=== PATIENT | female | born 1970 | race Caucasian/White ===

== ENCOUNTER 2022-06-05 04:55 | Emergency (ER) | payer BC, SELFPAY ==
--- NOTE | ~2022-06-05 | CT_ITS ---
EXAMINATION: CT lumbar spine wo con DATE: 06/05/2022 05:57 INDICATION: Severe right-sided low back pain radiating inferiorly. TECHNIQUE: Computed tomography (CT) of the lumbar spine was performed without intravenous contrast. A utomated exposure control and iterative reconstruction technique were employed. The dose-length produ ct was 1406.50 mGy-cm. COMPARISON: None FINDINGS: A degree lumbar dextrocurvature. Sagittal alignment is normal. Combined instrumented L4-S1 anterior s yuki fusion with interbody bone graft cages at both levels and bilateral vertical rods and pedicle s crews. There is a spinal stimulator overlying the right posterior iliac crest with a pair of leads ex tending from caudal to cranial within the sacral central canal with one lead tip terminating at the l evel of S2 and the second lead tip terminating in the right L5-S1 neural foramen. There is a second p air of spinal stimulator leads extending into the central canal via interspinous process approach at T12-L1 and extending cephalad within the central canal with lead tips at the level of T7-T8 on the sc out topogram. Vertebral body heights are normal. No fracture. Mild disc height loss at T10-T11 throug h L1-L2 as well as at L3-L4. Likely dropped cholecystectomy clip positioned between the liver and upp er pole of the right kidney. Paravertebral soft tissues are unremarkable. The following disc levels a re specifically discussed: T11-T12 through L2-L3: There is mild bilateral facet joint osteoarthritis. There is no neural foramin al stenosis. There is no central canal stenosis. L3-L4: Disc is bulging, eccentric to the left. There is right and moderate to severe left facet joint osteoarthritis. There is mild left neural foraminal stenosis. There is mild central canal stenosis. L4-L5: Anterior fusion with bone graft cage. Bilateral instrumented posterior spinal fusion with bila teral laminotomies. There is mild left neural foraminal stenosis. There is likely mild central canal stenosis however assessment is somewhat limited by metallic streak artifact. L5-S1: Anterior fusion with bone graft cage. Bilateral instrumented posterior spinal fusion with bila teral laminotomies. There is moderate left and mild to moderate right neural foraminal stenosis. Ther e is no central canal stenosis. IMPRESSION: 1. L4-S1 combined instrumented anterior and posterior spinal fusion. 2. Mild lumbar dextrocurvature with mild spondylosis. No acute osseous abnormality. 3. Spinal stimulator with leads extending into the sacrum and lower thoracic spine as detailed above. Reviewed, dictated and finalized at location A. IMPRESSION: 1. L4-S1 combined instrumented anterior and posterior spinal fusion. 2. Mild lumbar dextrocurvature with mild spondylosis. No acute osseous abnormal ity. 3. Spinal stimulator with leads extending into the sacrum and lower thoracic sp ine as detailed above.
[2022-06-05 05:03] VITALS: BP 121/71; PULSE 76; RESP 18; TEMP 36.5; O2SAT 100
--- NOTE | 2022-06-05 05:31 | PC.NURSE ---
C/o pain a 10 out of 10 while watching videos on phone and legs crossed on stretcher.
--- NOTE | 2022-06-05 05:51 | ED.BACK ---
HPI - Back Pain/Injury General Chief Complaint: Back Pain/Injury Stated Complaint: back pain Time Seen by Provider: 06/05/22 05:21 History of Present Illness HPI Narrative: Patient with history of chronic back pain, sciatica, with nerve stimulator presents with 2 days of severe sharp, burning right lower back pain which radiates down her leg, she states it feels different from her sciatica, and that it is more constant and causing pain with walking. Took norco at home with minimal improvement. Out of her Lyrica past week. Related Data Allergies Allergy/AdvReac Type Severity Reaction Status Date / Time acetaminophen [From Percocet] Allergy Anaphylaxis Verified 06/05/22 05:02 ketorolac [From Toradol] Allergy Anaphylaxis Verified 06/05/22 05:02 oxycodone [From Percocet] Allergy Anaphylaxis Verified 06/05/22 05:02 tramadol Allergy Anaphylaxis Verified 06/05/22 05:02 Review of Systems Review of Systems: CONST: No fever. HEENT: No sore throat C/V: No chest pain RESP: No cough GI: No abdominal pain : No dysuria. M/S: Back pain SKIN: No rash. NEURO: [No focal numbness or weakness] PSYCH: [No depression] [facility] Past Medical History Medical History (Updated 06/05/22 @ 05:57 by Trish Albert MD) Chronic lower back pain S/P placement of nerve stimulator Surgical History Surgical History (Updated 06/05/22 @ 05:55 by Trish Albert MD) H/O lumbosacral spine surgery Exam Narrative: EXAMINATION OF ORGAN SYSTEMS/BODY AREAS: Constitutional: Vital signs per nursing GENERAL: Resting comfortably but when moving around, appears to be uncomfortable HEAD: Normal with no signs of head trauma. EYES: EOMI, conjunctiva normal ENT: Hearing grossly intact LUNGS: Nonlabored breathing. 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 No gross focal sensory or strength deficits.] PSYCH: Normal affect Course Vital Signs Vital signs: Vital Signs Temperature 97.7 F 06/05/22 05:03 Pulse Rate 76 06/05/22 05:03 Respiratory Rate 18 06/05/22 05:03 Blood Pressure 121/71 06/05/22 05:03 Pulse Oximetry 100 06/05/22 05:03 Oxygen Delivery Room Air 06/05/22 05:03 Temperature 97.7 F 06/05/22 05:03 Pulse Rate 76 06/05/22 05:03 Respiratory Rate 18 06/05/22 05:03 Blood Pressure 121/71 06/05/22 05:03 Pulse Oximetry 100 06/05/22 05:03 Oxygen Delivery Room Air 06/05/22 05:03 MDM - Back Pain/Injury MDM Narrative Medical decision making narrative: ED COURSE AND MEDICAL DECISION MAKING: ? 52 year old female with history of acute on chronic back pain. Normal motor and sensory exam. Patient able to ambulate. No evidence of acute cord compression, osteomyelitis/discitis or cauda equina without saddle anesthesia, urinary retention/incontinence, numbness/tingling in lower extremities, fever, history of IV drug use, cancer or immunosuppression. Doubt AAA or aortic dissection without severe pain/discomfort or any neurovascular deficits. However as she states symptoms worse than her usual back pain I will obtain imaging. Steroids started. CT of the lumbar spine does not show any acute abnormality. I do feel she is stable for discharge at this time. Patient is given return precautions and instructed to come back at any point in time for worsening pain, fevers, weakness, difficulty walking, urinary or fecal incontinence. Patient expressed understanding of instructions. Discharge Plan Discharge Clinical Impression: Lumbar radiculopathy Patient Disposition: Home, Self-Care Condition: Stable Instructions: Antibiotic Form, Sciatica (ED), Back Pain (ED) Additional Instructions: Please take the steroid course as prescribed; continue taking your current pain medication regimen and foll
[2022-06-05] MEDS: predniSONE 20 MG TABLET 40 MG PO (06:06)
[2022-06-05 07:16] VITALS: BP 107/79; PULSE 82; O2SAT 100
[2022-06-05 07:45] VITALS: BP 106/77; PULSE 80; RESP 16; O2SAT 96
== END 2022-06-05 07:45 | disposition home or self-care (01) ==
PROVIDERS: Emergency Provider Emergency Medicine
DX: M47.26 Other spondylosis with radiculopathy, lumbar region (principal); Z96.82 Presence of neurostimulator; Z98.1 Arthrodesis status
CPT/HCPCS: 72131; 99284; J7512

== ENCOUNTER 2022-07-19 20:59 | Emergency (ER) | payer SELFPAY ==
[2022-07-19 21:03] VITALS: BP 150/87; PULSE 95; RESP 16; TEMP 36.3; O2SAT 96
--- NOTE | 2022-07-19 21:18 | ED.URI ---
HPI - URI/Sore Throat General Chief Complaint: Upper Respiratory Infection Stated Complaint: cold symptoms Time Seen by Provider: 07/19/22 21:00 History of Present Illness HPI Narrative: 52-year-old female presents to the emergency room for evaluation of cough, sinus congestion, postnasal drip, rhinorrhea, sneezing for 2 weeks. Patient states that her PCP in [place] told her to come straight to the emergency room for evaluation as this could be something serious. Patient states I just have a cold . Patient denies fever, shortness of breath, difficulty breathing. States has been taking NyQuil, DayQuil and Delsym for her symptoms. Related Data Allergies Allergy/AdvReac Type Severity Reaction Status Date / Time acetaminophen [From Percocet] Allergy Anaphylaxis Verified 06/05/22 05:02 ketorolac [From Toradol] Allergy Anaphylaxis Verified 06/05/22 05:02 oxycodone [From Percocet] Allergy Anaphylaxis Verified 06/05/22 05:02 tramadol Allergy Anaphylaxis Verified 06/05/22 05:02 Review of Systems Review of Systems: CONSTITUTIONAL: Denies fever, chills, or sweats. EYES: Denies visual changes, redness, or discharge. ENT: Reports rhinorrhea, congestion CARDIOVASCULAR: Denies chest pain, palpitations, or edema. RESPIRATORY: Reports cough GASTROINTESTINAL: Denies abdominal pain, nausea, vomiting, or diarrhea. GENITOURINARY: Denies dysuria or hematuria. SKIN: Denies rash or itching. MUSCULOSKELETAL: Denies back pain, joint pain, or myalgia. NEUROLOGIC: Denies headache, numbness, dizziness, or weakness. PSYCHIATRIC: Denies anxiety or depression. PMFSH Past Medical History Medical History Chronic lower back pain S/P placement of nerve stimulator Surgical History Surgical History H/O lumbosacral spine surgery Exam Narrative: GENERAL: Well-appearing, well-nourished, no physical limitations, and in no acute distress. HEAD: Normocephalic, atraumatic. EYES: Conjunctivae normal, PERRLA and EOMI. ENT: External nose normal, Nares clear, no rhinorrhea or epistaxis. Mucous membranes moist. Oropharynx without tonsillar hypertrophy exudate or other lesions. External ears normal, bilateral TMs normal bilaterally NECK: Supple. No adenopathy or masses. CHEST: Clear to auscultation. No respiratory distress. No wheezes rales or rhonchi. HEART: Regular rate and rhythm. No murmur heard. Normal peripheral pulses. EXTREMITIES: Normal range of motion. No edema. No clubbing or cyanosis SKIN: Warm, dry, no rash. No noted wounds NEURO: No focal deficits. Alert and oriented x3. MAEW. CN's II-XI intact bilaterally, normal gait PSYCH: Cooperative. Normal mood and affect. Course Vital Signs Vital signs: Vital Signs Temperature 36.3 C L 07/19/22 21:03 Pulse Rate 95 07/19/22 21:03 Respiratory Rate 16 07/19/22 21:03 Blood Pressure 150/87 H 07/19/22 21:03 Pulse Oximetry 96 07/19/22 21:03 Temperature 36.3 C L 07/19/22 21:03 Pulse Rate 93 07/19/22 22:01 Respiratory Rate 18 07/19/22 22:01 Blood Pressure 118/75 07/19/22 22:01 Pulse Oximetry 96 07/19/22 22:01 MDM - URI/Sore Throat Lab Data Labs: Lab Results 07/19/22 Range/Units 21:26 Influenza A (RT-PCR) Negative (Negative) Influenza B (RT-PCR) Negative (Negative) RSV (RT-PCR) Positive A (Negative) SARS-CoV-2 RNA (RT-PCR) Negative Discharge Plan Discharge Clinical Impression: Upper respiratory infection, Viral infection, RSV infection Patient Disposition: Home, Self-Care Condition: Stable Instructions: Antibiotic Form, Upper Respiratory Infection (ED) Prescriptions: New prednisone 20 mg tablet 60 mg PO DAILY 5 Days Qty: 15 0RF pseudoephedrine HCl 60 mg tablet 60 mg PO Q4-6H PRN (Reason: nasal congestion) Qty: 30 0RF Rx Instructions: DNExceed 4 doses/24h No Action prednisone 50 mg
[2022-07-19 22:01] VITALS: BP 118/75; PULSE 93; RESP 18; O2SAT 96
--- NOTE | 2022-07-19 22:04 | PC.NURSE ---
Patient states she thinks she has a cold . Patient on cell phone and in no distress during triage.
[2022-07-19 22:10] LABS: Influenza A QL RT-PCR Negative (Negative); Influenza B QL RT-PCR Negative (Negative); RSV RNA, RT-PCR Positive (Negative); SARS-CoV-2 RNA PCR Negative
== END 2022-07-19 22:26 | disposition home or self-care (01) ==
PROVIDERS: Emergency Provider Nurse Practitioner Family
DX: J06.9 Acute upper respiratory infection, unspecified (principal); B97.4 Respiratory syncytial virus as the cause of diseases classified elsewhere; Z20.822 Contact with and (suspected) exposure to COVID-19; Z96.82 Presence of neurostimulator; G89.29 Other chronic pain
CPT/HCPCS: 87637; 99283

== ENCOUNTER 2022-07-22 19:11 | Emergency (ER) | payer BC, SELFPAY ==
[2022-07-22 19:25] VITALS: BP 141/90; PULSE 80; RESP 16; TEMP 36.4; O2SAT 96
[2022-07-22 19:43] LABS: Glucose Point of Care 356 mg/dl (65-105)
[2022-07-22 19:47] LABS: Basophils Percent Auto 0.2 % (0.2-1.2); Hematocrit 38.3 % (37.0-47.0); Hemoglobin 12.2 g/dL (12.0-15.0); Immature Granulocyte Absolute 0.09 K/mm3 (0.00-0.031); Immature Granulocyte Percent A 0.8 % (0-0.5); Lymphocytes Absolute Auto 3.25 K/mm3 (0.9-3.2); Lymphocytes Percent Auto 27.1 % (18.3-44.2); Mean Corpuscular HGB Conc 31.9 g/dl (32-36); Mean Corpuscular Hemoglobin 29.7 pg (26-34); Mean Corpuscular Volume 93.2 fl (80-100); Mean Platelet Volume 9.5 fl (7.4-10.4); Monocytes Absolute Auto 0.4 K/mm3 (0.1-0.6); Monocytes Percent Auto 3.7 % (2.6-8.5); Neutrophils Absolute Auto 8.2 K/mm3 (1.3-6.7); Neutrophils Percent Auto 68.2 % (45.5-73.1); Platelet Count Result 303 k/mm3 (150-375); Red Blood Count 4.11 M/mm3 (4.2-5.4); Red Cell Distribution Width 14.6 % (11.5-14.5)
[2022-07-22 19:57] LABS: Alanine Aminotransferase 30 U/L (6-35); Albumin Level 4.1 g/dL (3.5-5.1); Alkaline Phosphatase 81 U/L (38-126); Anion Gap 10 mmol/L (8-16); Aspartate Amino Transferase 24 U/L (14-36); Bilirubin,Total 0.3 mg/dL (0.2-1.3); Blood Urea Nitrogen 11 mg/dL (7-17); Calcium 8.5 mg/dL (8.4-10.2); Carbon Dioxide 28 mmol/L (22-30); Chloride 99 mmol/L (98-107); Estimated CRCL calculation 98 ml/min; Estimated Glomerular Filt Rate > 60; Glucose 352 mg/dL (65-110); Potassium 3.9 mmol/L (3.4-5.0); Sodium 137 mmol/L (137-145)
[2022-07-22 20:01] LABS: Beta-Hydroxybutyrate/Acetoacetate 0.07 mmol/L (0.02-0.27)
[2022-07-22 20:24] LABS: Appearance Urine Cloudy (Clear); Bilirubin Urine Negative (Negative); Blood Urine 1+ (Negative); Color Urine Yellow (Yellow); Glucose Urine UA 3+ mg/dL (Negative); Ketones Urine Negative (Negative); Leukocyte Esterase Ur Negative LEU/UL (Negative); Nitrate Urine Negative (Negative); Protein Urine Negative (Negative); Specific Grav Ur 1.015 (1.001-1.035); Urobilinogen Urine 0.2 mg/dL (<2.0)
[2022-07-22 20:29] LABS: Bacteria Urine Trace /hpf; Mucus Urine Rare /lpf; Squamous Epithelial Cell Urine Many /hpf (Few)
[2022-07-22 20:30] LABS: Add Urine Microscopic? YES
[2022-07-22 23:57] LABS: Glucose Point of Care 160 mg/dl (65-105)
[2022-07-23 02:12] VITALS: O2SAT 98
[2022-07-23 02:15] VITALS: BP 138/86; PULSE 67; RESP 18; O2SAT 97
--- NOTE | 2022-07-23 02:46 | ED.GENADULT ---
HPI - General Adult General Chief complaint: Recheck/Abnormal Lab/Rx Stated complaint: hyperglycemia Time Seen by Provider: 07/23/22 01:35 History of Present Illness HPI narrative: This is a 52-year-old female presenting to ED with elevated blood sugars. She was seen here Thursday for URI symptoms. She is given a course of steroids. Since then her blood sugars increased around the 300s. She has also had some very nonspecific findings such as mental fogginess. Her URI symptoms have improved although she still has a slight cough. Patient denies fever, chills, chest pain, difficulty breathing, abdominal pain, nausea/vomiting/diarrhea. Related Data Home Medications Medication Instructions Recorded Confirmed hydrocodone 10 mg-acetaminophen tablet 07/22/22 07/22/22 325 mg tablet Allergies Allergy/AdvReac Type Severity Reaction Status Date / Time acetaminophen [From Percocet] Allergy Anaphylaxis Verified 07/22/22 23:58 ketorolac [From Toradol] Allergy Anaphylaxis Verified 07/22/22 23:58 oxycodone [From Percocet] Allergy Anaphylaxis Verified 07/22/22 23:58 tramadol Allergy Anaphylaxis Verified 07/22/22 23:58 Review of Systems Review of Systems: CONSTITUTIONAL: Denies night sweats. EYES: No eye pain ENT: Denies rhinorrhea CARDIOVASCULAR: Denies palpitations RESPIRATORY: Denies hemoptysis GASTROINTESTINAL: Denies hematemesis GENITOURINARY: Denies hematuria. SKIN: Denies rash MUSCULOSKELETAL: Denies myalgia. NEUROLOGIC: Denies weakness. PSYCHIATRIC: Denies delusions PMFSH Past Medical History Medical History Chronic lower back pain S/P placement of nerve stimulator Surgical History Surgical History H/O lumbosacral spine surgery Social History Social History Social History: Denies alcohol tobacco or drug use Exam Narrative: APPEARANCE: No apparent distress. patient is pleasant polite to the Head: atraumatic. EYES: EOMI, NOSE: Atraumatic NECK: Trachea midline RESPIRATORY: No increased rate of breathing, clear to auscultation bilaterally CARDIOVASCULAR: RRR, ABDOMINAL: Non-distended MUSCULOSKELETAl: No obvious deformities NEURO: Alert. Moving 4/4 extremities SKIN:: Warm, dry. Normal color PSYCHIATRIC: Normal affect Course Vital Signs Vital signs: Vital Signs Temperature 97.5 F L 07/22/22 19:25 Pulse Rate 80 07/22/22 19:25 Respiratory Rate 16 07/22/22 19:25 Blood Pressure 141/90 H 07/22/22 19:25 Pulse Oximetry 96 07/22/22 19:25 Temperature 97.5 F L 07/22/22 19:25 Pulse Rate 67 07/23/22 02:15 Respiratory Rate 18 07/23/22 02:15 Blood Pressure 138/86 07/23/22 02:15 Pulse Oximetry 97 07/23/22 02:15 Medical Decision Making MDM Narrative Medical decision making narrative: this is a 52-year-old female presenting ED for elevated blood sugar. Patient was given a course of steroids which will increase her blood sugars as a diabetic. She also had some other complaints such as mental fogginess but those seem to have improved while she was in emergency department. Lab work showed a elevated white blood cell count likely from the steroid use. Her BNP was in normal limits and she has no evidence of DKA/ HHS. Urine had some white blood cells but many squamous cells and is likely a dirty catch. She does not have any urinary symptoms this time. Patient is comfortable going home. She will be discharged. She can return emergency department for condition has worsened. She has been instructed to stop taking his steroids. Vital Signs Vital Signs: Vital Signs Temperature 97.5 F L 07/22/22 19:25 Pulse Rate 80 07/22/22 19:25 Respiratory Rate 16 07/22/22 19:25 Blood Pressure 141/90 H 07/22/22 19:25 Pulse Oximetry 96 07/22/22 19:25 Temperature 97.5 F L 07/22/22 19:25 Pul
== END 2022-07-23 02:58 | disposition home or self-care (01) ==
PROVIDERS: Emergency Medicine; Emergency Provider Emergency Medicine
DX: J06.9 Acute upper respiratory infection, unspecified (principal); E11.9 Type 2 diabetes mellitus without complications; T50.905A Adverse effect of unspecified drugs, medicaments and biological substances, initial encounter; M54.50 Low back pain, unspecified; G89.29 Other chronic pain
CPT/HCPCS: 36415; 80053; 81001; 82010; 82948; 85025; 99283

== ENCOUNTER 2022-11-01 20:30 | Emergency (ER) | payer OTHER, SELFPAY ==
[2022-11-01 20:50] VITALS: BP 149/87; PULSE 105; RESP 18; TEMP 36.5; O2SAT 100
--- NOTE | 2022-11-02 01:33 | ED.GENADULT ---
HPI - General Adult General Chief complaint: Upper Respiratory Infection Stated complaint: cough, sore throat, Time Seen by Provider: 11/02/22 01:23 History of Present Illness HPI narrative: Patient 52-year-old female who presents the emergency department with chief complaint of cough. Patient reports that she has had a cough since July after she had COVID patient reports this has been continually ongoing and has not stopped at any point. The patient reports she is recently moved to the area from [place] and reports that she currently does not have a primary care doctor in the area the patient also reports that she has had nasal congestion and has had fullness in her sinuses Related Data Home Medications Medication Instructions Recorded Confirmed hydrocodone 10 mg-acetaminophen tablet 07/22/22 07/22/22 325 mg tablet Allergies Allergy/AdvReac Type Severity Reaction Status Date / Time ketorolac [From Toradol] Allergy Anaphylaxis Verified 11/01/22 20:31 oxycodone [From Percocet] Allergy Anaphylaxis Verified 11/01/22 20:31 tramadol Allergy Anaphylaxis Verified 11/01/22 20:31 Review of Systems Review of Systems: A 10 system review of systems was completed on the patient and is negative except for what is stated in the HPI. Nursing and ancillary documentation was reviewed. [facility] Past Medical History Medical History Chronic lower back pain Surgical History Surgical History H/O lumbosacral spine surgery S/P placement of nerve stimulator Social History Social History Social History: Denies alcohol tobacco or drug use Exam Narrative: GENERAL: Well-appearing, well-nourished, and in no acute distress. HEAD: Normocephalic, atraumatic. EYES: PERRLA and EOMI. ENT: Nares clear, no rhinorrhea or epistaxis. Mucous membranes moist. NECK: Supple. CHEST: Scattered wheezes to auscultation. No respiratory distress. HEART: Regular rate and rhythm. No murmur heard. Normal peripheral pulses. ABDOMEN: Soft, nontender, nondistended, normal active bowel sounds. EXTREMITIES: Normal range of motion. No edema. SKIN: Warm, dry, no rash. NEURO: No focal deficits. Alert and oriented x3. PSYCH: Normal mood and affect. Course Vital Signs Vital signs: Vital Signs Temperature 36.5 C 11/01/22 20:50 Pulse Rate 105 H 11/01/22 20:50 Respiratory Rate 18 11/01/22 20:50 Blood Pressure 149/87 H 11/01/22 20:50 Pulse Oximetry 100 11/01/22 20:50 Oxygen Delivery Room Air 11/01/22 20:50 Temperature 36.5 C 11/01/22 20:50 Pulse Rate 105 H 11/01/22 20:50 Respiratory Rate 18 11/01/22 20:50 Blood Pressure 149/87 H 11/01/22 20:50 Pulse Oximetry 100 11/01/22 20:50 Oxygen Delivery Room Air 11/01/22 20:50 Medical Decision Making MDM Narrative Medical decision making narrative: Differential diagnosis includes bacterial bronchitis, pneumonia, upper respiratory infection, allergies. Given the patient's symptoms have been ongoing continuously since July the patient is more than 2 weeks post onset of symptoms and the concern for bacterial bronchitis is entertained. Patient be started on doxycycline given a prescription for Tessalon Perles and a prescription for an inhaler. Vital Signs Vital Signs: Vital Signs Temperature 36.5 C 11/01/22 20:50 Pulse Rate 105 H 11/01/22 20:50 Respiratory Rate 18 11/01/22 20:50 Blood Pressure 149/87 H 11/01/22 20:50 Pulse Oximetry 100 11/01/22 20:50 Oxygen Delivery Room Air 11/01/22 20:50 Temperature 36.5 C 11/01/22 20:50 Pulse Rate 105 H 11/01/22 20:50 Respiratory Rate 18 11/01/22 20:50 Blood Pressure 149/87 H 11/01/22 20:50 Pulse Oximetry 100 11/01/22 20:50 Oxygen Delivery Room Air 11/01/22 20:50 Discharge Plan Discharge Clin
[2022-11-02 01:45] VITALS: BP 133/79; PULSE 110; RESP 20; O2SAT 100
== END 2022-11-02 01:51 | disposition home or self-care (01) ==
PROVIDERS: Emergency Provider Emergency Medicine
DX: J20.9 Acute bronchitis, unspecified (principal)
CPT/HCPCS: 99283

== ENCOUNTER 2022-12-03 08:19 | Outpatient (CLI) | payer OTHER, SELFPAY ==
--- NOTE | ~2022-12-03 | XR_ITS ---
EXAMINATION: XR chest 2V DATE: 12/03/2022 08:38 INDICATION: Cough TECHNIQUE: PA and lateral views of the chest are obtained. COMPARISON: None available FINDINGS: The lungs are free of acute opacities. No pleural effusion or pneumothorax. The cardiomedia stinal silhouette is normal. There is mild thoracic spondylosis. There are stimulator leads project o romario the T7-8 disc space. Changes of anterior fusion procedure are noted in the lower cervical spine. There is mild thoracic spondylosis. Surgical clips in the right upper quadrant are likely from prior cholecystectomy. IMPRESSION: 1. No acute cardiopulmonary abnormality. Reviewed, dictated and finalized at location B.
--- NOTE | ~2022-12-03 | XR_ITS ---
MODIFIED ESOPHAGRAM HISTORY: Cough TECHNIQUE: Modified barium esophagram was performed on 12/03/2022. I administered fluoroscopy and perfo rmed the exam with speech pathologist. Patient was seated for lateral fluoroscopic imaging for inges tion of thin liquids, pudding, solids and quantified amounts, followed by thin liquids in uncontrolle d amounts. This was recorded on tape. A single fluoroscopic spot image was also recorded. The DAP for this procedure was 0.35 Gycm2. The amount of fluoroscopy time used during this procedure was 0.4 min utes. FINDINGS: C4-C6 anterior spinal fusion with interbody bone graft cages and anterior plate and screw fixation. Oral stage: Adequate function. Pharyngeal stage: Adequate function. Cervical/esophageal stage: Adequate function. IMPRESSION: Patient tolerated regular consistency oral feedings in the upright position. Please stephanie elate with speech pathologist findings and specific feeding recommendations. Reviewed, dictated and finalized at location A. IMPRESSION: Patient tolerated regular consistency oral feedings in the upright position. Please correlate with speech pathologist findings and specific feedi ng recommendations.
--- NOTE | 2022-12-03 16:32 | REHSTMBS ---
Assessment and note entered by Christy Hanley, MANUFACTURING LEADER Modified Barium Swallow Evaluation Feeding Type Recommended Oral Food Consistency Regular, Level 7 Liquid Consistency Thin (0) ST Clinical Summary MODIFIED BARIUM SWALLOW The patient was seen for a Modified Barium Swallow at the request of her physician. Patient denied any difficulty swallowing but stated that she has throat ulcers and that they create pain in the throat. She stated as a result, she has noted coughing since July 2022. She reports spinal surgery in 2012 but denied difficulty swallowing after that surgery. Patient was presented with graduated amounts of thin liquid contrast medium, then large amount of pudding/semi-solid, fruit pieces and cracker coated with semi-solid mixture. She exhibited quick swallows with no evidence or risk of penetration/aspiration. No diet modifications or further Speech Therapy is indicated. Thank you for this referral.
--- NOTE | 2022-12-03 16:34 | REHSTMBS ---
Assessment and note entered by Christy Hanley, CUSTOMER SUCCESS REPRESENTATIVE Modified Barium Swallow Evaluation Feeding Type Recommended Oral Food Consistency Regular, Level 7 Liquid Consistency Thin (0) ST Clinical Summary MODIFIED BARIUM SWALLOW The patient was seen for a Modified Barium Swallow at the request of her physician. Patient denied any difficulty swallowing but stated that she has throat ulcers and that they create pain in the throat. She stated as a result, she has noted coughing since July 2022. She reports spinal surgery in 2012 but denied difficulty swallowing after that surgery. Patient was presented with graduated amounts of thin liquid contrast medium, then large amount of pudding, fruit pieces and cracker coated with the semi-solid mixture. She exhibited quick swallows with no evidence or risk of penetration/aspiration. No diet modifications or further Speech Therapy is indicated. Thank you for this referral.
== END 2022-12-03 08:20 | disposition home or self-care (01) ==
PROVIDERS: PCP Internal Medicine; Visit Provider Internal Medicine
DX: R05.9 Cough, unspecified (principal)
CPT/HCPCS: 71046; 92611

== ENCOUNTER → 2022-12-04 11:37 | Outpatient (CLI) | payer OTHER, SELFPAY ==
--- NOTE | ~2022-12-04 | XR_ITS ---
EXAMINATION:XR_CERV2-3V_CR DATE: 12/04/2022 12:42 INDICATION: Cervical radiculopathy TECHNIQUE: AP, lateral, lateral swimmers and odontoid views of the cervical spine are provided. COMPARISON: None FINDINGS: There are 2 mm of anterolisthesis of C3 on C4. The odontoid process is intact. No fracture is identified. There are changes of anterior fusion procedure from C4 through C6. There is moderate l oss of intervertebral disc space height at C6-7. The vertebral body heights are maintained. There is multilevel mild facet and uncovertebral joint osteoarthritis. Prevertebral soft tissues are normal. IMPRESSION: 1. Changes of anterior fusion procedure and mild cervical spondylosis without acute findings or signi ficant interval change. Reviewed, dictated and finalized at location L. IMPRESSION: 1. Changes of anterior fusion procedure and mild cervical spondylosis without a cute findings or significant interval change.
--- NOTE | ~2022-12-04 | XR_ITS ---
XR thoracic spine 3V DATE: 12/04/2022 12:42 INDICATION: Postlaminectomy syndrome. Back pain. TECHNIQUE: Standing AP, lateral and swimmer views COMPARISON: None FINDINGS: Status post anterior and interbody surgical fusion at C4-C6. Thoracic spinal electrodes are noted. Normal alignment of the thoracic spine. No fracture or dislocation or bone destruction. There is mini mal thoracic spine spurring. No paraspinal soft tissue thickening. IMPRESSION: Status post anterior and interbody spinal fusion at C4-C6 Minimal degenerative spurring of the thoracic spine Thoracic spinal canal neurotransmitter leads Reviewed, dictated and finalized at location A.
--- NOTE | ~2022-12-04 | XR_ITS ---
XR lumbar spine 2-3V DATE: 12/04/2022 12:42 INDICATION: Postlaminectomy syndrome. Back pain. TECHNIQUE: Standing AP, lateral and lumbosacral views COMPARISON: 06/05/2022 CT lumbar spine FINDINGS: Pedicle screws and rods and interbody spinal fusion are noted at L4-S1. Grade 1 anterolisthesis and mild loss of interspace height at L3-4. No fracture or bone destruction or spondylolisthesis is noted otherwise. The lumbar and included lowe r thoracic pedicles appear intact. Mild degenerative spurring at the sacroiliac joints. There is a battery pack overlying the right gluteal area with neurotransmitter leads extending over t he lumbar and thoracic spine and the sacral spinal canal. Surgical clips overlie the right upper quadrant, likely due to cholecystectomy IMPRESSION: Status post posterior and interbody spinal fusion at L4 S1 Minimal grade 1 anterolisthesis and mild loss of interspace height at L3-4 Reviewed, dictated and finalized at location A.
== END ==
PROVIDERS: PCP Internal Medicine
DX: M96.1 Postlaminectomy syndrome, not elsewhere classified (principal); M47.22 Other spondylosis with radiculopathy, cervical region
CPT/HCPCS: 72040; 72072; 72100

== ENCOUNTER 2023-04-08 18:06 | Emergency (ER) | payer OTHER, SELFPAY ==
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
[2023-04-08 18:06] VITALS: BP 106/54; PULSE 84; RESP 16; TEMP 36.9; O2SAT 97
--- NOTE | 2023-04-08 19:05 | PC.NURSE ---
Patient report given to LATRICIA Blandon. All questions answered and care of patient transferred.
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
[2023-04-08] MEDS: diazePAM (*CRX) 5 MG TABLET PO (19:53)
== END 2023-04-08 20:24 | disposition home or self-care (01) ==
PROVIDERS: Emergency Provider Emergency Medicine; PCP Internal Medicine
DX: S79.912A Unspecified injury of left hip, initial encounter (principal); S19.9XXA Unspecified injury of neck, initial encounter; Z96.82 Presence of neurostimulator; V49.50XA Passenger injured in collision with unspecified motor vehicles in traffic accident, initial encounter
CPT/HCPCS: 73502; 99283; A9270

== ENCOUNTER 2023-11-09 05:01 | Emergency (ER) | payer OTHER, SELFPAY ==
[2023-11-09] VITALS (23 sets, daily range): BP systolic 105–134; BP diastolic 55–99; PULSE 63–108; RESP 12–31; TEMP 35.9–36.6; O2SAT 94–99
--- NOTE | ~2023-11-09 | CT_ITS ---
Clinical Indication: Dyspnea CT Scan of the Chest with Contrast: Technique: Contiguous sections were acquired throughout the chest after intravenous administration of 100 cc of Omnipaque 350. Dose reduction technique was used on this scan by utilizing automated expos ure control and iterative reconstruction technique. The dose-length product (DLP) was 763.98 mGy-cm. Findings: There is no evidence of any significant mediastinal, hilar or axillary lymphadenopathy. There is no f illing defect in the pulmonary arterial tree to suggest pulmonary embolus. There is no evidence of ao rtic dissection or aneurysm. There is no evidence of pleural or pericardial effusion. There is patchy groundglass airspace disease in the left lower lobe, consistent with pneumonia. Minim al background mosaic attenuation pattern of the lungs noted. Images through the upper abdomen reveal no abnormalities. Impression: Left lower lobe pneumonia. Minimal background mosaic attenuation pattern of the lungs. Correlate for asthma, bronchiolitis, hype rsensitivity pneumonitis, or chronic interstitial disease. No evidence for pulmonary embolus. Reviewed, dictated and finalized at [facility]. Impression: Left lower lobe pneumonia. Minimal background mosaic attenuation pattern of the lungs. Correlate for asthm a, bronchiolitis, hypersensitivity pneumonitis, or chronic interstitial disease . No evidence for pulmonary embolus.
--- NOTE | ~2023-11-09 | XR_ITS ---
Clinical Indication: Shortness of breath PA and lateral views of the chest: Comparison: 12/03/2022 Findings: The lungs are clear, without evidence of focal consolidation or pleural effusion. Cardiome diastinal silhouette is within normal limits. Bones and soft tissues are unremarkable. Stable intrath ecal leads. Impression: Clear lungs. Reviewed, dictated and finalized at location . Impression: Clear lungs.
--- NOTE | 2023-11-09 05:04 | ECG_ITS ---
Measurements Intervals [place] Rate: 98 P: 65 [place]: 165 QRS: -10 QRSD: 68 T: 40 QT: 334 QTc: 428 Interpretive Statements SINUS RHYTHM CONSIDER ANTERIOR INFARCT, AGE INDETERMINATE CONSIDER INFERIOR INFARCT, AGE INDETERMINATE ABNORMAL ECG NO PREVIOUS ECG AVAILABLE FOR COMPARISON Electronically Signed On 11-09-2023 17:07:21 CDT by Bro Lam D.O.
[2023-11-09 05:28] LABS: Basophils Percent Auto 0.4 % (0.2-1.2); Eosinophils Absolute Auto 0.2 K/mm3 (0-0.3); Eosinophils Percent Auto 3.2 % (0-4.4); Hematocrit 42.6 % (37.0-47.0); Hemoglobin 13.4 g/dL (12.0-15.0); Immature Granulocyte Absolute 0.02 K/mm3 (0.00-0.031); Immature Granulocyte Percent A 0.3 % (0-0.5); Immature Platelet Fraction Pct 4.3 % (0.9-11.2); Lymphocytes Absolute Auto 3.67 K/mm3 (0.9-3.2); Lymphocytes Percent Auto 51.3 % (18.3-44.2); Mean Corpuscular HGB Conc 31.5 g/dl (32-36); Mean Corpuscular Hemoglobin 29.8 pg (26-34); Mean Corpuscular Volume 94.7 fl (80-100); Mean Platelet Volume 11.2 fl (7.4-10.4); Monocytes Absolute Auto 0.5 K/mm3 (0.1-0.6); Monocytes Percent Auto 7.6 % (2.6-8.5); Neutrophils Absolute Auto 2.7 K/mm3 (1.3-6.7); Neutrophils Percent Auto 37.2 % (45.5-73.1); Platelet Count Result 214 k/mm3 (150-375); Red Cell Distribution Width 14.7 % (11.5-14.5); White Blood Count 7.2 K/mm3 (4.5-10.0)
[2023-11-09] MEDS: IPRATROPIUM 0.5 MG/ALBUTEROL SULFATE 2.5 MG AMPUL.NEB 3 ML INHALATION (05:29)
--- NOTE | 2023-11-09 05:34 | ED.GENADULT ---
HPI - General Adult General Chief complaint: Shortness of Breath/Dyspnea <Milind Estrada MD - Last Filed: 11/09/23 07:11> Stated complaint: sob, cp <Milind Estrada MD - Last Filed: 11/09/23 07:11> Time Seen by Provider: 11/09/23 05:34 <Milind Estrada MD - Last Filed: 11/09/23 07:11> History of Present Illness HPI narrative: Patient 53-year-old female who presents emergency department with chief complaint of shortness of breath chest tightness. The patient reports that since August she has had the flu and then she has been coughing having some tightness in her chest. Patient states he has also been wheezing <Milind Estrada MD - Last Filed: 11/09/23 07:11> Related Data Home medications: Home Medications Medication Instructions Recorded Confirmed hydrocodone 10 mg-acetaminophen tablet 07/22/22 07/22/22 325 mg tablet <Milind Estrada MD - Last Filed: 11/09/23 07:11> Allergies/adverse reactions: Allergies Allergy/AdvReac Type Severity Reaction Status Date / Time ketorolac [From Toradol] Allergy Anaphylaxis Verified 11/01/22 20:31 oxycodone [From Percocet] Allergy Anaphylaxis Verified 11/01/22 20:31 tramadol Allergy Anaphylaxis Verified 11/01/22 20:31 <Milind Estrada MD - Last Filed: 11/09/23 07:11> Review of Systems Review of Systems: A 10 system review of systems was completed on the patient and is negative except for what is stated in the HPI. Nursing and ancillary documentation was reviewed. <Milind Estrada MD - Last Filed: 11/09/23 07:11> PMFSH Past Medical History Medical History: Medical History Chronic lower back pain <Milind Estrada MD - Last Filed: 11/09/23 07:11> Surgical History Surgical History: Surgical History H/O lumbosacral spine surgery S/P placement of nerve stimulator <Milind Estrada MD - Last Filed: 11/09/23 07:11> Social History Social History: Social History Social History: Denies alcohol tobacco or drug use <Milind Estrada MD - Last Filed: 11/09/23 07:11> Exam Narrative: GENERAL: Well-appearing, well-nourished, and in no acute distress. HEAD: Normocephalic, atraumatic. EYES: PERRLA and EOMI. ENT: Nares clear, no rhinorrhea or epistaxis. Mucous membranes moist. NECK: Supple. CHEST: Scattered wheeze to auscultation. No respiratory distress. HEART: Regular rate and rhythm. No murmur heard. Normal peripheral pulses. ABDOMEN: Soft, nontender, nondistended, normal active bowel sounds. EXTREMITIES: Normal range of motion. No edema. SKIN: Warm, dry, no rash. NEURO: No focal deficits. Alert and oriented x3. PSYCH: Normal mood and affect. <Milind Estrada MD - Last Filed: 11/09/23 07:11> Course Vital Signs Vital signs: Vital Signs Temperature 96.7 F L 11/09/23 05:04 Pulse Rate 81 11/09/23 05:04 Respiratory Rate 15 11/09/23 05:04 Blood Pressure 123/76 11/09/23 05:04 Pulse Oximetry 98 11/09/23 05:04 Oxygen Delivery Room Air 11/09/23 05:04 Temperature 97.9 F 11/09/23 05:05 Pulse Rate 67 11/09/23 07:56 Respiratory Rate 12 11/09/23 07:56 Blood Pressure 129/82 11/09/23 07:56 Pulse Oximetry 97 11/09/23 07:56 Oxygen Delivery Room Air 11/09/23 06:06 <Milind Estrada MD - Last Filed: 11/09/23 07:11> Vital Signs Temperature 96.7 F L 11/09/23 05:04 Pulse Rate 81 11/09/23 05:04 Respiratory Rate 15 11/09/23 05:04 Blood Pressure 123/76 11/09/23 05:04 Pulse Oximetry 98 11/09/23 05:04 Oxygen Delivery Room Air 11/09/23 05:04 Temperature 97.9 F 11/09/23 05:05 Pulse Rate 67 11/09/23 07:56 Respiratory Rate 12 11/09/23 07:56 Bloo
[2023-11-09 05:55] LABS: Influenza A QL RT-PCR Negative (Negative); Influenza B QL RT-PCR Negative (Negative); RSV RNA, RT-PCR Negative (Negative); SARS-CoV-2 RNA PCR Negative (Negative)
[2023-11-09 06:02] LABS: Lipase 162 U/L (23-300)
[2023-11-09 06:05] LABS: Alanine Aminotransferase 34 U/L (6-35); Albumin Level 3.9 g/dL (3.5-5.1); Alkaline Phosphatase 76 U/L (38-126); Anion Gap 6 mmol/L (8-16); Aspartate Amino Transferase 33 U/L (14-36); Bilirubin,Total 0.4 mg/dL (0.2-1.3); Blood Urea Nitrogen 13 mg/dL (7-17); Calcium 8.7 mg/dL (8.4-10.2); Carbon Dioxide 22 mmol/L (22-30); Chloride 108 mmol/L (98-107); Estimated CRCL calculation 97 ml/min; Estimated Glomerular Filt Rate > 60; Glucose 152 mg/dL (65-110); Potassium 3.6 mmol/L (3.4-5.0); Sodium 136 mmol/L (137-145)
[2023-11-09 06:11] LABS: INR 0.9
[2023-11-09 06:12] LABS: Partial Thromboplastin Time 28.6 SECONDS (22.3-36.8)
[2023-11-09 06:15] LABS: NT Pro B Type Natriuretic Pept 81 pg/mL (19.9-100); Troponin I < 0.012 ng/mL (0.000-0.034)
== END 2023-11-09 09:01 | disposition home or self-care (01) ==
PROVIDERS: Emergency Provider Emergency Medicine; PCP Internal Medicine
DX: J18.9 Pneumonia, unspecified organism (principal); Z20.822 Contact with and (suspected) exposure to COVID-19; Z96.82 Presence of neurostimulator; R94.31 Abnormal electrocardiogram [ECG] [EKG]
CPT/HCPCS: 36415; 71046; 71275; 80053; 83690; 83880; 84484; 85025; 85055; 85610; 85730; 87637; 93005; 94640; 99284; Q9967

== ENCOUNTER 2024-04-29 12:40 | Outpatient (CLI) | payer OTHER, SELFPAY ==
--- NOTE | 2024-04-29 | ECHO_ITS ---
Patient Info Name: Shobha Murray Age: 54 years : 1970 Gender: Female Ht: 66 in Wt: 246 lbs BSA: 2.33 m2 HR: 73 bpm BP: 110 / 75 mmHg Technical Quality: Good Exam Date: 04/29/2024 1:00 PM Exam Location: Echo Lab Patient Status: Outpatient Admit Date: 04/29/2024 Staff Ordering Physician: GideonRhys MD Machine Assembler: Elizabeth Dykes RDCS Attending Provider: ChapoRhys MD Exam Type: CA echo doppler color flow Study Info Indications R42 - Dizziness and giddiness Complete two-dimensional, color flow and Doppler transthoracic echocardiogram is performed. Strain analysis performed. Summary 1. Complete two-dimensional, color flow and Doppler transthoracic echocardiogram is performed. 2. Left ventricular chamber dimension is normal. 3. Left ventricular systolic function is normal, estimated at 60-65%. 4. The left ventricular diastolic function is normal. 5. E/e' 7 is not elevated. 6. Global longitudinal strain is normal at -18.2%. 7. There is trace mitral valve regurgitation. 8. There is trace tricuspid valve regurgitation. 9. No pulmonary hypertension, estimated pulmonary arterial systolic pressure is 27 mmHg. Left Ventricle E/e' 7 is not elevated. Global longitudinal strain is normal at -18.2%. Left ventricular chamber dimension is normal. Left ventricular systolic function is normal, estimated at 60-65%. The left ventricular diastolic function is normal. Right Ventricle Right ventricular systolic function is normal and with normal TAPSE 2.1 cm. Right ventricular chamber dimension is normal. Left Atria Left atrial chamber dimension is normal. Right Atria Right atrial chamber dimension is normal. Aortic Valve The aortic valve is trileaflet. There is no aortic valve stenosis. There is no aortic valve regurgitation. Pulmonic Valve There is no pulmonic regurgitation. Mitral Valve There is no mitral valve stenosis. There is trace mitral valve regurgitation. Tricuspid Valve There is trace tricuspid valve regurgitation. No pulmonary hypertension, estimated pulmonary arterial systolic pressure is 27 mmHg. Pericardium/Pleural There is no pericardial effusion. Inferior Vena Cava Normal inferior vena cava with >50% collapse upon inspiration consistent with normal right atrial pressure, 5 mmHg. Aorta The aortic root size at the sinus of Valsalva is normal. Left Ventricular Outflow Tract Name Value Normal LVOT 2D LVOT Diameter 1.9 cm LVOT Doppler LVOT Peak Gradient 5 mmHg LVOT Mean Gradient 3 mmHg LVOT VTI 23 cm LVOT VTI/AV VTI Ratio 0.9 LVOT Stroke Volume 68 ml LVOT CO 5.0 l/min LVOT CI 2.2 l/min/m2 Pulmonic Valve Name Value Normal RVOT Doppler RVOT Peak Gradient 2 mmHg
== END 2024-04-29 12:41 | disposition home or self-care (01) ==
LOC: ANHCARD 12:42
PROVIDERS: PCP Internal Medicine; Visit Provider Internal Medicine
DX: R42 Dizziness and giddiness (principal)
CPT/HCPCS: 93306

== ENCOUNTER 2024-09-20 16:08 | Outpatient (CLI) | payer OTHER, SELFPAY ==
--- NOTE | ~2024-09-20 | MM_ITS ---
EXAMINATION: MM screening [facility] w [place] HISTORY: Screening TECHNIQUE: Craniocaudal and mediolateral oblique 3-D tomosynthesis images were obtained and synthetic 2-D images were generated. CAD analysis was submitted and interpreted. COMPARISON: No prior mammogram is available for comparison at this institution. BREAST PARENCHYMAL COMPOSITION: Not dense: There are scattered areas of fibroglandular density. FINDINGS: There is focal asymmetry in the upper inner quadrant of the left breast, middle third. No m ammographic evidence for malignancy in the right breast. IMPRESSION: 1. Focal left breast asymmetry. 2. Additional mammographic views and possible breast ultrasound are recommended. BI-RADS Category 0: Incomplete: Needs additional imaging evaluation. Reviewed, dictated and finalized at location A. LRY STORE MANAGER IMPRESSION: 1. Focal left breast asymmetry. 2. Additional mammographic views and possible breast ultrasound are recommended . BI-RADS Category 0: Incomplete: Needs additional imaging evaluation.
--- OUTSIDE RECORDS SUMMARY | 2024-09-22 19:59 | XMS_ITS | Encounter Summary ---
Author Organization [facility] Address [address] [place] [address]. [place] [address] Care Team Providers Care Drug Safety Coordinator Name Role Phone Unavailable Primary Care Provider Unavailabl e Encounter Details Date Type Department Care Team (Late st Contact Info) Description 04/13/2008 Abstract [facility] Conversion Md, Generic Conversion, Social History Tobacco Use Types Packs/Day Years Used Date Smoking Tobacco: Never Assessed Comments Unknown Sex and Gender Information Value Date Recorded Sex Assigned at Not on file Legal Sex Female 8:13 PM CDT Gender Identity Not on file Sexual Orientation Not on file documented as of this encounter Plan of Treatment Not on file documented as of this encounter Visit Diagnoses Not on filedocumented in this encounter
--- OUTSIDE RECORDS SUMMARY | 2024-09-22 19:59 | XMS_ITS | Encounter Summary ---
Author Organization [facility] Address [address] [place] [address]. [place] [address] Care Team Providers Care Cable Cutter And Swager Name Role Phone Unavailable Primary Care Provider Unavailabl e Encounter Details Date Type Department Care Team (Late st Contact Info) Description 06/01/2003 Abstract [facility] Conversion Md, Generic Conversion, Social History Tobacco [...]
--- OUTSIDE RECORDS SUMMARY | 2024-09-22 19:59 | XMS_ITS | CONTINUITY OF CARE DOCUMENT ---
Author Name dominga orr Address Unknown Organization [facility] Office Address [address] [place] [address] Phone [phone] Care Team Providers Care Retail Store Manager Name Role Phone Asif PLUNKETT, Jhon Unavailable Rhys Meneses DO Unavailable [phone] RHYS MENESES MD Unavailable [phone] INSURANCE PROVIDERS Payer name Policy type / Coverage type Sheyla red democrat ID [id number] insurance [employer] [id number]
--- OUTSIDE RECORDS SUMMARY | 2024-09-22 19:59 | XMS_ITS | Referral Summary ---
Author Organization [facility] Address [address] [place] [address] Care Team Providers Care Sales Operations Manager Name Role Phone Karen Rahman PA-C Primary Care Provider [phone] Source Comments [facility],non-owned Affiliates and Associated Physician Practices is amultiple site organization consisting of ambulatory clinics and hospital sitesin [place], [place], [place] and [place]. This disclosure is being madepursuant to the Care Everywhere program and may not contain all information available regarding this patient. Last updated 18.[facility] Encounters Date Type Department Care Team Description 08/01/2024 Travel 08/01/2024 2:35 PM SPOON MAKER - 08/01/2024 11:59 PM SPOON MAKER Hospital Encounter [facility] [address] [place] [address] [phone] Discharge Disposition: Home or Self Care from Last 3 Months Allergies Active Allergy Reactions Criticality Noted Date Comments Oxycodone-Acetaminophen Itching 03/07/2013 Oxycodone-Acetaminophen Rash Low 12/31/2013 And hives Ketorolac Itching Low 03/07/2013 Ketorolac Rash Low 12/31/2013 And hives Tramadol Itching 06/22/2014 Medications * Be aware that medications may not be up to date on this document. Alwaysverify current medications with the patient. Medication Sig Dispensed Refills Start Date End Date Status Naproxen Sodium (ALEVE) 220 MG CAPS Take by mouth. A ctive tiZANidine (ZANAFLEX) 2 MG tablet Take 2 mg by mouth every 8 hours as needed for Muscle Spasms Active amoxicillin-clavulan ate (AUGMENTIN) 500-125 MG tabletIndications:Ac gabi maxillary sinusitis, recurrence not specified Take 1 Tab by mouth 2 times daily with morning and evening meal 20 Tab 0 07/19/2015 Active lidocaine (Lidoderm) 5 % patch Apply 1 (one) patch to skin once daily Apply patch to most painful area and remove after 12 hours. May reapply a new patch 12 hours later. 3 patch 02/08/2023 Active cyclobenzaprine (Flexeril) 5 MG tablet Take 1 (one) tablet by mouth 3 times daily as needed (Muscle spasms) 10 tablet 02/08/2023 Active HYDROcodone-acetamin ophen ([place]) 10-325 MG tabletIndications:Ot her low back pain TAKE ONE TABLET BY MOUTH 3 TIMES A DAY NEEDED FOR 15 DAYS 45 tablet 03/15/2024 Active HYDROcodone-acetamin ophen ([place]) 10-325 MG tabletIndications:Ot her low back pain TAKE ONE TABLET BY MOUTH 3 TIMES A DAY NEEDED FOR 15 DAYS 45 tablet 03/29/2024 09/25/2024 Active HYDROcodone-acetamin ophen ([place]) 10-325 MG tabletIndications:Ot her low back pain TAKE ONE TABLET BY MOUTH 3 TIMES A DAY NEEDED FOR 15 DAYS 45 tablet 04/12/2024 10/09/2024 Active HYDROcodone-acetamin ophen ([place]) 10-325 MG tabletIndications:Ot her low back pain TAKE ONE TABLET BY MOUTH 3 TIMES A DAY NEEDED FOR 15 DAYS 45 tablet 04/30/2024 10/27/2024 Active Active Problems Problem Noted Date Diagnosed Date Other postprocedural status(V45.89) 11/23/2013 Shoulder pain 03/07/2013 Immunizations Name Administration Dates Next Due PNEUMOCOCCAL PPSV23 06/14/2014 TDAP (7yrs+) 08/31/2006 Social History Tobacco Use Types Packs/Day Years Used Date Smoking Tobacco: Never Smokeless Tobacco: Never Alcohol Use Standard Drinks/Week Comments No 0 (1 standard drink = 0.6 oz pur e alcohol) Sex and Gender Information Value Date Recorded Sex Assigned at Not on file Gender Identity Not on file Sexual Orientation Not on file Last Filed Vital Signs Vital Sign Reading Time Taken Comments Blood Pressure 101/82 02/08/2023 2:29 PM CDT Pulse 75 02/08/2023 2:29 PM CDT Temperature 36.6 ??C (97.9 ??F) 02/08/2023 2:29 PM CD T Respiratory Rate 16 02/08/2023 2:29 PM CDT Oxygen Saturation 100% 02/08/2023 2:29 PM CDT Inhaled Oxygen Concentration - - Weight 108.9 kg (240 lb) 02/08/2023 8:10 AM CDT Height 167.6 cm (5' 6 ) 02/08/2023 8:10 AM CDT Body Mass Index 38.74 02/08/2023 8:10 AM CDT Plan of Treatment Not on file Procedures Procedure Name Priority Date/Time Associated Diagnosis Comments CBC W/O DIFFERENTIAL Routine 08/01/2024 2:54 PM SPOON MAKER Diabetes mellitus without complication (HCC) COMPREHENSIVE METABOLIC PANEL Routine 08/01/2024 2:54 PM SPOON MAKER Diabetes mellitus without complication (HCC) LIPID PROFILE Routine 08/01/2024 2:54 PM SPOON MAKER Diabetes mellitus without complication (HCC) HEMOGLOBIN A1C Routine 08/01/2024 2:54 PM SPOON MAKER Diabetes mellitus without complication (HCC) HIV-1 HIV-2 ANTIBODY W/ REFLX CONFIRM Routine 07/19/2015 3:52 PM SPOON MAKER Possible exposure to STD from Last 3 Months or Most Recently Relevant to Health Maintenance Results * (ABNORMAL) HEMOGLOBIN A1C [IN-HOUSE TEST] (08/01/2024 2:54 PM SPOON MAKER) Hemoglobin A1c 7.7(H) <=5.6 % 08/02/2024 8:53 AM [facility] Estimated Average Glucose 174 mg/dL 08/02/2024 8:53 AM [facility] Comment: HbA1c Interpretation: Normal : < 5.7% Pre-diabetes: 5.7-6.4% Diabetes: Equal to or greater than 6.5% Test results diagnostic of diabetes should be repeated for confirmation. Treatment target values recommended by ADA and other clinical organizations should be used to evaluate metabolic control in patients. Reference: [place] Diabetes Association, Standards of Care in Diabetes -2020 In patients 70 years and older consider HbA1c target range of 7.0-7.5% (Reference: Stephen Prabhakar et al. TWILADA. 2012) The Sebia assay for the measurement of HbA1c is a National Glycohemoglobin Standardization Program (NGSP) certified method. Blood BLOOD SPECIMEN WITH EDTA / Unknown Lab Venipuncture / Unknown 08/01/2024 2:54 PM SPOON MAKER 08/01/2024 3:22 PM SPOON MAKER Provider Unknown LAB - CHEMISTRY BENNETT CHAHAL [facility] [address] [place] [phone], [facility] [phone] * CBC W/O DIFFERENTIAL (08/01/2024 2:54 PM SPOON MAKER) WBC 7.5 4.0 - 10.7 x10E9/L 08/01/2024 3:32 PM [facility] RBC Count 4.26 3.90 - 5.20 x10E12/L 08/01/2024 3:32 PM [facility] Hemoglobin 12.8 11.9 - 15.8 g/dL 08/01/2024 3:32 PM [facility] Hematocrit 38.7 34.8 - 46.1 % 08/01/2024 3:32 PM [facility] MCV 90.8 80.0 - 98.0 fL 08/01/2024 3:32 PM [facility] MCH 30.0 26.7 - 33.6 pg 08/01/2024 3:32 PM [facility] MCHC 33.1 31.7 - 36.3 g/dL 08/01/2024 3:32 PM [facility] RDW-CV 14.8 11.3 - 14.8 % 08/01/2024 3:32 PM [facility] Platelet Count 285 150 - 420 x10E9/L 08/01/2024 3:32 PM [facility] MPV 9.7 7.8 - 11.4 fL 08/01/2024 3:32 PM [facility] Blood BLOOD SPECIMEN / Unknown Lab Venipuncture / Unknown 08/01/2024 2:54 PM SPOON MAKER 08/01/2024 3:23 PM SPOON MAKER Provider Unknown LAB - HEMATOLOGY ORD ERABLES [facility] [address] [place] [address], [facility] [phone] * (ABNORMAL) COMPREHENSIVE METABOLIC PANEL (08/01/2024 2:54 PM SPOON MAKER) BUN 22 7 - 26 mg/dL 08/01/2024 3:53 PM [facility] Creatinine 1.06(H) 0.56 - 0.96 mg/dL 08/01/2024 3:53 PM [facility] Sodium 142 136 - 145 mmol/L 08/01/2024 3:53 PM [facility] Potassium 4.4 3.5 - 4.5 mmol/L 08/01/2024 3:53 PM [facility] Chloride 109(H) 98 - 107 mmol/L 08/01/2024 3:53 PM [facility] CO2 25 22 - 29 mmol/L 08/01/2024 3:53 PM [facility] Glucose 153(H) 70 - 99 mg/dL 08/01/2024 3:53 PM [facility] Calcium 9.4 8.4 - 10.2 mg/dL 08/01/2024 3:53 PM [facility] Protein Total 7.7 6.0 - 8.3 g/dL 08/01/2024 3:53 PM [facility] Albumin 3.7 3.4 - 5.0 g/dL 08/01/2024 3:53 PM [facility] Bilirubin Total 0.2 0.2 - 1.2 mg/dL 08/01/2024 3:53 PM [facility] Alkaline Phosphatase 70 40 - 150 U/L 08/01/2024 3:53 PM [facility] ALT 24 5 - 55 U/L 08/01/2024 3:53 PM [facility] AST 18 5 - 34 U/L 08/01/2024 3:53 PM [facility] Anion Gap 8 6 - 16 08/01/2024 3:53 PM [facility] BUN/Creatinine Ratio 21 7 - 23 08/01/2024 3:53 PM [facility] Osmolality Calculated 300(H) 275 - 295 mOsm/kg 08/01/2024 3:53 PM [facility] Albumin/Globulin Ratio 0.9(L) 1.1 - 2.3 08/01/2024 3:53 PM [facility] eGFR by CKD-EPI 63(L) >=90 mL/min/1.7 3 m2 08/01/2024 3:53 PM [facility] Blood BLOOD SPECIMEN / Unknown Lab Venipuncture / Unknown 08/01/2024 2:54 PM SPOON MAKER 08/01/2024 3:23 PM [facility] Provider Unknown LAB - CHEMISTRY BENNETT CHAHAL Performing Organization Address [facility]State/[facility] Co de Phone Number [facility] [address] [place] [address], [facility] [phone] * (ABNORMAL) LIPID PROFILE (08/01/2024 2:54 PM SPOON MAKER) Cholesterol Total 196 <200 mg/dL 08/01/2024 3:53 PM [facility] HDL 55 >40 mg/dL 08/01/2024 3:53 PM [facility] Comment: ATP III Classification of HDL Cholesterol: ? <40 mg/dL: ??Considered a major risk factor. ? >60 mg/dL: ??Considered a negative risk factor. ? LDL Calculated 90 <100 mg/dL 08/01/2024 3:53 PM [facility] Comment: ATP III Classification of LDL Cholesterol: ?<100 mg/dL: ??Optimal ? 100 - 129 mg/dL: ??Near Optimal/Above Optimal ? 130 - 159 mg/dL: ??Borderline High ? 160 - 189 mg/dL: ??High ?>190 mg/dL: ??Very High ? Triglycerides 255(H) <150 mg/dL 08/01/2024 3:53 PM SPOON MAKER [facility] Comment: ATP III Classification of Triglycerides: ?<150 mg/dL: ??Normal ? 150 - 199 mg/dL: ??Borderline High ? 200 - 400 mg/dL: ??High ?>500 mg/dL: ??Very High Blood BLOOD SPECIMEN / Unknown Lab Venipuncture / Unknown 08/01/2024 2:54 PM SPOON MAKER 08/01/2024 3:23 PM SPOON MAKER Provider Unknown LAB - CHEMISTRY ORDE FELA Performing Organization Address City/[facility]/ZIP Co de Phone Number [facility] [address] [place] [address], [facility] [phone] * HIV-1 HIV-2 ANTIBODY W/ REFLX CONFIRM (07/19/2015 3:52 PM SPOON MAKER) [facility] HIV-1/HIV-2 Negative Negative 07/22/2015 12:40 AM SPOON MAKER [employer] ([facility]) Comment: Based on the non-reactive anti-HIV (ARSENIO) screen, the HIV Western blot is not indicated and therefore not performed. INTERPRETIVE INFORMATION: HIV-1,-2 w/Reflex to HIV-1 Western Blot This assay should not be used for blood donor screening, associated re-entry protocols, or for screening Human Cells, Tissues and Cellular and Tissue-Based Products (HCT/P). Blood specimen (specimen) BLOOD SPECIMEN / Unknown Venipuncture / Unknown 07/19/2015 3:52 PM SPOON MAKER 07/19/2015 3:54 PM SPOON MAKER Karen Rahman PA-C LAB - SEROLOGY ORDER [facility] [employer]) [address] from Last 3 Months or Most Recently Relevant to Health Maintenance Administered Medications Care Teams Sales Operations Manager Relationship Specialty Start Date End Date Karen Rahman, PAIrmaC [address] [place] [address] PCP - General Physician Children'[employer] Entertainer 01/30/15
--- OUTSIDE RECORDS SUMMARY | 2024-09-22 19:59 | XMS_ITS | Clinical Summary ---
Author Organization [facility] Address [facility]. [place], [place] [id number] [place] [id number] Care Team Providers Care Digester Operator Helper Name Role Phone Unavailable Primary Care Provider Unavailabl e Social History Tobacco Use Types Packs/Day Years Used Date Smoking Tobacco: Never Assessed Comments Unknown Sex and Gender Information Value Date Recorded Sex Assigned at Not on file Legal Sex Female 8:13 PM CDT Gender Identity Not on file Sexual Orientation Not on file Plan of Treatment Health Maintenance Due Date Last Done Comments Cervical Cancer Screening Pa p Smear (Age 30 to 64) Every 3 Years 1971 Colorectal Cancer Screening Colonoscopy (10 Years) 1971 Annual Physical 1974 Hepatitis C 1989 DTaP, Tdap and Td Vaccines ( 1 - Tdap) 1990 Hepatitis B Vaccines (1 of 3 - 19+ 3-dose series) 1990 Cervical Cancer Screening Pa p with HPV Testing (Age 30 to 64) Every 5 Years 2001 Cervical Cancer Screening with HPV 2001 Mammogram Screening 2011 Zoster Vaccines (1 of 2) 2021 COVID-19 Vaccine (2023-2 5 season) 2024 Influenza Adult (#1) 2024 Meningococcal Vaccine Aged Out No lilo shamar eligible based on patient's age to complete this topic Pneumococcal Vaccine: Pediat rics (0 to 5 Years) and At-Risk Patients (6 to 64 Years) Aged Out No longer eligible b ased on patient's age to complete this topic RSV Immunizations Under 20 Months Aged Out No longer eligible based on patient's age to complete this topic
--- OUTSIDE RECORDS SUMMARY | 2024-09-22 19:59 | XMS_ITS | Patient Health Summary ---
Author Organization [facility] Address [address] [place] [address] Care Team Providers Care Oyster Grower Name Role Phone Karen Rahman PA-C Primary Care Provider Note from [facility],non-owned Affiliates and Associated Physician Practices is amultiple site organization consisting of ambulatory clinics and hospital sitesin [place], [place], [place] and [place]. This disclosure is being madepursuant to the Care Everywhere program and may not contain all information available regarding this patient. Last updated 18.[facility] Allergies * Oxycodone-Acetaminophen(Itching) * Oxycodone-Acetaminophen(Rash) -Low Criticality * Ketorolac(Itching) -Low Criticality * Ketorolac(Rash) -Low Criticality * Tramadol(Itching) Medications * Be aware that medications may not be up to date on this document. Alwaysverify current medications with the patient. * Naproxen Sodium (ALEVE) 220 MG CAPS Take by mouth. * tiZANidine (ZANAFLEX) 2 MG tablet Take 2 mg by mouth every 8 hours as needed for Muscle Spasms * amoxicillin-clavulanate (AUGMENTIN) 500-125 MG tablet(Started 07/19/2015) Take 1 Tab by mouth 2 times daily with morning and evening meal * lidocaine (Lidoderm) 5 % patch(Started 02/08/2023) Apply 1 (one) patch to skin once daily Apply patch to most painful area and remove after 12 hours. May reapply a new patch 12 hours later. * cyclobenzaprine (Flexeril) 5 MG tablet(Started 02/08/2023) Take 1 (one) tablet by mouth 3 times daily as needed (Muscle spasms) * HYDROcodone-acetaminophen ([place]) 10-325 MG tablet(Started 03/15/2024) TAKE ONE TABLET BY MOUTH 3 TIMES A DAY NEEDED FOR 15 DAYS * HYDROcodone-acetaminophen ([place]) 10-325 MG tablet(Started 03/29/2024) TAKE ONE TABLET BY MOUTH 3 TIMES A DAY NEEDED FOR 15 DAYS * HYDROcodone-acetaminophen ([place]) 10-325 MG tablet(Started 04/12/2024) TAKE ONE TABLET BY MOUTH 3 TIMES A DAY NEEDED FOR 15 DAYS * HYDROcodone-acetaminophen ([place]) 10-325 MG tablet(Started 04/30/2024) TAKE ONE TABLET BY MOUTH 3 TIMES A DAY NEEDED FOR 15 DAYS Active Problems Problem Noted Date Diagnosed Date Other postprocedural status(V45.89) 11/23/2013 Shoulder pain 03/07/2013 Immunizations * PNEUMOCOCCAL PPSV23(Given 06/14/2014) * TDAP (7yrs+)(Given 08/31/2006) Social History Tobacco Use Types Packs/Day Years [...] Mass Index 38.74 02/08/2023 8:10 AM CDT Procedures * CBC W/O DIFFERENTIAL(Performed 08/01/2024) Performed for Diabetes mellitus without complication (HCC) * COMPREHENSIVE METABOLIC PANEL(Performed 08/01/2024) Performed for Diabetes mellitus without complication (HCC) * LIPID PROFILE(Performed 08/01/2024) Performed for Diabetes mellitus without complication (HCC) * HEMOGLOBIN A1C(Performed 08/01/2024) Performed for Diabetes mellitus without complication (HCC) * HEMOGLOBIN A1C(Performed 02/15/2024) Performed for Diabetes mellitus without complication (HCC) * LIPID PROFILE(Performed 02/15/2024) Performed for Diabetes mellitus without complication (HCC) * COMPREHENSIVE METABOLIC PANEL(Performed 02/15/2024) Performed for Diabetes mellitus without complication (HCC) * QUANTIFERON-TB GOLD PLUS 4-TUBE(Performed 02/15/2024) Performed for Encounter for screening for respiratory tuberculosis * CBC W/O DIFFERENTIAL(Performed 02/15/2024) Performed for Diabetes mellitus without complication (HCC) * LDL CHOLESTEROL DIRECT(Performed 09/15/2023) Performed for Diabetes mellitus without complication (HCC), Essential hypertension, malignant * HEMOGLOBIN A1C(Performed 09/15/2023) Performed for Diabetes mellitus without complication (HCC), Essential hypertension, malignant * COMPREHENSIVE METABOLIC PANEL(Performed 09/15/2023) Performed for Diabetes mellitus without complication (HCC), Essential hypertension, malignant * LIPID PROFILE(Performed 09/15/2023) Performed for Diabetes mellitus without complication (HCC), Essential hypertension, malignant * CBC W AUTO DIFFERENTIAL(Performed 09/15/2023) Performed for Diabetes mellitus without complication (HCC), Essential hypertension, malignant * VITAMIN B12(Performed 09/15/2023) Performed for Diabetes mellitus without complication (HCC), Essential hypertension, malignant * CT SHOULDER LEFT W CONTRAST(Performed 08/19/2023) Performed for Left shoulder pain, unspecified chronicity * FL SHOULDER LEFT ARTHROGRAM(Performed 08/19/2023) Performed for Left shoulder pain, unspecified chronicity * CT CERVICAL SPINE WO CONTRAST(Performed 02/08/2023) Performed for Left shoulder pain, unspecified chronicity * XR SHOULDER LEFT 2VW OR MORE(Performed 02/08/2023) Performed for Left shoulder pain, unspecified chronicity * CT KNEE LEFT W CONTRAST(Performed 01/13/2023) Performed for Left knee pain, unspecified chronicity * FL KNEE LEFT ARTHROGRAM(Performed 01/13/2023) Performed for Left knee pain, unspecified chronicity * HIV-1 HIV-2 ANTIBODY W/ REFLX CONFIRM(Performed 07/19/2015) Performed for Possible exposure to STD * HERPES SIMPLEX 1+2 ANTIBODY IGG/IGM PANEL(Performed 07/19/2015) Performed for Possible exposure to STD * RPR(Performed 07/19/2015) Performed for Possible exposure to STD * CHLAMYDIA + GC AMPLIFIED PROBE(Performed 07/19/2015) Performed for Possible exposure to STD * SKIN TEST PPD - POINT OF CARE(Performed 12/11/2014) Performed for Visit for TB skin test * VAGINITIS PLUS (BV CA CT NG TRICH)(Performed 10/19/2014) Performed for Vaginal discharge * URINALYSIS AUTO - POINT OF CARE (AMB) SMGS(Performed 10/11/2014) Performed for Dysuria * XR LUMBAR SPINE 4VW OR MORE(Performed 11/02/2013) Performed for Lower back pain * XR SHOULDER MIN 3 VIEWS RIGHT(Performed 03/07/2013) Performed for Shoulder pain * GROSS + MICRO EXAM(Performed 11/24/2010) Results * (ABNORMAL) HEMOGLOBIN A1C [IN-HOUSE TEST] (08/01/2024 2:54 PM CVT TECH) Only the most recent of3 resultswithin the time period is included. Hemoglobin A1c 7.7(H) <=5.6 % 08/02/2024 8:53 AM [facility] Estimated Average Glucose 174 mg/dL 08/02/2024 8:53 AM [facility] Comment: HbA1c Interpretation: Normal : < 5.7% Pre-diabetes: 5.7-6.4% Diabetes: Equal to or greater than 6.5% Test results diagnostic of diabetes should be repeated for confirmation. Treatment target values recommended by ADA and other clinical organizations should be used to evaluate metabolic control in patients. Reference: [place] [employer], Standards of Care in Diabetes -2020 In patients 70 years and older consider HbA1c target range of 7.0-7.5% (Reference: Stephen Prabhakar et al. JAMDA. 2012) The Sebia assay for the measurement of HbA1c is a National Glycohemoglobin Standardization Program (NGSP) certified method. Blood BLOOD SPECIMEN WITH EDTA / Unknown Lab Venipuncture / Unknown 08/01/2024 2:54 PM CVT TECH 08/01/2024 3:22 PM CVT TECH Provider Unknown LAB - CHEMISTRY ORDE RABLES [facility] [address] [place] [address], [facility] [place] [phone] * CBC W/O DIFFERENTIAL (08/01/2024 2:54 PM CVT TECH) Only the most recent of2 resultswithin the time period is included. WBC 7.5 4.0 - 10.7 x10E9/L 08/01/2024 3:32 PM [facility] RBC Count 4.26 3.90 - 5.20 x10E12/L 08/01/2024 3:32 PM [facility] Hemoglobin 12.8 11.9 - 15.8 g/dL 08/01/2024 3:32 PM [facility] Hematocrit 38.7 34.8 - 46.1 % 08/01/2024 3:32 PM [facility] MCV 90.8 80.0 - 98.0 fL 08/01/2024 3:32 PM [facility] MCH 30.0 26.7 - 33.6 pg 08/01/2024 3:32 PM [facility] MCHC 33.1 31.7 - 36.3 g/dL 08/01/2024 3:32 PM [facility] RDW-CV 14.8 11.3 - 14.8 % 08/01/2024 3:32 PM [facility] Platelet Count 285 150 - 420 x10E9/L 08/01/2024 3:32 PM [facility] MPV 9.7 7.8 - 11.4 fL 08/01/2024 3:32 PM [facility] Blood BLOOD SPECIMEN / Unknown Lab Venipuncture / Unknown 08/01/2024 2:54 PM CVT TECH 08/01/2024 3:23 PM CVT TECH Provider Unknown LAB - HEMATOLOGY ORD ERABLES [facility] [address] [place] [address], [facility] [place] [phone] * (ABNORMAL) COMPREHENSIVE METABOLIC PANEL (08/01/2024 2:54 PM [facility]) Only the most recent of3 resultswithin the time period is included. BUN 22 7 - 26 mg/dL 08/01/2024 3:53 PM [facility] Creatinine 1.06(H) 0.56 - 0.96 mg/dL 08/01/2024 3:53 PM [facility] Sodium 142 136 - 145 mmol/L 08/01/2024 3:53 PM [facility] Potassium 4.4 3.5 - 4.5 mmol/L 08/01/2024 3:53 PM [facility] Chloride 109(H) 98 - 107 mmol/L 08/01/2024 3:53 PM [facility] CO2 25 22 - 29 mmol/L 08/01/2024 3:53 PM [facility] Glucose 153(H) 70 - 99 mg/dL 08/01/2024 3:53 PM [facility] Calcium 9.4 8.4 - 10.2 mg/dL 08/01/2024 3:53 PM [facility] Protein Total 7.7 6.0 - 8.3 g/dL 08/01/2024 3:53 PM [facility] Albumin 3.7 3.4 - 5.0 g/dL 08/01/2024 3:53 PM [facility] Bilirubin Total 0.2 0.2 - 1.2 mg/dL 08/01/2024 3:53 PM [facility] Alkaline Phosphatase 70 40 - 150 U/L 08/01/2024 3:53 PM [facility] ALT 24 5 - 55 U/L 08/01/2024 3:53 PM [facility] AST 18 5 - 34 U/L 08/01/2024 3:53 PM [facility] Anion Gap 8 6 - 16 08/01/2024 3:53 PM [facility] BUN/Creatinine Ratio 21 7 - 23 08/01/2024 3:53 PM [facility] Osmolality Calculated 300(H) 275 - 295 mOsm/kg 08/01/2024 3:53 PM [facility] Albumin/Globulin Ratio 0.9(L) 1.1 - 2.3 08/01/2024 3:53 PM [facility] eGFR by CKD-EPI 63(L) >=90 mL/min/1.7 3 m2 08/01/2024 3:53 PM [facility] Blood BLOOD SPECIMEN / Unknown Lab Venipuncture / Unknown 08/01/2024 2:54 PM CVT TECH 08/01/2024 3:23 PM CVT TECH Provider Unknown LAB - CHEMISTRY [facility] CH[facility]AL [facility] [address] [place] [address], [facility] [place] [phone] * (ABNORMAL) LIPID PROFILE (08/01/2024 2:54 PM [facility]) Only the most recent of3 resultswithin the time period is included. Cholesterol Total 196 <200 mg/dL 08/01/2024 3:53 PM [facility] HDL 55 >40 mg/dL 08/01/2024 3:53 PM [facility] Comment: ATP III Classification of HDL Cholesterol: ? <40 mg/dL: ??Considered a major risk factor. ? >60 mg/dL: ??Considered a negative risk factor. ? LDL Calculated 90 <100 mg/dL 08/01/2024 3:53 PM [facility] Comment: ATP III Classification of LDL Cholesterol: ?<100 mg/dL: ??Optimal ? 100 - 129 mg/dL: ??Near Optimal/Above Optimal ? 130 - 159 mg/dL: ??Borderline High ? 160 - 189 mg/dL: ??High ?>190 mg/dL: ??Very High ? Triglycerides 255(H) <150 mg/dL 08/01/2024 3:53 PM [facility] Comment: ATP III Classification of Triglycerides: ?<150 mg/dL: ??Normal ? 150 - 199 mg/dL: ??Borderline High ? 200 - 400 mg/dL: ??High ?>500 mg/dL: ??Very High Blood BLOOD SPECIMEN / Unknown Lab Venipuncture / Unknown 08/01/2024 2:54 PM CVT TECH 08/01/2024 3:23 PM CVT TECH Provider Unknown LAB - CHEMISTRY [facility]ENNETT CHAHAL [facility] [address] [place] [address], [facility] [place] [phone] * QUANTIFERON-TB GOLD PLUS 4-TUBE (02/15/2024 2:39 PM CDT) [facility] QuantiFERON Mitogen Minus NIL 9.98 IU/mL 02/18/2024 2:00 AM CDT [facility] QuantiFERON Nil Value 0.02 IU/mL 02/18/2024 2:00 AM CDT [facility] QuantiFERON Plus TB1 Minus NIL 0.01 <=0.34 IU/mL 02/18/2024 2:00 AM CDT [facility] QuantiFERON Plus TB2 Minus NIL -0.01 <=0.34 IU/mL 02/18/2024 2:00 AM CDT [facility] QuantiFERON-TB Gold Plus Negative Negative 02/18/2024 2:00 AM CDT [facility] Comment: INTERPRETIVE INFORMATION:Quantiferon TB Gold Plus Interferon gamma release is measured for specimens from each of the four collection tubes. A qualitative result (Negative, Positive, or Indeterminate) is based on interpretation of the four values: NIL, MITOGEN minus NIL (MITOGEN-NIL), TB1 minus NIL (TB1-NIL), and TB2 minus NIL (TB2-NIL). The NIL value represents nonspecific reactivity produced by the patient specimen. The MITOGEN-NIL value serves as the positive control for the patient specimen, demonstrating successful lymphocyte activity. The TB1-NIL tube specifically detects CD4+ lymphocyte reactivity, specifically stimulated by the TB1 antigens. The TB2-NIL tube detects both CD4+ and CD8+ lymphocyte reactivity, stimulated by TB2 antigens. An overall Negative result does not completely rule out TB infection. A false-positive result in the absence of other clinical evidence of TB infection is not uncommon. Refer to: Updated Guidelines for Using Interferon Gamma Release Assays to Detect Mycobacterium tuberculosis Infection -- [place], 2010 (http://www.cdc.gov/mmwr/preview/mmwrhtml/qi0220s3.htm), for more information concerning test performance in low-prevalence populations and use in occupational screening. Performed By: [facility] [address] [place] [address] Service Aide: Jones Bullard MD, PhD CLIA Number: [id number] Blood BLOOD SPECIMEN / Unknown Lab Venipuncture / Unknown 02/15/2024 2:39 PM CDT 02/15/2024 3:04 PM CDT Ordering Provider Unlisted LAB - CHEM ISTRY ORDERABLES [facility] [address] [place], [place] [id number], [facility] [place] * CBC WITH DIFFERENTIAL (09/15/2023 2:45 PM CVT TECH) WBC 7.6 4.0 - 10.7 x10E9/L 09/15/2023 3:38 PM [facility] RBC Count 4.07 3.90 - 5.20 x10E12/L 09/15/2023 3:38 PM [facility] Hemoglobin 12.2 11.9 - 15.8 g/dL 09/15/2023 3:38 PM [facility] Hematocrit 36.7 34.8 - 46.1 % 09/15/2023 3:38 PM [facility] MCV 90.2 80.0 - 98.0 fL 09/15/2023 3:38 PM [facility] MCH 30.0 26.7 - 33.6 pg 09/15/2023 3:38 PM [facility] MCHC 33.2 31.7 - 36.3 g/dL 09/15/2023 3:38 PM [facility] RDW-CV 14.1 11.3 - 14.8 % 09/15/2023 3:38 PM [facility] Platelet Count 319 150 - 420 x10E9/L 09/15/2023 3:38 PM [facility] MPV 9.5 7.8 - 11.4 fL 09/15/2023 3:38 PM [facility] Neutrophil % 46.9 41.0 - 74.0 % 09/15/2023 3:38 PM [facility] Lymphocyte % 44.6 17.0 - 47.0 % 09/15/2023 3:38 PM [facility] Monocyte % 6.5 3.0 - 11.0 % 09/15/2023 3:38 PM [facility] Eosinophil % 1.6 0.0 - 7.0 % 09/15/2023 3:38 PM [facility] Basophil % 0.3 0.0 - 1.6 % 09/15/2023 3:38 PM [facility] Immature Granulocytes % 0.1 0.0 - 1.0 % 09/15/2023 3:38 PM [facility] Neutrophil Absolute 3.58 1.60 - 7.50 x10E9/L 09/15/2023 3:38 PM [facility] Lymphocyte Absolute 3.41 1.00 - 4.40 x10E9/L 09/15/2023 3:38 PM [facility] Monocyte Absolute 0.50 0.15 - 1.00 x10E9/L 09/15/2023 3:38 PM [facility] Eosinophil Absolute 0.12 0.00 - 0.60 x10E9/L 09/15/2023 3:38 PM [facility] Basophil Absolute 0.02 0.00 - 0.13 x10E9/L 09/15/2023 3:38 PM [facility] Blood BLOOD SPECIMEN / Unknown Lab Venipuncture / Unknown 09/15/2023 2:45 PM CVT TECH 09/15/2023 3:30 PM CVT TECH Rhys Meneses MD LAB - HEMATOLOGY ORD ERABLES [facility] [address] [place] [address], [facility] [place] [phone] * (ABNORMAL) LDL CHOLESTEROL DIRECT (09/15/2023 2:45 PM CVT TECH) LDL Direct 124(H) <100 mg/dL 09/15/2023 4:25 PM CVT TECH [facility] Comment: ATP III Classification of LDL Cholesterol: ?<100 mg/dL: ??Optimal ? 100 - 129 mg/dL: ??Near Optimal/Above Optimal ? 130 - 159 mg/dL: ??Borderline High ? 160 - 189 mg/dL: ??High ?>190 mg/dL: ??Very High Blood BLOOD SPECIMEN / Unknown Lab Venipuncture / Unknown 09/15/2023 2:45 PM CVT TECH 09/15/2023 3:30 PM CVT TECH Rhys Meneses MD LAB - CHEMISTRY BENNETT CHAHAL Performing Organization Address [facility]/ZIP Co de Phone Number [address] [address], [facility] [place] [phone] * VITAMIN B12 (09/15/2023 2:45 PM CVT TECH) Vitamin B12 497 213 - 816 pg/mL 09/15/2023 4:28 PM CVT TECH [facility] Blood BLOOD SPECIMEN / Unknown Lab Venipuncture / Unknown 09/15/2023 2:45 PM CVT TECH 09/15/2023 3:30 PM CVT TECH Rhys Meneses MD LAB - CHEMISTRY BENNETT CHAHAL Performing Organization Address [facility]/ZIP Co de Phone Number [address] [address], [place] [phone] * CT SHOULDER LEFT W CONTRAST (08/19/2023 11:24 AM CVT TECH) Anatomical Region Laterality Modality Upper Extremity Computed Tomogra phy 08/19/2023 11:4 0 AM CVT TECH Impressions 08/19/2023 11:57 AM CVT TECH IMPRESSION: Mild acromioclavicular osteoarthritis. Otherwise normal. The report was drafted by Jamia Baldwin MD (Retail Greeting Card Merchandiser).. I, Kj Carrillo MD have personally reviewed and interpreted this examination/study. > Interpreting Provider: Kj Carrillo MD on 08/19/2023 11:57 AM Narrative 08/19/2023 11:57 AM CVT TECH PROCEDURE: ??CT SHOULDER LEFT W CONTRAST DATE/TIME OF EXAM: ??08/19/2023 11:25 AM CLINICAL INFORMATION: None relevant/not provided if blank. Indication: M25.512: Left shoulder pain, unspecified chronicity Additional History: COMPARISON: Left shoulder x-ray on 02/08/2023. TECHNIQUE: CT of the left shoulder was performed after administration of intra-articular Isovue contrast (reported separately). CT dose reduction technique was used, including Automated Exposure Control. IV CONTRAST: IOPAMIDOL 61 % IV SOLN:4 mL FINDINGS: There is no acute fracture or dislocation. There is mild acromioclavicular osteoarthritis. The glenohumeral articular cartilage is normal. The glenoid labrum is normal. The rotator cuff is intact. The long head of the biceps tendon is normal. The rotator cuff muscles are normal in bulk. Procedure Note Kj Carrillo MD - 08/19/2023 PROCEDURE: CT SHOULDER LEFT W CONTRAST DATE/TIME OF EXAM: 08/19/2023 11:25 AM CLINICAL INFORMATION: None relevant/not provided if blank. Indication: M25.512: Left shoulder pain, unspecified chronicity Additional History: COMPARISON: Left shoulder x-ray on 02/08/2023. TECHNIQUE: CT of the left shoulder was performed after administration of intra-articular Isovue contrast (reported separately). CT dose reduction technique was used, including Automated ExposureControl. IV CONTRAST: IOPAMIDOL 61 % IV SOLN:4 mL FINDINGS: There is no acute fracture or dislocation. There is mild acromioclavicular osteoarthritis. The glenohumeral articular cartilage is normal. The glenoid labrum is normal. The rotator cuff is intact. The long head of the biceps tendon isnormal. The rotator cuff muscles are normal in bulk. IMPRESSION: Mild acromioclavicular osteoarthritis. Otherwise normal. The report was drafted by Jamia Baldwin MD (RadiologyResident).. Kj Guerrero MD have personally reviewed and interpreted this examination/study. > Interpreting Provider: Kj Carrillo MD on 08/19/2023 11:57 AM Inderjit Shah MD CT ORDERABLES * FL SHOULDER LEFT ARTHROGRAM (08/19/2023 11:16 AM CVT TECH) Anatomical Region Laterality Modality Upper Extremity Radiographic Leslie ging 08/19/2023 11:2 2 AM CVT TECH Impressions 08/19/2023 11:28 AM CVT TECH Impression: Left shoulder arthrogram was performed with contrast injection in preparation for CT arthrography. Kj Guerrero MD have personally reviewed and interpreted this examination/study. > Interpreting Provider: Kj Carrillo MD on 08/19/2023 11:28 AM Narrative 08/19/2023 11:28 AM CVT TECH PROCEDURE: ??FL SHOULDER LEFT ARTHROGRAM, DATE/TIME OF EXAM: ??08/19/2023 11:20 AM, LOCATION ??[facility] INDICATION: M25.512: Left shoulder pain, unspecified chronicity ADDITIONAL CLINICAL INFORMATION: Ordering Provider Reason For Exam: ??left shoulder pain COMPARISON: Shoulder x-ray on 02/08/2023. History: M25.512: Left shoulder pain, unspecified chronicity Fluoroscopy Time: 12 seconds Resident Physician: Jamia Baldwin M.D. Attending Physician: Kj Carrillo M.D. Technique and Findings: The risks and benefits of the arthrogram were discussed with the patient including, but not limited to, infection, bleeding, allergic reaction, and irritation or damage to the joint and surrounding structures such as vessels and nerves. After alternatives were discussed and the opportunity to ask questions was provided, the patient acknowledged understanding, gave verbal and written consent, and wished to proceed. The patient was positioned supine on the fluoroscopy table with the left upper extremity adducted and in external rotation. A timeout was performed including confirmation of the correct patient, procedure, and laterality. Under fluoroscopy, the intended access site was marked. The skin was prepped and draped in sterile fashion. Local anesthesia was obtained using 2 mL of 1% lidocaine. Next, a 22-gauge 3.5-inch needle was advanced into the glenohumeral joint under fluoroscopic guidance. 1 mL of lidocaine was injected into the joint without resistance. Next, 13 mL of a contrast mixture (containing 15 mL normal saline and 5 mL Isovue-300 per 20 mL total volume) was injected into the glenohumeral joint under fluoroscopic observation. The needle was withdrawn and the patient was sent to CT for further imaging. The patient tolerated the procedure well. I was personally present for the entire procedure. Procedure Note Kj Carrillo MD - 08/19/2023 PROCEDURE: FL SHOULDER LEFT ARTHROGRAM, DATE/TIME OF EXAM: 08/19/2023 11:20 AM, LOCATION [facility] INDICATION: M25.512: Left shoulder pain, unspecified chronicity ADDITIONAL CLINICAL INFORMATION: Ordering Provider Reason For Exam: left shoulder pain COMPARISON: Shoulder x-ray on 02/08/2023. History: M25.512: Left shoulder pain, unspecified chronicity Fluoroscopy Time: 12 seconds Resident Physician: Jamia Baldwin M.D. Attending Physician: Kj Carrillo M.D. Technique and Findings: The risks and benefits of the arthrogram were discussed with the patient including, but not limited to, infection, bleeding, allergic reaction,and irritation or damage to the joint and surrounding structures such as vessels and nerves. After alternatives were discussed and theopportunity to ask questions was provided, the patient acknowledged understanding,gave verbal and written consent, and wished to proceed. The patient was positioned supine on the fluoroscopy table with the left upper extremity adducted and in external rotation. A timeout was performed including confirmation of the correct patient, procedure, and laterality. Under fluoroscopy, the intended access site was marked. The skin was preppedand draped in sterile fashion. Local anesthesia was obtained using 2 mL of1% lidocaine. Next, a 22-gauge 3.5-inch needle was advanced into the glenohumeral joint under fluoroscopic guidance. 1 mL of lidocaine was injected into the joint without resistance. Next, 13 mL of a contrast mixture (containing 15 mL normal saline and 5 mL Isovue-300 per 20 mLtotal volume) was injected into the glenohumeral joint under fluoroscopic observation. The needle was withdrawn and the patient was sent to CT for further imaging. The patient tolerated the procedure well. I waspersonally present for the entire procedure. Impression: Left shoulder arthrogram was performed with contrastinjection in preparation for CT arthrography. Kj Guerrero MD have personally reviewed and interpreted this examination/study. > Interpreting Provider: Kj Carrillo MD on 08/19/2023 11:28 AM Inderjit Shah MD FLUOROSCOPY ORDERABL ES * CT CERVICAL SPINE WO CONTRAST (02/08/2023 7:54 PM CDT) Anatomical Region Laterality Modality Spine Computed Tomogra phy 02/08/2023 8:04 PM CDT Impressions 02/08/2023 8:28 PM CDT IMPRESSION: 1.No acute fracture or traumatic malalignment of the cervical spine. 2.Prior ACDF of the C4-C6 levels and multilevel degenerative changes as described above. > Dictated by Lonnie Lua DO (marketing services vice president). Iwona Guerrero MD, PhD have personally reviewed and interpreted this examination/study. > Interpreting Provider: Iwona Shoemaker MD, PhD on 02/08/2023 8:28 PM Narrative 02/08/2023 8:28 PM CDT EXAM: CT CERVICAL SPINE WO CONTRAST, DATE/TIME: 02/08/2023 7:56 PM, LOCATION: ??[facility], HISTORY: M25.512: Left shoulder pain, unspecified chronicity EXAMINATION: CT scan of the cervical spine without intravenous contrast TECHNIQUE: CT of the cervical spine was performed without intravenous contrast according to standard protocol. CT dose reduction technique was used, including Automated Exposure Control. COMPARISON: No prior similar studies are available for comparison. FINDINGS: ALIGNMENT: Minimal dextroconvex curvature and straightening of the cervical spine without significant listhesis. No traumatic malalignment. ATLANTOAXIAL JOINT: The dens is intact, the lateral masses of C1 are normally aligned relative to C2, and the atlantodental interval is normal. BONES: Vertebral body heights are maintained without evidence of acute fracture. Prior anterior cervical discectomy and fusion (ACDF) of the C4-C6 levels without evidence of hardware failure or complication. DISCS: Intervertebral disc spacers at the C4-C5 and C5-C6 levels. Mild intervertebral disc space narrowing at the C3-C4 and C6-C7 levels. DEGENERATIVE CHANGES: Overall fjjs-lo-nrjszcek multilevel degenerative changes, characterized by varying degrees of posterior disc osteophyte complexes, facet arthropathy, and uncovertebral joint hypertrophy. ?? SPINAL CANAL/NEUROFORAMEN: Spinal canal stenoses that is notably moderate at the C4-C5 and C5-C6 levels secondary to posterior disc osteophyte complexes. Multilevel neuroforaminal narrowing that is notably moderate at the left C5-C6 level secondary to uncovertebral joint hypertrophy. SOFT TISSUES: No prevertebral soft tissue swelling. Visualized neck soft tissues are normal. OTHER: Partially imaged portions of the lung apices are clear. Procedure Note Iwona Shoemaker MD - 02/08/2023 EXAM: CT CERVICAL SPINE WO CONTRAST, DATE/TIME: 02/08/2023 7:56 PM, LOCATION: [facility], HISTORY: M25.512: Left shoulder pain, unspecified chronicity EXAMINATION: CT scan of the cervical spine without intravenous contrast TECHNIQUE: CT of the cervical spine was performed without intravenous contrast according to standard protocol. CT dose reduction technique was used, including Automated Exposure Control. COMPARISON: No prior similar studies are available for comparison. FINDINGS: ALIGNMENT: Minimal dextroconvex curvature and straightening of thecervical spine without significant listhesis. No traumatic malalignment. ATLANTOAXIAL JOINT: The dens is intact, the lateral masses of C1 are normally aligned relative to C2, and the atlantodental interval is normal. BONES: Vertebral body heights are maintained without evidence of acute fracture. Prior anterior cervical discectomy and fusion (ACDF) of theC4-C6 levels without evidence of hardware failure or complication. DISCS: Intervertebral disc spacers at the C4-C5 and C5-C6 levels. Mild intervertebral disc space narrowing at the C3-C4 and C6-C7 levels. DEGENERATIVE CHANGES: Overall aqiq-tf-lrihxqlu multilevel degenerative changes, characterized by varying degrees of posterior disc osteophyte complexes, facet arthropathy, and uncovertebral joint hypertrophy. SPINAL CANAL/NEUROFORAMEN: Spinal canal stenoses that is notablymoderate at the C4-C5 and C5-C6 levels secondary to posterior disc osteophyte complexes. Multilevel neuroforaminal narrowing that is notably moderateat the left C5-C6 level secondary to uncovertebral joint hypertrophy. SOFT TISSUES: No prevertebral soft tissue swelling. Visualized neck soft tissues are normal. OTHER: Partially imaged portions of the lung apices are clear. IMPRESSION: 1.No acute fracture or traumatic malalignment of the cervical spine. 2.Prior ACDF of the C4-C6 levels and multilevel degenerative changes as described above. > Dictated by Lonnie Lua DO (marketing services vice president). Iwona Guerrero MD, PhD have personally reviewed and interpreted this examination/study. > Interpreting Provider: Iwona Shoemaker MD, PhD on 02/08/2023 8:28 PM Madan Miller MD CT ORDERABLES * XR SHOULDER 2+ VW LEFT (02/08/2023 10:38 AM CDT) Anatomical Region Laterality Modality Upper Extremity Radiographic Leslie ging 02/08/2023 11:5 3 AM CDT Impressions 02/09/2023 12:14 AM CDT IMPRESSION: No acute fracture or dislocation identified. Report dictated by Refugio Valle MD, (marketing services vice president). Kai Guerrero MD have personally reviewed and interpreted this examination/study. > Interpreting Provider: Kai Bridges MD on 02/09/2023 12:14 AM Narrative 02/09/2023 12:14 AM CDT PROCEDURE: ??XR SHOULDER LEFT 2VW OR MORE, DATE/TIME OF EXAM: ??02/08/2023 10:38 AM, LOCATION ??[facility] INDICATION: M25.512: Left shoulder pain, unspecified chronicity ADDITIONAL CLINICAL INFORMATION: Ordering Provider Reason For Exam: ??shoulder injury COMPARISON: None. FINDINGS: The osseous structures are intact without acute fracture. The glenohumeral and acromioclavicular joints are in anatomic alignment. Bone density and texture are normal. Partially visualized spinal cord stimulator noted in the midthoracic spine. Anterior cervical spinal fusion hardware is also present. Procedure Note Kai Bridges MD - 02/09/2023 PROCEDURE: XR SHOULDER LEFT 2VW OR MORE, DATE/TIME OF EXAM: 02/08/2023 10:38 AM, LOCATION [facility] INDICATION: M25.512: Left shoulder pain, unspecified chronicity ADDITIONAL CLINICAL INFORMATION: Ordering Provider Reason For Exam: shoulder injury COMPARISON: None. FINDINGS: The osseous structures are intact without acute fracture. Theglenohumeral and acromioclavicular joints are in anatomic alignment. Bone density and texture are normal. Partially visualized spinal cord stimulator noted in the midthoracic spine. Anterior cervical spinal fusion hardware is also present. IMPRESSION: No acute fracture or dislocation identified. Report dictated by Refugio Valle MD, MD (marketing services vice president). I, Kai Bridges MD have personally reviewed and interpreted this examination/study. > Interpreting Provider: Kai Bridges MD on 02/09/2023 12:14 AM Clifton Dang MD DIAGNOSTIC IMAGING O RDERABLES * CT KNEE LEFT W CONTRAST (01/13/2023 10:25 AM CDT) Anatomical Region Laterality Modality Lower Extremity Computed Tomogra phy 01/13/2023 12:3 6 PM CDT Impressions 01/13/2023 12:40 PM CDT IMPRESSION: 1. Mild to moderate patellofemoral and mild lateral compartment chondrosis. 2. Small popliteal cyst. > Interpreting Provider: Kj Carrillo MD on 01/13/2023 12:40 PM Narrative 01/13/2023 12:40 PM CDT PROCEDURE: ??CT KNEE LEFT W CONTRAST DATE/TIME OF EXAM: ??01/13/2023 10:26 AM CLINICAL INFORMATION: None relevant/not provided if blank. Indication: M25.562: Left knee pain, unspecified chronicity Additional History: COMPARISON: None. TECHNIQUE: CT of the [left knee] was performed with intra-articular contrast. The intra-articular contrast administration is reported separately. CT dose reduction technique was used, including Automated Exposure Control. IV CONTRAST: IOPAMIDOL 61 % IV SOLN:10 mL FINDINGS: No fracture or dislocation is present. There is a focal cartilage defect at the medial aspect of the lateral tibial plateau measuring 4 mm (series 6 image 45) and mild adjacent irregularity. The medial compartment cartilage is intact. In the patellofemoral compartment there is mild to moderate cartilage thinning at the median ridge and medial facet of the patella. There are several cartilage fissures including a high-grade fissuring at the median ridge of the patella (series 4 image 54). There is mild thinning at the medial facet of the trochlea. The menisci and ligaments are grossly intact. A small popliteal cyst is noted. Procedure Note Kj Carrillo MD - 01/13/2023 PROCEDURE: CT KNEE LEFT W CONTRAST DATE/TIME OF EXAM: 01/13/2023 10:26 AM CLINICAL INFORMATION: None relevant/not provided if blank. Indication: M25.562: Left knee pain, unspecified chronicity Additional History: COMPARISON: None. TECHNIQUE: CT of the [left knee] was performed with intra-articular contrast. The intra-articular contrast administration is reported separately. CT dose reduction technique was used, including Automated ExposureControl. IV CONTRAST: IOPAMIDOL 61 % IV SOLN:10 mL FINDINGS: No fracture or dislocation is present. There is a focal cartilage defectat the medial aspect of the lateral tibial plateau measuring 4 mm (series 6 image 45) and mild adjacent irregularity. The medial compartmentcartilage is intact. In the patellofemoral compartment there is mild to moderate cartilage thinning at the median ridge and medial facet of the patella. There are several cartilage fissures including a high-grade fissuring at the median ridge of the patella (series 4 image 54). There is mildthinning at the medial facet of the trochlea. The menisci and ligaments aregrossly intact. A small popliteal cyst is noted. IMPRESSION: 1. Mild to moderate patellofemoral and mild lateral compartmentchondrosis. 2. Small popliteal cyst. > Interpreting Provider: Kj Carrillo MD on 01/13/2023 12:40 PM Inderjit Shah MD CT ORDERABLES * FL KNEE LEFT ARTHROGRAM (01/13/2023 10:05 AM CDT) Anatomical Region Laterality Modality Lower Extremity Radiographic Leslie ging 01/13/2023 10:3 6 AM CDT Impressions 01/13/2023 10:40 AM CDT Impression: Left knee arthrogram was performed with contrast injection in preparation for CT arthrography. > Interpreting Provider: Kj Carrillo MD on 01/13/2023 10:40 AM Narrative 01/13/2023 10:40 AM CDT PROCEDURE: ??FL KNEE LEFT ARTHROGRAM DATE/TIME OF EXAM: ??01/13/2023 10:28 AM CLINICAL INFORMATION: None relevant/not provided if blank. Indication: M25.562: Left knee pain, unspecified chronicity Additional History: Left knee injury. CT arthrogram is requested because MRI is contraindicated due to a spinal stimulator. COMPARISON: None. FLUOROSCOPY DOSE: ??0.28 mGy Reference air kerma (ka,r). Technique and Findings: The risks and benefits of the arthrogram were discussed with the patient including, but not limited to, infection, bleeding, allergic reaction, and irritation or damage to the joint and surrounding structures such as vessels and nerves. ??After alternatives were discussed and the opportunity to ask questions was provided, the patient acknowledged understanding, gave verbal and written consent, and wished to proceed. ??The patient was positioned supine on the fluoroscopy table with the left knee extended. A timeout was performed including confirmation of the correct patient, procedure, and laterality. ??Under fluoroscopy, the intended access site was marked. The skin was prepped and draped in sterile fashion. Local anesthesia was obtained using 3.5 mL of 1% lidocaine. Next, a 3.5 inch 22-gauge needle was advanced into the knee joint under fluoroscopic guidance. ??0.5 mL of lidocaine was injected into the joint without resistance. Next, 40 mL of a contrast mixture (containing 75% of 0.9% normal saline and 25% of Isovue 300) was injected into the joint under fluoroscopic observation. The needle was withdrawn and the patient was sent to CT for further imaging. The patient tolerated the procedure well. Fluoroscopic images demonstrate radiographic contrast within the knee joint. I was personally present for the entire procedure. Procedure Note Kj Carrillo MD - 01/13/2023 PROCEDURE: FL KNEE LEFT ARTHROGRAM DATE/TIME OF EXAM: 01/13/2023 10:28 AM CLINICAL INFORMATION: None relevant/not provided if blank. Indication: M25.562: Left knee pain, unspecified chronicity Additional History: Left knee injury. CT arthrogram is requested because MRI is contraindicated due to a spinal stimulator. COMPARISON: None. FLUOROSCOPY DOSE: 0.28 mGy Reference air kerma (ka,r). Technique and Findings: The risks and benefits of the arthrogram were discussed with the patient including, but not limited to, infection, bleeding, allergic reaction,and irritation or damage to the joint and surrounding structures such as vessels and nerves. After alternatives were discussed and theopportunity to ask questions was provided, the patient acknowledged understanding,gave verbal and written consent, and wished to proceed. The patient was positioned supine on the fluoroscopy table with the left knee extended.A timeout was performed including confirmation of the correct patient, procedure, and laterality. Under fluoroscopy, the intended access sitewas marked. The skin was prepped and draped in sterile fashion. Local anesthesia was obtained using 3.5 mL of 1% lidocaine. Next, a 3.5 inch 22-gauge needle was advanced into the knee joint under fluoroscopic guidance. 0.5 mL of lidocaine was injected into the joint without resistance. Next, 40 mL of a contrast mixture (containing 75% of 0.9% normal saline and 25% of Isovue 300) was injected into the joint under fluoroscopic observation. The needle was withdrawn and the patient wassent to CT for further imaging. The patient tolerated the procedure well. Fluoroscopic images demonstrate radiographic contrast within the knee joint. I was personally present for the entire procedure. Impression: Left knee arthrogram was performed with contrast injectionin preparation for CT arthrography. > Interpreting Provider: Kj Carrillo MD on 01/13/2023 10:40 AM Inderjit Shah MD FLUOROSCOPY ORDERABL ES * HIV-1 HIV-2 ANTIBODY W/ REFLX CONFIRM (07/19/2015 3:52 PM CVT TECH) HIV-1/HIV-2 Negative Negative 07/22/2015 12:40 AM CVT TECH [facility] ([facility]) Comment: Based on the non-reactive anti-HIV (ARSENIO) [...] Unknown Venipuncture / Unknown 07/19/2015 3:52 PM CVT TECH 07/19/2015 3:54 PM CVT TECH Karen Rahman PA-C LAB - SEROLOGY ORDER RASHEED [facility] [facility]) [address] [place], [place] [id number] [place] [address] * RPR (07/19/2015 3:52 PM CVT TECH) RPR Nonreactive Nonreactive 07/20/2015 1:39 PM CVT TECH [facility] Blood BLOOD SPECIMEN / Unknown Venipuncture / Unknown 07/19/2015 3:52 PM CVT TECH 07/19/2015 3:54 PM CVT TECH Karen Rahman PA-C LAB - CHEMISTRY ORDE RABSUREKHA Performing Organization Address City/[facility]/ZIP Co de Phone Number [facility] [address] * HERPES SIMPLEX 1+2 ANTIBODY IGG/IGM PANEL (07/19/2015 3:52 PM CVT TECH) Herpes Simplex Virus 1/2 Antibody IgG >22.40 IV 07/22/2015 3:34 PM CVT TECH [facility] ([facility]) Comment: INTERPRETIVE INFORMATION: HSV 1/2 COMBINED Ab SCREEN, IgG ??0.89 IV or less.........Not Detected ??0.90-1.09 IV............Indeterminate- Repeat testing ?in 10-14 days may be helpful. ??1.10 IV or greater......Detected The best evidence for current infection is a significant change on two appropriately timed specimens, where both tests are done in the same laboratory at the same time. Herpes Simplex Virus 1/2 Antibody IgM 0.82 <=0.89 IV 07/22/2015 3:34 PM CVT TECH [facility] [employer] ([facility]) Comment: INTERPRETIVE INFORMATION: Herpes Simplex Virus Type 1 and/or 2 Antibodies, IgM by WILLIS ??0.89 IV or Less .......... Not Detected ??0.90 - 1.09 IV ........... Indeterminate- Repeat testing in ? 10-14 days may be helpful. ??1.10 IV or Greater ....... Detected-IgM antibody to HSV ? detected, which may indicate a ? current or recent infection. ? However, low levels of IgM ? antibodies may occasionally ? persist for more than 12 ? months post-infection. Blood specimen (specimen) BLOOD SPECIMEN / Unknown Venipuncture / Unknown 07/19/2015 3:52 PM CVT TECH 07/19/2015 3:54 PM CVT TECH Karen Rahman PA-C LAB - CHEMISTRY BENNETT CHAHAL [facility] ([facility]) [address] [place] [address], [facility] [place] * CHLAMYDIA + GC AMPLIFIED PROBE (07/19/2015 3:48 PM CVT TECH) Chlamydia Amplified Probe Negative Negative 07/22/2015 9:15 AM CVT TECH [facility] ([facility]) Comment: INTERPRETIVE INFORMATION: C. trachomatis by TMA This test is intended for medical purposes only and is not valid for the evaluation of suspected sexual abuse or for other forensic purposes. In certain contexts, culture may be required to meet applicable laws and regulations for diagnosis of C. trachomatis and N. gonorrhoeae infections. Per 2014 CDC recommendations, this test does not include confirmation of positive results by an alternative nucleic acid target. [employer] Type Urine 07/22/2015 9:15 AM CVT TECH [facility] ([facility]) Source Urine 07/22/2015 9:15 AM CVT TECH [facility]) GC Amplified Probe Negative Negative 07/22/2015 9:15 AM CVT TECH [facility]) Comment: INTERPRETIVE INFORMATION: N. gonorrhoeae by TMA This test is intended for medical purposes only and is not valid for the evaluation of suspected sexual abuse or for other forensic purposes. In certain contexts, culture may be required to meet applicable laws and regulations for diagnosis of C. trachomatis and N. gonorrhoeae infections. Per 2014 CDC recommendations, this test does not include confirmation of positive results by an alternative nucleic acid target. Urine specimen (specimen) URINE / Unknown Collection / Unknown 07/19/2015 3:48 PM CVT TECH 07/19/2015 3:54 PM CVT TECH Karen Rahman PA-C LAB - MICROBIOLOGY O RDERABLES [facility] [employer] [facility]) [address] * SKIN TEST PPD - POINT OF CARE (12/11/2014) PPD MISCELLANEOUS SAMPLE S / Unknown 12/11/2014 Narrative Maryanne Estrada RN - 12/11/2014 Neg 0mm Karen Rahman PA-C LAB - POINT OF CARE ORDERABLES * (ABNORMAL) VAGINITIS PLUS (BV CA CT NG TRICH) (PO REF) (10/19/2014 2:40 PM CVT TECH) Atopobium vaginae Moderate - 1 Score [facility] ACCOUNT BILL BVAB 2 Moderate - 1 Score [facility] ACCOUNT BILL [place] High - 2(A) Score [facility] ACCOUNT BILL Comment: Calculate total score by adding the 3 individual bacterial vaginosis (BV) marker scores together. Total score is interpreted as follows: ? . Total score 0-1: Indicates the absence of BV. Total score ?? 2: Indeterminate for BV. Additional clinical data should ? be evaluated to establish a diagnosis. Total score 3-6: Indicates the presence of BV. ? . This test was developed and its performance characteristics determined by [facility]. ??It has not been cleared or approved by the Food and Drug Administration. ??The FDA has determined that such clearance or approval is not necessary. Diane albicans SHA Negative Negative [facility] ACCOUNT BILL Diane glabrata SHA Negative Negative [facility] ACCOUNT BILL Comment: This test was developed and its performance characteristics determined by [facility]. ??It has not been cleared or approved by the Food and Drug Administration. ??The FDA has determined that such clearance or approval is not necessary. Trichomonas vaginalis by SHA Positive(A) Negative [facility] ACCOUNT BILL Chlamydia Trachomatis SHA Negative Negative [facility] ACCOUNT BILL GC SHA Negative Negative [facility] ACCOUNT BILL ENTIRE VAGINA / Unknown 10/19/2014 2:40 PM CVT TECH 10/19/2014 6:38 PM CVT TECH Narrative Resulting Agency Comment [facility] [address] ??[facility] [phone] Karen Rahman PA-C LAB - MICROBIOLOGY O RDERABLES [facility] ACCOUNT BILL * (ABNORMAL) URINALYSIS AUTO - POINT OF CARE (AMB) SMGS (10/11/2014 2:33 PM CVT TECH) Clarity UA POCT cloudy Color UA POCT yellow Glucose UA Negative Negative Bilirubin UA POCT Negative Negative Ketone UA Negative Negative Specific Bement UA POCT 1.020 1.002 - 1.030 Blood UA POCT Trace-Lysed( A) Negative pH UA 8.5(A) 5.0 - 8.0 pH units Protein UA POCT 30.(A) Negative Urobilinogen UA 0.2 0.1 - 1.0 Nitrite UA POCT Negative Negative Leukocyte UA Large(A) Negative QC Verified Yes Yes Urine specimen (specimen) URINE / Unknown 10/11/2014 2:33 PM CVT TECH Karen Rahman PA-C LAB - POINT OF CARE ORDERABLES * XR LUMBAR SPINE 4+ VW (11/02/2013 3:50 PM CVT TECH) Anatomical Region Laterality Modality Spine Radiographic Leslie ging 11/02/2013 3:54 PM CVT TECH Impressions 11/02/2013 4:39 PM CVT TECH 1. Postoperative changes posterolateral metallic fusion L4-L5 and L5-S1 with intervertebral disc devices at those levels. 2. Limited motion with flexion and extension, no specific pathology seen. Narrative 11/02/2013 4:39 PM CVT TECH LUMBAR SPINE 7 VIEWS: 11/02/2013 HISTORY: Prior surgery. Lumbago. COMPARISON: None. FINDINGS: Views of lumbar spine confirm posterior metallic fusion L4-L5 and L5-S1. Pedicle screws at those levels. Intervertebral disc devices at L4-L5 and L5-S1. No malalignment. No complications related to the hardware. No compression fractures are noted. Prior cholecystectomy. Additional flexion-extension views for a total of 7 views were obtained. No abnormal motion with flexion or extension, limited motion at the levels of fusion. Neural foramina appear widely patent. Procedure Note Danish Connell MD - 11/02/2013 LUMBAR SPINE 7 VIEWS: 11/02/2013 HISTORY: Prior surgery. Lumbago. COMPARISON: None. FINDINGS: Views of lumbar spine confirm posterior metallic fusion L4-L5 and L5-S1. Pedicle screws at those levels. Intervertebral disc devices at L4-L5 and L5-S1. No malalignment. No complications related to the hardware. No compression fractures are noted. Prior cholecystectomy. Additional flexion-extension views for a total of 7 views were obtained. No abnormal motion with flexion or extension, limited motion at the levels of fusion. Neural foramina appear widely patent. IMPRESSION 1. Postoperative changes posterolateral metallic fusion L4-L5 and L5-S1 with intervertebral disc devices at those levels. 2. Limited motion with flexion and extension, no specific pathology seen. Yuri Bo MD DIAGNOSTIC IMAGING O RDERABLES * XR SHOULDER MIN 3 VIEWS RIGHT (03/07/2013 9:57 PM CDT) Anatomical Region Laterality Modality Radiographic Leslie ging 03/08/2013 7:43 AM CDT Narrative 03/08/2013 10:36 AM CDT RIGHT SHOULDER 03/07/2013: INDICATION: Pain. FINDINGS: Metallic plate and screw fixation with old healed right humeral fracture. Three views of the right shoulder are otherwise negative. Preliminary report printed to the Emergency Room on 03/08/2013 at approximately 0749 hours. Procedure Note Morris Cao MD - 03/08/2013 RIGHT SHOULDER 03/07/2013: INDICATION: Pain. FINDINGS: Metallic plate and screw fixation with old healed right humeral fracture. Three views of the right shoulder are otherwise negative. Preliminary report printed to the Emergency Room on 03/08/2013 at approximately 0749 hours. Sulaiman Anne PRODUCT MGR-UTILITY OPERATOR [facility] ORDERABLES * GROSS + MICRO EXAM (11/24/2010 12:28 PM CDT) Result CASE NUMBER [id number] Comment: ORDERING PHYSICIAN ??LOBO ESPINOZA SPECIMEN TYPE ?Gallbladder / Cont *CLINICAL HISTORY ? Acute cholecystitis and cholelithiasis. OPERATIVE PROCEDURE Laparoscopic cholecystectomy. SPECIMEN SOURCE ? Gallbladder and contents. GROSS DESCRIPTION ? Received in formalin labeled with the patient's name Shobha Murray and date of 1970 gallbladder and contents is a hamlin-pink gallbladder measuring 9 x 4 x 3 cm. Within the lumen of the gallbladder are two rough green-yellow stones measuring from 1 through 2.5 cm in greatest dimension. There are no mass lesions. The mucosa hamlin-red, eroded, and focally necrotic appearing. The greatest wall thickness is 0.5 cm. Head Librarian sections are submitted in cassette A1. GROSSED BY ? YAMILETH SUMMERS, DO *MICROSCOPIC EXAM ? Sections demonstrate an acutely inflamed gallbladder with hemorrhage, edema, neutrophilic infiltrate, and areas of full thickness necrosis. READ BY ?YAMILETH SUMMERS, DO DIAGNOSIS ? GALLBLADDER AND CONTENTS, LAPAROSCOPIC CHOLECYSTECTOMY ?1. GANGRENOUS ACUTE CHOLECYSTITIS. ?2. CHOLELITHIASIS. RELEASED BY ?YAMILETH SUMMERS MISCELLANEOUS SAMPLES / Unknown 11/24/2010 12:28 PM CDT 11/25/2010 8:00 AM CDT Historical Provider LAB - PATHOLOGY/C YTOLOGY ORDERABLES Care Teams Oyster Grower Relationship Specialty Start Date End Date Karen Rahman, [facility] [place] [id number] PCP - General Physician Train Attendant 01/30/15
--- OUTSIDE RECORDS SUMMARY | 2024-09-22 19:59 | XMS_ITS | Encounter Summary ---
Author Organization [facility] Address [address] [place] [address]. [place] [address] Care Team Providers Care Site Promotion Agent Name Role Phone Unavailable Primary Care Provider Unavailabl e Encounter Details Date Type Department Care Team (Late st Contact Info) Description 05/23/2008 Abstract [facility] Conversion Md, Generic Conversion, Social History Tobacco [...]
--- OUTSIDE RECORDS SUMMARY | 2024-09-22 19:59 | XMS_ITS | Clinical Summary ---
Author Organization [facility] Address [address] [place] [address] Care Team Providers Care Large Sheetfed Press Operator Name Role Phone Karen Rahman PA-C Primary Care Provider [phone] Source Comments [facility],non-owned Affiliates and Associated Physician Practices is amultiple site organization consisting of ambulatory clinics and hospital sitesin [place], [place], [place] and [place]. This disclosure is being madepursuant to the Care Everywhere program and may not contain all information available regarding this patient. Last updated 18.[facility] Allergies Active Allergy Reactions Criticality Noted Date [...] Active amoxicillin-clavulan ate (AUGMENTIN) 500-125 MG tabletIndications:[place] maxillary sinusitis, recurrence not specified Take 1 [...] spasms) 10 tablet 02/08/2023 Active HYDROcodone-acetamin ophen ([place]) 10-325 MG tabletIndications:Ot her low back pain TAKE ONE TABLET BY MOUTH 3 TIMES A DAY NEEDED FOR 15 DAYS 45 tablet 03/15/2024 Active HYDROcodone-acetamin ophen ([place]) 10-325 MG tabletIndications:Ot her low back pain TAKE ONE TABLET BY MOUTH 3 TIMES A DAY NEEDED FOR 15 DAYS 45 tablet 03/29/2024 09/25/2024 Active HYDROcodone-acetamin ophen ([place]) 10-325 MG tabletIndications:Ot her low back pain TAKE ONE TABLET BY MOUTH 3 TIMES A DAY NEEDED FOR 15 DAYS 45 tablet 04/12/2024 10/09/2024 Active HYDROcodone-acetamin ophen ([place]) 10-325 MG tabletIndications:Ot her low back pain TAKE ONE TABLET BY MOUTH 3 TIMES A DAY NEEDED FOR 15 DAYS 45 tablet 04/30/2024 10/27/2024 Active Active Problems Problem Noted Date Diagnosed Date Other postprocedural status(V45.89) 11/23/2013 Shoulder pain 03/07/2013 Encounters Date Type Department Care Team Description 08/01/2024 2:35 PM AIRPLANE CHARTER CLERK - 08/01/2024 11:59 PM [facility] Hospital Encounter [facility] OP DRAW STATION [address] [place] [phone] Discharge Disposition: Home or Self Care 08/01/2024 Travel from Last 3 Months Immunizations Name Administration Dates Next Due PNEUMOCOCCAL PPSV23 06/14/2014 TDAP (7yrs+) 08/31/2006 Family History Medical History Relation Name Comments Negative Family History Father Negative Family History Mother Relation Name Status Comments Father Alive Mother Alive Social History Tobacco Use Types Packs/Day Years [...] 02/08/2023 8:10 AM CDT Plan of Treatment Health Maintenance Due Date Last Done Comments COLOGUARD (AGES 45-75) - COLON CA SCREENING 1971 COLON MONITORING 1971 COLONOSCOPY - COLON CA SCREENING 1971 CT COLONOGRAPHY - COLON CA SCREENING 1971 Colorectal Cancer Screening 1971 FIT - COLON CA SCREENING 1971 FLEX SIG - COLON CA SCREENING 1971 Opioid Medication Agreement - Annual 1971 Opioid Medication Urine Drug Screening 1971 HEPATITIS C SCREENING 04/13/1989 HEPATITIS B VACCINE (1 of 3 - 19+ 3-dose series) 1990 PNEUMOCOCCAL VACCINE 50+ (2 of 2 - PCV) 06/14/2015 06/14/2014 DTAP/TDAP/TD VACCINES (2 - Td or Tdap) 08/31/2016 08/31/2006 MAMMOGRAM 09/15/2016 09/15/2014 (Declined) PAP SMEAR 05/01/2017 05/01/2014 ZOSTER VACCINE (1 of 2) 2021 COVID-19 VACCINE ( - season) 2024 04/17/2021, 11/24/2020, 11/04/2020 INFLUENZA VACCINE (#1) 2024 06/19/2016 DEPRESSION SCREENING 08/31/2024 LIPID TESTING 08/01/2029 08/01/2024, 01/29, 09/15/2023, Additional history exists HIV SCREENING Completed 07/19/2015 HIB VACCINE Aged Out No longer eligi ble based on patient's age to complete this topic HPV VACCINE Aged Out No longer eligi ble based on patient's age to complete this topic MENINGOCOCCAL (Group B) VACCINE Aged Out No longer eligible based on patient's age to complete this topic MENINGOCOCCAL VACCINE Aged Out No lilo shamar eligible based on patient's age to complete this topic Procedures Procedure Name Priority Date/Time Associated Diagnosis Comments CBC W/O DIFFERENTIAL Routine 08/01/2024 2:54 PM AIRPLANE CHARTER CLERK Diabetes mellitus without complication (HCC) COMPREHENSIVE METABOLIC PANEL Routine 08/01/2024 2:54 PM AIRPLANE CHARTER CLERK Diabetes mellitus without complication (HCC) LIPID PROFILE Routine 08/01/2024 2:54 PM AIRPLANE CHARTER CLERK Diabetes mellitus without complication (HCC) HEMOGLOBIN A1C Routine 08/01/2024 2:54 PM AIRPLANE CHARTER CLERK Diabetes mellitus without complication (HCC) HIV-1 HIV-2 ANTIBODY W/ REFLX CONFIRM Routine 07/19/2015 3:52 PM AIRPLANE CHARTER CLERK Possible exposure to STD from Last 3 Months or Most Recently Relevant to Health Maintenance Results * (ABNORMAL) HEMOGLOBIN A1C [IN-HOUSE TEST] (08/01/2024 2:54 PM AIRPLANE CHARTER CLERK) Hemoglobin A1c 7.7(H) <=5.6 % 08/02/2024 8:53 AM [facility] Estimated Average Glucose 174 mg/dL 08/02/2024 8:53 AM [facility] Comment: HbA1c Interpretation: Normal : < 5.7% Pre-diabetes: 5.7-6.4% Diabetes: Equal to or greater than 6.5% Test results diagnostic of diabetes should be repeated for confirmation. Treatment target values recommended by ADA and other clinical organizations should be used to evaluate metabolic control in patients. Reference: [place] [employer], Standards of Care in Diabetes -2020 In patients 70 years and older consider HbA1c target range of 7.0-7.5% (Reference: Stephen Prabhakar et al. JAMDA. 2012) The Sebia assay for the measurement of HbA1c is a National Glycohemoglobin Standardization Program (NGSP) certified method. Blood BLOOD SPECIMEN WITH EDTA / Unknown Lab Venipuncture / Unknown 08/01/2024 2:54 PM AIRPLANE CHARTER CLERK 08/01/2024 3:22 PM AIRPLANE CHARTER CLERK Provider Unknown LAB - CHEMISTRY ORDE RABSUREKHA [facility] [address] [place] [id number], [facility] [phone] * CBC W/O DIFFERENTIAL (08/01/2024 2:54 PM AIRPLANE CHARTER CLERK) Pathologist [facility] WBC 7.5 4.0 - 10.7 x10E9/L 08/01/2024 3:32 PM [facility] RBC Count 4.26 3.90 - 5.20 x10E12/L 08/01/2024 3:32 PM [facility] Hemoglobin 12.8 11.9 - 15.8 g/dL 08/01/2024 3:32 PM [facility] Hematocrit 38.7 34.8 - 46.1 % 08/01/2024 3:32 PM [facility] MCV 90.8 80.0 - 98.0 fL 08/01/2024 3:32 PM [facility] MCH 30.0 26.7 - 33.6 pg 08/01/2024 3:32 PM [facility] MCHC 33.1 31.7 - 36.3 g/dL 08/01/2024 3:32 PM [facility] RDW-CV 14.8 11.3 - 14.8 % 08/01/2024 3:32 PM [facility] Platelet Count 285 150 - 420 x10E9/L 08/01/2024 3:32 PM [facility] MPV 9.7 7.8 - 11.4 fL 08/01/2024 3:32 PM [facility] Blood BLOOD SPECIMEN / Unknown Lab Venipuncture / Unknown 08/01/2024 2:54 PM AIRPLANE CHARTER CLERK 08/01/2024 3:23 PM AIRPLANE CHARTER CLERK Provider Unknown LAB - HEMATOLOGY ORD ERABLES [facility] [address] [place] [address], [facility] [phone] * (ABNORMAL) COMPREHENSIVE METABOLIC PANEL (08/01/2024 2:54 PM [facility]) BUN 22 7 - 26 mg/dL 08/01/2024 3:53 PM [facility] Creatinine 1.06(H) 0.56 - 0.96 mg/dL 08/01/2024 3:53 PM [facility] Sodium 142 136 - 145 mmol/L 08/01/2024 3:53 PM [facility] Potassium 4.4 3.5 - 4.5 mmol/L 08/01/2024 3:53 PM [facility] Chloride 109(H) 98 - 107 mmol/L 08/01/2024 3:53 PM [facility] CO2 25 22 - 29 mmol/L 08/01/2024 3:53 PM [facility] Glucose 153(H) 70 - 99 mg/dL 08/01/2024 3:53 PM [facility] Calcium 9.4 8.4 - 10.2 mg/dL 08/01/2024 3:53 PM [facility] Protein Total 7.7 6.0 - 8.3 g/dL 08/01/2024 3:53 PM [facility] Albumin 3.7 3.4 - 5.0 g/dL 08/01/2024 3:53 PM [facility] Bilirubin Total 0.2 0.2 - 1.2 mg/dL 08/01/2024 3:53 PM [facility] Alkaline Phosphatase 70 40 - 150 U/L 08/01/2024 3:53 PM [facility] ALT 24 5 - 55 U/L 08/01/2024 3:53 PM [facility] AST 18 5 - 34 U/L 08/01/2024 3:53 PM [facility] Anion Gap 8 6 - 16 08/01/2024 3:53 PM [facility] BUN/Creatinine Ratio 21 7 - 23 08/01/2024 3:53 PM [facility] Osmolality Calculated 300(H) 275 - 295 mOsm/kg 08/01/2024 3:53 PM AIRPLANE CHARTER CLERK [facility] Albumin/Globulin Ratio 0.9(L) 1.1 - 2.3 08/01/2024 3:53 PM [facility] eGFR by CKD-EPI 63(L) >=90 mL/min/1.7 3 m2 08/01/2024 3:53 PM [facility] Blood BLOOD SPECIMEN / Unknown Lab Venipuncture / Unknown 08/01/2024 2:54 PM AIRPLANE CHARTER CLERK 08/01/2024 3:23 PM [facility] Provider Unknown LAB - CHEMISTRY BENNETT CHAHAL [facility] [address] [place] [address], [facility] [phone] * (ABNORMAL) LIPID PROFILE (08/01/2024 2:54 PM [facility]) Cholesterol Total 196 <200 mg/dL 08/01/2024 3:53 PM [facility] HDL 55 >40 mg/dL 08/01/2024 3:53 PM [facility] Comment: ATP III Classification of HDL Cholesterol: ? <40 mg/dL: ??Considered a major risk factor. ? >60 mg/dL: ??Considered a negative risk factor. ? LDL Calculated 90 <100 mg/dL 08/01/2024 3:53 PM [facility] Comment: ATP III Classification of LDL Cholesterol: ?<100 mg/dL: ??Optimal ? 100 - 129 mg/dL: ??Near Optimal/Above Optimal ? 130 - 159 mg/dL: ??Borderline High ? 160 - 189 mg/dL: ??High ?>190 mg/dL: ??Very High ? Triglycerides 255(H) <150 mg/dL 08/01/2024 3:53 PM [facility] Comment: ATP III Classification of Triglycerides: ?<150 mg/dL: ??Normal ? 150 - 199 mg/dL: ??Borderline High ? 200 - 400 mg/dL: ??High ?>500 mg/dL: ??Very High Blood BLOOD SPECIMEN / Unknown Lab Venipuncture / Unknown 08/01/2024 2:54 PM AIRPLANE CHARTER CLERK 08/01/2024 3:23 PM AIRPLANE CHARTER CLERK Provider Unknown LAB - CHEMISTRY BENNETT CHAHAL [facility] [address] [address], [facility] [phone] * HIV-1 HIV-2 ANTIBODY W/ REFLX CONFIRM (07/19/2015 3:52 PM AIRPLANE CHARTER CLERK) [facility] HIV-1/HIV-2 Negative Negative 07/22/2015 12:40 AM AIRPLANE CHARTER CLERK [facility] ([facility]) Comment: Based on the non-reactive anti-HIV (ARSENIO) [...] Unknown Venipuncture / Unknown 07/19/2015 3:52 PM AIRPLANE CHARTER CLERK 07/19/2015 3:54 PM AIRPLANE CHARTER CLERK Karen Rahman PA-C LAB - SEROLOGY ORDER RASHEED [facility] ([facility]) [phone] from Last 3 Months or Most Recently Relevant to Health Maintenance Care Teams Large Sheetfed Press Operator Relationship Specialty Start Date End Date Karen Rahman PA-C [facility] [place] [address] PCP - General Physician Microgrinder Operator 01/30/15
--- OUTSIDE RECORDS SUMMARY | 2024-09-22 19:59 | XMS_ITS | Encounter Summary ---
Author Organization [facility] Address [facility]ly [facility] [facility] [place], [place] [address] [place] [address] Care Team Providers Care College Or University Department Head Name Role Phone Unavailable Primary Care Provider Unavailabl e Encounter Details Date Type Department Care Team (Late st Contact Info) Description 02/05/2019 Abstract [facility] CONVERSION [address] [place], [place] [id number] , Generic Conversion, Social History Tobacco Use Types [...]
--- OUTSIDE RECORDS SUMMARY | 2024-09-22 19:59 | XMS_ITS | Encounter Summary ---
Author Organization [facility] Address [address] [place] [address]. [place] [address] Care Team Providers Care Table Games Shift Manager Name Role Phone Unavailable Primary Care Provider Unavailabl e Encounter Details Date Type Department Care Team (Late st Contact Info) Description 06/05/2008 Abstract [facility] Conversion Md, Generic Conversion, Social History [...]
--- OUTSIDE RECORDS SUMMARY | 2024-09-22 20:00 | XMS_ITS | Clinical Summary ---
Author Organization [facility] Address [address] [place] [address] Care Team Providers Care Security Incident Response Specialist Name Role Phone Rhys Meneses MD Primary Care Provider [phone] Allergies Active Allergy Reactions Criticality Noted Date Comments Tramadol Anaphylaxis High 07/11/2022 Medications cyclobenzaprine (FLEXERIL) 10 mg tablet Take 1 tablet (10 mg total) by mouth 2 (two) times a day as needed for muscle spasms 20 tablet 07/11/2022 Active Encounters Date Type Department Care Team Description 07/18/2024 Telephone [facility] Diabetes and Endocrinology [address] [place] [phone] Tony Jimenez, Angelika Jimenez MD new referral to endocrinology from Last 3 Months Social History Tobacco Use Types Packs/Day Years Used Date Smoking Tobacco: Never Assessed Personal Safety Answer Date Recorded Getting School Help Needed Not on file 11/14 Comments Unknown Sex and Gender Information Value Date Recorded Sex Assigned at Not on file Legal Sex Female 2:50 PM [employer]IFT NA[employer] Gender Identity Not on file Sexual Orientation Not on file Last Filed Vital Signs Vital Sign Reading Time Taken Comments Blood Pressure 110/73 07/11/2022 4:47 PM [employer] NAILER Pulse 73 07/11/2022 4:47 PM [employer] NAILER Temperature 36.7 ??C (98 ??F) 07/11/2022 3:06 PM [employer] LIFT NAILER Respiratory Rate 20 07/11/2022 4:47 PM [employer] LIFT NAILER Oxygen Saturation 100% 07/11/2022 4:47 PM [employer] LIFT NAILER Inhaled Oxygen Concentration - - Weight - - Height - - Body Mass Index - - Plan of Treatment Health Maintenance Due Date Last Done Comments Breast Cancer Screening-Mammogram 1971 Cervical Cancer Screening 1971 Colon Cancer Screening-Colonoscopy 1971 Depression Screening 1971 Hepatitis C Screening 1971 Hepatitis B Screening 1989 Regular Well Visit/Exam 18-64 1989 DTaP/Tdap/Td Vaccine (2 - Td or Tdap) 08/31/2016 08/31/2006 Zoster Vaccine (1 of 2) 2021 Influenza Vaccine (#1) 2024 Pneumococcal vaccine <65 Aged Out 06/14/2014 No longer eligible based on patient's age to complete this topic Insurance [employer] [place] [address] [id number] [address] [facility] [phone] Care Teams Security Incident Response Specialist Relationship Specialty Start Date End Date Rhys Meneses MD [address] [place] [address] PCP - General Internal Medicine 07/21/24
--- OUTSIDE RECORDS SUMMARY | 2024-09-22 20:00 | XMS_ITS | Data Portability ---
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 [email or web address] Not available 11/29/2023 14:44:35 11/27/2023 11/27/2023 Podiatry referral continue current therapy stay on her regular medications I will see her back in obtain records from previous clinic targets for blood pressure LDL and A1c discussed [email or web address] Not available 11/28/2023 15:24:42 03/07/2024 03/07/2024 EKG shows a normal sinus rhythm with no acute changes appears to have normal intervals workup will include carotid duplex echo MRI brain consider Holter. She recently had blood work we reviewed that for a chronic foot problem she will see Dr. James from Podiatry. She will follow up with me in 4 months sooner if testing reveal something specific. Her blood work was reviewed Not available 04/03/2024 12:25:35 07/04/2024 07/04/2024 obtain CBC CMP lipid and hemoglobin A1c. Refer to podiatry for foot pain and diabetic foot exam. 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 Schedule mammogram. Refer to endocrinology. Start Lantus 15 units daily. DC Ozempic because of history is a pancreatitis. She had some questions about filling out FMLA papers. She states that it is because of blood sugars going high. I told her that if she needs FMLA because of diabetes that will be up to the endocrinologis t. Chronic pain she follows with pain management Not available 07/10/2024 21:52:59 Plan of Treatment Reminders Order Date Submit Date Provider Last Modified By Organization Details Last Modified Time Details Appointments None recorded . Lab HbA1c (hemoglo bin A1c), blood 2023 [facility] (Outpatient Lab), [address], [address], 5 10:08:44 CMP, serum or plasma 2023 [facility] (Outpatient Lab), [address], [address], 5 10:08:45 lipid panel, serum 2023 [facility] (Outpatient Lab), [address], [address], 5 10:08:45 CBC w/ auto diff 2023 [facility] (Outpatient Lab), [address], [address], 5 10:08:[address] referral 2023 felisha Albarran Jr DPM, [address], [place], [address], 4 13:49:35 endocrin ology referral 2023 024 [email or web address] Angelika Jimenez MD, [address], [place], [address], 4 16:05:07 gynecolo gist referral 2023 024 [email or web address] Mariza Goddard MD, [address], [address], [place], [address], 4 17:47:[address] referral 2023 024 [email or web address] Andrewesteban Albarran Jr DPM, [address], [address], [place], [address], 4 17:47:37 Procedures None recorded . Surgeries None recorded . Imaging electroc ardiogra m 2023 024 In-Office Order, Internal Use Only DO Not Attach Compendium DO Not Attach Compendium, Do Not Delete/merge, [id number] 4 14:00:11 US, duplex, carotid artery 2023 [facility] (Imaging), [address] [place] [address] [place] [address], [address], 5 09:51:54 MRI, brain, w/o contrast 2023 024 [facility] (Imaging), [address] [place] [address] [address], [place], [address], 4 13:57:38 US, echocard iogram 2023 024 [facility] (Cardiology & Emg), [address] [facility] [address], [place], [address], 4 15:56:37 MAMMO, screenin g, digital, bilatera l 2023 024 [facility] (Imaging), [facility] [address], [place], [address], 5 16:36:14 Medication Orders doxycycl ine hyclate 100 mg capsule 2023 024 [facility] #15911, [address] [facility], [place], [place], [id number], 4 13:26:33 predniso ne 20 mg tablet 2023 024 [email or web address] [facility]52883, [address], [place], [id number], 4 13:26:42 albutero l sulfate HFA 90 mcg/actu ation aerosol inhaler 2023 024 [email or web address] [facility] #07895, [address], [place], [id number], 4 18:14:19 topirama te 25 mg tablet 2023 024 [email or web address] [facility] #71263, [address], [place], [id number], 14:00:11 Lantus Solostar U-100 Insulin 100 unit/mL (3 mL) subcutan eous pen 2023 024 [email or web address] [facility] #89326, [address], [place], [id number], 5 12:14:06 Patient TargetsNo targets recorded. Patient Instructions Encounter Date Encounter Id Patient Instructions Last Modified By Organization Details Last Modified Time 03/07/2024 [id number] A healthy lifestyle: care instructions Not available 03/07/2024 14:00:11 07/04/2024 [id number] A healthy lifestyle: care instructions [email or web address] Not available 07/04/2024 17:47:37 Reason for Referral Parts Cataloguer Referral for Pain in both feet Referring Physician: Rafaela Meneses, Internal Medicine, Encounter Date: 11/27/2023 Cnc Manufacturing Engineer Referral for Gy necologic examination Referring Physician: Rafaela Meneses, Internal Medicine, Encounter Date: 07/04/2024 Parts Cataloguer Referral for Pain in both feet Referring Physician: Rafaeal Meneses, Internal Medicine, Encounter Date: 07/04/2024 Endocrinology Referral for T ype 2 diabetes mellitus Referring Physician: Rafaela Meneses, Internal Medicine, Encounter Date: 07/04/2024 Results Created Date Observation Date Name Description Value Unit Range Abnormal Flag Note LastModifiedBy Organization Detail LastModifiedTime 03/07/20 elect rocar diogr am No observ ation record ed. OGLESBY In-Office Order Internal Use Only DO Not Attach Compendium DO Not Attach Compendium, Do Not Delete/merge, [id number] 03/07/2024 12:33:28 03/07/20 24 03/07/2024 elect rocar diogr am No observ ation record ed. OGLESBY In-Office Order Internal Use Only DO Not Attach Compendium DO Not Attach Compendium, Do Not Delete/merge, [id number] 03/07/2024 12:41:44 04/29/20 24 04/29/2024 , [facility] ardio gram No observ ation record ed. [address] [place] [address], [address], 06/07/2024 12:12:17 09/20/19 25 09/20/2024 MAMMO , scree pascale, digit al, bilat eral No observ ation record ed. [address], [address], 09/21/2024 16:33:10 09/20/19 25 09/20/2024 MAMMO , scree pascale, digit al, bilat eral No observ ation record ed. [address], [address], 09/21/2024 02:09:58 Result Notes None recorded. Problems Name Problem SNOMED Code Status Onset Date Resolution Date Notes Provider Name and Address Organization Details Recorded Time Pneumonia 007490596 Active 2023 Rafaela Meneses MD Attn: Tiana hoffman,[address] [facility], [place], [address], [place] - [facility] 4 14:44:36 Dizziness 136755699 Active 2023 Stephen Forman [place] null, [place] [facility] 13:00:37 Type 2 diabetes mellitus 09559361 Active 2023 Sofia Christensen LPN null, [place] [facility] 17:22:40 Hyperlipidemia 75191367 Active 2023 Stephen Forman [place] null, [place] [facility] 13:50:21 Migraine 84411426 Active 2023 Rafaela Meneses MD Attn: Tiana dalton,[address] [facility], [place], [address], [place] - [facility] 21:45:13 Essential hypertension 38644677 Active 2023 Rafaela Meneses MD Attn: Tiana hoffman,[address] [facility], [place], [address], [place] - [facility] 21:45:34 Anxiety 25195810 Active 2023 Rafaela Meneses MD Attn: Tiana dalton,[address] [facility], [place], [address], [place] - [facility] 21:45:51 Neuropathy 940783754 Active 2023 Rafaela Meneses MD Attn: Tiana hoffman,[address] [facility], [place], [address], [place] - [facility] 21:46:11 Problem Notes None recorded. Procedures Surgical History Date Name Laterality Status Provider Name and Address Organization Details Recorded Time Back Surgery completed MAKSIM Lindsey [place] - [facility] 11/16/2023 17:12:46 Knee Surgery completed MAKSIM Lindsey [place] - [facility] 11/16/2023 17:12:53 Imaging Results Imaging Date Name Status LastModified by Organization Details LastModified Time 03/07/2024 electrocardiogram completed JANA In-Offi ce Order Internal Use Only DO Not Attach Compendium DO Not Attach Compendium, Do Not Delete/merge, [id number] 03/07/2024 12:33:28 03/07/2024 electrocardiogram completed OGLESBY In-Offi ce Order Internal Use Only DO Not Attach Compendium DO Not Attach Compendium, Do Not Delete/merge, [id number] 03/07/2024 12:41:44 04/29/2024 US, echocardiogram completed [address], [address], 06/07/2024 12:12:17 09/20/2024 MAMMO, screening, digital, bilateral completed [address], [place], [address], 09/21/2024 16:33:10 09/20/2024 MAMMO, screening, digital, bilateral active [address], [place], [address], 09/21/2024 02:09:58 Procedure Notes None recorded. Medical Equipment None Reported. Allergies Allergen ID Allergen Name Allergen Category Reaction Reaction Severity Criticality Documentation Date Start Date Code Code System Note Provider Name and Address Organization Details Recorded Time [id number] Toradol medicatio n hives other Not available Not available Not available 11/16/2023 76721 RxNorm throa t swell ing Not Available Not Available Not Available Medications Name Sig Start Date Stop Date Status Note LastModified by Organization Details LastModified Time cyclobenz aprine 10 mg tablet 11/15 completed Not Available Not Available Not Available amoxicill in 500 mg capsule 11/08 completed Not Available Not Available Not Available buspirone 5 mg tablet TAKE 1 TABLET BY MOUTH TWICE DAILY active Not Available Not Available No t Available clonidine HCl 0.1 mg tablet TAKE 1 TABLET BY MOUTH TWICE DAILY FOR 7 DAYS active Not Available Not Available No t Available doxycycli ne hyclate 100 mg capsule TAKE 1 CAPSULE BY MOUTH TWICE DAILY FOR 10 DAYS 11/26 completed Not Available Not Available Not Available atorvasta tin 20 mg tablet TAKE 1 TABLET BY MOUTH EVERY DAY 2024 active Not Available Not Available Not Avai lable clindamyc in HCl 300 mg capsule 11/08 completed Not Available Not Available Not Available atorvasta tin 10 mg tablet TAKE 1 TABLET BY MOUTH DAILY 11/15 completed Not Available Not Available Not Available azithromy maria 250 mg tablet USE DIRECTED 11/26 completed Not Available Not Available Not Available ibuprofen 800 mg tablet 11/15 completed Not Available Not Available Not Available benzonata te 200 mg capsule 11/08 completed Not Available Not Available Not Available hydrocodo ne 5 mg-acetam inophen 325 mg tablet TAKE 1 TABLET BY MOUTH EVERY 6 HOURS NEEDED 11/15 completed Not Available Not Available Not Available sucralfat e 1 gram tablet Take 1 tablet by mouth daily active pt reports rarely taking unless she eats spicy food Not Available Not Available Not Available prednison e 20 mg tablet TAKE 2 TABLETS BY MOUTH EVERY DAY FOR 5 DAYS 11/26 completed Not Available Not Available Not Available rizatript an 10 mg tablet TAKE 1 TABLET BY MOUTH DAILY NEEDED FOR MIGRAINE active Not Available Not Available No t Available topiramat e 25 mg tablet TAKE 1 TABLET BY MOUTH TWICE DAILY active Not Available Not Available No t Available hydrocodo ne 10 mg-acetam inophen 325 mg tablet TAKE 1 TABLET BY MOUTH THREE TIMES DAILY FOR 15 DAYS NEEDED active Not Available Not Available No t Available amoxicill in 500 mg tablet TAKE 1 TABLET BY MOUTH THREE TIMES DAILY FOR 7 DAYS active Not Available Not Available No t Available lidocaine -prilocai ne 2.5 %-2.5 % topical cream APPLY TOPICALL Y TO THE AFFECTED AREA FOUR TIMES DAILY active Not Available Not Available No t Available methocarb johan 750 mg tablet TAKE 1 TABLET BY MOUTH THREE TIMES DAILY FOR 10 DAYS 11/08 completed Not Available Not Available Not Available meclizine 25 mg tablet TAKE 1 TABLET BY MOUTH EVERY 8 HOURS NEEDED active Not Available Not Available No t Available cephalexi n 500 mg capsule TAKE 1 CAPSULE BY MOUTH THREE TIMES DAILY FOR 7 DAYS 11/08 completed Not Available Not Available Not Available cyanocoba dionisio (vit B-12) 1,000 mcg/mL injection solution 03/07 completed old order Not Available Not Available Not Available oseltamiv ir 75 mg capsule 03/07 completed Not Available Not Available Not Available lidocaine 5 % topical patch APPLY 1 PATCH DAILY TO MOST PAINFUL AREA. REMOVE AFTER 12 HOURS AND LEAVE OFF FOR 12 HOURS active Not Available Not Available No t Available lisinopri l 5 mg tablet TAKE 1 TABLET BY MOUTH EVERY DAY 03/07 completed not taking Not Available Not Available Not Available doxycycli ne hyclate 100 mg tablet 11/08 completed Not Available Not Available Not Available naproxen 500 mg tablet TAKE 1 TABLET BY MOUTH TWICE DAILY WITH FOOD 11/15 completed Not Available Not Available Not Available insulin lispro (U-100) 100 unit/mL subcutane ous pen INJECT 10 UNITS UNDER THE SKIN WITH MEALS 2024 active Not Available Not Available Not Avai lable pregabali n 100 mg capsule 11/15 completed Not Available Not Available Not Available pregabali n 200 mg capsule TAKE 1 CAPSULE BY MOUTH TWICE DAILY active Not Available Not Available No t Available ProAir HFA 90 mcg/actua tion aerosol inhaler inhale 2 puffs every 4hrs PRN 2023 active Not Available Not Available Not Avai lable Lantus Solostar U-100 Insulin 100 unit/mL (3 mL) subcutane ous pen ADMINIST ER 15 UNITS UNDER THE SKIN EVERY DAY 09/22 completed Not Available Not Available Not Available Creon 24,000-76 ,000-120, 000 unit capsule,d elayed release active Not Available Not Available Not Available Droplet Pen Needle 31 gauge x 5/16 USE 1 NEEDLE PER LANTUS INJECTIO N 2024 active Not Available Not Available Not Avai lable Ozempic 0.25 mg or 0.5 mg (2 mg/1.5 mL) subcutane ous pen injector 11/15 completed Not Available Not Available Not Available FreeStyle Chel 14 Day Sensor kit USE TO CHECK BLOOD SUGAR DIRECTED 03/07 completed FSL 3 Not Available Not Available Not Available Semglee (insulin glargine- yfgn) Pen 100 unit/mL (3 mL) subcutane ous INJECT 15 UNITS UNDER THE SKIN EVERY DAY 2024 active Not Available Not Available Not Avai lable FreeStyle Chel 3 Sensor device CHANGE SENSOR EVERY 14 DAYS. 2024 active Not Available Not Available Not Avai lable Ozempic 0.25 mg or 0.5 mg (2 mg/3 mL) subcutane ous pen injector INJECT 0.5MG UNDER THE SKIN DIRECTED ONCE WEEKLY. 07/[address] Meneses at visit 07/04/24. Not Available Not Available Not Available Vitals Date Recorded Body height Provider Name an d Address Organization Details Last Updated DateTime 11/16/2023 167.64 cm Kat Velazco on, [facility] 11/16/2023 17:07:58 Date Recorded Body mass index (BMI) Body weight Provider Name and Address Organization Details Last Updated DateTime 11/16/2023 39.6 kg/m2 275646.93 g Kat Guaman, [facility] 11/16/2023 17:08:07 Date Recorded Heart rate Provider Name an d Address Organization Details Last Updated DateTime 11/16/2023 82 /min Kat Davids on, [facility] 11/16/2023 17:09:51 Date Recorded Oxygen saturation Oxygen saturation in Arterial blood by Pulse oximetry Provider Name and Address Organization Details Last Updated DateTime 11/16/2023 97 % 97 % Kat Guaman, [facility] 11/16/2023 17:09:52 Date Recorded Body height Provider Name an d Address Organization Details Last Updated DateTime 11/27/2023 167.64 cm Raul Chavarria [place] - [facility] 11/27/2023 13:18:21 Date Recorded Oxygen saturation Oxygen saturation in Arterial blood by Pulse oximetry Provider Name and Address Organization Details Last Updated DateTime 11/27/2023 96 % 96 % Raul Chavarria [place] - [facility] 11/27/2023 13:29:47 Date Recorded Heart rate Provider Name an d Address Organization Details Last Updated DateTime 11/27/2023 87 /min Raul Chavarria [place] - [facility] 10/30 13:29:49 Date Recorded Body height Provider Name an d Address Organization Details Last Updated DateTime 03/07/2024 167.64 cm Kat Davids on, [facility] 03/07/2024 11:13:28 Date Recorded Body mass index (BMI) Provider Name and Address Organization Details Last Updated DateTime 03/07/2024 39.7 kg/m2 Kat Guaman, [facility] 03/07/2024 11:19:19 Date Recorded Body weight Provider Name an d Address Organization Details Last Updated DateTime 03/07/2024 621905.72 g Kat Velazco on, [facility] [place] 03/07/2024 11:19:20 Date Recorded Heart rate Provider Name an d Address Organization Details Last Updated DateTime 03/07/2024 76 /min Kat Velazco on, [facility] 03/07/2024 11:23:40 Date Recorded Oxygen saturation Oxygen saturation in Arterial blood by Pulse oximetry Provider Name and Address Organization Details Last Updated DateTime 03/07/2024 98 % 98 % Kat Guaman [facility] 03/07/2024 11:23:43 Date Recorded Respiratory rate Provider Name a nd Address Organization Details Last Updated DateTime 03/07/2024 14 /min Kat Guaman [facility] 03/07/2024 11:24:00 Date Recorded Body height Provider Name an d Address Organization Details Last Updated DateTime 07/04/2024 167.64 cm Jamia Ramirez MA [facility] 11:29:01 Date Recorded Body mass index (BMI) Body weight Provider Name and Address Organization Details Last Updated DateTime 07/04/2024 39.8 kg/m2 023352.52 g Jamia Ramirez MA [facility] 07/04/2024 11:33:00 Date Recorded Heart rate Provider Name an d Address Organization Details Last Updated DateTime 07/04/2024 79 /min Jamia Ramirez MA [facility] 11:36:43 Date Recorded Oxygen saturation Oxygen saturation in Arterial blood by Pulse oximetry Provider Name and Address Organization Details Last Updated DateTime 07/04/2024 96 % 96 % Jamia Ramirez MA [facility] 07/04/2024 11:36:45 Date Recorded Systolic blood pressure Diastolic blood pressure Provider Name and Address Organization Details Last Updated DateTime 11/16/2023 116 mm[Hg] 66 mm[Hg] Katdarshan Guaman [facility] 11/16/2023 17:09:47 Date Recorded Systolic blood pressure Diastolic blood pressure Provider Name and Address Organization Details Last Updated DateTime 11/27/2023 102 mm[Hg] 72 mm[Hg] Raul Chavarria [place] [facility] 11/27/2023 13:28:42 Date Recorded Systolic blood pressure Diastolic blood pressure Provider Name and Address Organization Details Last Updated DateTime 03/07/2024 112 mm[Hg] 78 mm[Hg] MAKSIM Lindsey [place] - [facility] 03/07/2024 11:23:34 Date Recorded Systolic blood pressure Diastolic blood pressure Provider Name and Address Organization Details Last Updated DateTime 07/04/2024 130 mm[Hg] 68 mm[Hg] Jamia Ramirez MA [place] [facility] 07/04/2024 11:36:47 Social History Question Answer Notes LastModified by Organizat ion Details LastModified Time Tobacco Smoking Status Never Smoker non smoker MAKSIM Lindsey null, [place] - [facility] 11/16/2023 17:12:35 Do You Have An Advance Directive? No Information not available 07/04/2024 What Is Your Level Of Alcohol Consumption? None Information not available 07/04/2024 Are You Blind Or Do You Have Difficulty Seeing? No Information not available 07/04/2024 What Is Your Level Of Caffeine Consumption? None Information not available 07/04/2024 In The 14 Days Before Symptom Onset, Have You Had Close Contact With A Laboratory-confir med COVID-19 While That Case Was Ill? No Information not available 07/04/2024 In The 14 Days Before Symptom Onset, Have You Had Close Contact With A Person Who Is Under Investigation For COVID-19 While That Person Was Ill? No Information not available 07/04/2024 Have You Been To An Area Known To Be High Risk For COVID-19? No Information not available 07/04/2024 Are You Currently Employed? Yes Information not available 07/04/2024 Are You Deaf Or Do You Have Serious Difficulty Hearing? No Information not available 07/04/2024 What Type Of Diet Are You Following? REGULAR Information not available 07/04/2024 Are There Any Guns Present In Your Home? No Information not available 07/04/2024 What Was The Date Of Your Most Recent Tobacco Screening? 07/04/2024 Information not available 07/04/2024 What Is Your Relationship Status? Information not available 07/04/2024 Do You Use Your Seat Belt Or Car Seat Routinely? Yes Information not available 07/04/2024 Do You Have Smoke And Carbon Monoxide Detectors In Your Home? Yes Information not available 07/04/2024 Do You Feel Stressed (tense, Restless, Nervous, Or Anxious, Or Unable To Sleep At Night)? [id number] Information not available 07/04/2024 Do You Use Any Illicit Or Recreational Drugs? No Information not available 07/04/2024 Do You Use Sunscreen Routinely? Yes Information not available 07/04/2024 Has Tobacco Cessation Counseling Been Provided? No Information not available 07/04/2024 Do You Or Have You Ever Used Any Other Forms Of Tobacco Or Nicotine? No Information not available 07/04/2024 Sex: Female Functional Status Question Answer Note LastModified by Organization D etails LastModified Time Are you able to care for yourself? Yes Information n ot available 07/04/2024 What is your exercise level? None Information not available 07/04/2024 Mental Status None recorded. Family History Relationship Description Onset Age of this Age Resolved Age Notes LastModified by Organization Details LastModified Time Brother Attention deficit hyperactivit y disorder, predominantl y inattentive type [email or web address] Not available 10/29 17:10:51 Father Diabetes mellitus [email or web address] Not available 10/29 17:11:07 Father Heart disease [email or web address] Not available 10/29 17:11:18 Father Hypertensive disorder [email or web address] Not available 10/29 17:11:39 Father Kidney disease [email or web address] Not available 10/29 17:11:50 Father Migraine [email or web address] Not availa ble 11/16/2023 17:12:05 Mother Diabetes mellitus [email or web address] Not available 10/29 17:11:07 Mother Heart disease [email or web address] Not available 10/29 17:11:18 Mother Hypertensive disorder [email or web address] Not available 10/29 17:11:39 Mother Kidney disease [email or web address] Not available 10/29 17:11:50 Mother Migraine [email or web address] Not availa ble 11/16/2023 17:12:05 Mother Malignant tumor of ovary [email or web address] Not available 10/29 17:12:20 Sister Diabetes mellitus [email or web address] Not available 10/29 17:11:07 Sister Migraine [email or web address] Not availa ble 11/16/2023 17:12:05 Sister Malignant tumor of ovary [email or web address] Not available 10/29 17:12:20 Medical History No medical history recorded. Gynecological History Statement/Question Response If Post Menopausal, Age at Menopause 50 Obstetrics History GPAL:G 1 P 1 0 0 1 Type Value Full Term 1 Living 1 Total 1 Past Encounters Encounter ID Performer Location Encounter Start Date Encounter Closed Date Diagnosis/Indication Diagnosis SNOMED-CT Code Diagnosis ICD10 Code Diagnosis Note [id number] [facility] [address] [place] [address] 11/27/2023 12:54:17 11/27/2023 14:19:56 Pain in both feet 2511606074 5731504 M79.672 M79.671 Type 2 sabina betes mellitus 63017338 E11.9 Chronic pain 43705009 G8 9.29 Migraine 19596209 G43.90 9 Anxiety 73699621 F41.9 [id number] MD [facility] (Adult Med) [address] [place] [phone] 11/16/2023 15:44:53 11/16/2023 17:51:53 Pneumonia 551533271 J18.9 [id number] Rafaela Meneses MD [facility] [address] [place] [address] 03/07/2024 11:06:52 03/07/2024 12:49:51 Renewal of prescription 460121973 Z76.0 Obesity 843753359 E66.8 Dizziness 133568083 R42 Pain in both feet 293450 1214 5796704 M79.672 M79.755 [id number] Rafaela Meneses MD [facility] Carleen Wright [address] [place] [address] 07/04/2024 11:06:35 07/04/2024 14:02:40 Obesity 206312622 E66.9 Screening mammography 24 722499 Z12.31 Type 2 sabina betes mellitus 60726493 E11.9 Hyperlipidemia 21479622 E78.5 Gynecologi c examination 39613668 Z01.419 Pain in both feet 102273 8516 3882611 M79.672 M79.671 Migraine 35850768 G43.90 9 Anxiety 14776328 F41.9 Essential hypertension [id number] I10 Neuropathy [id number] G62 .9 Health Concerns Section Related Observation LastModified by Organization Detai ls LastModified Time None Recorded Concern Status LastModified by Organization Details LastModified Time None Recorded Advance Directives Directive N: Payers Encounter Date Sequence Insurance Name Policy Number Policy Gutierrez Covered Member ID Gutierrez Member ID Guarantor Name 11/16/2023 1 [facility] Shobha Urias Terri [id number] 1 Shobha Liz 11/27/2023 1 [facility] Shobha Urias Terri [id number] 1 Shobha BridgettJoni 03/07/2024 1 [facility] Shobha Urias Terri [id number] Shobha PerezTerri 07/04/2024 1 [facility] Shobha Urias Terri [id number] Shobha JainBud Notes Date Note Type Note Provider Name and Address Organization Details Recorded Time 11/16/2023 text/html Cough congestion feeling bad went to [facility]A left lower lobe pneumonia seen placed on a Z-Benigno inhaler and she just feels bad still continues to cough and feels short of breath. Fatigue as well. Rafaela Meneses MD Attn: [address] [facility], [place], [address], [facility] 11/29/2023 14:44:53 11/27/2023 text/html Pneumonia much better no shortness of breath hyperlipidemia could do better with diet diabetes no polyphagia or polydipsia migraines stable chronic pain she does see pain management. GERD has been doing okay. Rafaela Meneses MD Attn: Accounting,[address], [place], [address], [facility] 11/28/2023 15:25:54 03/07/2024 text/html hyperlipidemia c ould do better with diet diabetes no polyphagia or polydipsia migraines stable chronic pain she does see pain management. GERD has been doing okay. ill described dizzy spells no headache or blurred vision come with no rhyme or reason. She has chronic pain in both feet Rafaela Meneses MD Attn: [address]ing[address] [facility], [place], [address], [facility] 04/03/2024 12:26:03 07/04/2024 text/html chronic foot lisette n still a bounce. She does have some abdominal discomfort as well GERD has been doing okay neuropathy bothers her quite a bit hypertension blood pressure looks good 130/68 migraines are stable. Hyperlipidemia does try to watch her diet Rafaela Meneses MD Attn: [address]ing[address] , [place], [address], [facility] 07/10/2024 21:53:25 OBGyn Episode No OBEpisode recorded.
--- OUTSIDE RECORDS SUMMARY | 2024-09-22 20:00 | XMS_ITS | Data Portability ---
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 Assessment Encounter Date Assessment Date Assessment LastModified by Organization Details LastModified Time 11/14/2022 11/14/2022 We started the process of refilling some medications will not refill pain medications at this time but will refer to Pain Management targets for weight LDL blood pressure and A1c have been discussed get records from primary care doctor refer to pain management see me back in 4 months blood work has been ordered to evaluate the efficacy of her medicines and extent of her problems Consider injectable to help with weight loss rtc 4 months [email or web address] Not available 11/15/2022 21:05:13 11/18/2022 11/18/2022 Clindamycin told her to get a dentist signs and symptoms of C diff colitis discussed if she gets those stop clindamycin and seek medical attention [email or web address] Not available 11/23/2022 16:39:19 03/25/2023 03/25/2023 EKG shows a normal sinus rhythm with no acute changes Neuro consult Blood work See me in 1 month Holter monitor [email or web address] Not available 03/26/2023 08:54:49 04/13/2023 04/13/2023 X-partially visualized lumbar fusion hardware ray of the hip unremarkable I will obtain x-ray of C-spine and get her referred to chiropractor and see me in 3 weeks [email or web address] Not available 05/03/2023 14:10:11 09/16/2023 09/16/2023 Titrate Ozempic continue other medications weight reduction again highly recommended follow-up with me in 4 my Not available 09/29/2023 10:06:43 Plan of Treatment Reminders Order Date Submit Date Provider Last Modified By Organization Details Last Modified Time Details Appointments None recorded. Lab HbA1c (hemoglob in A1c), blood 2022 023 [facility] (Lab), [address] [place], [address], 3 14:54:32 albumin/c reatinine , mass ratio, urine 2022 023 [facility] (Lab), [address] [place], [address], 3 14:54:37 CMP, serum or plasma 2022 023 [facility] (Lab), [address] [place], [address], 3 15:06:40 CBC w/ auto diff 2022 023 [facility] (Lab), [address] [place], [address], 3 14:52:57 lipid panel, serum 2022 023 [facility] (Lab), [address] [place], [address], 3 15:07:11 glycohemo globin, total, blood 2022 023 [facility] (Lab), [address] [place], [address], 3 19:16:39 lipid panel, serum 2022 023 [facility] (Lab), [address] [place], [address], 3 19:02:17 T3, free, serum or plasma 2022 023 [facility] (Lab), [address] [place], [address], 3 19:19:52 T4, free, serum 2022 023 [facility] (Lab), [address] [place], [address], 3 19:19:53 TSH, serum or plasma 2022 023 [facility] (Lab), [address] [place], [address], 3 19:31:07 Referral pain managemen t referral - Pt has a spinal cord stimulato r. We don't have any records of that she is a new pt to us on 11/14/2022 . 2022 023 [email or web address], [address], [address], [place], [address], 3 15:06:47 chiroprac tor referral 2022 023 eryn Quintero DC, [address] [facility] [address], [place], [address], 3 11:38:46 orthopedi c surgeon referral 2023 024 [email or web address] Connor Chavarria MD, [address] [facility] [address], [place], [address], 4 09:10:30 Procedures None recorded. Surgeries None recorded. Imaging electroca rdiogram 2022 023 [email or web address] [facility] [address], [address] [facility] [address], [place], [address], 3 18:07:49 XR, cervical spine, 2 or 3 view 2022 023 [facility] ([facility]), [address], [place], [address], 3 14:17:08 Medication Orders Creon 12,000-38 ,000-60,0 00 unit capsule,d elayed release 2022 [address] [email or web address] [facility], [address], [place], [place], [id number], 4 10:48:39 omeprazol e 40 mg capsule,d elayed release 2022 023 [email or web address] [address] [facility] #02070, [address] , [place], [place], [id number], 3 15:06:42 rizatript an 10 mg tablet [address] [facility]87506, [address], [id number], 3 13:47:13 pantopraz ole 40 mg tablet,de layed release [address] [facility] #35461, [address] [place], [place], [id number], 3 13:47:13 topiramat e 25 mg tablet [address] [facility] #19067, [address] [place], [place], [id number], 3 13:47:13 cyanocoba shweta (vit B-12) 1,000 mcg/mL injection kit 2022 023 [email or web address] #88698, [address], [id number], 4 10:48:48 lisinopri l 5 mg tablet [address] [facility] #55360, [address] , [place], [place], [id number], 3 13:47:13 buspirone 5 mg tablet 2022 023 [email or web address] [facility] #22321, [address] , [place], [place], [id number], 3 13:47:13 Jardiance 10 mg tablet 2022 023 [facility] [address] [facility] #16622, [address] , [place], [place], [id number], 3 15:42:10 clindamyc in HCl 300 mg capsule 2022 023 [facility] [employer] [address] [facility] #49687, [address], [place], [place], [id number], 3 15:41:57 Ozempic 0.25 mg or 0.5 mg (2 mg/3 mL) subcutane ous pen injector [address] [employer] [facility], [address] [place], [place], [id number], 4 15:24:01 atorvasta tin 20 mg tablet 2023 024 [email or web address] [facility] [employer] [facility], [address] [place], [place], [id number], 4 15:24:01 Patient TargetsNo targets recorded. Patient InstructionsNo instructions recorded. Reason for Referral Pain Management Referral for Backache Pt has a spinal cord stimulator. We don't have any records of that she is a new pt to us on 11/14/2022. Referring Physician: Rhys Meneses, Internal Medicine, Encounter Date: 11/14/2022 Chiropractor Referral for Ne ck pain Referring Physician: Rhys Meneses, Internal Medicine, Encounter Date: 04/13/2023 Orthopedic Surgeon Referral for Pain in right thumb Referring Physician: Rhys Meneses, Internal Medicine, Encounter Date: 09/16/2023 Results Created Date Observation Date Name Description Value Unit Range Abnormal Flag Note LastModifiedBy Organization Detail LastModifiedTime 11/15/1911/14/2022 CBC/C OMPLE TE BLD COUNT W/DIF F white blood cells 7.6 x10'3 /uL 4.2-10 .8 Not Available [facility] (Lab) [address] [place], [address], 11/14/2022 14:52:57 11/15/1911/14/2022 CBC/C OMPLE TE BLD COUNT W/DIF F red blood cells 4.22 x10'6 /uL 3.80-5 .20 Not Available [facility] (Lab) [address] [place], [address], 11/14/2022 14:52:57 11/15/19 23 11/14/2022 CBC/C OMPLE TE BLD COUNT W/DIF F hemoglobin 12.5 g/dL 12.0-1 5.6 Not Available [facility] (Lab) [address] [place], [address], 11/14/2022 14:52:57 11/15/19 23 11/14/2022 CBC/C OMPLE TE BLD COUNT W/DIF F hematocrit 40.4 % 35.7-4 5.7 Not Available [facility] (Lab) [address] [place], [address], 11/14/2022 14:52:57 11/15/19 23 11/14/2022 CBC/C OMPLE TE BLD COUNT W/DIF F mean red cell volume 95.7 fL 82.0-9 9.0 Not Available [facility] (Lab) [address] [place], [address], 11/14/2022 14:52:57 11/15/19 23 11/14/2022 CBC/C OMPLE TE BLD COUNT W/DIF F mean red cell hemoglobin 29.6 pg 27.0-3 3.0 Not Available [facility] (Lab) [address] [place], [address], 11/14/2022 14:52:57 11/15/19 23 11/14/2022 CBC/C OMPLE TE BLD COUNT W/DIF F mean RBC HGB concentratio n 30.9 g/dL 31.0-3 6.0 low Not Available [facility] (Lab) [address] [facility] [place], [address], 11/14/2022 14:52:57 11/15/19 23 11/14/2022 CBC/C OMPLE TE BLD COUNT W/DIF F red cell distribution width 13.2 % 11.8-1 5.5 Not Available [facility] (Lab) [address] [place], [address], 11/14/2022 14:52:57 11/15/19 23 11/14/2022 CBC/C OMPLE TE BLD COUNT W/DIF F platelets 363 x10'3 /uL 150-40 0 Not Available [facility] (Lab) [address] [place], [address], 11/14/2022 14:52:57 11/15/1911/14/2022 CBC/C OMPLE TE BLD COUNT W/DIF F mean platelet volume 9.7 fL 9.0-12 .4 Not Available [facility] (Lab) [address] [place], [address], 11/14/2022 14:52:57 11/15/19 23 11/14/2022 CBC/C OMPLE TE BLD COUNT W/DIF F neutrophils 48.9 % 39.0-7 2.0 Not Available [facility] (Lab) [address] [place], [address], 11/14/2022 14:52:57 11/15/19 23 11/14/2022 CBC/C OMPLE TE BLD COUNT W/DIF F lymphocytes 42.6 % 16.0-4 7.0 Not Available [facility] (Lab) [address] [place], [address], 11/14/2022 14:52:57 11/15/1911/14/2022 CBC/C OMPLE TE BLD COUNT W/DIF F monocytes 5.5 % 5.0-12 .0 Not Available [facility] (Lab) [address] [place], [address], 11/14/2022 14:52:57 11/15/19 23 11/14/2022 CBC/C OMPLE TE BLD COUNT W/DIF F eosinophils 2.4 % 1.0-7. 0 Not Available [facility] (Lab) [address] [place], [address], 11/14/2022 14:52:57 11/15/1911/14/2022 CBC/C OMPLE TE BLD COUNT W/DIF F basophils 0.5 % 0.0-2. 0 Not Available [facility] (Lab) [address] [place], [address], 11/14/2022 14:52:57 11/15/1911/14/2022 CBC/C OMPLE TE BLD COUNT W/DIF F immature granulocytes 0.1 % 0.00-0 .50 Not Available [facility] (Lab) [address] [place], [address], 11/14/2022 14:52:57 03/17/11/14/2022 CBC/C OMPLE TE BLD COUNT W/DIF F neutrophils, absolute count 3.70 x10'3 /uL 1.5-8. 0 Not Available [facility] (Lab) [address] [place], [address], 11/14/2022 14:52:57 11/15/19 23 11/14/2022 CBC/C OMPLE TE BLD COUNT W/DIF F lymphocytes, absolute count 3.23 x10'3 /uL 1.07-3 .43 Not Available [facility] (Lab) [address] [place], [address], 11/14/2022 14:52:57 11/15/1911/14/2022 CBC/C OMPLE TE BLD COUNT W/DIF F monocytes, absolute count 0.42 x10'3 /uL 0.29-0 .99 Not Available [facility] (Lab) [address] [place], [address], 11/14/2022 14:52:57 11/15/19 23 11/14/2022 CBC/C OMPLE TE BLD COUNT W/DIF F eosinophils, absolute count 0.18 x10'3 /uL 0.02-0 .53 Not Available [facility] (Lab) [address] [place], [address], 11/14/2022 14:52:57 11/15/1911/14/2022 CBC/C OMPLE TE BLD COUNT W/DIF F basophils, absolute count 0.04 x10'3 /uL 0.01-0 .08 Not Available [facility] (Lab) [address] [place], [address], 11/14/2022 14:52:57 11/15/19 23 11/14/2022 CBC/C OMPLE TE BLD COUNT W/DIF F immature granulocytes ,absolute 0.01 x10'3 /uL 0.00-0 .05 Not Available [facility] (Lab) [address] [facility] [place], [address], 11/14/2022 14:52:57 11/15/19 23 11/14/2022 CBC/C OMPLE TE BLD COUNT W/DIF F nucleated red blood cells 0.0 % -0 Not Available [facility] (Lab) [address] [place], [address], 11/14/2022 14:52:57 11/15/19 23 11/14/2022 CBC/C OMPLE TE BLD COUNT W/DIF F NRBC# 0.00 x10'3 /uL Not Available [facility] (Lab) [address] [facility] [place], [address], 11/14/2022 14:52:57 11/15/19 23 11/14/2022 COMPR EHENS KALYANI METAB OLIC PANEL sodium 138 mmol/ L 137-14 5 Not Available [facility] (Lab) [address] [place], [address], 11/14/2022 15:07:00 11/15/19 23 11/14/2022 COMPR EHENS KALYANI METAB OLIC PANEL potassium 4.5 mmol/ L 3.5-5. 1 Not Available [facility] (Lab) [address] [place], [address], 11/14/2022 15:07:00 11/15/19 23 11/14/2022 COMPR EHENS KALYANI METAB OLIC PANEL chloride 105 mmol/ L 98-107 Not Available [facility] (Lab) [address] [facility] [place], [address], 11/14/2022 15:07:00 11/15/19 23 11/14/2022 COMPR EHENS KALYANI METAB OLIC PANEL carbon dioxide 26 mmol/ L 22-30 Not Available [facility] (Lab) [address] [place], [address], 11/14/2022 15:07:00 11/15/19 11/14/2022 COMPR EHENS KALYANI METAB OLIC PANEL anion gap 11.5 mmol/ L 14-22 low Not Available [facility] (Lab) [address] [place], [address], 11/14/2022 15:07:00 11/15/19 23 11/14/2022 COMPR EHENS KALYANI METAB OLIC PANEL glucose 195 mg/dL 70-99 high Not Available [facility] (Lab) [address] [place], [address], 11/14/2022 15:07:00 11/15/19 23 11/14/2022 COMPR EHENS KALYANI METAB OLIC PANEL BUN 18 mg/dL 8-19 Not Available [facility] (Lab) [address] [place], [address], 11/14/2022 15:07:00 11/15/19 23 11/14/2022 COMPR EHENS KALYANI METAB OLIC PANEL creatinine 0.68 mg/dL 0.66-1 .25 Not Available [facility] (Lab) [address] [place], [address], 11/14/2022 15:07:00 11/15/19 23 11/14/2022 COMPR EHENS KALYANI METAB OLIC PANEL GFR >60 Refer ence Range : [place] ge GFR Healt hy Adult : >60 mL/mi n/1.7 3 m2 Chron ic Kidne y Disea se: 15-60 mL/mi n/1.7 3 m2 Kidne y Failu re: <15/m L/min /1.73 m2 www.n iddk. nih.g ov The MDRD study equat ion has not been valid ated in child yin <18 years of age; pregn ant women ; the elder ly >85 years of age; or in some racia l or ethni c subgr oups, such as Hispa nics. Outsi de the valid ated castro eters , estim ated GFR is less accur ate, requi ring clini jessica judgm ent on a case- by-ca se basis . Clini jessica inter preta tion for other races and ages must be made by the clini radha. The MDRD study equat ion has not been valid ated for the evalu ation of serum creat inine relat ed to nutri kayla l statu s or medic ation usage . For perso ns <18 years of age, a pedia tric GFR calcu lator is avail able on the [facility] websi te: https ://chelle w.wiley burksy.o rg/pr ofess ional s/kdo qi/gf r_cal culat or Not Available [facility] (Lab) [address] [place], [address], 11/14/2022 15:07:00 11/15/19 23 11/14/2022 COMPR EHENS KALYANI METAB OLIC PANEL alkaline phosphatase 86 U/L 38-126 Not Available [facility] (Lab) [address] [place], [address], 11/14/2022 15:07:00 11/15/19 23 11/14/2022 COMPR EHENS KALYANI METAB OLIC PANEL alanine aminotransfe rase 25 U/L 0-35 Not Available [facility] (Lab) [address] [place], [address], 11/14/2022 15:07:00 11/15/19 23 11/14/2022 COMPR EHENS KALYANI METAB OLIC PANEL aspartate aminotransfe rase 24 U/L 15-37 Not Available [facility] (Lab) [address] [place], [address], 11/14/2022 15:07:00 11/15/19 23 11/14/2022 COMPR EHENS KALYANI METAB OLIC PANEL bilirubin, total 0.30 mg/dL 0.20-1 .30 Not Available [facility] (Lab) [address] [place], [address], 11/14/2022 15:07:00 11/15/19 23 11/14/2022 COMPR EHENS KALYANI METAB OLIC PANEL calcium 9.0 mg/dL 8.4-10 .2 Not Available [facility] (Lab) [address] [place], [address], 11/14/2022 15:07:00 11/15/19 23 11/14/2022 COMPR EHENS KALYANI METAB OLIC PANEL total protein 7.4 g/dL 6.3-8. 2 Not Available [facility] (Lab) [address] [place], [address], 11/14/2022 15:07:00 11/15/19 23 11/14/2022 COMPR EHENS KALYANI METAB OLIC PANEL albumin 4.0 g/dL 3.4-5. 0 Not Available [facility] (Lab) [address] [place], [address], 11/14/2022 15:07:00 11/15/19 23 11/14/2022 COMPR EHENS KALYANI METAB OLIC PANEL globulin 3.4 g/dL 2.6-4. 2 Not Available [facility] (Lab) [address] [place], [address], 11/14/2022 15:07:00 11/15/19 23 11/14/2022 COMPR EHENS KALYANI METAB OLIC PANEL A/G ratio 1.2 ratio 1.0-2. 0 Not Available [facility] (Lab) [address] [place], [address], 11/14/2022 15:07:00 11/15/19 23 11/14/2022 LIPID PANEL cholesterol 224 mg/dL 140-19 9 high NIH CHIP NSUS RECOM MENDA TION FOR ELÍAS STERO L: ADULT CHILD LOW RISK: <200 <170 BORDE RLINE : <200- 239 ----- HIGH RISK: >240 >200 Not Available [facility] (Lab) [address] [place], [address], 11/14/2022 15:07:11 11/15/19 23 11/14/2022 LIPID PANEL triglyceride s 173 mg/dL 0-150 high NIH CHIP NSUS REPOR T RECOM MENDA TION FOR TRIGL YCERI THEA: ADULT CHILD LOW RISK: <150 ----- BODER LINE: 150-1 99 ----- HIGH RISK: >200 ----- Not Available [facility] (Lab) [address] [place], [address], 11/14/2022 15:07:11 11/15/19 23 11/14/2022 LIPID PANEL HDL cholesterol 64 mg/dL 40- Not Available [facility] (Lab) [address] [place], [address], 11/14/2022 15:07:11 11/15/19 23 11/14/2022 LIPID PANEL LDL cholesterol, calculated 125 mg/dL 0-130 NIH CHIP NSUS REPOR T RECOM MENDA TIONS FOR LDL: ADULT CHILD LOW RISK <130 <110 (OPTI MAL LDL) <100 ----- BORDE RLINE : 130-1 59 ----- HIGH RISK: >160 >130 A TRIGL YCERI DE RESUL T >400 INVAL IDATE S THE CALCU LATIO N FOR LDL FRACT IONAT ION - THE LDL RESUL T WILL NOT BE REPOR RICHAR. Not Available [facility] (Lab) [address] [place], [address], 11/14/2022 15:07:11 11/15/19 23 11/14/2022 MICRO ALBUM N RNDM W/CRE AT RATIO ur creat 260.67 mg/dL REFER ENCE RANGE NOT ESTAB LISHE D FOR RANDO M URINE CREAT ININE Not Available [facility] (Lab) [address] [place], [address], 11/14/2022 15:15:54 11/15/19 23 11/14/2022 MICRO ALBUM N RNDM W/CRE AT RATIO microalbumin , urine 10.9 mg/L 0.0-16 .6 Not Available [facility] (Lab) [address] [place], [address], 11/14/2022 15:15:54 11/15/19 23 11/14/2022 MICRO ALBUM N RNDM W/CRE AT RATIO microalbumin /creatinine ratio 4 mcg/m g 0-29 THE AMERI CAN DIABE ART ASSOC IATIO N DEFIN ES ABNOR MALIT IES IN ALBUM IN EXCRE TION FOLLO WS: CATEG ORY RESUL T (MCG/ MG CREAT ININE ) DARRON L <30 MICRO ALBUM INURI A 30-29 9 CLINI JESSIAC ALBUM INURI A > OR = 300 THE ADA RECOM MENDS THAT 2 OF 2 SPECI MENS COLLE CTED WITHI N A 3- TO 6-MON TH PERIO D BE ABNOR MAL BEFOR E CONSI DALTON G A PATIE NT TO HAVE CROSS ED ONE OF THESE DIAGN OSTIC THRES HOLDS . REFER ENCE: DIABE ART CARE, VOL. 26: S94-S 2002 Not Available [facility] (Lab) [address] [place], [address], 11/14/2022 15:15:54 11/15/19 23 11/14/2022 HEMOG LOBIN A1C HA1C 9.0 % 4.0-6. 0 high Diabe art Scree pascale Crite irene: <5.7% Consi stent with absen ce of diabe art 5.7-6 .4% Consi stent with incre ased risk for diabe art (pred iabet es) >OR=6 .5% Consi stent with diabe art REFER ENCE: Diabe art Care 2016, 39(Damon ppl.1 ):s13 -s22 Not Available [facility] (Lab) [address] [place], [address], 11/14/2022 20:36:00 03/25/20 23 03/25/2023 LIPID PANEL cholesterol 153 mg/dL 140-19 9 NIH CHIP NSUS RECOM MENDA TION FOR ELÍAS STERO L: ADULT CHILD LOW RISK: <200 <170 BORDE RLINE : <200- 239 ----- HIGH RISK: >240 >200 Not Available [facility] (Lab) [address] [place], [address], 03/25/2023 19:02:16 03/25/2003/25/2023 LIPID PANEL triglyceride s 138 mg/dL 0-150 NIH CHIP NSUS REPOR T RECOM MENDA TION FOR TRIGL YCERI THEA: ADULT CHILD LOW RISK: <150 ----- BODER LINE: 150-1 99 ----- HIGH RISK: >200 ----- Not Available [facility] (Lab) [address] [place], [address], 03/25/2023 19:02:16 03/25/2003/25/2023 LIPID PANEL HDL cholesterol 64 mg/dL 40- Not Available [facility] (Lab) [address] [place], [address], 03/25/2023 19:02:16 03/25/2003/25/2023 LIPID PANEL LDL cholesterol, calculated 61 mg/dL 0-130 NIH CHIP NSUS REPOR T RECOM MENDA TIONS FOR LDL: ADULT CHILD LOW RISK <130 <110 (OPTI MAL LDL) <100 ----- BORDE RLINE : 130-1 59 ----- HIGH RISK: >160 >130 A TRIGL YCERI DE RESUL T >400 INVAL IDATE S THE CALCU LATIO N FOR LDL FRACT IONAT ION - THE LDL RESUL T WILL NOT BE REPOR RICHAR. Not Available [facility] (Lab) [address] [place], [address], 03/25/2023 19:02:16 03/25/2003/25/2023 HEMOG LOBIN A1C HA1C 6.7 % 4.0-6. 0 high Diabe art Scree pascale Crite irene: <5.7% Consi stent with absen ce of diabe art 5.7-6 .4% Consi stent with incre ased risk for diabe art (pred iabet es) >OR=6 .5% Consi stent with diabe art REFER ENCE: Diabe art Care 2016, 39( ppl.1 ):s13 -s22 Not Available [facility] (Lab) [address] [place], [address], 03/25/2023 19:16:39 03/25/20 23 03/25/2023 T3 FREE free T3 3.8 pg/mL 2.77-5 .27 Not Available [facility] (Lab) [address] [place], [address], 03/25/2023 19:19:52 03/25/20 23 03/25/2023 T4 FREE free T4 0.81 NG/dL 0.78-2 .19 Not Available [facility] (Lab) [address] [place], [address], 03/25/2023 19:19:53 03/25/20 23 03/25/2023 TSH thyroid-stim ulating hormone 1.540 uIU/m L 0.465- 4.680 Not Available [facility] (Lab) [address] [place], [address], 03/25/2023 19:31:07 04/13/20 23 04/13/2023 CBC/C OMPLE TE BLD COUNT W/DIF F white blood cells 7.1 x10'3 /uL 4.2-10 .8 Not Available [facility] (Lab) [address] [place], [address], 04/13/2023 13:22:34 04/13/20 23 04/13/2023 CBC/C OMPLE TE BLD COUNT W/DIF F red blood cells 4.38 x10'6 /uL 3.80-5 .20 Not Available [facility] (Lab) [address] [place], [address], 04/13/2023 13:22:34 04/13/20 23 04/13/2023 CBC/C OMPLE TE BLD COUNT W/DIF F hemoglobin 12.9 g/dL 12.0-1 5.6 Not Available [facility] (Lab) [address] [place], [address], 04/13/2023 13:22:34 04/13/20 23 04/13/2023 CBC/C OMPLE TE BLD COUNT W/DIF F hematocrit 41.3 % 35.7-4 5.7 Not Available [facility] (Lab) [address] [place], [address], 04/13/2023 13:22:34 04/13/20 23 04/13/2023 CBC/C OMPLE TE BLD COUNT W/DIF F mean red cell volume 94.3 fL 82.0-9 9.0 Not Available [facility] (Lab) [address] [place], [address], 04/13/2023 13:22:34 04/13/20 23 04/13/2023 CBC/C OMPLE TE BLD COUNT W/DIF F mean red cell hemoglobin 29.5 pg 27.0-3 3.0 Not Available [facility] (Lab) [address] [place], [address], 04/13/2023 13:22:34 04/13/20 23 04/13/2023 CBC/C OMPLE TE BLD COUNT W/DIF F mean RBC HGB concentratio n 31.2 g/dL 31.0-3 6.0 Not Available [facility] (Lab) [address] [place], [address], 04/13/2023 13:22:34 04/13/20 23 04/13/2023 CBC/C OMPLE TE BLD COUNT W/DIF F red cell distribution width 15.1 % 11.8-1 5.5 Not Available [facility] (Lab) [address] [place], [address], 04/13/2023 13:22:34 04/13/20 23 04/13/2023 CBC/C OMPLE TE BLD COUNT W/DIF F platelets 287 x10'3 /uL 150-40 0 Not Available [facility] (Lab) [address] [place], [address], 04/13/2023 13:22:34 04/13/20 23 04/13/2023 CBC/C OMPLE TE BLD COUNT W/DIF F mean platelet volume 10.1 fL 9.0-12 .4 Not Available [facility] (Lab) [address] [place], [address], 04/13/2023 13:22:34 04/13/20 23 04/13/2023 CBC/C OMPLE TE BLD COUNT W/DIF F neutrophils 37.8 % 39.0-7 2.0 low Not Available [facility] (Lab) [address] [place], [address], 04/13/2023 13:22:34 04/13/20 23 04/13/2023 CBC/C OMPLE TE BLD COUNT W/DIF F lymphocytes 53.1 % 16.0-4 7.0 high Not Available [facility] (Lab) [address] [place], [address], 04/13/2023 13:22:34 04/13/20 23 04/13/2023 CBC/C OMPLE TE BLD COUNT W/DIF F monocytes 6.7 % 5.0-12 .0 Not Available [facility] (Lab) [address] [place], [address], 04/13/2023 13:22:34 04/13/20 23 04/13/2023 CBC/C OMPLE TE BLD COUNT W/DIF F eosinophils 1.7 % 1.0-7. 0 Not Available [facility] (Lab) [address] [place], [address], 04/13/2023 13:22:34 04/13/20 23 04/13/2023 CBC/C OMPLE TE BLD COUNT W/DIF F basophils 0.6 % 0.0-2. 0 Not Available [facility] (Lab) [address] [place], [address], 04/13/2023 13:22:34 04/13/20 23 04/13/2023 CBC/C OMPLE TE BLD COUNT W/DIF F immature granulocytes 0.1 % 0.00-0 .50 Not Available [facility] (Lab) [address] [place], [address], 04/13/2023 13:22:34 04/13/20 23 04/13/2023 CBC/C OMPLE TE BLD COUNT W/DIF F neutrophils, absolute count 2.69 x10'3 /uL 1.5-8. 0 Not Available [facility] (Lab) [address] [place], [address], 04/13/2023 13:22:34 04/13/20 23 04/13/2023 CBC/C OMPLE TE BLD COUNT W/DIF F lymphocytes, absolute count 3.78 x10'3 /uL 1.07-3 .43 high Not Available [facility] (Lab) [address] [place], [address], 04/13/2023 13:22:34 04/13/20 23 04/13/2023 CBC/C OMPLE TE BLD COUNT W/DIF F monocytes, absolute count 0.48 x10'3 /uL 0.29-0 .99 Not Available [facility] (Lab) [address] [place], [address], 04/13/2023 13:22:34 04/13/20 23 04/13/2023 CBC/C OMPLE TE BLD COUNT W/DIF F eosinophils, absolute count 0.12 x10'3 /uL 0.02-0 .53 Not Available [facility] (Lab) [address], [place], [address], 04/13/2023 13:22:34 04/13/20 23 04/13/2023 CBC/C OMPLE TE BLD COUNT W/DIF F basophils, absolute count 0.04 x10'3 /uL 0.01-0 .08 Not Available [facility] (Lab) [address] [place], [address], 04/13/2023 13:22:34 04/13/20 23 04/13/2023 CBC/C OMPLE TE BLD COUNT W/DIF F immature granulocytes ,absolute 0.01 x10'3 /uL 0.00-0 .05 Not Available [facility] (Lab) [address] [place], [address], 04/13/2023 13:22:34 04/13/20 23 04/13/2023 CBC/C OMPLE TE BLD COUNT W/DIF F nucleated red blood cells 0.0 % -0 Not Available [facility] (Lab) [address] [place], [address], 04/13/2023 13:22:34 04/13/20 23 04/13/2023 CBC/C OMPLE TE BLD COUNT W/DIF F NRBC# 0.00 x10'3 /uL Not Available [facility] (Lab) [address] [place], [address], 04/13/2023 13:22:34 04/13/20 23 04/13/2023 VITAM IN B12 (ALONZO SHWETA ) vb12 386 pg/mL 239-93 1 Not Available [facility] (Lab) [address] [place], [address], 04/13/2023 14:54:05 04/13/20 23 04/13/2023 FOLAT E, SERUM /PLAS MA folate 8.07 NG/mL 2.76-2 0.0 Not Available [facility] (Lab) [address] [place], [address], 04/13/2023 14:54:10 09/30/19 24 09/30/2023 RAPID STREP A DNA strep A DNA, SHA NEGATI VE negati ve Not Available [facility] (Lab) [address] [place], [address], 09/30/2023 17:26:01 09/30/19 24 09/30/2023 COVID -19, INFLU MYRIAM A+B, PCR sars-cov-2 RNA(covid19) ,RT-PCR NEGATI VE This test has been autho rized by the FDA under an Emerg ency Use Autho rizat ion (EUA) for use by autho rized labor atori es. Negat kalyani resul ts do not precl ude SARS- CoV-2 and shoul d not be used as the sole basis for treat ment or other patie nt manag ement decis ions. Test resul ts shoul d be corre lated with the clini jessica histo ry, epide miolo gical data, and other data avail able to the clini radha evalu ating the patie nt. Flaquito edwards w the Fact Sheet s for healt h care provi ders and patie nts at the [facility] art: https ://ww w.fda .gov/ media /1367 12/do wnloa d https ://ww w.fda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
--- OUTSIDE RECORDS SUMMARY | 2024-09-22 20:00 | XMS_ITS | Continuity of Care Document ---
Author Organization [facility] Address [address] [place] [address] Phone Care Team Providers Care Loss Control Manager Name Role Phone Rupesh Andrade MD Unavailable Unavailable Allergies, Adverse Reactions, Alerts [...] Date Provider Providers Copied on Encounter [facility], [address], [id number], [place] tel:[phone] [facility] No Information 3 Raymond Goddard. [address] [facility], [address], [place], [place], [id number], [place]. tel:[phone] [facility], [address], [id number], [place] tel:[phone] [facility] No Information 3 Administrati abad Provider. [address] [facility], [facility] [address], [place], [place], [id number], [place]. tel:[phone] Independent Medical Examination SILAS [facility], [address] [facility] [address], [place], [place], [id number], [place] tel:[phone] [facility] LUMB/LUMBOSAC DISC DEGENRadiculit is, Thoracic or LumbarARTHRODE SIS STATUS 3 Janice Brasher. [address] [facility], [address], [place], [place], [id number], [place]. tel:[phone] Family History Family Member Type Diagnosis Age At Onset No Information Payers Payer name Insurance type Covered green party ID Authoriza tion(s) No Information Social History [...]
--- OUTSIDE RECORDS SUMMARY | 2024-09-22 20:00 | XMS_ITS | Referral Summary ---
Author Organization [facility] Address [address] [place] [address] Care Team Providers Care Rn Immunology Name Role Phone Rhys Meneses MD Primary Care Provider [phone] Encounters Date Type Department Care Team Description 07/18/2024 Telephone [facility] Diabetes and Endocrinology [address] [place] [address] Angelika Boone MD new referral to endocrinology from Last 3 Months Allergies Active Allergy Reactions Criticality Noted Date Comments Tramadol Anaphylaxis High 07/11/2022 Medications cyclobenzaprine (FLEXERIL) 10 mg tablet Take 1 tablet (10 mg total) by mouth 2 (two) times a day as needed for muscle spasms 20 tablet 07/11/2022 Active Social History Tobacco Use Types Packs/Day Years Used Date Smoking Tobacco: Never Assessed Personal Safety Answer Date Recorded Getting School Help Needed Not on file 11/14 Comments Unknown Sex and Gender Information Value Date Recorded Sex Assigned at Not on file Legal Sex Female 2:50 PM [employer] Gender Identity Not on file Sexual Orientation Not on file Last Filed Vital Signs Vital Sign Reading Time Taken Comments Blood Pressure 110/73 07/11/2022 4:47 PM [employer] Pulse 73 07/11/2022 4:47 PM [employer] Temperature 36.7 ??C (98 ??F) 07/11/2022 3:06 PM [employer] Respiratory Rate 20 07/11/2022 4:47 PM [employer] Oxygen Saturation 100% 07/11/2022 4:47 PM [employer] Inhaled Oxygen Concentration - - Weight - - Height - - Body Mass Index - - Plan of Treatment Not on file Insurance [employer] COMPENS[address] [place] [address] Care Teams Rn Immunology Relationship Specialty Start Date End Date Rhys Meneses MD [address] [place] [address] PCP - General Internal Medicine 07/21/24
== END 2024-09-20 16:09 | disposition home or self-care (01) ==
PROVIDERS: PCP Internal Medicine; Visit Provider Internal Medicine
DX: Z12.31 Encounter for screening mammogram for malignant neoplasm of breast (principal); N64.89 Other specified disorders of breast
CPT/HCPCS: 77063; 77067

== ENCOUNTER 2025-03-22 22:30 | Emergency (ER) | payer SELFPAY ==
--- OUTSIDE RECORDS SUMMARY | 2025-03-22 22:34 | XMS_ITS | Encounter Summary ---
Author Organization [facility] Address [address] [place] [address] Care Team Providers Care Electric Cell Tender Name Role Phone Unavailable Primary Care Provider Unavailabl e Encounter Details Date Type Department Care Team (Late st Contact Info) Description 05/23/2008 Abstract [facility] Conversion Md, Generic Conversion, Social History [...]
--- OUTSIDE RECORDS SUMMARY | 2025-03-22 22:34 | XMS_ITS | Data Portability ---
Author Organization [facility] Address [address] [facility] [place] [address] Care Team Providers Care Pressure Vessel Inspector Name Role Phone RAFAELA MENESES Primary Care Provider Unavailabl e Assessment Encounter Date Assessment Date Assessment LastModified by Organization Details LastModified Time 11/16/2023 11/16/2023 Stop Z-Benigno switch to doxycycline 100 twice daily 10 days prednisone 40 mg daily x 5 days with discussions about how it can affect her blood sugar albuterol inhaler follow-up with me in 7 to 10 days. [email or web address] Not available 11/29/2023 14:44:35 11/27/2023 11/27/2023 Podiatry referral continue current therapy stay on her regular medications I will see her back in obtain records from previous clinic targets for blood pressure LDL and A1c discussed [email or web address] Not available 11/28/2023 15:24:42 03/07/2024 03/07/2024 EKG [...] something specific. Her blood work was reviewed [email or web address] Not available 04/03/2024 12:25:35 07/04/2024 07/04/2024 obtain CBC CMP lipid and hemoglobin A1c. Refer to podiatry for foot pain and diabetic foot exam. 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 Schedule mammogram. Refer [...] Chronic pain she follows with pain management [email or web address] Not available 07/10/2024 21:52:59 Plan of Treatment Reminders Order Date Submit Date Provider Last Modified By Organization Details Last Modified Time Details Appointments None recorded . Lab HbA1c (hemoglo bin A1c), blood 2023 [facility] (Outpatient Lab), [address], [address], 11:18:34 CMP, serum or plasma 2023 [facility] (Outpatient Lab), [address], [address], 11:18:34 lipid panel, serum 2023 [facility] (Outpatient Lab), [address], [address], 11:18:35 CBC w/ auto diff 2023 [facility] (Outpatient Lab), [address], [address], 11:18:35 Referral endocrin ology referral 2023 king Jimenez MD, [address], [place], [address], 18:10:27 gynecolo gist referral 2023 aris Goddard MD, [address], [address], [place], [address], 16:42:[address] referral 2023 [facility] Andrewkevin Albarran Jr DPM, [address], [address], [place], [address], 5 12:38:[address] referral 2023 024 [facility] Andrewkevin Albarran Jr DPM, [address], [address], [place], [address], 4 13:49:35 Procedures None recorded . Surgeries None recorded . Imaging MAMMO, screenin g, digital, bilatera l 2023 [facility] (Imaging), [facility] [address], [place], [address], 5 16:36:14 electroc ardiogra m 2023 In-Office Order, Internal Use Only DO Not Attach Compendium DO Not Attach Compendium, Do Not Delete/merge, [id number] 4 14:00:11 US, duplex, carotid artery 2023 [facility] (Imaging), [facility] [address] [facility], [place], [address], 5 16:04:50 MRI, brain, w/o contrast 2023 024 [facility] (Imaging), [facility]0 [facility] [address] [place] [address], [address], 4 13:57:38 US, echocard iogram 2023 024 [facility] (Cardiology & Emg), [address] [facility] [address], [place], [address], 4 15:56:37 Medication Orders Lantus Solostar U-100 Insulin 100 unit/mL (3 mL) subcutan eous pen 2023 024 [email or web address] #[id number], [address], [place], [id number], 5 12:14:06 topirama te 25 mg tablet 2023 024 [email or web address] [facility] #[id number], [address], [place], [id number], 4 14:00:11 doxycycl ine hyclate 100 mg capsule 2023 024 [facility] #[id number], [address], [place], [id number], 4 13:26:33 predniso ne 20 mg tablet 2023 024 [facility] #[id number], [address], [place], [id number], 4 13:26:42 albutero l sulfate HFA 90 mcg/actu ation aerosol inhaler 2023 024 [email or web address] [facility] #[id number], [address], [place], [id number], 4 18:14:19 Patient TargetsNo targets recorded. Patient Instructions Encounter Date Encounter Id Patient Instructions Last Modified By Organization Details Last Modified Time 03/07/2024 [id number] A healthy lifestyle: care instructions Not available 03/07/2024 14:00:11 07/04/2024 [id number] A healthy lifestyle: care instructions [email or web address] Not available 07/04/2024 17:47:37 Reason for Referral Sales Floor Associate Referral for Pain in both feet Referring Physician: Rafaela Meneses, Internal Medicine, Encounter Date: 11/27/2023 Relationship Executive Referral for Gy necologic examination Referring Physician: Rafaela Meneses, Internal Medicine, Encounter Date: 07/04/2024 Sales Floor Associate Referral for Pain in both feet Referring Physician: Rafaela Meneses, Internal Medicine, Encounter Date: 07/04/2024 Endocrinology Referral for T ype 2 diabetes mellitus Referring Physician: Rafaela Meneses, Internal Medicine, Encounter Date: 07/04/2024 Results Created Date Observation Date Name Description Value Unit Range Abnormal Flag Note LastModifiedBy Organization Detail LastModifiedTime 08/01/20 24 08/02/2024 Hemog lobin A1c/H emogl obin. total in Blood hemoglobin A1C/hemoglob in.total in blood 7.7 % high: 5.6% high Hemog lobin A1c 7.7 (H) <=5.6 % 08/02 8:53 AM [facility] Not Available Not Available 10/12/2024 12:38:31 08/01/20 24 08/02/2024 Hemog lobin A1c/H emogl obin. total in Blood glucose mean value [mass/volume ] in blood estimated from glycated hemoglobin 174 mg/dL Estim ated [place] ge Gluco se 174 mg/dL 08/02 8:53 AM TOWER HELPER [facility] Not Available Not Available 10/12/2024 12:38:31 08/01/20 24 08/02/2024 Hemog lobin A1c/H emogl obin. total in Blood interpretati on and review of laboratory results Abnorm al Not Available Not Available 12:38:31 08/01/20 24 08/01/2024 CBC panel - Blood by Autom ated count leukocytes [#/volume] in blood by automated count 7.5 text: 4.0 - 10.7 x10e9/ L WBC 7.5 4.0 - 10.7 x10E9 /L 08/01 3:32 PM [facility] Not Available Not Available 10/12/2024 12:38:31 08/01/20 24 08/01/2024 CBC panel - Blood by Autom ated count erythrocytes [#/volume] in blood by automated count 4.26 text: 3.90 - 5.20 x10e12 /L RBC Count 4.26 3.90 - 5.20 x10E1 2/L 08/01 3:32 PM TOWER HEL[facility] Not Available Not Available 10/12/2024 12:38:31 08/01/20 24 08/01/2024 CBC panel - Blood by Autom ated count hemoglobin [mass/volume ] in blood 12.8 g/dL low: 11.9g/ dLhigh : 15.8g/ dL Hemog lobin 12.8 11.9 - 15.8 g/dL 08/01 3:32 PM [facility] Not Available Not Available 10/12/2024 12:38:31 08/01/2008/01/2024 CBC panel - Blood by Autom ated count hematocrit [volume fraction] of blood by automated count 38.7 % low: 34.8%h igh: 46.1% Hemat ocrit 38.7 34.8 - 46.1 % 08/01 3:32 PM [facility] Not Available Not Available 10/12/2024 12:38:31 08/01/20 24 08/01/2024 CBC panel - Blood by Autom ated count MCV [entitic volume] by automated count 90.8 fL low: 80fLhi gh: 98fL MCV 90.8 80.0 - 98.0 fL 08/01 3:32 PM [facility] Not Available Not Available 10/12/2024 12:38:31 08/01/20 24 08/01/2024 CBC panel - Blood by Autom ated count MCH [entitic mass] by automated count 30 pg low: 26.7pg high: 33.6pg MCH 30.0 26.7 - 33.6 pg 08/01 3:[address] [facility] Not Available Not Available 10/12/2024 12:38:31 08/01/20 24 08/01/2024 CBC panel - Blood by Autom ated count MCHC [mass/volume ] by automated count 33.1 g/dL low: 31.7g/ dLhigh : 36.3g/ dL MCHC 33.1 31.7 - 36.3 g/dL 08/01 3:32 PM [facility] Not Available Not Available 10/12/2024 12:38:31 08/01/20 24 08/01/2024 CBC panel - Blood by Autom ated count erythrocyte distribution width [ratio] by automated count 14.8 % low: 11.3%h igh: 14.8% RDW-C V 14.8 11.3 - 14.8 % 08/01 3:32 PM [facility] Not Available Not Available 10/12/2024 12:38:31 08/01/20 24 08/01/2024 CBC panel - Blood by Autom ated count platelets [#/volume] in blood by automated count 285 text: 150 - 420 x10e9/ L Plate let Count 285 150 - 420 x10E9 /L 08/01 3:32 PM [facility] Not Available Not Available 10/12/2024 12:38:31 08/01/20 24 08/01/2024 CBC panel - Blood by Autom ated count platelet mean volume [entitic volume] in blood by automated count 9.7 fL low: 7.8fLh igh: 11.4fL MPV 9.7 7.8 - 11.4 fL 08/01 3:32 PM [facility] Not Available Not Available 10/12/2024 12:38:31 08/01/20 24 08/01/2024 CBC panel - Blood by Autom ated count interpretati on and review of laboratory results Normal Not Available Not Available 10/01 12:38:31 08/01/20 24 08/01/2024 Compr ehens venus metab olic 2000 panel - Serum or Plasm a urea nitrogen [mass/volume ] in serum or plasma 22 mg/dL low: 7mg/dL high: 26mg/d L BUN 22 7 - 26 mg/dL 08/01 3:53 PM [facility] Not Available Not Available 10/12/2024 12:38:31 08/01/20 24 08/01/2024 Compr ehens venus metab olic 2000 panel - Serum or Plasm a creatinine [mass/volume ] in serum or plasma 1.06 mg/dL low: 0.56mg /dLhig h: 0.96mg /dL high Creat inine 1.06 (H) 0.56 - 0.96 mg/dL 08/01 3:53 PM [facility] Not Available Not Available 10/12/2024 12:38:31 08/01/20 24 08/01/2024 Compr ehens venus metab olic 1999 panel - Serum or Plasm a sodium [moles/volum e] in serum or plasma 142 mmol/ L low: 136mmo l/Lhig h: 145mmo l/L Sodiu m 142 136 - 145 mmol/ L 08/01 3:53 PM [facility] Not Available Not Available 10/12/2024 12:38:31 08/01/20 24 08/01/2024 Compr ehens venus metab olic 2000 panel - Serum or Plasm a potassium [moles/volum e] in serum or plasma 4.4 mmol/ L low: 3.5mmo l/Lhig h: 4.5mmo l/L Potas sium 4.4 3.5 - 4.5 mmol/ L 08/01 3:53 PM [facility] Not Available Not Available 10/12/2024 12:38:31 08/01/20 24 08/01/2024 Compr [employer] venus metab olic 2000 panel - Serum or Plasm a chloride [moles/volum e] in serum or plasma 109 mmol/ L low: 98mmol /Lhigh : 107mmo l/L high Chlor patrick 109 (H) 98 - 107 mmol/ L 08/01 3:53 PM [facility] Not Available Not Available 10/12/2024 12:38:31 08/01/20 24 08/01/2024 Compr ehens venus metab olic 2000 panel - Serum or Plasm a carbon dioxide, total [moles/volum e] in serum or plasma 25 mmol/ L low: 22mmol /Lhigh : 29mmol /L CO2 25 22 - 29 mmol/ L 08/01 3:53 PM [facility] Not Available Not Available 10/12/2024 12:38:31 08/01/20 24 08/01/2024 Compr [employer] venus metab olic 1999 panel - Serum or Plasm a glucose [mass/volume ] in serum or plasma 153 mg/dL low: 70mg/d Lhigh: 99mg/d L high Gluco se 153 (H) 70 - 99 mg/dL 08/01 3:53 PM [facility] Not Available Not Available 10/12/2024 12:38:31 08/01/20 24 08/01/2024 Compr [facility] venus metab olic 1999 panel - Serum or Plasm a calcium [moles/volum e] in serum or plasma 9.4 mg/dL low: 8.4mg/ dLhigh : 10.2mg /dL Calci um 9.4 8.4 - 10.2 mg/dL 08/01 3:53 PM [facility] Not Available Not Available 10/12/2024 12:38:31 08/01/20 24 08/01/2024 Compr [employer] venus [employer] olic 2000 panel - Serum or Plasm a protein [mass/volume ] in serum or plasma 7.7 g/dL low: 6g/dLh igh: 8.3g/d L Prote in Total 7.7 6.0 - 8.3 g/dL 08/01 3:53 PM [facility] Not Available Not Available 10/12/2024 12:38:31 08/01/20 24 08/01/2024 Compr [employer] venus metab olic 2000 panel - Serum or Plasm a albumin [mass/volume ] in serum or plasma by bromocresol green (bcg) dye binding method 3.7 g/dL low: 3.4g/d Lhigh: 5g/dL Album in 3.7 3.4 - 5.0 g/dL 08/01 3:53 PM [facility] Not Available Not Available 10/12/2024 12:38:31 08/01/20 24 08/01/2024 Compr [facility] venus metab olic 2000 panel - Serum or Plasm a bilirubin.to an [mass/volume ] in serum or plasma 0.2 mg/dL low: 0.2mg/ dLhigh : 1.2mg/ dL Bilir ubin Total 0.2 0.2 - 1.2 mg/dL 08/01 3:53 PM T[facility] Not Available Not Available 10/12/2024 12:38:31 08/01/20 24 08/01/2024 Compr ehens venus metab olic 1999 panel - Serum or Plasm a alkaline phosphatase [enzymatic activity/vol ume] in serum or plasma 70 U/L low: 40U/Lh igh: 150U/L Alkal ine Phosp hatas e 70 40 - 150 U/L 08/01 3:53 PM T[facility] Not Available Not Available 10/12/2024 12:38:31 08/01/20 24 08/01/2024 Compr ehens venus metab olic 1999 panel - Serum or Plasm a alanine aminotransfe rase [enzymatic activity/vol ume] in serum or plasma by no addition of P-5'-P 24 U/L low: 5U/Lhi gh: 55U/L ALT 24 5 - 55 U/L 08/01 3:53 PM T[facility] HELPER [facility] Not Available Not Available 10/12/2024 12:38:31 08/01/20 24 08/01/2024 Compr ehens venus metab olic 1999 panel - Serum or Plasm a aspartate aminotransfe rase [enzymatic activity/vol ume] in serum or plasma 18 U/L low: 5U/Lhi gh: 34U/L AST 18 5 - 34 U/L 08/01 3:53 PM [facility] Not Available Not Available 10/12/2024 12:38:31 08/01/20 24 08/01/2024 Compr ehens venus metab olic 1999 panel - Serum or Plasm a anion gap 8 low: 6high: 16 Anion Gap 8 6 - 16 08/01 3:53 PM [facility] Not Available Not Available 10/12/2024 12:38:31 08/01/20 24 08/01/2024 Compr ehens venus metab olic 1999 panel - Serum or Plasm a urea nitrogen/cre atinine [mass ratio] in serum or plasma 21 low: 7high: 23 BUN/C reati nine Ratio 21 7 - 23 08/01 3:53 PM [facility] Not Available Not Available 10/12/2024 12:38:31 08/01/20 24 08/01/2024 Compr ehens venus metab olic 2000 panel - Serum or Plasm a osmolality calculated 300 text: 275 - 295 mOsm/k g high Osmol ality Calcu lated 300 (H) 275 - 295 mOsm/ kg 08/01 3:53 PM TOWER HEL[facility] Not Available Not Available 10/12/2024 12:38:31 08/01/20 24 08/01/2024 Compr ehens venus metab olic 2000 panel - Serum or Plasm a albumin/glob ulin ratio 0.9 low: 1.1hig h: 2.3 low Album in/Gl obuli n Ratio 0.9 (L) 1.1 - 2.3 08/01 3:53 PM T[facility] HEL[facility] Not Available Not Available 10/12/2024 12:38:31 08/01/20 24 08/01/2024 Compr [facility] venus metab olic 2000 panel - Serum or Plasm a glomerular filtration rate/1.73 sq M.predicted [volume rate/area] in serum, plasma or blood by creatinine-b ased formula (CKD-epi 2020) 63 text: >=90 mL/min /1.73 m2 low eGFR by CKD-E PI 63 (L) >=90 mL/mi n/1.7 3 m2 08/01 3:53 PM TOWER HELPER [facility] Not Available Not Available 10/12/2024 12:38:31 08/01/20 24 08/01/2024 Compr [facility] venus metab olic 2000 panel - Serum or Plasm a interpretati on and review of laboratory results Abnorm al Not Available Not Available 12:38:31 08/01/20 24 08/01/2024 Lipid 1996 panel - Serum or Plasm a cholesterol [mass/volume ] in serum or plasma 196 mg/dL high: 200mg/ dL Venus stero l Total 196 <200 mg/dL 08/01 3:53 PM TOWER HELPER [facility] Not Available Not Available 10/12/2024 12:38:31 08/01/20 24 08/01/2024 Lipid 1996 panel - Serum or Plasm a cholesterol in HDL [mass/volume ] in serum or plasma 55 mg/dL low: 40mg/d L HDL 55 >40 mg/dL 08/01 3:53 PM TOWER HELPER [facility] Not Available Not Available 10/12/2024 12:38:31 08/01/20 24 08/01/2024 Lipid 1995 panel - Serum or Plasm a cholesterol in LDL [mass/volume ] in serum or plasma by calculation 90 mg/dL high: 100mg/ dL LDL Calcu lated 90 <100 mg/dL 08/01 3:53 PM TOWER HELPER [facility] Not Available Not Available 10/12/2024 12:38:31 08/01/20 24 08/01/2024 Lipid 1996 panel - Serum or Plasm a tricyclic antidepressa nts [mass/volume ] in serum or plasma 255 mg/dL high: 150mg/ dL high Trigl yceri mulu 255 (H) <150 mg/dL 08/01 3:53 PM TOWER HELPER [facility] Not Available Not Available 10/12/2024 12:38:31 08/01/20 24 08/01/2024 Lipid 1996 panel - Serum or Plasm a interpretati on and review of laboratory results Abnorm al Not Available Not Available 12:38:31 03/07/20 elect caryn kanggr am No observ ation record ed. JANA In-Office Order Internal Use Only DO Not Attach Compendium DO Not Attach Compendium, Do Not Delete/merge, [id number] 03/07/2024 12:33:28 03/07/20 24 03/07/2024 virgil rubin diogr am No observ ation record ed. JANA In-Office Order Internal Use Only DO Not Attach Compendium DO Not Attach Compendium, Do Not Delete/merge, [id number] 03/07/2024 12:41:44 04/29/20 24 04/29/2024 , echoc ardio gram No observ ation record ed. [facility] [address] [facility] [address], [place], [address], 06/07/2024 12:12:17 09/20/19 25 09/20/2024 MAMMO , scree pascale, digit al, bilat eral No observ ation record ed. [address], [place], [address], 09/21/2024 16:33:10 09/20/19 25 09/20/2024 MAMMO , scree pascale, digit al, bilat eral No observ ation record ed. [address], [place], [address], 09/23/2024 16:05:42 11/10/19 25 09/20/2024 MAMMO , scree pascale, digit al, bilat eral No observ ation record ed. [facility] (Mammography) [address], [place], [address], 11/23/2024 15:11:48 12/06/19 25 09/20/2024 MAMMO , scree pascale, digit al, bilat eral No observ ation record ed. [facility] (Mammography) [address], [place], [address], 12/29/2024 23:16:58 Result Notes None recorded. Problems Name Problem SNOMED Code Status Onset Date Resolution Date Notes Provider Name and Address Organization Details Recorded Time Pneumonia 267340186 Active 2023 Rafaela Meneses MD Attn: Tiana hoffman,[address] [facility], [place], [address], [place] [facility] 4 14:44:36 Dizziness 416011439 Active 2023 Stephen Forman [place] null, [place] [facility] 4 13:00:37 Type 2 diabetes mellitus 53136832 Active 2023 Sofia Christensen LPN null, [place] [facility] 4 17:22:40 Hyperlipidemia 09845153 Active 2023 Stephen Forman [place] null, [place] [facility] 13:50:21 Migraine 68520112 Active 2023 Rafaela Meneses MD Attn: Tiana hoffman,[address] [facility], [place], [address], [place] [facility] 4 21:45:13 Essential hypertension 87680323 Active 2023 Rafaela Meneses MD Attn: Tiana hoffman,[address] [facility], [place], [address], [place] [facility] 4 21:45:34 Anxiety 87045109 Active 2023 Rafaela Meneses MD Attn: Tiana hoffman,[address] [facility], [place], [address], [place] [facility] 4 21:45:51 Neuropathy 148362620 Active 2023 Rafaela Meneses MD Attn: Tiana hoffman,[address] [facility], [place], [address], [place] [facility] 21:46:11 Problem Notes None recorded. Procedures Surgical History Date Name Laterality Status Provider Name and Address Organization Details Recorded Time Back Surgery completed MAKSIM [place] [facility] 11/16/2023 17:12:46 Knee Surgery completed MAKSIM [place] [facility] 11/16/2023 17:12:53 Imaging Results None recorded. Procedure Notes None recorded. Medical Equipment None Reported. Allergies Allergen ID Allergen Name Allergen Category Reaction Reaction Severity Criticality Documentation Date Start Date Code Code System Note Provider Name and Address Organization Details Recorded Time 411362 Toradol medicatio n hives other Not available Not available Not available 11/16/2023 38009 RxNorm throa t swell ing MAKSIM Lindsey, [place] - [facility] 4 17:05:33 Medications Name Sig Start Date Stop Date Status Note LastModified by Organization Details LastModified Time Prescript ion - Prior Authoriza tion Request active Not Available Not Available Not Available cyclobenz aprine 10 mg tablet 11/15 completed [...] Not Available Not Available No t Available clindamyc in HCl 300 mg capsule 11/08 [...] MOUTH THREE TIMES DAILY FOR 7 DAYS 12/07 completed Not Available Not Available Not Available lidocaine -prilocai ne 2.5 %-2.5 % [...] Available Not Available Not Available amoxicill in 875 mg-potass ium clavulana te 125 mg tablet TAKE 1 TABLET BY MOUTH EVERY 12 HOURS FOR 7 DAYS 12/07 completed Not Available Not Available Not Available [...] Pen Needle 31 gauge x 5/16 USE DIRECTED WITH LANTUS active Not Available Not Available No t [...] Available Not Available Not Avai lable FreeStyle Chle 3 Sensor device DIRECTED EVERY 14 DAYS active Not Available Not Available No t Available Ozempic 0.25 mg or 0.5 mg (2 mg/3 mL) subcutane ous pen injector active Not Available Not Available Not Available Vitals Date Recorded Body height Body mass index (BMI) Body weight Heart rate Oxygen saturation Oxygen saturation in Arterial blood by Pulse oximetry Systolic And Diastolic Provider Name and Address Organization Details Last Updated DateTime 4 167.64 cm 39.6 kg/m2 819698. 93 g 82 /min 97 % 97 % 116/66 mm[Hg] Kat Guaman Vanna [facility] 4 17:09:47 Date Recorded Body height Oxygen saturation Oxygen saturation in Arterial blood by Pulse oximetry Heart rate Systolic And Diastolic Provider Name and Address Organization Details Last Updated DateTime 4 167.64 cm 96 % 96 % 87 /min 102/72 mm[Hg] Raul Chavarria MA [facility] 4 13:28:42 Date Recorded Body height Body mass index (BMI) Body weight Heart rate Oxygen saturation Oxygen saturation in Arterial blood by Pulse oximetry Respiratory rate Systolic And Diastolic Provider Name and Address Organization Details Last Updated DateTime 4 167.64 cm 39.7 kg/m2 699030. 72 g 76 /min 98 % 98 % 14 /min 112/78 mm[Hg] MAKSIM Lindsey [facility] 4 11:23:34 Date Recorded Body height Body mass index (BMI) Body weight Heart rate Oxygen saturation Oxygen saturation in Arterial blood by Pulse oximetry Systolic And Diastolic Provider Name and Address Organization Details Last Updated DateTime 167.64 cm 39.8 kg/m2 314191. 52 g 79 /min 96 % 96 % 130/68 mm[Hg] Jamia Ramirez MA [facility] 11:36:47 Social History Question Answer Notes LastModified by Organizat ion Details LastModified Time Tobacco Smoking Status Never Smoker non smoker Kat Guaman ALEKSVanna null, [place] - [facility] 11/16/2023 17:12:35 Do You Have An Advance Directive? No Information not available 07/04/2024 Are You Blind [...] No Information not available 07/04/2024 Are You Deaf [...] Yes Information not available 07/04/2024 Do You Use Sunscreen Routinely? Yes Information not available 07/04/2024 Has Tobacco Cessation Counseling Been Provided? No Information not available 07/04/2024 Sex: Female Functional Status Question Answer Note LastModified by Organizat ion Details LastModified Time Do you use any illicit or recreational drugs? No Information not available 07/04/2024 Do you or have you ever used any other forms of tobacco or nicotine? No Information not available 07/04/2024 What is your level of alcohol consumption? None Information not available 07/04/2024 Are you currently employed? Yes Information not available 07/04/2024 Are you able to care for yourself? Yes Information not available 07/04/2024 What is your exercise level? None Information not available 07/04/2024 Mental Status Question Answer Note LastModified by Organization D etails LastModified Time Do you feel stressed (tense, restless, nervous, or anxious, or unable to sleep at night)? [id number] Information not available 07/04/2024 Family History Relationship Description Onset Age of [...] Not availa ble 11/16/2023 17:12:05 Mother Malignant neoplasm of ovary [email or web address] Not available 10/29 17:12:20 Sister Diabetes mellitus [email or web address] Not available 10/29 17:11:07 Sister Migraine [email or web address] Not availa ble 11/16/2023 17:12:05 Sister Malignant neoplasm of ovary [email or web address] Not available 10/29 17:12:20 Medical History No medical history recorded. Gynecological History Statement/Question Response If Post Menopausal, Age at Menopause 50 Obstetrics History GPAL:G 1 P 1 0 0 1 Type Value Full Term 1 Living 1 Total 1 Past Encounters Encounter ID Performer Location Encounter Start Date Encounter Closed Date Diagnosis/Indication Diagnosis SNOMED-CT Code Diagnosis ICD10 Code Diagnosis Note [id number] Rafaela Meneses MD [facility] ([facility]ult Med) [address] [place] [address] [phone] 0 11/27/2023 12:54:17 11/27/2023 14:19:56 Pain in both feet 4580543260 8385845 M79.672 M79.671 Type 2 sabina betes mellitus 81649218 E11.9 Chronic pain 98919848 G8 9.29 Migraine 47499320 G43.90 9 Anxiety 02779662 F41.9 [id number] Rafaela Meneses MD [facility] (Adult Med) [address] [place] [address] [phone] 11/16/2023 15:44:53 11/16/2023 17:51:53 Pneumonia 736241738 J18.9 [id number] Rafaela Meneses MD [facility] [address] [place] [phone] [id number] 03/07/2024 11:06:52 03/07/2024 12:49:51 Renewal of prescription 018921640 Z76.0 Obesity 338063740 E66.8 Dizziness 078246241 R42 Pain in both feet 751810 8733 6861831 M79.672 M79.684 [id number] Rafaela Meneses MD [facility] [address] [place] [address] 07/04/2024 11:06:35 07/04/2024 14:02:40 Obesity 147977443 E66.9 Screening mammography 24 101649 Z12.31 Type 2 sabina betes mellitus 70218297 E11.9 Hyperlipidemia 24638249 E78.5 Gynecologi c examination 93463978 Z01.419 Pain in both feet 406927 4828 8752571 M79.672 M79.671 Migraine 44933232 G43.90 9 Anxiety 27258825 F41.9 Essential hypertension 62280169 I10 Neuropathy 998508265 G62 .9 Health Concerns Section Related Observation LastModified by Organization Detai ls LastModified Time None Recorded Concern Status LastModified by Organization Details LastModified Time None Recorded Advance Directives Directive N: Payers Insurance Date Sequence Insurance Name Policy Number Policy Gutierrez Covered Member ID Gutierrez Member ID Guarantor Name 01/31/2025 1 TSERING [id number] Shobha Murray [id number] Shobha Hill Notes Date Note Type Note Provider Name and Address Organization Details Recorded Time 11/16/2023 text/html Cough congestion feeling bad went to [facility] left lower lobe pneumonia seen placed on a Z-Benigno inhaler and she just feels bad still continues to cough and feels short of breath. Fatigue as well. Rafaela Meneses MD Attn: [address] [place], [address], [facility] 11/29/2023 14:44:53 11/27/2023 text/html Pneumonia much better no shortness of breath hyperlipidemia could do better with diet diabetes no polyphagia or polydipsia migraines stable chronic pain she does see pain management. GERD has been doing okay. Rafaela Meneses MD Attn: [address] [facility], [place], [address], [place] [facility] 11/28/2023 15:25:54 03/07/2024 text/html hyperlipidemia c ould do better with diet diabetes no polyphagia or polydipsia migraines stable chronic pain she does see pain management. GERD has been doing okay. ill described dizzy spells no headache or blurred vision come with no rhyme or reason. She has chronic pain in both feet Rafaela Meneses MD Attn: [address] [facility], [place], [address], [place] 04/03/2024 12:26:03 07/04/2024 text/html chronic foot lisette n still a bounce. She does have some abdominal discomfort as well GERD has been doing okay neuropathy bothers her quite a bit hypertension blood pressure looks good 130/68 migraines are stable. Hyperlipidemia does try to watch her diet Rafaela Meneses MD Attn: [address] [facility], [place], [address], [facility] 07/10/2024 21:53:25 OBGyn Episode No OBEpisode recorded.
--- OUTSIDE RECORDS SUMMARY | 2025-03-22 22:34 | XMS_ITS | Clinical Summary ---
Author Organization [facility] Address [address] [place] [address] Care Team Providers Care Senior Cytotechnologist Name Role Phone Rhys Meneses MD Primary Care Provider Allergies Active Allergy Reactions Criticality Noted Date [...] on file Legal Sex Female 2:50 PM MOLDER SHOULDER PAD Gender Identity Not on file Sexual Orientation Not on file Last Filed Vital Signs Vital Sign Reading Time Taken Comments Blood Pressure 110/73 07/11/2022 4:47 PM MOLDER SHOULDER PAD Pulse 73 07/11/2022 4:47 PM MOLDER SHOULDER PAD Temperature 36.7 C (98 F) 07/11/2022 3:06 PM MOLDER SHOULDER PAD Respiratory Rate 20 07/11/2022 4:47 PM MOLDER SHOULDER PAD Oxygen Saturation 100% 07/11/2022 4:47 PM MOLDER SHOULDER PAD Inhaled Oxygen Concentration - - Weight - - Height - - Body Mass Index - - Plan of Treatment Health Maintenance Due Date Last Done Comments Breast Cancer Screening-Mammogram 1971 Cervical Cancer Screening 1971 Colon Cancer Screening-Colonoscopy 1971 Depression Screening 1971 Hepatitis C Screening 1971 Regular Well Visit/Exam 18-64 1989 Zoster Vaccine (1 of 2) 2021 Covid-19 Vaccine (1 - 2024-2 5 season) 2024 04/17/2021, 11/24/2020, 11/04/2020 DTaP/Tdap/Td Vaccine (3 - Td or Tdap) 08/05/2031 08/05/2021, 08/31/2006 Pneumococcal vaccine <65 Aged Out 014, 08/31/2006 No longer eligible based on patient's age to complete this topic Hepatitis B Screening Completed 08/05/2021 Influenza Vaccine Completed 07/18/[address] [place] [address] [place] [address] [place] [address] [place] [address] Care Teams Senior Cytotechnologist Relationship Specialty Start Date End Date Rhys Meneses MD PCP - General Internal Medicine 07/21/24
--- OUTSIDE RECORDS SUMMARY | 2025-03-22 22:34 | XMS_ITS | Encounter Summary ---
Author Organization [facility] Address [address] [place] [address] Care Team Providers Care Ornamental Metal Worker Helper Name Role Phone Unavailable Primary Care Provider Unavailabl e Encounter Details Date Type Department Care Team (Late st Contact Info) Description 06/01/2003 Abstract [facility] Conversion Md, Generic Conversion, Social [...]
--- OUTSIDE RECORDS SUMMARY | 2025-03-22 22:34 | XMS_ITS | Encounter Summary ---
Author Organization [facility] Address [facility] [place] [address] Care Team Providers Care Supervisor Calibration Name Role Phone Unavailable Primary Care Provider Unavailabl e Encounter Details Date Type Department Care Team (Late st Contact Info) Description 02/05/2019 Abstract [facility] CONVERSION [address] [place] [address] , Generic Conversion, Social History Tobacco Use [...]
--- OUTSIDE RECORDS SUMMARY | 2025-03-22 22:34 | XMS_ITS | Encounter Summary ---
Author Organization [facility] Address [address] [place] [address] Care Team Providers Care Floor And Wall Applier Liquid Name Role Phone Unavailable Primary Care Provider Unavailabl e Encounter Details Date Type Department Care Team (Late st Contact Info) Description 06/05/2008 Abstract [facility] Conversion Md, Generic Conversion, Social [...]
--- OUTSIDE RECORDS SUMMARY | 2025-03-22 22:34 | XMS_ITS | Clinical Summary ---
Author Organization [facility] [employer] Address [address] [place] [address] Care Team Providers Care Cloth Printing Inspector Name Role Phone Karen Rahman PA-C Primary Care Provider [phone] Source Comments [facility],non-owned Affiliates and Associated Physician Practices is amultiple site organization consisting of ambulatory clinics and hospital sitesin [place], [place], [place] and [place]. This disclosure is being madepursuant to the Care Everywhere program and may not contain all information available regarding this patient. Last updated 18.[facility] [employer] Allergies Active Allergy Reactions Criticality Noted Date Comments Oxycodone-Acetaminophen Itching 03/07/2013 Oxycodone-Acetaminophen Rash Low 12/31/2013 And hives Ketorolac Itching Low 03/07/2013 Ketorolac Rash Low 12/31/2013 And hives Tramadol Itching 06/22/2014 Medications * Be aware that medications may not be up to date on this document. Alwaysverify current medications with the patient. Naproxen Sodium (ALEVE) 220 MG CAPS Take by mouth. Active tiZANidine (ZANAFLEX) 2 MG tablet Take 2 mg by mouth every 8 hours as needed for Muscle Spasms Active amoxicillin-cla vulanate (AUGMENTIN) 500-125 MG tabletIndicatio ns:Acute maxillary sinusitis, recurrence not specified Take 1 [...] needed (Muscle spasms) 10 tablet 02/08/2023 Active HYDROcodone-marin taminophen (Mead) 10-325 MG tabletIndicatio ns:Other low back pain TAKE ONE TABLET BY MOUTH 3 TIMES A DAY NEEDED FOR 15 DAYS 45 tablet 03/15/2024 Active HYDROcodone-marin taminophen (Mead) 10-325 MG tabletIndicatio ns:Other low back pain TAKE ONE TABLET BY MOUTH 3 TIMES A DAY NEEDED FOR 15 DAYS 45 tablet 03/29/2024 Active HYDROcodone-marin taminophen (Mead) 10-325 MG tabletIndicatio ns:Other low back pain TAKE ONE TABLET BY MOUTH 3 TIMES A DAY NEEDED FOR 15 DAYS 45 tablet 04/12/2024 Active HYDROcodone-marin taminophen (Mead) 10-325 MG tabletIndicatio ns:Other low back pain TAKE ONE TABLET BY MOUTH 3 TIMES A DAY NEEDED FOR 15 DAYS 45 tablet 04/30/2024 Active Active Problems Problem Noted Date Diagnosed Date Other postprocedural status(V45.89) 11/23/2013 Shoulder pain 03/07/2013 Immunizations Immunization Administration Dates Next Due PNEUMOCOCCAL PPSV23 06/14/2014 [...] drink = 0.6 oz pur e alcohol) Comments No Sex and Gender Information Value Date Recorded Sex Assigned at Not on file Legal Sex Female 9:08 AM BIOMEDICAL MANAGER Gender Identity Not on file Sexual Orientation Not on file Last Filed Vital Signs Vital Sign Reading Time Taken Comments Blood Pressure 101/82 02/08/2023 2:29 PM CDT Pulse 75 02/08/2023 2:29 PM CDT Temperature 36.6 C (97.9 F) 02/08/2023 2:29 PM CDT Respiratory Rate 16 02/08/2023 2:29 PM CDT Oxygen Saturation 100% 02/08/2023 2:29 PM CDT Inhaled Oxygen Concentration - - Weight 108.9 kg (240 lb) 02/08/2023 8:10 AM CDT Height 167.6 cm (5' 6) 02/08/2023 8:10 AM CDT Body Mass Index 38.74 02/08/2023 8:10 AM CDT Plan of Treatment Health Maintenance Due Date Last Done Comments COLOGUARD (AGES 45-75) - COLON CA SCREENING 1971 COLON MONITORING 1971 COLONOSCOPY - COLON CA SCREENING 1971 CT COLONOGRAPHY - COLON CA SCREENING 1971 Colorectal Cancer Screening 1971 FIT - COLON CA SCREENING 1971 FLEX SIG - COLON CA SCREENING 1971 HEPATITIS C SCREENING 04/13/1989 HEPATITIS B VACCINE (1 of 3 - 19+ 3-dose series) 1990 PNEUMOCOCCAL VACCINE 50+ (2 of 2 - PCV) 06/14/2015 06/14/2014 DTAP/TDAP/TD VACCINES (2 - Td or Tdap) 08/31/2016 08/31/2006 MAMMOGRAM 09/15/2016 09/15/2014 (Declined) PAP SMEAR 05/01/2017 05/01/2014 ZOSTER VACCINE (1 of 2) 2021 COVID-19 VACCINE ( - season) 2024 04/17/2021, 11/24/2020, 11/04/2020 DEPRESSION SCREENING 08/31/2024 INFLUENZA VACCINE (#1) 2025 06/19/2016 LIPID TESTING 08/01/2029 08/01/2024, 01/29, 09/15/2023, Additional history exists HIV SCREENING Completed 07/19/2015 HIB VACCINE Aged Out No longer eligi ble based on patient's age to complete this topic HPV VACCINE Aged Out No longer eligi ble based on patient's age to complete this topic MENINGOCOCCAL (Group B) VACCINE SHARED DECISION-MAKING Aged Out No longer eligible based on patient's age to complete this topic MENINGOCOCCAL GROUPS A/C/Y/W VACCINE Aged Out No longer eligible based on patient's age to complete this topic Procedures Procedure Name Priority Date/Time Associated Diagnosis Comments LIPID PROFILE Routine 08/01/2024 2:54 PM BIOMEDICAL MANAGER Diabetes mellitus without complication HIV-1 HIV-2 ANTIBODY W/ REFLX CONFIRM Routine 07/19/2015 3:52 PM BIOMEDICAL MANAGER Possible exposure to STD from Last 3 Months or Most Recently Relevant to Health Maintenance Results * (ABNORMAL) LIPID PROFILE (08/01/2024 2:54 PM BIOMEDICAL MANAGER) Cholesterol Total 196 <200 mg/dL 08/01/2024 3:53 PM BIOMEDICAL MANAGER [facility] HDL 55 >40 mg/dL 08/01/2024 3:53 PM BIOMEDICAL MANAGER [facility] Comment: ATP III Classification of HDL Cholesterol: <40 mg/dL: Considered a major risk factor. >60 mg/dL: Considered a negative risk factor. LDL Calculated 90 <100 mg/dL 08/01/2024 3:53 PM BIOMEDICAL MANAGER [facility] Comment: ATP III Classification of LDL Cholesterol: <100 mg/dL: Optimal 100 - 129 mg/dL: Near Optimal/Above Optimal 130 - 159 mg/dL: Borderline High 160 - 189 mg/dL: High >190 mg/dL: Very High Triglycerides 255(H) <150 mg/dL 08/01/2024 3:53 PM BIOMEDICAL MANAGER [facility] Comment: ATP III Classification of Triglycerides: <150 mg/dL: Normal 150 - 199 mg/dL: Borderline High 200 - 400 mg/dL: High >500 mg/dL: Very High Blood BLOOD SPECIMEN / Unknown Lab Venipuncture / Unknown 08/01/2024 2:54 PM BIOMEDICAL MANAGER 08/01/2024 3:23 PM BIOMEDICAL MANAGER us Provider Unknown LAB - CHEMISTRY ORDERABLES Merle l Result [facility] [address] [place] [address], [facility] [phone] * HIV-1 HIV-2 ANTIBODY W/ REFLX CONFIRM (07/19/2015 3:52 PM BIOMEDICAL MANAGER) HIV-1/HIV-2 Negative Negative 07/22/2015 12:40 AM BIOMEDICAL MANAGER [employer] ([facility]) Comment: Based on the non-reactive anti-HIV [...] Unknown Venipuncture / Unknown 07/19/2015 3:52 PM BIOMEDICAL MANAGER 07/19/2015 3:54 PM BIOMEDICAL MANAGER us Karen Rahman PA-C LAB - SEROLOGY ORDERABLES Fi nal Result [employer] ([facility]) [address] [place] [address], [facility] from Last 3 Months or Most Recently Relevant to Health Maintenance Insurance MEDICAID - [place] [employer] [place] [facility] Care Teams Cloth Printing Inspector Relationship Specialty Start Date End Date Karen Rahman, REBECAC [address] [place] [address] PCP - General Physician Piano Maker 01/30/15
--- OUTSIDE RECORDS SUMMARY | 2025-03-22 22:34 | XMS_ITS | Referral Summary ---
Author Organization [facility] Address [facility] [place] [address] Care Team Providers Care Hemodialysis Lab Technician Name Role Phone Ryhs Meneses MD Primary Care Provider [phone] Allergies Active Allergy Reactions Criticality Noted Date [...] on file Legal Sex Female 2:50 PM FUEL HOUSE ATTENDANT Gender Identity Not on file Sexual Orientation Not on file Last Filed Vital Signs Vital Sign Reading Time Taken Comments Blood Pressure 110/73 07/11/2022 4:47 PM FUEL HOUSE ATTENDANT Pulse 73 07/11/2022 4:47 PM FUEL HOUSE ATTENDANT Temperature 36.7 C (98 F) 07/11/2022 3:06 PM FUEL HOUSE ATTENDANT Respiratory Rate 20 07/11/2022 4:47 PM FUEL HOUSE ATTENDANT Oxygen Saturation 100% 07/11/2022 4:47 PM FUEL HOUSE ATTENDANT Inhaled Oxygen Concentration - - Weight - - Height - - Body Mass Index - - Plan of Treatment Not on file Insurance [employer] [address] [place] [address] [place] [address] [place] [address] Care Teams Hemodialysis Lab Technician Relationship Specialty Start Date End Date Rhys Meneses MD PCP - General Internal Medicine 07/21/24
--- OUTSIDE RECORDS SUMMARY | 2025-03-22 22:34 | XMS_ITS | Clinical Summary ---
Author Organization [facility] Address [facility] [place] [address] Care Team Providers Care Branch Chief Name Role Phone Unavailable Primary Care Provider [...] Screening with HPV 2001 Mammogram Screening 2011 Pneumococcal Vaccine: 50+ Ye ars (1 of 1 - PCV) 2021 Zoster Vaccines (1 of 2) 2021 COVID-19 Vaccine ( - 2023-2 5 season) 2024 Meningococcal B Vaccine Aged Out No l onger eligible based on patient's age to complete this topic Meningococcal Vaccine Aged Out No lilo shamar eligible based on patient's age to complete this topic RSV Immunizations Under 20 Months Aged Out No longer eligible based on patient's age to complete this topic
--- OUTSIDE RECORDS SUMMARY | 2025-03-22 22:34 | XMS_ITS | Data Portability ---
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 Encounter Date Assessment Date Assessment LastModified [...] help with weight loss rtc 4 months [email or web address] Not available 11/15/2022 21:05:13 11/18/2022 11/18/2022 Clindamycin told her to get a dentist signs and symptoms of C diff colitis discussed if she gets those stop clindamycin and seek medical attention Not available 11/23/2022 16:39:19 03/25/2023 03/25/2023 EKG shows a normal sinus rhythm with no acute changes Neuro consult Blood work See me in 1 month Holter monitor [email or web address] Not available 03/26/2023 08:54:49 04/13/2023 04/13/2023 X-partially visualized lumbar fusion hardware ray of the hip unremarkable I will obtain x-ray of C-spine and get her referred to chiropractor and see me in 3 weeks [email or web address] Not available 05/03/2023 14:10:11 09/16/2023 09/16/2023 Titrate Ozempic continue other medications weight reduction again highly recommended follow-up with me in 4 my [email or web address] Not available 09/29/2023 10:06:43 Plan of Treatment Reminders Order Date Submit Date Provider Last Modified By Organization Details Last Modified Time Details Appointments None recorded. Lab glycohemo globin, total, blood 2022 023 [facility] (Lab), [address] [place], [address], 3 19:16:39 lipid panel, serum 2022 023 [facility] (Lab), [address] [place], [address], 3 19:02:17 T3, free, serum or plasma 2022 023 [facility] (Lab), [address] [place], [address], 3 19:19:52 T4, free, serum 2022 023 [facility] (Lab), [address] [place], [address], 3 19:19:53 TSH, serum or plasma 2022 023 [facility] (Lab), [address] [place], [address], 3 19:31:07 HbA1c (hemoglob in A1c), blood 2022 023 [facility] (Lab), [address] [place], [address], 3 14:54:32 albumin/c reatinine , mass ratio, urine 2022 023 [facility] (Lab), [address] [place], [address], 3 14:54:37 CMP, serum or plasma 2022 023 [facility] (Lab), [address] [place], [address], 3 15:06:40 CBC w/ auto diff 2022 023 [facility] (Lab), [address] [place], [address], 3 14:52:57 lipid panel, serum 2022 023 [facility] (Lab), [address] [place], [address], 3 15:07:11 Referral orthopedi c surgeon referral 2023 024 [email or web address] Connor Chavarria MD, [address], [place], [address], 4 09:10:30 chiroprac tor referral 2022 023 [email or web address] Quintero DC, [address] [facility] , [place], [address], 3 11:38:46 pain managemen t referral - Pt has a spinal cord stimulato r. We don't have any records of that she is a new pt to us on 11/14/2022 . 2022 023 [email or web address], [address], [address], [place], [address], 3 15:06:47 Procedures None recorded. Surgeries None recorded. Imaging XR, cervical spine, 2 or 3 view 2022 023 [facility] ([facility]), [address] [place], [address], 3 14:17:08 electroca rdiogram 2022 023 [email or web address] [address] [facility], [address], [place], [address], 3 18:07:49 Medication Orders Ozempic 0.25 mg or 0.5 mg (2 mg/3 mL) subcutane ous pen injector 2023 024 [email or web address] [facility] #33049, [address], [place], [place], [id number], 4 15:24:01 atorvasta tin 20 mg tablet [address] [facility]21078, [address] [place], [place], [id number], 4 15:24:01 clindamyc in HCl 300 mg capsule 2022 023 [facility] #09517, [address] , [place], [place], [id number], 3 15:41:57 Creon 12,000-38 ,000-60,0 00 unit capsule,d elayed release 2022 023 [email or web address] [facility] #29195, [address] , [place], [place], [id number], 4 10:48:39 omeprazol e 40 mg capsule,d elayed release 2022 023 [email or web address] 45 [facility] #02688, [address], [place], [place], [id number], 3 15:06:42 rizatript an 10 mg tablet 2022 023 [facility] #40648, [address], [id number], 3 13:47:13 pantopraz ole 40 mg tablet,de layed release [address] [facility] #34478, [address], [place], [place], [id number], 3 13:47:13 topiramat e 25 mg tablet [address] [facility] #36066, [address], [place], [place], [id number], 3 13:47:13 cyanocoba shweta (vit B-12) 1,000 mcg/mL injection kit 2022 023 [email or web address] [facility] #54054, [address], [id number], 4 10:48:48 lisinopri l 5 mg tablet [address] [facility] #01141, [address] , [place], [place], [id number], 3 13:47:13 buspirone 5 mg tablet [address] [facility] #35787, [address], [place], [place], [id number], 3 13:47:13 Jardiance 10 mg tablet 2022 023 [email or web address] 45 [facility] #01236, [address], [place], [place], [id number], 3 15:42:10 Patient TargetsNo targets recorded. Patient InstructionsNo instructions recorded. Reason for Referral Pain Management Referral for Backache Pt has a spinal cord stimulator. We don't have any records of that she is a new pt to us on 11/14/2022. Referring Physician: Rafaela Meneses, Internal Medicine, Encounter Date: 11/14/2022 Chiropractor Referral for Ne ck pain Referring Physician: Rafaela Meneses, Internal Medicine, Encounter Date: 04/13/2023 Orthopedic Surgeon Referral for Pain in right thumb Referring Physician: Rafaela Meneses, Internal Medicine, Encounter Date: 09/16/2023 Results Created Date Observation Date Name Description Value Unit Range Abnormal Flag Note LastModifiedBy Organization Detail LastModifiedTime 11/15/19 23 11/14/2022 CBC/C OMPLE TE BLD COUNT W/DIF F white blood cells 7.6 x10'3 /uL 4.2-10 .8 Not Available [facility] (Lab) [address] [place], [address], 11/14/2022 14:52:57 11/15/1911/14/2022 CBC/C OMPLE TE BLD COUNT W/DIF F red blood cells 4.22 x10'6 /uL 3.80-5 .20 Not Available [facility] (Lab) [address] [place], [address], 11/14/2022 14:52:57 11/15/19 23 11/14/2022 CBC/C OMPLE TE BLD COUNT W/DIF F hemoglobin 12.5 g/dL 12.0-1 5.6 Not Available [facility] (Lab) [address] [place], [address], 11/14/2022 14:52:57 11/15/19 23 11/14/2022 CBC/C OMPLE TE BLD COUNT W/DIF F hematocrit 40.4 % 35.7-4 5.7 Not Available [facility] (Lab) [address] [place], [address], 11/14/2022 14:52:57 11/15/19 23 11/14/2022 CBC/C OMPLE TE BLD COUNT W/DIF F mean red cell volume 95.7 fL 82.0-9 9.0 Not Available [facility] (Lab) [address] [facility] [place] [place], [address], 11/14/2022 14:52:57 11/15/19 23 11/14/2022 CBC/C OMPLE TE BLD COUNT W/DIF F mean red cell hemoglobin 29.6 pg 27.0-3 3.0 Not Available [facility] (Lab) [address] [place], [address], 11/14/2022 14:52:57 11/15/19 23 11/14/2022 CBC/C OMPLE TE BLD COUNT W/DIF F mean RBC HGB concentratio n 30.9 g/dL 31.0-3 6.0 low Not Available [facility] (Lab) [address] [place], [address], 11/14/2022 14:52:57 11/15/19 23 11/14/2022 CBC/C OMPLE TE BLD COUNT W/DIF F red cell distribution width 13.2 % 11.8-1 5.5 Not Available [facility] (Lab) [address] [place], [address], 11/14/2022 14:52:57 11/15/19 23 11/14/2022 CBC/C OMPLE TE BLD COUNT W/DIF F platelets 363 x10'3 /uL 150-40 0 Not Available [facility] (Lab) [address] [place], [address], 11/14/2022 14:52:57 11/15/19 23 11/14/2022 CBC/C OMPLE TE BLD COUNT W/DIF F mean platelet volume 9.7 fL 9.0-12 .4 Not Available [facility] (Lab) [address] [place], [address], 11/14/2022 14:52:57 11/15/19 23 11/14/2022 CBC/C OMPLE TE BLD COUNT W/DIF F neutrophils 48.9 % 39.0-7 2.0 Not Available [facility] (Lab) [address] [place], [address], 11/14/2022 14:52:57 11/15/19 23 11/14/2022 CBC/C OMPLE TE BLD COUNT W/DIF F lymphocytes 42.6 % 16.0-4 7.0 Not Available [facility] (Lab) [address] [place], [address], 11/14/2022 14:52:57 11/15/1911/14/2022 CBC/C OMPLE TE BLD COUNT W/DIF F monocytes 5.5 % 5.0-12 .0 Not Available [facility] (Lab) [address] [place], [address], 11/14/2022 14:52:57 11/15/1911/14/2022 CBC/C OMPLE TE BLD COUNT W/DIF F eosinophils 2.4 % 1.0-7. 0 Not Available [facility] (Lab) [address] [place], [address], 11/14/2022 14:52:57 11/15/1911/14/2022 CBC/C OMPLE TE BLD COUNT W/DIF F basophils 0.5 % 0.0-2. 0 Not Available [facility] (Lab) [address] [place], [address], 11/14/2022 14:52:57 11/15/1911/14/2022 CBC/C OMPLE TE BLD COUNT W/DIF F immature granulocytes 0.1 % 0.00-0 .50 Not Available [facility] (Lab) [address] [place], [address], 11/14/2022 14:52:57 11/15/1911/14/2022 CBC/C OMPLE TE BLD COUNT W/DIF F neutrophils, absolute count 3.70 x10'3 /uL 1.5-8. 0 Not Available [facility] (Lab) [address] [place], [address], 11/14/2022 14:52:57 11/15/19 23 11/14/2022 CBC/C OMPLE TE BLD COUNT W/DIF F lymphocytes, absolute count 3.23 x10'3 /uL 1.07-3 .43 Not Available [facility] (Lab) [address] [place], [address], 11/14/2022 14:52:57 11/15/19 23 11/14/2022 CBC/C OMPLE TE BLD COUNT W/DIF F monocytes, absolute count 0.42 x10'3 /uL 0.29-0 .99 Not Available [facility] (Lab) [address] [place], [address], 11/14/2022 14:52:57 11/15/19 23 11/14/2022 CBC/C OMPLE TE BLD COUNT W/DIF F eosinophils, absolute count 0.18 x10'3 /uL 0.02-0 .53 Not Available [facility] (Lab) [address] [place], [address], 11/14/2022 14:52:57 11/15/1911/14/2022 CBC/C OMPLE TE BLD COUNT W/DIF F basophils, absolute count 0.04 x10'3 /uL 0.01-0 .08 Not Available [facility] (Lab) [address] [place], [address], 11/14/2022 14:52:57 11/15/19 23 11/14/2022 CBC/C OMPLE TE BLD COUNT W/DIF F immature granulocytes ,absolute 0.01 x10'3 /uL 0.00-0 .05 Not Available [facility] (Lab) [address] [facility] [place], [address], 11/14/2022 14:52:57 11/15/19 23 11/14/2022 CBC/C OMPLE TE BLD COUNT W/DIF F nucleated red blood cells 0.0 % -0 Not Available [facility] (Lab) [address] [facility] [place] [place], [address], 11/14/2022 14:52:57 11/15/19 23 11/14/2022 CBC/C OMPLE TE BLD COUNT W/DIF F NRBC# 0.00 x10'3 /uL Not Available [facility] (Lab) [address] [place], [address], 11/14/2022 14:52:57 11/15/19 23 11/14/2022 COMPR EHENS KALYANI METAB OLIC PANEL sodium 138 mmol/ L 137-14 5 Not Available [facility] (Lab) [address] [place], [address], 11/14/2022 15:07:00 11/15/19 23 11/14/2022 COMPR EHENS KALYANI METAB OLIC PANEL potassium 4.5 mmol/ L 3.5-5. 1 Not Available [facility] (Lab) [address] [place], [address], 11/14/2022 15:07:00 11/15/19 23 11/14/2022 COMPR EHENS KALYANI METAB OLIC PANEL chloride 105 mmol/ L 98-107 Not Available [facility] (Lab) [address] [place], [address], 11/14/2022 15:07:00 11/15/19 23 11/14/2022 COMPR EHENS KALYANI METAB OLIC PANEL carbon dioxide 26 mmol/ L 22-30 Not Available [facility] (Lab) [address] [place], [address], 11/14/2022 15:07:00 11/15/19 23 11/14/2022 COMPR EHENS KALYANI METAB OLIC PANEL anion gap 11.5 mmol/ L 14-22 low Not Available [facility] (Lab) [address] [place], [address], 11/14/2022 15:07:00 11/15/19 23 11/14/2022 COMPR EHENS KALYANI METAB OLIC PANEL glucose 195 mg/dL 70-99 high Not Available [facility] (Lab) [address] [place], [address], 11/14/2022 15:07:00 11/15/19 23 11/14/2022 COMPR EHENS KALYANI METAB OLIC PANEL BUN 18 mg/dL 8-19 Not Available [facility] (Lab) [address] [place], [address], 11/14/2022 15:07:00 11/15/19 23 11/14/2022 COMPR EHENS KALYANI METAB OLIC PANEL creatinine 0.68 mg/dL 0.66-1 .25 Not Available [facility] (Lab) [address] [place], [address], 11/14/2022 15:07:00 11/15/19 23 11/14/2022 COMPR EHENS KALYANI METAB OLIC PANEL GFR >60 Refer ence Range : [place] GFR Healt hy Adult : >60 [...] a case- by-ca se basis . Clini jsesica inter preta tion for other races and [...] calcu lator is avail able on the [facility] websi te: [email or web address] :[email or web address] rg/pr ofess ional s/kdo qi/gf r_cal culat or Not Available [facility] (Lab) [address] [place], [address], 11/14/2022 15:07:00 11/15/19 23 11/14/2022 COMPR EHENS KALYANI METAB OLIC PANEL alkaline phosphatase 86 U/L 38-126 Not Available [facility] (Lab) [address] [place], [address], 11/14/2022 15:07:00 11/15/19 23 11/14/2022 COMPR EHENS KALYANI METAB OLIC PANEL alanine aminotransfe rase 25 U/L 0-35 Not Available [facility] (Lab) [address] [place], [address], 11/14/2022 15:07:00 11/15/19 23 11/14/2022 COMPR EHENS KALYANI METAB OLIC PANEL aspartate aminotransfe rase 24 U/L 15-37 Not Available [facility] (Lab) [address] [place], [address], 11/14/2022 15:07:00 11/15/19 23 11/14/2022 COMPR EHENS KALYANI METAB OLIC PANEL bilirubin, total 0.30 mg/dL 0.20-1 .30 Not Available [facility] (Lab) [address] [place], [address], 11/14/2022 15:07:00 11/15/19 23 11/14/2022 COMPR EHENS KALYANI METAB OLIC PANEL calcium 9.0 mg/dL 8.4-10 .2 Not Available [facility] (Lab) [address] [place], [address], 11/14/2022 15:07:00 11/15/19 23 11/14/2022 COMPR EHENS KALYANI METAB OLIC PANEL total protein 7.4 g/dL 6.3-8. 2 Not Available [facility] (Lab) [address] [place], [address], 11/14/2022 15:07:00 11/15/19 23 11/14/2022 COMPR EHENS KALYANI METAB OLIC PANEL albumin 4.0 g/dL 3.4-5. 0 Not Available [facility] (Lab) [address] [place], [address], 11/14/2022 15:07:00 11/15/19 23 11/14/2022 COMPR EHENS KALYANI METAB OLIC PANEL globulin 3.4 g/dL 2.6-4. 2 Not Available [facility] (Lab) [address] [place], [address], 11/14/2022 15:07:00 11/15/19 23 11/14/2022 COMPR EHENS KALYANI METAB OLIC PANEL A/G ratio 1.2 ratio 1.0-2. 0 Not Available [facility] (Lab) [address] [place], [address], 11/14/2022 15:07:00 11/15/19 23 11/14/2022 LIPID PANEL cholesterol 224 mg/dL 140-19 9 high NIH CHIP NSUS RECOM MENDA TION FOR ELÍAS STERO L: ADULT CHILD LOW RISK: <200 <170 BORDE RLINE : <200- 239 ----- HIGH RISK: >240 >200 Not Available [facility] (Lab) [address] [place], [address], 11/14/2022 15:07:11 11/15/19 23 11/14/2022 LIPID PANEL triglyceride s 173 mg/dL 0-150 high NIH CHIP NSUS REPOR T RECOM MENDA TION FOR TRIGL YCERI THEA: ADULT CHILD LOW RISK: <150 ----- BODER LINE: 150-1 99 ----- HIGH RISK: >200 ----- Not Available [facility] (Lab) [address] [place], [address], 11/14/2022 15:07:11 11/15/19 23 11/14/2022 LIPID PANEL HDL cholesterol 64 mg/dL 40- Not Available [facility] (Lab) [address] [place], [address], 11/14/2022 15:07:11 11/15/19 23 11/14/2022 LIPID PANEL [...] WILL NOT BE REPOR RICHAR. Not Available [facility] (Lab) [address] [place], [address], 11/14/2022 15:07:11 11/15/19 23 11/14/2022 MICRO ALBUM N RNDM W/CRE AT RATIO ur creat 260.67 mg/dL REFER ENCE RANGE NOT ESTAB LISHE D FOR RANDO M URINE CREAT ININE Not Available [facility] (Lab) [address] [place], [address], 11/14/2022 15:15:54 11/15/19 23 11/14/2022 MICRO ALBUM N RNDM W/CRE AT RATIO microalbumin , urine 10.9 mg/L 0.0-16 .6 Not Available [facility] (Lab) [address] [place], [address], 11/14/2022 15:15:54 11/15/19 23 11/14/2022 MICRO ALBUM N RNDM W/CRE AT RATIO microalbumin /creatinine ratio 4 mcg/m g 0-29 THE AMERI CAN DIABE ART ASSOC IATIO N DEFIN ES ABNOR MALIT IES IN ALBUM IN EXCRE TION FOLLO WS: CATEG ORY RESUL T (MCG/ MG CREAT ININE ) DARRON L <30 MICRO ALBUM INURI A 30-29 9 CLINI JESSICA ALBUM INURI A > OR = 300 THE ADA RECOM MENDS THAT 2 OF 2 SPECI MENS COLLE CTED WITHI N A 3- TO 6-MON TH PERIO D BE ABNOR MAL BEFOR E CONSI DALTON G A PATIE NT TO HAVE CROSS ED ONE OF THESE DIAGN OSTIC THRES HOLDS . REFER ENCE: DIABE ATR CARE, VOL. 26: S94-S , 2002 Not Available [facility] (Lab) [address] [place], [address], 11/14/2022 15:15:54 11/15/19 23 11/14/2022 HEMOG LOBIN A1C HA1C 9.0 % 4.0-6. 0 high Diabe art Scree pascale Crite irene: <5.7% Consi stent with absen ce of diabe art 5.7-6 .4% Consi stent with incre ased risk for diabe art (pred iabet es) >OR=6 .5% Consi stent with diabe art REFER ENCE: Diabe art Care 2016, 39(Damon ppl.1 ):s13 -s22 Not Available [facility] (Lab) [address] [place], [address], 11/14/2022 20:36:00 03/25/20 23 03/25/2023 LIPID PANEL cholesterol 153 mg/dL 140-19 9 NIH CHIP NSUS RECOM MENDA TION FOR ELÍAS STERO L: ADULT CHILD LOW RISK: <200 <170 BORDE RLINE : <200- 239 ----- HIGH RISK: >240 >200 Not Available [facility] (Lab) [address] [place], [address], 03/25/2023 19:02:16 03/25/2003/25/2023 LIPID PANEL triglyceride s 138 mg/dL 0-150 NIH CHIP NSUS REPOR T RECOM MENDA TION FOR TRIGL YCERI THEA: ADULT CHILD LOW RISK: <150 ----- BODER LINE: 150-1 99 ----- HIGH RISK: >200 ----- Not Available [facility] (Lab) [address] [place], [address], 03/25/2023 19:02:16 03/25/2003/25/2023 LIPID PANEL HDL cholesterol 64 mg/dL 40- Not Available [facility] (Lab) [address] [place], [address], 03/25/2023 19:02:16 03/25/2003/25/2023 LIPID PANEL LDL cholesterol, [...] WILL NOT BE REPOR RICHAR. Not Available [facility] (Lab) [address] [place], [address], 03/25/2023 19:02:16 03/25/2003/25/2023 HEMOG LOBIN A1C HA1C 6.7 % 4.0-6. 0 high Diabe art Scree pascale Crite irene: <5.7% Consi stent with absen ce of diabe art 5.7-6 .4% Consi stent with incre ased risk for diabe art (pred iabet es) >OR=6 .5% Consi stent with diabe art REFER ENCE: Diabe art Care 2016, 39(Damon ppl.1 ):s13 -s22 Not Available [facility] (Lab) [address] [place], [address], 03/25/2023 19:16:39 03/25/20 23 03/25/2023 T3 FREE free T3 3.8 pg/mL 2.77-5 .27 Not Available [facility] (Lab) [address] [place], [address], 03/25/2023 19:19:52 03/25/20 23 03/25/2023 T4 FREE free T4 0.81 NG/dL 0.78-2 .19 Not Available [facility] (Lab) [address] [place], [address], 03/25/2023 19:19:53 03/25/20 23 03/25/2023 TSH thyroid-stim ulating hormone 1.540 uIU/m L 0.465- 4.680 Not Available [facility] (Lab) [address] [place], [address], 03/25/2023 19:31:07 04/13/20 23 04/13/2023 CBC/C OMPLE TE BLD COUNT W/DIF F white blood cells 7.1 x10'3 /uL 4.2-10 .8 Not Available [facility] (Lab) [address] [place], [address], 04/13/2023 13:22:34 04/13/20 23 04/13/2023 CBC/C OMPLE TE BLD COUNT W/DIF F red blood cells 4.38 x10'6 /uL 3.80-5 .20 Not Available [facility] (Lab) [address] [place], [address], 04/13/2023 13:22:34 04/13/20 23 04/13/2023 CBC/C OMPLE TE BLD COUNT W/DIF F hemoglobin 12.9 g/dL 12.0-1 5.6 Not Available [facility] (Lab) [address] [place], [address], 04/13/2023 13:22:34 04/13/20 23 04/13/2023 CBC/C OMPLE TE BLD COUNT W/DIF F hematocrit 41.3 % 35.7-4 5.7 Not Available [facility] (Lab) [address] [place], [address], 04/13/2023 13:22:34 04/13/20 23 04/13/2023 CBC/C OMPLE TE BLD COUNT W/DIF F mean red cell volume 94.3 fL 82.0-9 9.0 Not Available [facility] (Lab) [address] [place], [address], 04/13/2023 13:22:34 04/13/20 23 04/13/2023 CBC/C OMPLE TE BLD COUNT W/DIF F mean red cell hemoglobin 29.5 pg 27.0-3 3.0 Not Available [facility] (Lab) [address] [place], [address], 04/13/2023 13:22:34 04/13/20 23 04/13/2023 CBC/C OMPLE TE BLD COUNT W/DIF F mean RBC HGB concentratio n 31.2 g/dL 31.0-3 6.0 Not Available [facility] (Lab) [address] [place], [address], 04/13/2023 13:22:34 04/13/20 23 04/13/2023 CBC/C OMPLE TE BLD COUNT W/DIF F red cell distribution width 15.1 % 11.8-1 5.5 Not Available [facility] (Lab) [address] [place], [address], 04/13/2023 13:22:34 04/13/20 23 04/13/2023 CBC/C OMPLE TE BLD COUNT W/DIF F platelets 287 x10'3 /uL 150-40 0 Not Available [facility] (Lab) [address] [place], [address], 04/13/2023 13:22:34 04/13/20 23 04/13/2023 CBC/C OMPLE TE BLD COUNT W/DIF F mean platelet volume 10.1 fL 9.0-12 .4 Not Available [facility] (Lab) [address] [place], [address], 04/13/2023 13:22:34 04/13/20 23 04/13/2023 CBC/C OMPLE TE BLD COUNT W/DIF F neutrophils 37.8 % 39.0-7 2.0 low Not Available [facility] (Lab) [address] [place], [address], 04/13/2023 13:22:34 04/13/20 23 04/13/2023 CBC/C OMPLE TE BLD COUNT W/DIF F lymphocytes 53.1 % 16.0-4 7.0 high Not Available [facility] (Lab) [address] [place], [address], 04/13/2023 13:22:34 04/13/20 23 04/13/2023 CBC/C OMPLE TE BLD COUNT W/DIF F monocytes 6.7 % 5.0-12 .0 Not Available [facility] (Lab) [address] [place], [address], 04/13/2023 13:22:34 04/13/20 23 04/13/2023 CBC/C OMPLE TE BLD COUNT W/DIF F eosinophils 1.7 % 1.0-7. 0 Not Available [facility] (Lab) [address] [place], [address], 04/13/2023 13:22:34 04/13/20 23 04/13/2023 CBC/C OMPLE TE BLD COUNT W/DIF F basophils 0.6 % 0.0-2. 0 Not Available [facility] (Lab) [address] [place], [address], 04/13/2023 13:22:34 04/13/20 23 04/13/2023 CBC/C OMPLE TE BLD COUNT W/DIF F immature granulocytes 0.1 % 0.00-0 .50 Not Available [facility] (Lab) [address] [place], [address], 04/13/2023 13:22:34 04/13/20 23 04/13/2023 CBC/C OMPLE TE BLD COUNT W/DIF F neutrophils, absolute count 2.69 x10'3 /uL 1.5-8. 0 Not Available [facility] (Lab) [address] [place], [address], 04/13/2023 13:22:34 04/13/20 23 04/13/2023 CBC/C OMPLE TE BLD COUNT W/DIF F lymphocytes, absolute count 3.78 x10'3 /uL 1.07-3 .43 high Not Available [facility] (Lab) [address] [place], [address], 04/13/2023 13:22:34 04/13/20 23 04/13/2023 CBC/C OMPLE TE BLD COUNT W/DIF F monocytes, absolute count 0.48 x10'3 /uL 0.29-0 .99 Not Available [facility] (Lab) [address] [place], [address], 04/13/2023 13:22:34 04/13/20 23 04/13/2023 CBC/C OMPLE TE BLD COUNT W/DIF F eosinophils, absolute count 0.12 x10'3 /uL 0.02-0 .53 Not Available [facility] (Lab) [address] [place], [address], 04/13/2023 13:22:34 04/13/20 23 04/13/2023 CBC/C OMPLE TE BLD COUNT W/DIF F basophils, absolute count 0.04 x10'3 /uL 0.01-0 .08 Not Available [facility] (Lab) [address] [place], [address], 04/13/2023 13:22:34 04/13/20 23 04/13/2023 CBC/C OMPLE TE BLD COUNT W/DIF F immature granulocytes ,absolute 0.01 x10'3 /uL 0.00-0 .05 Not Available [facility] (Lab) [address] [place], [address], 04/13/2023 13:22:34 04/13/20 23 04/13/2023 CBC/C OMPLE TE BLD COUNT W/DIF F nucleated red blood cells 0.0 % -0 Not Available [facility] (Lab) [address] [place], [address], 04/13/2023 13:22:34 04/13/20 23 04/13/2023 CBC/C OMPLE TE BLD COUNT W/DIF F NRBC# 0.00 x10'3 /uL Not Available [facility] (Lab) [address] [place], [address], 04/13/2023 13:22:34 04/13/20 23 04/13/2023 VITAM IN B12 (ALONZO SHWETA ) vb12 386 pg/mL 239-93 1 Not Available [facility] (Lab) [address] [place], [address], 04/13/2023 14:54:05 04/13/20 23 04/13/2023 FOLAT E, SERUM /PLAS MA folate 8.07 NG/mL 2.76-2 0.0 Not Available [facility] (Lab) [address] [place], [address], 04/13/2023 14:54:10 09/30/1909/30/2023 RAPID STREP A DNA strep A DNA, HSA NEGATI VE negati ve Not Available [facility] (Lab) [address] [place], [address], 09/30/2023 17:26:01 09/30/19 24 09/30/2023 COVID -19, [...] provi ders and patie nts at the [facility] atr: https ://ww w.fda .gov/ media /1365 12/do wnloa d https ://ww w.fda .gov/ media /1363 13/do wnloa d Gingero riana y: Real- Time RT-PC R Not Available [facility] (Lab) [address] [place], [address], 09/30/2023 17:42:16 09/30/19 24 09/30/2023 COVID -19, INFLU MYRIAM A+B, PCR influenza A RNA, RT-PCR POSITI VE abnormal Not Available [facility] (Lab) [address] [place], [address], 09/30/2023 17:42:16 09/30/19 24 09/30/2023 COVID -19, INFLU MYRIAM A+B, PCR influenza B RNA, RT-PCR NEGATI VE abnormal Not Available [facility] (Lab) [address] [facility], [place], [address], 09/30/2023 17:42:16 12/04/19 23 12/03/2022 XR, chest , 2 view No observ ation record ed. [address] [address], [place], [address], 04/02/2023 12:18:50 12/04/19 23 12/03/2022 FL, modif ied iveth james ow study No observ ation record ed. [address] [place] [id number], [place] [place], [address], 04/02/2023 16:35:00 12/05/19 23 [place], modif ied iveth james ow study No observ ation record ed. [address] (Imaging) [address] [place] [address], [place], [address], 04/02/2023 12:18:51 12/05/19 23 12/04/2022 XR, lumba r spine No observ ation record ed. [address] [facility] [address], [place], [address], 04/02/2023 16:35:21 12/05/19 23 12/04/2022 XR, thora cic spine No observ ation record ed. [address] [facility] [address], [place], [address], 04/02/2023 16:35:38 12/05/19 23 12/04/2022 XR, lumba r spine No observ ation record ed. [address] [facility] [address], [place], [address], 04/02/2023 16:36:26 12/05/19 23 12/04/2022 XR, cervi jessica spine No observ ation record ed. [facility] [address] [facility] 100, [place], [address], 04/02/2023 16:36:41 02/10/20 23 01/04/2023 XR, knee No observ ation record ed. [email or web address] [facility] [address] [facility], [place], [address], 04/02/2023 16:36:51 03/25/20 elect rocar diogr am No observ ation record ed. [email or web address] [facility]_ww [facility] Internal Med [facility] 15 [address] [facility] 15, [place], [address], 03/25/2023 16:53:19 03/25/20 23 03/25/2023 elect rocar diogr am No observ ation record ed. [facility] Not Available 2022 17:09:14 04/08/20 23 04/08/2023 XR, hip + pelvi s, unila teral No observ ation record ed. [facility] [address], [place], [address], 04/14/2023 16:32:21 04/13/20 23 04/13/2023 XR, cervi jessica spine , 2 or 3 view [facility] [address] [place] [address] Patien t Name: SHOBHA BALDERAS Lance ion #: [id number] Sex: F : 1969 8 0 Dictat ed

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
--- OUTSIDE RECORDS SUMMARY | 2025-03-22 22:34 | XMS_ITS | Encounter Summary ---
Author Organization [facility] Address [address] [place] [address] Care Team Providers Care Inside Finisher Name Role Phone Unavailable Primary Care Provider Unavailabl e Encounter Details Date Type Department Care Team (Late st Contact Info) Description 04/13/2008 Abstract [facility] Clinics Conversion Md, Generic Conversion, [...]
[2025-03-22 22:49] VITALS: BP 131/79; PULSE 84; RESP 16; TEMP 36.9; O2SAT 97
[2025-03-23] VITALS (8 sets, daily range): BP systolic 114–135; BP diastolic 55–92; PULSE 53–86; RESP 14–22; O2SAT 100
--- OUTSIDE RECORDS SUMMARY | 2025-03-23 05:46 | XMS_ITS | Clinical Summary ---
Author Organization [facility] Address [facility] [place] [address] Care Team Providers Care Blueprint Cutter Name Role Phone Unavailable Primary Care Provider [...]
--- OUTSIDE RECORDS SUMMARY | 2025-03-23 05:46 | XMS_ITS | Encounter Summary ---
Author Organization [facility] Address [facility] [place] [address] Care Team Providers Care Third Rail Installer Name Role Phone Unavailable Primary Care Provider Unavailabl e Encounter Details Date Type Department Care Team (Late st Contact Info) Description 02/05/2019 Abstract [facility] CONVERSION [address] [place] [address] , Generic Conversion, Social History Tobacco Use [...]
--- OUTSIDE RECORDS SUMMARY | 2025-03-23 05:47 | XMS_ITS | Clinical Summary ---
Author Organization [facility] Address [address] [place] [address] Care Team Providers Care Golf Course Manager Name Role Phone Karen Rahman PA-C Primary Care Provider [phone] Source Comments [facility],non-owned Affiliates and Associated Physician Practices is amultiple site organization consisting of ambulatory clinics and hospital sitesin [place], [place], [place] and [place]. This disclosure is being madepursuant to the Care Everywhere program and may not contain all information available regarding this patient. Last updated 18.[facility] Allergies Active Allergy Reactions Criticality Noted Date [...] spasms) 10 tablet 02/08/2023 Active HYDROcodone-marin taminophen ([place]) 10-325 MG tabletIndicatio ns:Other low back pain TAKE ONE TABLET BY MOUTH 3 TIMES A DAY NEEDED FOR 15 DAYS 45 tablet 03/15/2024 Active HYDROcodone-marin taminophen ([place]) 10-325 MG tabletIndicatio ns:Other low back pain TAKE ONE TABLET BY MOUTH 3 TIMES A DAY NEEDED FOR 15 DAYS 45 tablet 03/29/2024 Active HYDROcodone-marin taminophen ([place]) 10-325 MG tabletIndicatio ns:Other low back pain TAKE ONE TABLET BY MOUTH 3 TIMES A DAY NEEDED FOR 15 DAYS 45 tablet 04/12/2024 Active HYDROcodone-marin taminophen ([place]) 10-325 MG tabletIndicatio ns:Other low back pain [...] on file Legal Sex Female 9:08 AM MECHANICAL DRAWING TEACHER Gender Identity Not on file Sexual Orientation [...] Comments LIPID PROFILE Routine 08/01/2024 2:54 PM MECHANICAL DRAWING TEACHER Diabetes mellitus without complication HIV-1 HIV-2 ANTIBODY W/ REFLX CONFIRM Routine 07/19/2015 3:52 PM MECHANICAL DRAWING TEACHER Possible exposure to STD from Last 3 Months or Most Recently Relevant to Health Maintenance Results * (ABNORMAL) LIPID PROFILE (08/01/2024 2:54 PM MECHANICAL DRAWING TEACHER) Cholesterol Total 196 <200 mg/dL 08/01/2024 3:53 PM MECHANICAL DRAWING TEACHER [facility] HDL 55 >40 mg/dL 08/01/2024 3:53 PM MECHANICAL DRAWING TEACHER [facility] Comment: ATP III Classification of HDL Cholesterol: <40 mg/dL: Considered a major risk factor. >60 mg/dL: Considered a negative risk factor. LDL Calculated 90 <100 mg/dL 08/01/2024 3:53 PM MECHANICAL DRAWING TEACHER [facility] Comment: ATP III Classification of LDL Cholesterol: <100 mg/dL: Optimal 100 - 129 mg/dL: Near Optimal/Above Optimal 130 - 159 mg/dL: Borderline High 160 - 189 mg/dL: High >190 mg/dL: Very High Triglycerides 255(H) <150 mg/dL 08/01/2024 3:53 PM MECHANICAL DRAWING TEACHER [facility] Comment: ATP III Classification of Triglycerides: <150 mg/dL: Normal 150 - 199 mg/dL: Borderline High 200 - 400 mg/dL: High >500 mg/dL: Very High Blood BLOOD SPECIMEN / Unknown Lab Venipuncture / Unknown 08/01/2024 2:54 PM MECHANICAL DRAWING TEACHER 08/01/2024 3:23 PM MECHANICAL DRAWING TEACHER us Provider Unknown LAB - CHEMISTRY ORDERABLES Merle l Result [facility] [address] [place] [address], [facility] [phone] * HIV-1 HIV-2 ANTIBODY W/ REFLX CONFIRM (07/19/2015 3:52 PM MECHANICAL DRAWING TEACHER) HIV-1/HIV-2 Negative Negative 07/22/2015 12:40 AM MECHANICAL DRAWING TEACHER [employer] ([facility]) Comment: Based on the non-reactive anti-HIV [...] Unknown Venipuncture / Unknown 07/19/2015 3:52 PM MECHANICAL DRAWING TEACHER 07/19/2015 3:54 PM MECHANICAL DRAWING TEACHER us Karen Rahman PA-C LAB - SEROLOGY ORDERABLES Fi nal Result [facility] ([facility]) [address] [place] [address], [facility] from Last 3 Months or Most Recently Relevant to Health Maintenance Insurance MEDICAID [place] [employer] [place] [facility] Care Teams Golf Course Manager Relationship Specialty Start Date End Date Karen Rahman, [employer] [address] [place] [address] PCP - General Physician Plaster Model And Mold Maker 01/30/15
--- OUTSIDE RECORDS SUMMARY | 2025-03-23 05:47 | XMS_ITS | Encounter Summary ---
Author Organization [facility] Address [address] [place] [address] Care Team Providers Care Vest Maker Name Role Phone Unavailable Primary Care Provider Unavailabl e Encounter Details Date Type Department Care Team (Late st Contact Info) Description 04/13/2008 Abstract [facility] Clinics Conversion Md, Generic Conversion, Social [...]
--- OUTSIDE RECORDS SUMMARY | 2025-03-23 05:47 | XMS_ITS | Referral Summary ---
Author Organization [facility] Address [facility] [place] [address] Care Team Providers Care Pharmacy Aide Name Role Phone Rhys Meneses MD Primary Care Provider [phone] Allergies Active Allergy Reactions Criticality Noted Date [...] on file Legal Sex Female 2:50 PM WARPER TENDER Gender Identity Not on file Sexual Orientation Not on file Last Filed Vital Signs Vital Sign Reading Time Taken Comments Blood Pressure 110/73 07/11/2022 4:47 PM WARPER TENDER Pulse 73 07/11/2022 4:47 PM WARPER TENDER Temperature 36.7 C (98 F) 07/11/2022 3:06 PM WARPER TENDER Respiratory Rate 20 07/11/2022 4:47 PM WARPER TENDER Oxygen Saturation 100% 07/11/2022 4:47 PM WARPER TENDER Inhaled Oxygen Concentration - - Weight - - Height - - Body Mass Index - - Plan of Treatment Not on file Insurance [employer] [address] [address] [place] [address] [place] [address] Care Teams Pharmacy Aide Relationship Specialty Start Date End Date Rhys Meneses MD PCP - General Internal Medicine 07/21/24
--- OUTSIDE RECORDS SUMMARY | 2025-03-23 05:47 | XMS_ITS | Clinical Summary ---
Author Organization [facility] Address [address] [place] [address] Care Team Providers Care Family Counselor Name Role Phone Rhys Meneses MD Primary Care Provider [phone] Allergies Active Allergy Reactions Criticality Noted Date [...] on file Legal Sex Female 2:50 PM SOLE SCRAPER Gender Identity Not on file Sexual Orientation Not on file Last Filed Vital Signs Vital Sign Reading Time Taken Comments Blood Pressure 110/73 07/11/2022 4:47 PM SOLE SCRAPER Pulse 73 07/11/2022 4:47 PM SOLE SCRAPER Temperature 36.7 C (98 F) 07/11/2022 3:06 PM SOLE SCRAPER Respiratory Rate 20 07/11/2022 4:47 PM SOLE SCRAPER Oxygen Saturation 100% 07/11/2022 4:47 PM SOLE SCRAPER Inhaled Oxygen Concentration - - Weight - [...] 08/05/2021 Influenza Vaccine Completed 07/18/[address] [place] [address] [place] [address] [place] [address] [place] [address] Care Teams Family Counselor Relationship Specialty Start Date End Date Rhys Meneses MD PCP - General Internal Medicine 07/21/24
--- OUTSIDE RECORDS SUMMARY | 2025-03-23 05:47 | XMS_ITS | Encounter Summary ---
Author Organization [facility] Address [address] [place] [address] Care Team Providers Care Behavioral Technician Name Role Phone Unavailable Primary Care Provider Unavailabl e Encounter Details Date Type Department Care Team (Late st Contact Info) Description 05/23/2008 Abstract [facility] Conversion Md, Generic Conversion, Social History [...]
--- OUTSIDE RECORDS SUMMARY | 2025-03-23 05:47 | XMS_ITS | Continuity of Care Document ---
Author Organization [facility] Address [address] [place] [address] Phone Care Team Providers Care Human Resources Recruiter Name Role Phone Rupesh Andrade MD, MD [...] Date Provider Providers Copied on Encounter [facility], [address], [id number], [place] tel:[phone] [facility] No Information 3 Raymond Goddard. [address] [facility] [facility] [address], [place], [place], [id number], [place]. tel:[phone] [facility], [address], [id number], [place] tel:[phone] [facility] [facility] No Information 3 Administrati ve Provider. [address] [facility] [facility] [address], [place], [place], [id number], [place]. tel:[phone] Independent Medical Examination SILAS [facility] [facility], [address] [facility] [address], [place], [place], [id number], [place] tel:[phone] [facility] LUMB/LUMBOSAC DISC DEGENRadiculit is, Thoracic or LumbarARTHRODE SIS STATUS 3 Janice Brasher. [address] [facility], [address], [place], [place], [id number], [place]. tel:[phone] Family History Family Member Type Diagnosis Age At Onset No Information Payers Payer name Insurance type Covered constitution party ID Authoriza tion(s) No Information Social [...]
--- OUTSIDE RECORDS SUMMARY | 2025-03-23 05:47 | XMS_ITS | Patient Health Record ---
Author Organization [facility] Address [address] [facility] [address] [place], [place] [address] Care Team Providers Care Information Coordinator Name Role Phone Matty Velasquez Primary Care Provider [phone] Allergies Allergen (clinical drug ingredient) Drug/Non Drug Allergy documented on EMR Reaction Allergy Type Onset Date Status ketorolac Ketorolac Tromethamine anaphylaxis Drug Allergy Active acetaminophen / oxycodone Percocet anaphylaxis Drug Allergy Active tramadol Tramadol HCl anaphylaxis Drug Allergy Ac tive Medications Medication SIG (Take, Route, Fr equency, Duration) Notes Start Date End Date Status Omeprazole 40 MG 1 capsule Orally Once a day Active Social History Tobacco Use: Social History Observation Description Date Details (start date - stop date) Never Smoker NA - NA Tobacco Use/Smoking Question Answer Notes Are you a nonsmoker Alcohol Screen Question Answer Notes Did you have a drink containing alcohol in the p ast year? No Points 0 Plan Of Treatment Pending Test Test Name Order Date Mammogram 04/08/2018 Urinalysis, Routine 04/08/2018 - Lipid Panel And Chol/HDL Ratio 018 - Comp. Metabolic Panel (14) - [facility] 2017 - CBC with diff 04/08/2018 Insurance Providers Payer Name Payer Address Payer Phone Subscriber Number Group Number Insured Name Patient Relationship to Insured Coverage Start Date Coverage End Date [facility] [place] [address] [place] [address] [id number] Shobha Gomez Self - patient is the insured Medical (General) History Medical History History ICD Code GERD chronic pancreatitis Gall Bladder Disease HX of chicken pox seasonal allergies Sinus Desease Surgical History Surgery Date(Month/Year) right knee ACL right knee arthroscopy
--- OUTSIDE RECORDS SUMMARY | 2025-03-23 05:47 | XMS_ITS | Encounter Summary ---
Author Organization [facility] Address [address] [place] [address] Care Team Providers Care Director Cpg Name Role Phone Unavailable Primary Care Provider Unavailabl e Encounter Details Date Type Department Care Team (Late st Contact Info) Description 06/01/2003 Abstract [facility] Conversion Md, Generic Conversion, Social [...]
--- OUTSIDE RECORDS SUMMARY | 2025-03-23 05:47 | XMS_ITS | Encounter Summary ---
Author Organization [facility] Address [address] [place] [address] Care Team Providers Care Siebel Architect Name Role Phone Unavailable Primary Care Provider Unavailabl e Encounter Details Date Type Department Care Team (Late st Contact Info) Description 06/05/2008 Abstract [facility] Conversion [...]
--- NOTE | 2025-03-23 06:17 | PC.NURSE ---
Patient was asked to provide a urine sample and stated she will just call out when she has one.
--- NOTE | 2025-03-23 06:24 | ED.GENADULT ---
HPI - General Adult General Chief complaint: Environmental Exposure Stated complaint: heat exhaustion, dizzy, clammy, fever Time Seen by Provider: 03/23/25 05:32 Source: patient Mode of arrival: ambulatory Limitations: no limitations History of Present Illness HPI narrative: Patient presents with concern for a heat exhaustion. 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 She has been trying to maintain her hydration but is concerned she didn't compensate enough. On Thursday she started to have developed a headache behind her eyes and she was alternating Tylenol and ibuprofen. This headache without photophobia or phonophobia. No trauma and not on anticoagulation. Since being outside she then developed nausea although this symptoms improving. She felt dizzy and warm. She has been drinking Gatorade as well. She had sun exposure to the extent that she has developed some blistering on her arms and chest. Related Data Home Medications ?Medication ?Instructions ?Recorded ?Confirmed ?Last Taken ?Type hydrocodone 10 mg-acetaminophen tablet 07/22/22 07/22/22 Unknown History 325 mg tablet Allergies Allergy/AdvReac Type Severity Reaction Status Date / Time ketorolac (From Toradol) Allergy Anaphylaxis Verified 03/23/25 04:55 oxycodone (From Percocet) Allergy Anaphylaxis Verified 03/23/25 04:55 tramadol Allergy Anaphylaxis Verified 03/23/25 04:55 PMFSH Past Medical History Medical History Chronic lower back pain Surgical History Surgical History H/O lumbosacral spine surgery S/P placement of nerve stimulator Social History Social History Social History: Denies alcohol tobacco or drug use Occupation/Education: occupation Additional occupation/education comments: works at [employer] in Exam Narrative: GENERAL: Well-appearing, well-nourished, and in no acute distress. HEAD: Normocephalic, atraumatic. EYES: Non injected, non icteric ENT: Nares clear, no rhinorrhea or epistaxis. Gross auditory acuity intact. Tacky mucous membranes NECK: Supple. No meningismus. CHEST: Speaking in full sentences. No respiratory distress. HEART: Regular rate and rhythm. . ABDOMEN: Soft, nondistended. EXTREMITIES: Normal range of motion. No lower extremity edema. SKIN: Warm, dry, no rash. NEURO: No focal deficits. Alert and oriented. Answering questions. Following commands. Normal speech without aphasia or dysarthria. PSYCH: Normal mood and affect. Course Vital Signs Vital signs: Vital Signs Temperature 98.4 F 03/22/25 22:49 Pulse Rate 84 03/22/25 22:49 Respiratory Rate 16 03/22/25 22:49 Blood Pressure 131/79 03/22/25 22:49 Pulse Oximetry 97 03/22/25 22:49 Oxygen Delivery Room Air 03/22/25 22:49 Temperature 98.4 F 03/22/25 22:49 Pulse Rate 67 03/23/25 07:45 Respiratory Rate 17 03/23/25 07:45 Blood Pressure 114/55 L 03/23/25 07:01 Pulse Oximetry 100 03/23/25 07:30 Oxygen Delivery Room Air 03/22/25 22:49 Medical Decision Making MDM Narrative Medical decision making narrative: Patient presents with concern for heat exhaustion. She had already developed a slight headache a few days ago behind both of her eyes. 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 Has been drinking water and gatorade but yesterday started to feel dizzy and clammy and nauseated that the headache persisted. In the emergency department they are afebrile with vital signs within normal limits. After obtaining the patient's history and performing a physical exam, the headache is most likely due to benign etiology. The neurological examination is non-focal, there are no high-risk features on history, vital signs are stable, and the patient is non-toxic appearing. The Ddx for the patient's headache is tension headache, migraine, or other headache of non-emergent etiology. I suspect a degree of dehydration. Unlikely SAH: headache is non-thunderclap. Headache is gradual, non-maximal at onset and similar to headaches in the past. Unlikely subdural/epidural hematoma: no history of trauma, no anticoagulation Unlikely meningitis: afebrile, no meningismus, no photophobia Unlikely temporal arteritis: pt <60 years old. Pain is behind eyes, not at temples Unlikely acute angle glaucoma: pain behind eyes (not the eyes themselves) Unlikely carbon monoxide poisoning: has been outside in hot but well ventilated area The patient's headache was treated symptomatically with IV fluids , ketorolac, benadryl, and compazine. Upon reevaluation at 7:10 a.m., she states she is feeling much better. Will give a one time dose of steroid as this has been shown to reduce the chance of rebound/bounceback headache. Urine showed bacteriuria but also had moderate squamous cells otherwise without signs of infection. Will defer treating as a UTI at this time. Patient will be discharged with strict return precautions and instructions to follow up with their PCP . Provided prescriptions for [id number] analgesics medications as as Zofran. Differential Diagnosis Differential Diagnosis: Dehydration; heat exhaustion/heat stroke; electrolyte abnormalities; rhabdomyolysis Vital Signs Vital Signs: Vital Signs Temperature 98.4 F 03/22/25 22:49 Pulse Rate 84 03/22/25 22:49 Respiratory Rate 16 03/22/25 22:49 Blood Pressure 131/79 03/22/25 22:49 Pulse Oximetry 97 03/22/25 22:49 Oxygen Delivery Room Air 03/22/25 22:49 Temperature 98.4 F 03/22/25 22:49 Pulse Rate 67 03/23/25 07:45 Respiratory Rate 17 03/23/25 07:45 Blood Pressure 114/55 L 03/23/25 07:01 Pulse Oximetry 100 03/23/25 07:30 Oxygen Delivery Room Air 03/22/25 22:49 Lab Data Lab results reviewed: Yes I reviewed the patient's lab results. Lab results narrative: Abnormalities on the differential but otherwise patient is without leukocytosis, anemia, thrombocytopenia/thrombocytosis CPK normal Normal renal function. Pseudo hyponatremia as it corrects to 137-138 in the setting of hyperglycemia Only mild elevations of LFTs 03/23/25 06:11 03/23/25 06:11 Labs: Lab Results 03/23/25 03/23/25 Range/Units 06:11 06:59 WBC 7.0 (4.5-10.0) K/mm3 RBC 3.93 L (4.2-5.4) M/mm3 Hgb 12.4 (12.0-15.0) g/dL Hct 39.4 (37.0-47.0) % MCV 100.3 H (80-100) fl MCH 31.6 (26-34) pg MCHC 31.5 L (32-36) g/dl RDW 13.6 (11.5-14.5) % Plt Count 290 (150-375) k/mm3 MPV 9.4 (7.4-10.4) fl Immature Gran % (Auto) 0.3 (0-0.5) % Neut % (Auto) 38.2 L (45.5-73.1) % Lymph % (Auto) 52.9 H (18.3-44.2) % [place] % (Auto) 6.7 (2.6-8.5) % Eos % (Auto) 1.3 (0-4.4) % Baso % (Auto) 0.6 (0.2-1.2) % Lymph # (Auto) 3.69 H (0.9-3.2) K/mm3 [place] # (Auto) 0.5 (0.1-0.6) K/mm3 Eos # (Auto) 0.1 (0-0.3) K/mm3 Baso # (Auto) 0.0 (0.0-0.1) K/mm3 Abs Immat Gran (auto) 0.02 (0.00-0.031) K/mm3 Absolute Neuts (auto) 2.7 (1.3-6.7) K/mm3 Absolute Nucleated RBC 0.000 (0.0-0.012) K/mm3 Nucleated RBC % 0.0 (0.0-0.2) % Sodium 136 L (137-145) mmol/L Potassium 3.9 (3.4-5.0) mmol/L Chloride 103 (98-107) mmol/L Carbon Dioxide 23 (22-30) mmol/L Anion Gap 10 (4-12) mmol/L BUN 22 H (7-17) mg/dL Creatinine 0.64 L (0.7-1.0) mg/dL Estim Creat Clear Calc 108 ml/min Estimated GFR > 60 (59 - ) Glucose 190 H (65-110) mg/dL Calcium 8.8 (8.4-10.2) mg/dL Magnesium 1.9 (1.6-2.3) mg/dL Total Bilirubin 0.5 (0.2-1.3) mg/dL AST 37 H (14-36) U/L ALT 36 H (6-35) U/L Alkaline Phosphatase 80 (38-126) U/L Total Creatine Kinase 73 (30-135) U/L Total Protein 7.7 (6.3-8.2) g/dL Albumin 3.9 (3.5-5.1) g/dL Urine Color Yellow (Yellow) Urine Appearance Clear (Clear) Urine pH 5.0 (5.0-9.0) Ur Specific [place] 1.034 (1.001-1.035) Urine Protein Trace (Negative) mg/dL Urine Glucose (UA) 1+ H (Negative) mg/dL Urine Ketones Trace H (Negative) mg/dL Ur Blood (Man) Negative (Negative) Urine Nitrate Negative (Negative) Urine Bilirubin Negative (Negative) Urine Urobilinogen 1.0 (<2.0) mg/dL Leukocyte Esterase Rfl Negative (Negative) SHAJI/UL Urine RBC 0-2 (0-2) /hpf Urine WBC 0-5 (0-3) /hpf Ur Squamous Epith Cells Moderate (Few) /hpf Urine Bacteria 2+ H /hpf Urine Casts 0-2 Discharge Plan Discharge Clinical Impression: Hyperglycemia, Pseudohyponatremia, Headache, Heat exhaustion Patient Disposition: Home Condition: Stable Instructions: Antibiotic Form, Heat Exhaustion (ED), Nondiabetic Hyperglycemia (ED), General Headache (ED) Additional Instructions: Rest and maintain your hydration today. If desired you can supplement with electrolytes in the form of Pedialyte /Gatorade (does not have to be name brand), but avoid overly sugary drinks. Follow-up with primary care physician. Return to the emergency department any new or worsening symptoms. Acetaminophen/Tylenol (maximum 4000 mg per day) is safe to take with NSAIDs (ibuprofen/Motrin) for pain relief. If your nausea returns, you can use the oral disintegrating tablets of ondansetron/Zofran. Patient Language: Senegalese Prescriptions: New ibuprofen 600 mg tablet 600 mg PO TID PRN (Reason: pain) Qty: 30 0RF ondansetron 4 mg tablet,disintegrating 4 mg PO Q8H PRN (Reason: nausea and vomiting) Qty: 7 0RF acetaminophen 500 mg capsule 1,000 mg PO Q6H PRN (Reason: pain) Qty: 30 0RF No Action albuterol sulfate 90 mcg/actuation HFA aerosol inhaler 2 puff inhalation QID PRN (Reason: shortness of breath or wheezing) Qty: 8.5 0RF doxycycline hyclate 100 mg tablet 100 mg PO BID Qty: 14 0RF benzonatate 200 mg capsule 200 mg PO TID PRN (Reason: cough) Qty: 21 0RF methocarbamol 750 mg tablet 750 mg PO TID Qty: 30 0RF lidocaine 5 % adhesive patch,medicated 1 patch topical DAILY Qty: 15 0RF Rx Instructions: leave on most painful area for up to 12 hrs prednisone 20 mg tablet 60 mg PO DAILY 5 Days Qty: 15 0RF pseudoephedrine HCl 60 mg tablet 60 mg PO Q4-6H PRN (Reason: nasal congestion) Qty: 30 0RF Rx Instructions: DNExceed 4 doses/24h hydrocodone-acetaminophen 10-325 mg tablet azithromycin 250 mg tablet See Rx Instructions .ROUTE .COMPLEX Qty: 6 0RF Rx Instructions: take 500 mg today (day 1), then 250 mg for 4 days (days 2-5) albuterol sulfate 90 mcg/actuation HFA aerosol inhaler 2 - 4 puff INHALATION QID PRN (Reason: shortness of breath or wheezing) Qty: 8 0RF Follow-up/Referrals: Gideon,MD Rhys [Primary Care Provider] - Stand Alone Forms: Work/School Release IP Time of Disposition: 07:46
[2025-03-23 06:31] LABS: Hematocrit 39.4 % (37.0-47.0); Hemoglobin 12.4 g/dL (12.0-15.0); Immature Granulocyte Percent A 0.3 % (0-0.5); Lymphocytes Absolute Auto 3.69 K/mm3 (0.9-3.2); Mean Corpuscular HGB Conc 31.5 g/dl (32-36); Mean Corpuscular Hemoglobin 31.6 pg (26-34); Mean Corpuscular Volume 100.3 fl (80-100); Nucleated Red Blood Cells Absolute Auto 0.000 K/mm3 (0.0-0.012); Nucleated Red Blood Cells Perc 0.0 % (0.0-0.2); Platelet Count Result 290 k/mm3 (150-375); Red Blood Count 3.93 M/mm3 (4.2-5.4); White Blood Count 7.0 K/mm3 (4.5-10.0)
[2025-03-23] MEDS: SODIUM CHLORIDE 0.9% IV 1,000 ML 999 ML IV CONT (06:38)
[2025-03-23] MEDS: PROCHLORPERAZINE EDISYLATE 10 MG/2 ML VIAL IV PUSH (06:38)
--- NOTE | 2025-03-23 06:40 | PC.NURSE ---
patient advised we need a urine sample. patient unable to void at this time. instructed to use call light if she needs the bathroom.
[2025-03-23 06:54] LABS: Alanine Aminotransferase 36 U/L (6-35); Albumin Level 3.9 g/dL (3.5-5.1); Alkaline Phosphatase 80 U/L (38-126); Anion Gap 10 mmol/L (4-12); Aspartate Amino Transferase 37 U/L (14-36); Bilirubin,Total 0.5 mg/dL (0.2-1.3); Blood Urea Nitrogen 22 mg/dL (7-17); Calcium 8.8 mg/dL (8.4-10.2); Carbon Dioxide 23 mmol/L (22-30); Chloride 103 mmol/L (98-107); Creatine Kinase 73 U/L (30-135); Estimated CRCL calculation 108 ml/min; Estimated Glomerular Filt Rate > 60; Glucose 190 mg/dL (65-110); Magnesium 1.9 mg/dL (1.6-2.3); Potassium 3.9 mmol/L (3.4-5.0); Sodium 136 mmol/L (137-145); Total Protein 7.7 g/dL (6.3-8.2)
[2025-03-23 07:28] LABS: Add Urine Microscopic? YES; Appearance Urine Clear (Clear); Glucose Urine UA 1+ mg/dL (Negative); Leukocyte Esterase Ur Negative LEU/UL (Negative); Nitrate Urine Negative (Negative); Non Pathogenic Casts 0-2; Specific Grav Ur 1.034 (1.001-1.035)
== END 2025-03-23 08:01 | disposition home or self-care (01) ==
PROVIDERS: Emergency Provider Student in an Organized Health Care Education/Training Program; PCP Internal Medicine
DX: T67.5XXA Heat exhaustion, unspecified, initial encounter (principal); R73.9 Hyperglycemia, unspecified; R51.9 Headache, unspecified; Z96.82 Presence of neurostimulator; X30.XXXA Exposure to excessive natural heat, initial encounter
CPT/HCPCS: 36415; 80053; 81001; 82550; 83735; 85025; 96361; 96374; 96375; 99284; J0780; J1200; J7030; J8540

== ENCOUNTER 2025-06-21 08:22 | Outpatient (CLI) | payer OTHER, SELFPAY ==
--- NOTE | ~2025-06-21 | US_ITS ---
EXAMINATION: US carotid duplex BI DATE: 06/21/2025 09:13 INDICATION: Dizziness and giddiness TECHNIQUE: Grayscale, color Doppler, and pulsed Doppler images of the cervical carotid arteries were obtained. The degree of vessel stenosis is placed in one of the following categories: normal, <50%, 50-69%, >=70% but less than near- occlusion, near-occlusion, or total occlusion. Note that percent stenosis relative to normal distal artery lumen diameter is indirectly measured from velocity measurements as described by Leonard, et al. Radiology 2003; 229:340-346. Notes: Normal: Peak systolic velocity <125 centimeters/sec and no plaque <50%. Peak systolic velocity <125 (EDV <40; ICA/CCA PSV ratio <2.0; used these factors only a tandem lesions or low cardiac output or contralateral disease) 50-69 %: PSV 125-230 (EDV 40-100; ratio 2-4) >= 70% but less than near occlusion: PSV greater than 230 (EDV > 100; ratio> 4.0) Near Occlusion: PSV that is variable; markedly narrowed lumen Occlusion: Absent flow on color/spectral Doppler and no lumen on cruz scale. COMPARISON: None. FINDINGS: RIGHT: The right common carotid artery (CCA) peak systolic velocity (PSV) is 63 cm/s. The right internal carotid artery (ICA) PSV is 62 cm/s. The right ICA end- diastolic velocity (EDV) is 23 cm/s. The right ICA/CCA PSV ratio is 1.0. The external carotid artery (ECA) PSV is 128 cm/s. There is antegrade flow in the right vertebral artery. LEFT: The left CCA PSV is 58 cm/s. The left ICA PSV is 88 cm/s. The left ICA EDV is 23 cm/s. The left ICA/CCA PSV ratio is 1.5. The ECA PSV is 103 cm/s. There is antegrade flow in the left vertebral artery. IMPRESSION: 1. Less than 50% stenosis in the right internal carotid artery by sonographic criteria. 2. Less than 50% stenosis in the left internal carotid artery by sonographic criteria. Reviewed, dictated and finalized at location O. IMPRESSION: 1. Less than 50% stenosis in the right internal carotid artery by sonographic xochitl blanca. 2. Less than 50% stenosis in the left internal carotid artery by sonographic diana sorto.
== END 2025-06-21 08:23 | disposition home or self-care (01) ==
PROVIDERS: PCP Internal Medicine; Visit Provider Internal Medicine
DX: R42 Dizziness and giddiness (principal); I65.23 Occlusion and stenosis of bilateral carotid arteries
CPT/HCPCS: 93880

== ENCOUNTER 2025-06-28 09:17 | Outpatient (CLI) | payer OTHER, SELFPAY ==
--- NOTE | ~2025-06-28 | CT_ITS ---
EXAMINATION: CT ankle LT wo con DATE: 06/28/2025 09:42 INDICATION: Left ankle injury with anterior left ankle pain TECHNIQUE: High resolution computed tomography (CT) of the left ankle was performed without intravenous contrast. Additional sagittal and coronal reconstructions were performed. Automated exposure control and iterative reconstruction technique were employed. The dose-length product was 145.02 mGy-cm. COMPARISON: None FINDINGS: Bone alignment is normal. No fracture. Mild osteoarthritis at the first and second tarsal metatarsal joints. Remaining joint spaces at the ankle, mid and hindfoot appear relatively preserved. No ankle joint effusion. Moderate-sized Achilles and plantar calcaneal spurs. Soft tissues are unremarkable. IMPRESSION: 1. Mild degenerative skeletal changes. No acute osseous abnormality or ankle joint effusion. Reviewed, dictated and finalized at location A. IMPRESSION: 1. Mild degenerative skeletal changes. No acute osseous abnormality or ankle susan int effusion.
--- NOTE | ~2025-06-28 | CT_ITS ---
EXAMINATION: CT hand RT wo con DATE: 06/28/2025 09:42 INDICATION: Right hand and wrist injury. TECHNIQUE: High resolution computed tomography (CT) of the right hand and wrist was performed without intravenous contrast. Additional sagittal and coronal reconstructions were performed. Automated exposure control and iterative reconstruction technique were employed. The dose-length product was 101.99 mGy-cm. COMPARISON: None FINDINGS: Bone alignment is normal. No fracture. Mild osteoarthritis at the first carpometacarpal joint. Cystic change at the volar/radial aspect of the lunate is expected footplate of the ulnar component of the scapholunate ligament. Soft tissues are unremarkable. IMPRESSION: 1. Mild osteoarthritis at the first carpometacarpal joint. No acute osseous abnormality. Reviewed, dictated and finalized at location A. IMPRESSION: 1. Mild osteoarthritis at the first carpometacarpal joint. No acute osseous abn ormality.
== END 2025-06-28 09:18 | disposition home or self-care (01) ==
LOC: MICIMG 09:18
PROVIDERS: PCP Internal Medicine
DX: S99.912A Unspecified injury of left ankle, initial encounter (principal); X58.XXXA Exposure to other specified factors, initial encounter; M19.041 Primary osteoarthritis, right hand; M19.072 Primary osteoarthritis, left ankle and foot
CPT/HCPCS: 73200; 73700

== ENCOUNTER 2025-07-04 03:16 | Emergency (ER) | payer OTHER, SELFPAY ==
--- OUTSIDE RECORDS SUMMARY | 2013-02-18 07:33 | XMS_ITS | Continuity of Care Document ---
Author Organization [facility] Address 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 Name Role Phone Rupesh Andrade MD, MD Unavailable Unavailable Allergies, Adverse Reactions, Alerts Substance Reaction Status Criticality IODINE Active No Information TAPE, OCCLUSIVE ADHESIVE Active No Information OXYCODONE HCL Active No Information acetaminophen Active No Information Procedures Procedure Date Medical Record Copy Medical Record Copy Per Page Affidavit Independent Medical Examination SILAS Advance Directives Directive Yes / No Effective Date File Name No Information Encounters Encounter Description Practice Location Reason(s) For Visit Diagnoses Date Provider Providers Copied on Encounter [facility], [address], [id number], [place] tel:[phone] [facility] No Information 3 Raymond Goddard. [address] [facility], [facility] [address], [place], [place], [id number], [place]. tel:[phone] [facility], [address], [id number], [place] tel:[phone] [facility] No Information 3 Administrati ve Provider. [address] [facility], [facility] [address], [place], [place], [id number], [place]. tel:[phone] Independent Medical Examination SILAS [facility], [address], [place], [place], [id number], [place] tel:[phone] [facility] LUMB/LUMBOSAC DISC DEGENRadiculit is, Thoracic or LumbarARTHRODE SIS STATUS 3 Janice Brasher. [address] [facility], [address], [place], [place], [id number], [place]. tel:[phone] Family History Family Member Type Diagnosis Age At Onset No Information Payers Payer name Insurance type Covered republican ID Authoriza tion(s) No Information Social History Type Description Quantity Date Captured Comments Sex Female Smoking Status No Information Chief Complaint And Reason For Visit No Information Reason For Referral Reason For Referral No Information History Of Present Illness Encounter Date Complaint History Of Prese nt Illness No Information Functional Status Date Functional Assessmen t No Information Instructions Date Instruction Additional Infor mation No Information Assessments Type Assessment Date No Information Patient Care Teams Name Effective Dates (start - stop) Status Members No Information
--- OUTSIDE RECORDS SUMMARY | 2025-03-11 15:30 | XMS_ITS ---
Author Organization [facility] Address [address] [address] Care Team Providers Care Assembler Brazer Name Role Phone Betty Berg MD Primary Care Provider Unavailable Angélica Bateman Unavailable [phone] Migration, Provider Unavailable Unavailable Allergies Allergen (clinical drug ingredient) Drug/Non Drug Allergy documented on EMR Reaction Allergy Type Onset Date Status CORTISONE/CELESTON E (uncoded) elevated FBG >300 Allergy Active PERCOCET/OXYCODONE (uncoded) Unknown Allergy Active tramadol traMADol Unknown Drug Allergy Active Toradol Unknown Drug [facility]ergy [facility] Encounter Medications Medication SIG (Take, Route, Frequency, Duration) Notes Start Date End Date Status metFORMIN HCl *Please review a nd pick correct strength-formulatio n from Medispan options. If intended option is not shown, discontinue and re-order from Quick Search* Active Lyrica *Please review a nd pick correct strength-formulatio n from Medispan options. If intended option is not shown, discontinue and re-order from Quick Search* Active Omeprazole *Please review a nd pick correct strength-formulatio n from Medispan options. If intended option is not shown, discontinue and re-order from Quick Search* Active PROBIOMAX *Please review f or potential replacement for e-prescription and drug interaction check* Active HYDROcodone Bitartrate ER *Please review and pick correct strength-formulatio n from Medispan options. If intended option is not shown, discontinue and re-order from Quick Search* Active Encounters Encounter Location Date Provider Diagnosis [facility] [address] [facility] [address] [place] [address] 03/11/2025 Provider Migration Plan Of Treatment No Information Progress Notes * Christo EDWARDSylDOB:[birth year] (55 yo F)Acc No.[id number]:03/11/2025 Patient: Shobha HUNTER Provider: Moshe norris Migration :1970 A ge:54 Y S ex:Female Date:03/11/2025 Address:[address] [place] [address] Pcp:Maverick Schulte Subjective: * Chief Complaints: * 1 . Multum To Medispan Conversion Encounter. * Medical History: * Medications: T aking HYDROcodone Bitartrate ER , Notes to Pharmacist: *Please review and pick correct strength-formulation from Medispan options. If intended option is not shown, discontinue and re-order from Quick Search*, Taking metFORMIN HCl , Notes to Pharmacist: *Please review and pick correct strength-formulation from Medispan options. If intended option is not shown, discontinue and re-order from Quick Search*, Taking Lyrica , Notes to Pharmacist: *Please review and pick correct strength-formulation from Medispan options. If intended option is not shown, discontinue and re-order from Quick Search*, Taking Omeprazole , Notes to Pharmacist: *Please review and pick correct strength-formulation from Medispan options. If intended option is not shown, discontinue and re-order from Quick Search*, Taking PROBIOMAX , Notes to Pharmacist: *Please review for potential replacement for e-prescription and drug interaction check* * Allergies: t raMADol, Toradol, PERCOCET/OXYCODONE, CORTISONE/CELESTONE : elevated FBG >300 - Side Effects. Objective: * Vitals: Assessment: Plan: * Treatment: * Billing Information: * Visit Code: * Procedure Codes: * Electronic signature of Prov ider Migration on 07/04/2025 at 08:32 AM EST Sign off status: Pending * Provider: Moshe norris Migration Date: 0 03/11/2025 Generated for Pedro yadav/Joseph/Madisonsmitting on: 09/03/2024 08:32 AM EST
[2025-07-04] VITALS (8 sets, daily range): BP systolic 106–138; BP diastolic 60–89; PULSE 63–78; RESP 15–24; TEMP 36.8; O2SAT 97–100
--- NOTE | 2025-07-04 06:31 | PC.NURSE ---
Pt refused to put a gown on. Pt said It is to damn cold back here. I offered a warm blanket, pt said it doesn't matter
[2025-07-04 07:30] LABS: Hematocrit 41.0 % (37.0-47.0); Hemoglobin 13.0 g/dL (12.0-15.0); Immature Granulocyte Percent A 0.0 % (0-0.5); Lymphocytes Absolute Auto 3.51 K/mm3 (0.9-3.2); Mean Corpuscular HGB Conc 31.7 g/dl (32-36); Mean Corpuscular Hemoglobin 31.1 pg (26-34); Mean Corpuscular Volume 98.1 fl (80-100); Nucleated Red Blood Cells Absolute Auto 0.000 K/mm3 (0.0-0.012); Nucleated Red Blood Cells Perc 0.0 % (0.0-0.2); Platelet Count Result 261 k/mm3 (150-375); Red Blood Count 4.18 M/mm3 (4.2-5.4); White Blood Count 6.2 K/mm3 (4.5-10.0)
--- OUTSIDE RECORDS SUMMARY | 2025-07-04 07:32 | XMS_ITS | Clinical Summary ---
Author Organization [facility] Address [address] [place] [address] Care Team Providers Care Chocolate Refining Roller Name Role Phone Rhys Meneses MD Primary Care Provider [phone] Allergies Active Allergy Reactions Criticality Noted Date [...] on file Legal Sex Female 2:50 PM GAS PIPE LAYER Gender Identity Not on file Sexual Orientation Not on file Last Filed Vital Signs Vital Sign Reading Time Taken Comments Blood Pressure 110/73 07/11/2022 4:47 PM GAS PIPE LAYER Pulse 73 07/11/2022 4:47 PM GAS PIPE LAYER Temperature 36.7 C (98 F) 07/11/2022 3:06 PM GAS PIPE LAYER Respiratory Rate 20 07/11/2022 4:47 PM GAS PIPE LAYER Oxygen Saturation 100% 07/11/2022 4:47 PM GAS PIPE LAYER Inhaled Oxygen Concentration - - Weight - - Height - - Body Mass Index - - Plan of Treatment Health Maintenance Due Date Last Done Comments Breast Cancer Screening-Mammogram 1971 Cervical Cancer Screening 1971 Colon Cancer Screening-Colonoscopy 1971 Depression Screening 1971 Hepatitis C Screening 1971 Regular Well Visit/Exam 18-64 1989 Zoster Vaccine (1 of 2) 2021 Covid-19 Vaccine (1 - 2023-2 5 season) 2025 04/17/2021, 11/24/2020, 11/04/2020 Influenza Vaccine (#1) 2025 07/18/2024 DTaP/Tdap/Td Vaccine (3 - Td or Tdap) 08/05/2031 08/05/2021, 08/31/2006 Pneumococcal vaccine <65 Aged Out 014, 08/31/2006 No longer eligible based on patient's age to complete this topic Hepatitis B Screening Completed 08/05/[address] [address] [place] [address] Care Teams Chocolate Refining Roller Relationship Specialty Start Date End Date Rhys Meneses MD PCP - General Internal Medicine 07/21/24
--- OUTSIDE RECORDS SUMMARY | 2025-07-04 07:33 | XMS_ITS | Patient Health Record ---
Author Organization [facility] Address [address] [address] Care Team Providers Care Fence Post Cutter Name Role Phone Daniel Liz MD, Betty Primary Care Provider Unavailable Angélica Bateman Unavailable [phone] Migration, Provider Unavailable Unavailable Allergies Allergen (clinical drug ingredient) Drug/Non Drug Allergy documented on EMR Reaction Allergy Type Onset Date Status CORTISONE/CELESTON E (uncoded) elevated FBG >300 Allergy Active PERCOCET/OXYCODONE (uncoded) Unknown Allergy Active tramadol traMADol Unknown Drug Allergy Active Toradol Unknown Drug Allergy Active Reason For Referral No Information Medications Medication SIG (Take, Route, Frequency, Duration) [...] discontinue and re-order from Quick Search* Active Social History Tobacco Use: Social History Observation Description Date Details (start date - stop date) Never Smoker NA - NA Marital/ Living Question Answer Notes Status: Alcohol Question Answer Notes Usage No Smoking Question Answer Notes Are you a: never smoker Encounters Encounter Location Date Provider Diagnosis [facility] [address] [facility] [address] [place] [address] 03/11/2025 Provider Migration Plan Of Treatment No Information Insurance Providers Payer Name Payer Address Payer Phone Subscriber Number Group Number Insured Name Patient Relationship to Insured Coverage Start Date Coverage End Date [facility] [address] [place] [address] [id number] Shobha Valle Self - patient is the insured Medical (General) History Medical History History ICD Code Back pain Type II diabetes headaches Surgical History Surgery Date(Month/Year) Knee surgery BACK SX neck fusion
--- OUTSIDE RECORDS SUMMARY | 2025-07-04 07:33 | XMS_ITS | Data Portability ---
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 [email or web address] Not available 11/29/2023 14:44:35 11/27/2023 11/27/2023 Podiatry referral continue current therapy stay on her regular medications I will see her back in obtain records from previous clinic targets for blood pressure LDL and A1c discussed [email or web address] Not available 11/28/2023 15:24:42 03/07/2024 03/07/2024 EKG [...] something specific. Her blood work was reviewed [email or web address] Not available 04/03/2024 12:25:35 07/04/2024 07/04/2024 obtain CBC CMP lipid and hemoglobin A1c. Refer to podiatry for foot pain and diabetic foot exam. Refer to cut off man for an appointment routine. Schedule mammogram. Refer [...] Chronic pain she follows with pain management [email or web address] Not available 07/10/2024 21:52:59 Plan of Treatment Reminders Order Date Submit Date Provider Last Modified By Organization Details Last Modified Time Details Appointments ANY 15 2025 09:30A M Rafaela Meneses MD Not available Not available Not available Lab HbA1c (hemogl obin A1c), blood 2023 [facility] (Outpatient Lab), [address], [address], 12/01/2024 11:18:34 CMP, serum or plasma 2023 [facility] (Outpatient Lab), [address], [address], 12/01/2024 11:18:34 lipid panel, serum 2023 [facility] (Outpatient Lab), [address], [address], 12/01/2024 11:18:35 CBC w/ auto diff 2023 [facility] (Outpatient Lab), [address], [address], 12/01/2024 11:18:35 Referral endocri nology referra l 2023 king Jimenez MD, [address], [place], [address], 09/27/2024 18:10:27 gynecol ogist referra l 2023 [facility], [address], [address], [place], [address], 05/10/2025 17:04:48 podiatr ist referra l 2023 024 [email or web address] Andrew Albarran Jr DP, [address], [address], [place], [address], 05/10/2025 17:04:57 podiatr ist referra l 2023 024 [email or web address] Albarran Jr DP, [address], [address], [place], [address], 07/04/2024 13:49:35 Procedures None recorde d. Surgeries None recorde d. Imaging MAMMO, screeni ng, digital , bilater al 2023 024 [facility] (Imaging), [address], [place], [address], 09/21/2024 16:36:14 electro cardiog mell 2023 024 [email or web address] In-Office Order, Internal Use Only DO Not Attach Compendium DO Not Attach Compendium, Do Not Delete/merge, [id number] 03/07/2024 14:00:11 US, duplex, carotid artery 2023 024 [facility] (Imaging), [address], [place], [address], 06/30/2025 14:29:14 MRI, brain, w/o contras t 2023 024 [facility] (Imaging), [address], [place], [address], 07/04/2024 13:57:38 US, echocar diogram 2023 024 [facility] (Cardiology & Emg), [address], [place], [address], 04/29/2024 15:56:37 Medication Orders Lantus Solosta r U-100 Insulin 100 unit/mL (3 mL) subcuta neous pen 2023 024 [email or web address] [id number], [address] [place], [place], [id number], 09/22/2024 12:14:06 topiram ate 25 mg tablet [address] [id number], [address] [place], [place], [id number], 03/07/2024 14:00:11 doxycyc line hyclate 100 mg capsule 2023 024 [facility] #35616, [address] [place], [place], [id number], 11/27/2023 13:26:33 prednis one 20 mg tablet 2023 024 [facility]40743, [address] [place], [place], [id number], 11/27/2023 13:26:42 albuter ol sulfate HFA 90 mcg/act uation aerosol inhaler [address] [facility]13655, [address] [place], [place], [id number], 11/16/2023 18:14:19 Patient TargetsNo targets recorded. 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 Referring Physician: Rafaela Meneses, Internal Medicine, Encounter Date: 11/27/2023 Cpa Tax Referral for Gy necologic examination Referring Physician: Rafaela Meneses, Internal Medicine, Encounter Date: 07/04/2024 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 total in Blood hemoglobin A1C/hemoglob in.total in blood 7.7 % high: 5.6% high Hemog lobin A1c 7.7 (H) <=5.6 % 08/02 8:53 AM [facility] Not Available Not Available 10/12/2024 12:38:31 08/01/20 24 08/02/2024 Hemog lobin A1c/H emogl obin. total in Blood glucose mean value [mass/volume ] in blood estimated from glycated hemoglobin 174 mg/dL Estim ated Erbacon ge Gluco se 174 mg/dL 08/02 8:53 AM [facility] Not Available Not [...] - 10.7 x10E9 /L 08/01 3:32 PM [facility] Not Available Not Available 10/12/2024 12:38:31 08/01/20 24 08/01/2024 CBC panel - Blood by Autom ated count erythrocytes [#/volume] in blood by automated count 4.26 text: 3.90 - 5.20 x10e12 /L RBC Count 4.26 3.90 - 5.20 x10E1 2/L 08/01 3:32 PM [facility] Not Available Not Available 10/12/2024 12:38:31 08/01/20 24 08/01/2024 CBC panel - Blood by Autom ated count hemoglobin [mass/volume ] in blood 12.8 g/dL low: 11.9g/ dLhigh : 15.8g/ dL Hemog lobin 12.8 11.9 - 15.8 g/dL 08/01 3:32 PM [facility] Not Available Not Available 10/12/2024 12:38:31 08/01/20 24 08/01/2024 CBC panel - Blood by Autom ated count hematocrit [volume fraction] of blood by automated count 38.7 % low: 34.8%h igh: 46.1% Hemat ocrit 38.7 34.8 - 46.1 % 08/01 3:32 PM [facility] Not Available Not Available 10/12/2024 12:38:31 08/01/20 24 08/01/2024 CBC panel - Blood by Autom ated count MCV [entitic volume] by automated count 90.8 fL low: 80fLhi gh: 98fL MCV 90.8 80.0 - 98.0 fL 08/01 3:32 PM [facility] Not Available Not Available 10/12/2024 12:38:31 08/01/20 24 08/01/2024 CBC panel - Blood by Autom ated count MCH [entitic mass] by automated count 30 pg low: 26.7pg high: 33.6pg MCH 30.0 26.7 - 33.6 pg 08/01 3:32 PM [facility] Not Available Not Available 10/12/2024 12:38:31 08/01/20 24 08/01/2024 CBC panel - Blood by Autom ated count MCHC [mass/volume ] by automated count 33.1 g/dL low: 31.7g/ dLhigh : 36.3g/ dL MCHC 33.1 31.7 - 36.3 g/dL 08/01 3:[address] [facility] Not Available Not Available 10/12/2024 12:38:31 08/01/20 24 08/01/2024 CBC panel - Blood by Autom ated count erythrocyte distribution width [ratio] by automated count 14.8 % low: 11.3%h igh: 14.8% RDW-C V 14.8 11.3 - 14.8 % 08/01 3:[address] [facility] Not Available Not Available 10/12/2024 12:38:31 08/01/20 24 08/01/2024 CBC panel - Blood by Autom ated count platelets [#/volume] in blood by automated count 285 text: 150 - 420 x10e9/ L Plate let Count 285 150 - 420 x10E9 /L 08/01 3:[address] [facility] Not Available Not Available 10/12/2024 12:38:31 08/01/20 24 08/01/2024 CBC panel - Blood by Autom ated count platelet mean volume [entitic volume] in blood by automated count 9.7 fL low: 7.8fLh igh: 11.4fL MPV 9.7 7.8 - 11.4 fL 08/01 3:[address] [facility] Not Available Not Available [...] 7 - 26 mg/dL 08/01 3:[address] [facility] Not Available Not Available 10/12/2024 12:38:31 08/01/20 24 08/01/2024 Compr ehens venus metab olic 1999 panel - Serum or Plasm a creatinine [mass/volume ] in serum or plasma 1.06 mg/dL low: 0.56mg /dLhig h: 0.96mg /dL high Creat inine 1.06 (H) 0.56 - 0.96 mg/dL 08/01 3:53 PM [facility] Not Available Not Available 10/12/2024 12:38:31 08/01/20 24 08/01/2024 Compr ehens venus metab olic 1999 panel - Serum or Plasm a sodium [moles/volum e] in serum or plasma 142 mmol/ L low: 136mmo l/Lhig h: 145mmo l/L Sodiu m 142 136 - 145 mmol/ L 08/01 3:53 PM [facility] Not Available Not Available 10/12/2024 12:38:31 08/01/20 24 08/01/2024 Compr ehens venus metab olic 1999 panel - Serum or Plasm a potassium [moles/volum e] in serum or plasma 4.4 mmol/ L low: 3.5mmo l/Lhig h: 4.5mmo l/L Potas sium 4.4 3.5 - 4.5 mmol/ L 08/01 3:53 PM [facility] Not Available Not Available 10/12/2024 12:38:31 08/01/20 24 08/01/2024 Compr ehens venus metab olic 2000 panel - Serum or Plasm a chloride [moles/volum e] in serum or plasma 109 mmol/ L low: 98mmol /Lhigh : 107mmo l/L high Chlor patrick 109 (H) 98 - 107 mmol/ L 08/01 3:53 PM [facility] Not Available Not Available 10/12/2024 12:38:31 08/01/20 24 08/01/2024 Compr ehens venus metab olic 2000 panel - Serum or Plasm a carbon dioxide, total [moles/volum e] in serum or plasma 25 mmol/ L low: 22mmol /Lhigh : 29mmol /L CO2 25 22 - 29 mmol/ L 08/01 3:53 PM [facility] Not Available Not Available 10/12/2024 12:38:31 08/01/20 24 08/01/2024 Compr [employer] venus metab olic 2000 panel - Serum or Plasm a glucose [mass/volume ] in serum or plasma 153 mg/dL low: 70mg/d Lhigh: 99mg/d L high Gluco se 153 (H) 70 - 99 mg/dL 08/01 3:53 PM [facility] Not Available Not Available 10/12/2024 12:38:31 08/01/20 24 08/01/2024 Compr MuteButtonens venus metab olic 2000 panel - Serum or Plasm a calcium [moles/volum e] in serum or plasma 9.4 mg/dL low: 8.4mg/ dLhigh : 10.2mg /dL Calci um 9.4 8.4 - 10.2 mg/dL 08/01 3:[address] [facility] Not Available Not Available 10/12/2024 12:38:31 08/01/20 24 08/01/2024 Compr Schedule Savvy venus metab olic 2000 panel - Serum or Plasm a protein [mass/volume ] in serum or plasma 7.7 g/dL low: 6g/dLh igh: 8.3g/d L Prote in Total 7.7 6.0 - 8.3 g/dL 08/01 3:[address] [facility] Not Available Not Available 10/12/2024 12:38:31 08/01/20 24 08/01/2024 Compr Mute[employer] venus metab olic 2000 panel - Serum or Plasm a albumin [mass/volume ] in serum or plasma by bromocresol green (bcg) dye binding method 3.7 g/dL low: 3.4g/d Lhigh: 5g/dL Album in 3.7 3.4 - 5.0 g/dL 08/01 3:53 PM [facility] Not Available Not Available 10/12/2024 12:38:31 12/02/08/01/2024 Compr MuteButton[employer] venus metab olic 1999 panel - Serum or Plasm a bilirubin.to an [mass/volume ] in serum or plasma 0.2 mg/dL low: 0.2mg/ dLhigh : 1.2mg/ dL Bilir ubin Total 0.2 0.2 - 1.2 mg/dL 08/01 3:53 PM [facility] Not Available Not Available 10/12/2024 12:38:31 08/01/20 24 08/01/2024 Compr ens venus metab olic 1999 panel - Serum or Plasm a alkaline phosphatase [enzymatic activity/vol ume] in serum or plasma 70 U/L low: 40U/Lh igh: 150U/L Alkal ine Phosp hatas e 70 40 - 150 U/L 08/01 3:53 PM [facility] Not Available Not Available 10/12/2024 12:38:31 08/01/20 24 08/01/2024 Compr ens venus metab olic 1999 panel - Serum or Plasm a alanine aminotransfe rase [enzymatic activity/vol ume] in serum or plasma by no addition of P-5'-P 24 U/L low: 5U/Lhi gh: 55U/L ALT 24 5 - 55 U/L 08/01 3:53 PM [facility] Not Available Not Available 10/12/2024 12:38:31 08/01/20 24 08/01/2024 Compr ens venus metab olic 1999 panel - Serum or Plasm a aspartate aminotransfe rase [enzymatic activity/vol ume] in serum or plasma 18 U/L low: 5U/Lhi gh: 34U/L AST 18 5 - 34 U/L 08/01 3:53 PM [facility] Not Available Not Available 10/12/2024 12:38:31 08/01/20 24 08/01/2024 Compr ehens venus metab olic 2000 panel - Serum or Plasm a anion gap 8 low: 6high: 16 Anion Gap 8 6 - 16 08/01 3:53 PM [facility] Not Available Not Available 10/12/2024 12:38:31 12/02/20 24 08/01/2024 Compr ehens venus metab olic 1999 panel - Serum or Plasm a urea nitrogen/cre atinine [mass ratio] in serum or plasma 21 low: 7high: 23 BUN/C reati nine Ratio 21 7 - 23 08/01 3:53 PM [facility] Not Available Not Available 10/12/2024 12:38:31 08/01/20 24 08/01/2024 Compr ehens venus metab olic 2000 panel - Serum or Plasm a osmolality calculated 300 text: 275 - 295 mOsm/k g high Osmol ality Calcu lated 300 (H) 275 - 295 mOsm/ kg 08/01 3:53 PM [facility] Not Available Not Available 10/12/2024 12:38:31 08/01/20 24 08/01/2024 Compr M[employer] venus metab olic 2000 panel - Serum or Plasm a albumin/glob ulin ratio 0.9 low: 1.1hig h: 2.3 low Album in/Gl obuli n Ratio 0.9 (L) 1.1 - 2.3 08/01 3:53 PM [facility] Not Available Not Available 10/12/2024 12:38:31 08/01/20 24 08/01/2024 Compr [employer] venus metab olic 2000 panel - Serum or Plasm a glomerular filtration rate/1.73 sq M.predicted [volume rate/area] in serum, plasma or blood by creatinine-b ased formula (CKD-epi 2020) 63 text: >=90 mL/min /1.73 m2 low eGFR by CKD-E PI 63 (L) >=90 mL/mi n/1.7 3 m2 08/01 3:53 PM [facility] Not Available Not Available 10/12/2024 12:38:31 08/01/20 24 08/01/2024 Compr M[employer] venus metab olic 2000 panel - Serum or Plasm a interpretati on and review of laboratory results Abnorm al Not Available Not Available 12:38:31 08/01/20 24 08/01/2024 Lipid 1996 panel - Serum or Plasm a cholesterol [mass/volume ] in serum or plasma 196 mg/dL high: 200mg/ dL Venus stero l Total 196 <200 mg/dL 08/01 3:53 PM [facility] Not Available Not Available 10/12/2024 12:38:31 08/01/20 24 08/01/2024 Lipid 1995 panel - Serum or Plasm a cholesterol in HDL [mass/volume ] in serum or plasma 55 mg/dL low: 40mg/d L HDL 55 >40 mg/dL 08/01 3:53 PM [facility] Not Available Not Available 10/12/2024 12:38:31 08/01/20 24 08/01/2024 Lipid 1995 panel - Serum or Plasm a cholesterol in LDL [mass/volume ] in serum or plasma by calculation 90 mg/dL high: 100mg/ dL LDL Calcu lated 90 <100 mg/dL 08/01 3:53 PM [facility] Not Available Not Available 10/12/2024 12:38:31 08/01/20 24 08/01/2024 Lipid 1996 panel - Serum or Plasm a tricyclic antidepressa nts [mass/volume ] in serum or plasma 255 mg/dL high: 150mg/ dL high Trigl yceri mulu 255 (H) <150 mg/dL 08/01 3:53 PM [facility] Not Available Not Available 10/12/2024 12:38:31 08/01/20 24 08/01/2024 Lipid 1996 panel - Serum or Plasm a interpretati on and review of laboratory results Abnorm al Not Available Not Available 12:38:31 03/07/20 elect caryn [email or web address] am No observ ation record ed. AMBROSE In-Office Order Internal Use Only DO Not Attach Compendium DO Not Attach Compendium, Do Not Delete/merge, [id number] 03/07/2024 12:33:28 03/07/20 24 03/07/2024 virgil [email or web address] am No observ ation record ed. AMBROSE In-Office Order Internal Use Only DO Not Attach Compendium DO Not Attach Compendium, Do Not Delete/merge, [id number] 03/07/2024 12:41:44 04/29/20 24 04/29/2024 , [facility] ardio gram No observ ation record ed. [address], [place], [address], 06/07/2024 12:12:17 09/20/19 25 09/20/2024 MAMMO , scree pascale, digit al, bilat eral No observ ation record ed. [address] [facility], [place], [address], 09/21/2024 16:33:10 09/20/19 25 09/20/2024 MAMMO , scree pascale, digit al, bilat eral No observ ation record ed. [address] [address], [place], [address], 09/23/2024 16:05:42 11/10/19 25 09/20/2024 MAMMO , scree pascale, digit al, bilat eral No observ ation record ed. [facility] (Mammography) [address], [place], [address], 11/23/2024 15:11:48 12/06/19 25 09/20/2024 MAMMO , scree pascale, digit al, bilat eral No observ ation record ed. [facility] (Mammography) [address], [place], [address], 12/29/2024 23:16:58 04/06/20 25 04/06/2025 XR, ankle No observ ation record ed. [email or web address] [facility] [address] [place], [address], 04/09/2025 22:52:43 04/06/20 25 04/06/2025 XR, foot No observ ation record ed. [email or web address] [facility] [address] [place], [address], 04/09/2025 22:52:43 04/06/20 25 04/06/2025 XR, hand No observ ation record ed. [email or web address] [facility] [address] [place], [address], 04/09/2025 22:52:43 04/06/20 25 04/06/2025 XR, wrist No observ ation record ed. [facility] [address] [place], [address], 04/09/2025 22:52:43 06/21/20 25 06/21/2025 US, duple x, carot id arter y No observ ation record ed. [email or web address] Not Available 2024 13:33:14 06/28/20 25 06/28/2025 CT, ankle , w/o contr ast No observ ation record ed. [email or web address] Not Available 2024 21:30:51 06/28/20 25 06/28/2025 CT, brain , w/wo contr ast No observ ation record ed. AMBROSE Not Available 2024 21:30:51 06/28/20 25 06/28/2025 CT, brain , w/wo contr ast No observ ation record ed. AMBROSE Not Available 2024 21:30:52 Result Notes None recorded. Problems Name Problem SNOMED Code Status Onset Date Resolution Date Notes Provider Name and Address Organization Details Recorded Time Pneumonia 516510010 Active 2023 Rafaela Meneses MD Attn: Bambijorje hoffman,[address] [facility], [place], [address], [place] [facility] 4 14:44:36 Dizziness 244911796 Active 2023 Stephen Forman [place], [place] [facility] 4 13:00:37 Type 2 diabetes mellitus 30476992 Active 2023 Sofia Christensen LPN [place], [place] [facility] 4 17:22:40 Hyperlipidemia 51887378 Active 2023 Stephen Forman [place], [place] [facility] 4 13:50:21 Migraine 62007389 Active 2023 Rafaela Meneses MD Attn: Tiana hoffman,[address] [facility], [place], [address], [place] [facility] 4 21:45:13 Essential hypertension 97147115 Active 2023 Rafaela Meneses MD Attn: Tiana hoffman,[address] [facility], [place], [address], [place] [facility] 4 21:45:34 Anxiety 93913283 Active 2023 Rafaela Meneses MD Attn: Tiana g,[address] [facility], [place], [address], [place] [facility] 21:45:51 Neuropathy 029305114 Active 2023 Rafaela Meneses MD Attn: Tiana hoffman,[address] [facility], [place], [address], [place] [facility] 21:46:11 Problem Notes None recorded. Procedures Surgical History Date Name Laterality Status Provider Name and Address Organization Details Recorded Time Back Surgery completed MA[place]IM [place] 11/16/2023 17:12:46 Knee Surgery [place] MAKSIM [place] [facility] 11/16/2023 17:12:53 Imaging Results None recorded. Procedure Notes None recorded. Medical Equipment None Reported. Allergies Allergen ID Allergen Name Allergen Category Reaction Reaction Severity Criticality Documentation Date Start Date Code Code System Note Provider Name and Address Organization Details Recorded Time 441997 Toradol medicatio n hives other Not available Not available Not available 11/16/2023 72160 RxNorm juanya MAKSIM Bus[place], [place] 17:05:33 447181 tramadol medicatio n anaphylax is Not available [facility] 06/22/20252021 54646 RxNorm Not Available [facility] - External Data Service - prod 11:52:15 596649 iodine medicatio n Not available Not available Not available 06/26/20252012 5933 RxNorm Not Available formerly [facility] External Data Service - [facility] 5 03:36:11 820712 oxycodone hydrochlo ride medicatio n Not available Not available Not available 06/26/20252012 66696 RxNorm Not Available formerly [facility] External Data Service - [facility] 5 03:36:11 749211 acetamino phen medicatio n Not available Not available Not available 06/26/20252012 161 RxNorm Not Available formerly [facility] External Data Service - [facility] 5 03:36:11 Medications Name Sig Start Date Stop Date [...] TAKE 1 TABLET BY MOUTH TWICE DAILY 2024 active Not Available Not Available Not Avai lable clonidine HCl 0.1 mg tablet TAKE 1 TABLET BY MOUTH TWICE DAILY FOR 7 DAYS 06/26 completed Not Available Not Available Not Available doxycycli ne hyclate 100 mg capsule [...] tablet Take 1 tablet by mouth daily 06/26 completed pt reports rarely taking unless she eats spicy food Hasn't had filled in over 2 years. Not Available Not Available Not Available prednison e 20 mg tablet TAKE 2 TABLETS BY MOUTH EVERY DAY FOR 5 DAYS 11/26 completed Not Available Not Available Not Available rizatript an 10 mg tablet one daily prn migraine 2024 active Not Available Not Available Not Avai lable topiramat e 25 mg tablet TAKE 1 TABLET BY MOUTH TWICE DAILY 2024 active Not Available Not Available Not Avai lable hydrocodo ne 10 mg-acetam inophen 325 mg tablet TAKE 1 TABLET BY MOUTH THREE TIMES DAILY FOR 15 DAYS NEEDED 05/02 completed Not Available Not Available Not Available acetamino phen 500 mg tablet TAKE 2 TABLETS BY MOUTH EVERY 6 HOURS NEEDED FOR PAIN active Not Available Not Available No t [...] TABLET BY MOUTH EVERY 8 HOURS NEEDED 06/26 completed Not Available Not Available Not Available cephalexi n 500 mg capsule TAKE [...] taking Not Available Not Available Not Available ibuprofen 600 mg tablet TAKE 1 TABLET BY MOUTH THREE TIMES DAILY NEEDED FOR PAIN active Not Available Not Available No t Available ondansetr on 4 mg disintegr ating tablet DISSOLVE 1 TABLET ON THE TONGUE EVERY 8 HOURS NEEDED FOR NAUSEA OR VOMITING 2024 active Not Available Not Available Not Avai lable doxycycli ne hyclate 100 mg tablet 11/08 [...] Avai lable FreeStyle Chel 3 Sensor device DIRECTED EVERY 14 DAYS [...] Updated DateTime 4 167.64 cm 39.6 kg/m2 899758. 93 g 82 /min 97 % 97 % 116/66 mm[Hg] MAKSIM Lindsey [facility] 4 17:09:47 Date Recorded Body height Oxygen saturation Oxygen saturation in Arterial blood by Pulse oximetry Heart rate Systolic And Diastolic Provider Name and Address Organization Details Last Updated DateTime 4 167.64 cm 96 % 96 % 87 /min 102/72 mm[Hg] Raul Chavarria MA [facility] 4 13:28:42 Date Recorded Body height Body mass index (BMI) Body weight Heart rate Oxygen saturation Oxygen saturation in Arterial blood by Pulse oximetry Respiratory rate Systolic And Diastolic Provider Name and Address Organization Details Last Updated DateTime 4 167.64 cm 39.7 kg/m2 918262. 72 g 76 /min 98 % 98 % 14 /min 112/78 mm[Hg] MAKSIM Lindsey [facility] 4 11:23:34 Date Recorded Body height Body mass index (BMI) Body weight Heart rate Oxygen saturation Oxygen saturation in Arterial blood by Pulse oximetry Systolic And Diastolic Provider Name and Address Organization Details Last Updated DateTime 5 167.64 cm 40.4 kg/m2 654322. 09 g 87 /min 98 % 98 % 119/88 mm[Hg] Stephen Forman MA [facility] 5 10:27:17 Date Recorded Body height Body mass index (BMI) Body weight Heart rate Oxygen saturation Oxygen saturation in Arterial blood by Pulse oximetry Systolic And Diastolic Provider Name and Address Organization Details Last Updated DateTime 4 167.64 cm 39.8 kg/m2 384867. 52 g 79 /min 96 % 96 % 130/68 mm[Hg] Jamia Ramirez MA [facility] 4 11:36:47 Social History Question Answer Notes LastModified by Organizat ion Details LastModified Time Tobacco Smoking Status Never Smoker non smoker Kat Guaman, Pending sale to [facility], [facility] 11/16/2023 17:12:35 Do You Have An Advance [...] Date Of Your Most Recent Tobacco Screening? 06/26/2025 cyahlma Information not available 06/26/2025 What Is Your Relationship Status? Information not [...] 07/04/2024 Are you able to care for yourself independently? Yes Information not available 07/04/2024 What is your exercise level? None Information not available 07/04/2024 Mental Status Question Answer Note LastModified by Organization D etails LastModified Time Do you feel stressed (tense, restless, nervous, or anxious, or unable to sleep at night)? [id number] Information not available 07/04/2024 Family History Relationship [...] 11/16/2023 17:12:05 Sister Malignant neoplasm of ovary hailee Not available 10/29 17:12:20 Medical History No medical history recorded. Gynecological History Statement/Question Response If Post Menopausal, Age at Menopause 50 Obstetrics History GPAL:G 1 P 1 0 0 1 Type Value Full Term 1 Living 1 Total 1 Immunizations Vaccine Type Date Status Note Provider Nam e and Address Organization Details Recorded Time Influenza, split virus, trivalent, PF 5 completed BUTCH [place], [place] - [place] 06/26/2025 12:11:28 Pneumococcal conjugate PCV20, polysaccharide [id number] conjugate, adjuvant, PF 5 completed BUTCH C[place], [place] - [facility] 06/26/2025 12:11:28 Past Encounters Encounter ID Performer Location Encounter Start Date Encounter Closed Date Diagnosis/Indication Diagnosis SNOMED-CT Code Diagnosis ICD10 Code Diagnosis IMO Codes Diagnosis Note [id number] Rafaela Meneses MD [facility] (Adult Med) [address] [place] [address] 11/27/2023 12:54:17 11/27/2023 14:19:56 Pain in bilateral feet 4696059554 3473632 M79.672 M79.671 Type 2 sabina betes mellitus 76179958 E11.9 Chronic pain 77569607 G8 9.29 Migraine 19459770 G43.90 9 Anxiety 44230845 F41.9 [id number] Rafaela Meneses MD [facility] ([facility]ult [facility]) [address] [place] [phone] 0 11/16/2023 15:44:53 11/16/2023 17:51:53 Pneumonia 939273771 J18.9 [id number] Rafaela Meneses MD [facility] [employer] [place] [address] [place] [address] 03/07/2024 11:06:52 03/07/2024 12:49:51 Renewal of prescription 340193936 Z76.0 Obesity 052692138 E66.8 Dizziness 127442074 R42 Pain in bi lateral feet 6586137482 4901048 M79.672 M79.548 [id number] Rafaela Meneses MD [facility] [employer] [place] [address] [place] [address] 07/04/2024 11:06:35 07/04/2024 14:02:40 Obesity 716387515 E66.9 Screening mammography 24 504426 Z12.31 Type 2 sabina betes mellitus 25985574 E11.9 Hyperlipidemia 59225321 E78.5 Gynecologi c examination 86607600 Z01.419 Pain in bi lateral feet 5173475571 8268124 M79.672 M79.671 Migraine 13560426 G43.90 9 Anxiety 76490980 F41.9 Essential hypertension 27599268 I10 Neuropathy 465065494 G62 .9 [id number] Rafaela Meneses MD [facility] [place] [address] [place] [address] 06/26/2025 10:11:10 06/26/2025 11:18:32 Obese class III 777465722 E66.813 E66.3 4483301785 Essential hypertension 64303882 I10 Anxiety 01956683 F41.9 Type 2 sabina betes mellitus 59963278 E11.9 Hyperlipidemia 50101226 E78.5 Neuropathy 290816792 G62 .9 Influenza vaccination given 7309641950 9109 Z23 80770044 Pneumococc al vaccination given 728220247 Z23 57473829 Renewal of prescription 756342332 Z76.0 Nausea 650811942 R11.0 04296 Health Concerns Section Related Observation LastModified by Organization Detai ls LastModified Time None Recorded Concern Status LastModified by Organization Details LastModified Time None Recorded Advance Directives Directive N: Payers Insurance Date Sequence Insurance Name Policy Number Policy Gutierrez Covered Member ID Gutierrez Member ID Guarantor Name 06/26/2025 1 [facility] - CIGNA (PPO) [id number] Shobha santiago [id number] Shobha fernandez 06/26/2025 1 [employer] [id number] Shobha Murray [id number] Shobha fernandez Notes Date Note Type Note Provider Name and Address Organization Details Recorded Time 11/16/2023 text/html Cough congestion feeling bad went to [facility]A left lower lobe pneumonia seen placed on a Z-Benigno inhaler and she just feels bad still continues to cough and feels short of breath. Fatigue as well. Rafaela Meneses MD Attn: Accounting, [address] , [place], [address], [place] [facility] 11/29/2023 14:44:53 11/27/2023 text/html Pneumonia much better no shortness of breath hyperlipidemia could do better with diet diabetes no polyphagia or polydipsia migraines stable chronic pain she does see pain management. GERD has been doing okay. Rafaela Meneses MD Attn: Accounting, [address] , [place], [address], [place] [facility] 11/28/2023 15:25:54 03/07/2024 text/html hyperlipidemia could do better with diet diabetes no polyphagia or polydipsia migraines stable chronic pain she does see pain management. GERD has been doing okay. ill described dizzy spells no headache or blurred vision come with no rhyme or reason. She has chronic pain in both feet Rafaela Meneses MD Attn: Accounting, [address] , [place], [address], [place] [facility] 04/03/2024 12:26:03 07/04/2024 text/html chronic foot pain still a bounce. She does have some abdominal discomfort as well GERD has been doing okay neuropathy bothers her quite a bit hypertension blood pressure looks good 130/68 migraines are stable. Hyperlipidemia does try to watch her diet Rafaela Meneses MD Attn: Accounting, [address] [facility], [place], [address], [place] [facility] 07/10/2024 21:53:25 OBGyn Episode No OBEpisode recorded.
--- OUTSIDE RECORDS SUMMARY | 2025-07-04 07:33 | XMS_ITS | Patient Health Record ---
Author Organization [facility] Address [address] [place] [address] [address], [place] [id number] Care Team Providers Care Vice Chairman Name Role Phone Matty Velasquez Primary Care Provider Allergies Allergen (clinical drug ingredient) Drug/Non Drug Allergy documented on EMR Reaction Allergy Type Onset Date Status ketorolac Ketorolac Tromethamine anaphylaxis Drug Allergy Active acetaminophen / oxycodone Percocet anaphylaxis Drug Allergy Active tramadol Tramadol HCl anaphylaxis Drug Allergy Ac tive Medications Medication SIG (Take, Route, Frequency, Duration) Notes Start Date End Date Status Omeprazole 40 MG Capsule Delayed Release 1 capsule Orally Once a day Active Social History Tobacco Use: Social History Observation Description Date Details (start date - stop date) Never Smoker NA - NA Social History Drugs/Alcohol: Social Info Question Answer Notes Alcohol Screen Did you have a drink containing alcohol in the past year? No Points 0 Tobacco Use: Social Info Question Answer Notes Tobacco Use/Smoking Are you a nonsmoker Additional Details Category Social Info Options Details Miscellaneous: Exercise: yes walking, 2-3 times per week Children: yes one Caffeine: 2-3 cups per day Plan Of Treatment Pending Test Test Name Order Date Mammogram 04/08/2018 Urinalysis, Routine 04/08/2018 - Lipid Panel And Chol/HDL Ratio 018 - Comp. Metabolic Panel (14) - [facility] 2017 - CBC with diff 04/08/2018 Insurance Providers Payer Name Payer Address Payer Phone Subscriber Number Group Number Insured Name Patient Relationship to Insured Coverage Start Date Coverage End Date [facility] [address] [place] [address] [id number] Shobha Gomez Self - patient is the insured Medical (General) History Medical History History ICD Code GERD chronic pancreatitis Gall Bladder Disease HX of chicken pox seasonal allergies Sinus Desease Surgical History Surgery Date(Month/Year) right knee ACL right knee arthroscopy
--- OUTSIDE RECORDS SUMMARY | 2025-07-04 07:33 | XMS_ITS | Clinical Summary ---
Author Organization [facility] [employer] Address [address] [place] [address] Care Team Providers Care Manuscripts Archivist Name Role Phone Karen Rahman PA-C Primary Care Provider Source Comments [facility],non-owned Affiliates and Associated Physician Practices is amultiple site organization consisting of ambulatory clinics and hospital sitesin [place], [place], [place] and [place]. This disclosure is being madepursuant to the Care Everywhere program and may not contain all information available regarding this patient. Last updated 18.[facility] Allergies Active Allergy Reactions Criticality Noted Date [...] spasms) 10 tablet 02/08/2023 Active HYDROcodone-marin taminophen ([place]) 10-325 MG tabletIndicatio ns:Other low back pain TAKE ONE TABLET BY MOUTH 3 TIMES A DAY NEEDED FOR 15 DAYS 45 tablet 03/15/2024 Active HYDROcodone-marin taminophen ([place]) 10-325 MG tabletIndicatio ns:Other low back pain TAKE ONE TABLET BY MOUTH 3 TIMES A DAY NEEDED FOR 15 DAYS 45 tablet 03/29/2024 Active HYDROcodone-marin taminophen ([place]) 10-325 MG tabletIndicatio ns:Other low back pain TAKE ONE TABLET BY MOUTH 3 TIMES A DAY NEEDED FOR 15 DAYS 45 tablet 04/12/2024 Active HYDROcodone-marin taminophen ([place]) 10-325 MG tabletIndicatio ns:Other low back pain [...] on file Legal Sex Female 9:08 AM CLINICAL OFFICE TECHNICIAN Gender Identity Not on file Sexual Orientation [...] 05/01/2014 ZOSTER VACCINE (1 of 2) 2021 DEPRESSION SCREENING 08/31/2024 COVID-19 VACCINE (1 - season) 2025 04/17/2021, 11/24/2020, 11/04/2020 INFLUENZA VACCINE (#1) 2025 06/19/2016 LIPID TESTING [...] Comments LIPID PROFILE Routine 08/01/2024 2:54 PM CLINICAL OFFICE TECHNICIAN Diabetes mellitus without complication HIV-1 HIV-2 ANTIBODY W/ REFLX CONFIRM Routine 07/19/2015 3:52 PM CLINICAL OFFICE TECHNICIAN Possible exposure to STD from Last 3 Months or Most Recently Relevant to Health Maintenance Results * (ABNORMAL) LIPID PROFILE (08/01/2024 2:54 PM CLINICAL OFFICE TECHNICIAN) Cholesterol Total 196 <200 mg/dL 08/01/2024 3:53 PM CLINICAL OFFICE TECHNICIAN [facility] HDL 55 >40 mg/dL 08/01/2024 3:53 PM CLINICAL OFFICE TECHNICIAN [facility] Comment: ATP III Classification of HDL Cholesterol: <40 mg/dL: Considered a major risk factor. >60 mg/dL: Considered a negative risk factor. LDL Calculated 90 <100 mg/dL 08/01/2024 3:53 PM CLINICAL OFFICE TECHNICIAN [facility] Comment: ATP III Classification of LDL Cholesterol: <100 mg/dL: Optimal 100 - 129 mg/dL: Near Optimal/Above Optimal 130 - 159 mg/dL: Borderline High 160 - 189 mg/dL: High >190 mg/dL: Very High Triglycerides 255(H) <150 mg/dL 08/01/2024 3:53 PM CLINICAL OFFICE TECHNICIAN [facility] Comment: ATP III Classification of Triglycerides: <150 mg/dL: Normal 150 - 199 mg/dL: Borderline High 200 - 400 mg/dL: High >500 mg/dL: Very High Blood BLOOD SPECIMEN / Unknown Lab Venipuncture / Unknown 08/01/2024 2:54 PM CLINICAL OFFICE TECHNICIAN 08/01/2024 3:23 PM CLINICAL OFFICE TECHNICIAN us Provider Unknown LAB - CHEMISTRY ORDERABLES Merle l Result [facility] [address] [place] [address], [facility] [phone] * HIV-1 HIV-2 ANTIBODY W/ REFLX CONFIRM (07/19/2015 3:52 PM CLINICAL OFFICE TECHNICIAN) HIV-1/HIV-2 Negative Negative 07/22/2015 12:40 AM CLINICAL OFFICE TECHNICIAN [facility] ([facility]) Comment: Based on the non-reactive anti-HIV [...] Unknown Venipuncture / Unknown 07/19/2015 3:52 PM CLINICAL OFFICE TECHNICIAN 07/19/2015 3:54 PM CLINICAL OFFICE TECHNICIAN us Karen Rahman PA-C LAB - SEROLOGY ORDERABLES Fi nal Result [facility] ([facility]) [address] [place] [address], [facility] from Last 3 Months or Most Recently Relevant to Health Maintenance Insurance MEDICAID - [place] [employer] [place] [facility] Care Teams Manuscripts Archivist Relationship Specialty Start Date End Date Karen Rahman, [facility] [address] [place] [address] PCP - General Physician Transportation Program Director 01/30/15
[2025-07-04 07:41] LABS: Alanine Aminotransferase 33 U/L (6-35); Albumin Level 4.1 g/dL (3.5-5.1); Alkaline Phosphatase 98 U/L (38-126); Anion Gap 6 mmol/L (4-12); Aspartate Amino Transferase 33 U/L (14-36); Bilirubin,Total 0.4 mg/dL (0.2-1.3); Blood Urea Nitrogen 18 mg/dL (7-17); Calcium 8.9 mg/dL (8.4-10.2); Carbon Dioxide 25 mmol/L (22-30); Chloride 102 mmol/L (98-107); Estimated CRCL calculation 124 ml/min; Estimated Glomerular Filt Rate > 60; Glucose 330 mg/dL (65-110); Potassium 4.3 mmol/L (3.4-5.0); Sodium 133 mmol/L (137-145); Total Protein 7.8 g/dL (6.3-8.2)
[2025-07-04 07:50] LABS: Schistocytes None Seen
--- NOTE | 2025-07-04 07:56 | ED_ITS ---
HPI - GI Bleed General Chief complaint: GI Bleed Stated complaint: blood in stool Time Seen by Provider: 07/04/25 07:01 History of Present Illness HPI Narrative: For last 2-3 days, patient has noticed bright red blood when she has a bowel movement, this is never happened before, she has no pain when this happens, she has no abdominal pain, nausea vomiting. No family history of colon cancer Related Data Home Medications ?Medication ?Instructions ?Recorded ?Confirmed ?Last Taken ?Type hydrocodone 10 mg-acetaminophen tablet 07/22/22 Unknown History 325 mg tablet Allergies Allergy/AdvReac Type Severity Reaction Status Date / Time ketorolac (From Toradol) Allergy Anaphylaxis Verified 07/04/25 03:22 oxycodone (From Percocet) Allergy Anaphylaxis Verified 07/04/25 03:22 tramadol Allergy Anaphylaxis Verified 07/04/25 03:22 Review of Systems 2 Review of Systems: All systems reviewed & are unremarkable except as noted in HPI and below PMFSH Past Medical History Medical History Chronic lower back pain Surgical History Surgical History H/O lumbosacral spine surgery S/P placement of nerve stimulator Social History Social History Social History: Denies alcohol tobacco or drug use Occupation/Education: occupation Additional occupation/education comments: works at [employer] in [place] 2 Narrative: EXAMINATION OF ORGAN SYSTEMS/BODY AREAS: Constitutional: Vital signs per nursing GENERAL:[No acute distress, non-toxic appearing.] HEAD: Normal with no signs of head trauma. EYES: EOMI, conjunctiva normal ENT: Hearing grossly intact LUNGS: Nonlabored breathing. HEART: [Regular rate and rhythm] ABD: [Soft], [nontender to palpation] RECTAL: with RN in room. Grossly brown stool in vault, no external hemorrhoids, hemoccult negative EXT: Normal range of motion SKIN: [No rashes or lesions.] NEURO: [Alert and oriented x 3. No gross focal sensory or strength deficits.] PSYCH: Normal affect Course Vital Signs Vital signs: Vital Signs Temperature 98.3 F 07/04/25 03:20 Pulse Rate 76 07/04/25 03:20 Respiratory Rate 20 07/04/25 03:20 Blood Pressure 138/71 07/04/25 03:20 Pulse Oximetry 100 07/04/25 03:20 Oxygen Delivery Room Air 07/04/25 03:20 Temperature 98.3 F 07/04/25 03:20 Pulse Rate 76 07/04/25 03:20 Respiratory Rate 20 07/04/25 03:20 Blood Pressure 138/71 07/04/25 03:20 Pulse Oximetry 100 07/04/25 03:20 Oxygen Delivery Room Air 07/04/25 03:20 MDM - GI Bleed MDM Narrative Medical decision making narrative: For last 2-3 days, patient has noticed bright red blood when she has a bowel movement, this is never happened before, she has no pain when this happens, she has no abdominal pain, nausea vomiting. No family history of colon cancer She is very well-appearing here, abdomen soft nontender, on rectal exam I do not see any blood and the stool is Hemoccult negative. Labs obtained thankfully within acceptable limits including normal lactic acid, normal hemoglobin, though her blood sugar is elevated. Findings discussed with patient importance of following with parking meter servicer discussed, as she may likely need a colonoscopy for further evaluation. Patient agreeable to this plan and follow-up with close return precautions Lab Data 07/04/25 07:24 07/04/25 07:24 Labs: Lab Results 07/04/25 Range/Units 07:24 WBC 6.2 (4.5-10.0) K/mm3 RBC 4.18 L (4.2-5.4) M/mm3 Hgb 13.0 (12.0-15.0) g/dL Hct 41.0 (37.0-47.0) % MCV 98.1 (80-100) fl MCH 31.1 (26-34) pg MCHC 31.7 L (32-36) g/dl RDW 13.6 (11.5-14.5) % Plt Count 261 (150-375) k/mm3 MPV 9.3 (7.4-10.4) fl Immature Gran % (Auto) 0.0 (0-0.5) % Neut % (Auto) 35.2 L (45.5-73.1) % Lymph % (Auto) 56.9 H (18.3-44.2) % [place] % (Auto) 6.3 (2.6-8.5) % Eos % (Auto) 1.1 (0-4.4) % Baso % (Auto) 0.5 (0.2-1.2) % Lymph # (Auto) 3.51 H (0.9-3.2) K/mm3 [place] # (Auto) 0.4 (0.1-0.6) K/mm3 Eos # (Auto) 0.1 (0-0.3) K/mm3 Baso # (Auto) 0.0 (0.0-0.1) K/mm3 Abs Immat Gran (auto) 0.00 (0.00-0.031) K/mm3 Absolute Neuts (auto) 2.2 (1.3-6.7) K/mm3 Absolute Nucleated RBC 0.000 (0.0-0.012) K/mm3 Band Neutrophils % Not Reportable Nucleated RBC % 0.0 (0.0-0.2) % Atypical Lymphocytes Present Platelet Estimate Adequate (Adequate) Schistocytes None seen PT Pending INR Pending APTT Pending Sodium 133 L (137-145) mmol/L Potassium 4.3 (3.4-5.0) mmol/L Chloride 102 (98-107) mmol/L Carbon Dioxide 25 (22-30) mmol/L Anion Gap 6 (4-12) mmol/L BUN 18 H (7-17) mg/dL Creatinine 0.57 L (0.7-1.0) mg/dL Estim Creat Clear Calc 124 ml/min Estimated GFR > 60 (59 - ) Glucose 330 H (65-110) mg/dL Lactic Acid 1.7 (0.7-2.0) mmol/L Calcium 8.9 (8.4-10.2) mg/dL Total Bilirubin 0.4 (0.2-1.3) mg/dL AST 33 (14-36) U/L ALT 33 (6-35) U/L Alkaline Phosphatase 98 (38-126) U/L Total Protein 7.8 (6.3-8.2) g/dL Albumin 4.1 (3.5-5.1) g/dL Discharge Plan Discharge Clinical Impression: BRBPR (bright red blood per rectum) Patient Disposition: Home Condition: Stable Instructions: Rectal Bleeding (ED) Additional Instructions: Please follow-up with the parking meter servicer, you may need a colonoscopy for further evaluation of your symptoms. If you start developing any pain, if the bleeding worsens, or if you start getting lightheaded or dizzy or anything else concerning, please come back to the emergency room. Patient Language: [place] Citizen Prescriptions: No Action albuterol sulfate 90 mcg/actuation HFA aerosol inhaler 2 puff inhalation QID PRN (Reason: shortness of breath or wheezing) Qty: 8.5 0RF doxycycline hyclate 100 mg tablet 100 mg PO BID Qty: 14 0RF benzonatate 200 mg capsule 200 mg PO TID PRN (Reason: cough) Qty: 21 0RF methocarbamol 750 mg tablet 750 mg PO TID Qty: 30 0RF lidocaine 5 % adhesive patch,medicated 1 patch topical DAILY Qty: 15 0RF Rx Instructions: leave on most painful area for up to 12 hrs prednisone 20 mg tablet 60 mg PO DAILY 5 Days Qty: 15 0RF pseudoephedrine HCl 60 mg tablet 60 mg PO Q4-6H PRN (Reason: nasal congestion) Qty: 30 0RF Rx Instructions: DNExceed 4 doses/24h hydrocodone-acetaminophen 10-325 mg tablet azithromycin 250 mg tablet See Rx Instructions .ROUTE .COMPLEX Qty: 6 0RF Rx Instructions: take 500 mg today (day 1), then 250 mg for 4 days (days 2-5) albuterol sulfate 90 mcg/actuation HFA aerosol inhaler 2 - 4 puff INHALATION QID PRN (Reason: shortness of breath or wheezing) Qty: 8 0RF ibuprofen 600 mg tablet 600 mg PO TID PRN (Reason: pain) Qty: 30 0RF ondansetron 4 mg tablet,disintegrating 4 mg PO Q8H PRN (Reason: nausea and vomiting) Qty: 7 0RF acetaminophen 500 mg capsule 1,000 mg PO Q6H PRN (Reason: pain) Qty: 30 0RF Follow-up/Referrals: Gideon,MD Rhys [Primary Care Provider] Jaime Menjivar MD [Physician, Gastroenterology] - 2 Days Stand Alone Forms: Work/School Release IP
[2025-07-04 08:21] LABS: INR 0.9; Partial Thromboplastin Time 25.2 Seconds (22.3-36.8); Prothrombin Time 11.9 Seconds (11.1-14.7)
== END 2025-07-04 08:33 | disposition home or self-care (01) ==
PROVIDERS: Emergency Provider Emergency Medicine; PCP Internal Medicine
DX: K62.5 Hemorrhage of anus and rectum (principal); Z96.82 Presence of neurostimulator
CPT/HCPCS: 36415; 80053; 83605; 85025; 85610; 85730; 99283

== ENCOUNTER 2025-07-24 13:31 | Outpatient (CLI) | payer OTHER, SELFPAY ==
--- NOTE | ~2025-07-24 | MMUS_ITS ---
EXAMINATION: MM diagnostic [facility] BI w [place], US breast LT limited HISTORY: Follow-up left breast asymmetry TECHNIQUE: Additional 3-D tomosynthesis images of the breasts were performed and synthetic 2-D images were generated. CAD analysis was submitted and interpreted. High resolution Limited left breast ultrasound was performed. COMPARISON: 09/24/2024 BREAST PARENCHYMAL COMPOSITION: Not dense: There are scattered areas of fibroglandular density. FINDINGS: MAMMOGRAPHIC FINDINGS: There is no suspicious mass, calcification or architectural distortion in the right breast to suggest malignancy. There is focal asymmetry in the upper inner quadrant of the left breast, middle third. ULTRASOUND: Limited left breast ultrasound: At 11:00, 6 cm from the nipple there is an oval hypoechoic mass measuring 8 mm which appears to have an echogenic hilum, most likely benign intramammary lymph node. No additional masses are seen. IMPRESSION: 1. Probable benign left breast mass at 11:00, 6 cm from the nipple measuring 8 mm. 2. Recommend 6 month follow-up diagnostic left mammogram and Limited left breast ultrasound. BI-RADS category 3, probably benign findings. Reviewed, dictated and finalized at location O. MS TECHNICIAN IMPRESSION: 1. Probable benign left breast mass at 11:00, 6 cm from the nipple measuring 8 mm. 2. Recommend 6 month follow-up diagnostic left mammogram and Limited left breas t ultrasound. BI-RADS category 3, probably benign findings.
--- OUTSIDE RECORDS SUMMARY | 2025-07-24 15:55 | XMS_ITS | Clinical Summary ---
Author Organization [facility] Address [facility] [place] [address] Care Team Providers Care Heavy Duty Mechanic Farm Equipment Name Role Phone Unavailable Primary Care Provider [...] of 2) 2021 COVID-19 Vaccine ( - 2024-2 6 season) 2025 Influenza Adult (#1) 2025 Hepatitis A Vaccines Aged Out No long er eligible based on patient's age to complete this topic Meningococcal B Vaccine Aged Out No l onger eligible based on patient's age to complete this topic Meningococcal Vaccine Aged Out No lilo shamar eligible based on patient's age to complete this topic RSV Immunizations Under 20 Months Aged Out No longer eligible based on patient's age to complete this topic
--- OUTSIDE RECORDS SUMMARY | 2025-07-24 15:56 | XMS_ITS | Encounter Summary ---
Author Organization [facility] Address [address] [place] [address] Care Team Providers Care Bottom Pounder Cement Shoes Name Role Phone Unavailable Primary Care Provider Unavailabl e Encounter Details Date Type Department Care Team (Late st Contact Info) Description 06/05/2008 Abstract [facility] Conversion Md, Generic Conversion, Social [...]
--- OUTSIDE RECORDS SUMMARY | 2025-07-24 15:56 | XMS_ITS | Clinical Summary ---
Author Organization [facility] Address [address] [place] [address] Care Team Providers Care Wall Cleaner Name Role Phone Rhys Meneses MD Primary Care Provider [phone] Allergies Active Allergy Reactions Criticality Noted Date [...] on file Legal Sex Female 2:50 PM OUTREACH REPRESENTATIVE Gender Identity Not on file Sexual Orientation Not on file Last Filed Vital Signs Vital Sign Reading Time Taken Comments Blood Pressure 110/73 07/11/2022 4:47 PM OUTREACH REPRESENTATIVE Pulse 73 07/11/2022 4:47 PM OUTREACH REPRESENTATIVE Temperature 36.7 C (98 F) 07/11/2022 3:06 PM OUTREACH REPRESENTATIVE Respiratory Rate 20 07/11/2022 4:47 PM OUTREACH REPRESENTATIVE Oxygen Saturation 100% 07/11/2022 4:47 PM OUTREACH REPRESENTATIVE Inhaled Oxygen Concentration - - Weight - - Height - - Body Mass Index - - Plan of Treatment Health Maintenance Due Date Last Done Comments Breast Cancer Screening-Mammogram 1971 Cervical Cancer Screening 1971 Colon Cancer Screening-Colonoscopy 1971 Depression Screening 1971 Hepatitis C Screening 1971 Regular Well Visit/Exam 18-64 1989 Zoster Vaccine (1 of 2) 2021 Covid-19 Vaccine (1 - 2024-2 6 season) 2025 04/17/2021, 11/24/2020, 11/04/2020 Influenza Vaccine (#1) 2025 07/18/2024 DTaP/Tdap/Td Vaccine (3 - Td or Tdap) 08/05/2031 08/05/2021, 08/31/2006 Pneumococcal vaccine <65 Aged Out 014, 08/31/2006 No longer eligible based on patient's age to complete this topic Hepatitis B Screening Completed 08/05/[address] [place] [address] [place] [address] Care Teams Wall Cleaner Relationship Specialty Start Date End Date Rhys Meneses MD PCP - General Internal Medicine 07/21/24
--- OUTSIDE RECORDS SUMMARY | 2025-07-24 15:56 | XMS_ITS | Clinical Summary ---
Author Organization [facility] Address [address] [place] [address] Care Team Providers Care Gum Scoring Machine Operator Name Role Phone Karen Rahman PA-C Primary Care Provider Source Comments [facility],non-owned Affiliates and Associated Physician Practices is amultiple site organization consisting of ambulatory clinics and hospital sitesin [place], [place], [place] and [place]. This disclosure is being madepursuant to the Care Everywhere program and may not contain all information available regarding this patient. Last updated 18.[facility] Allergies Active Allergy Reactions Criticality Noted Date [...] spasms) 10 tablet 02/08/2023 Active HYDROcodone-marin taminophen ([place]) 10-325 MG tabletIndicatio ns:Other low back pain TAKE ONE TABLET BY MOUTH 3 TIMES A DAY NEEDED FOR 15 DAYS 45 tablet 03/15/2024 Active HYDROcodone-marin taminophen ([place]) 10-325 MG tabletIndicatio ns:Other low back pain TAKE ONE TABLET BY MOUTH 3 TIMES A DAY NEEDED FOR 15 DAYS 45 tablet 03/29/2024 Active HYDROcodone-marin taminophen ([place]) 10-325 MG tabletIndicatio ns:Other low back pain TAKE ONE TABLET BY MOUTH 3 TIMES A DAY NEEDED FOR 15 DAYS 45 tablet 04/12/2024 Active HYDROcodone-marin taminophen ([place]) 10-325 MG tabletIndicatio ns:Other low back pain [...] on file Legal Sex Female 9:08 AM [employer] Gender Identity Not on file Sexual Orientation [...] of 3 - 19+ 3-dose series) 1990 PAP with HPV 2001 PNEUMOCOCCAL VACCINE 50+ (2 of 2 - PCV) 06/14/2015 06/14/2014 DTAP/TDAP/TD VACCINES (2 - Td or Tdap) 08/31/2016 08/31/2006 MAMMOGRAM 09/15/2016 09/15/2014 (Declined) Cervical Cancer Screening 05/01/2017 PAP SMEAR 05/01/2017 05/01/2014 ZOSTER VACCINE (1 of 2) 2021 DEPRESSION SCREENING 08/31/2024 COVID-19 VACCINE ( - season) 2025 04/17/2021, 11/24/2020, 11/04/2020 INFLUENZA [...] Comments LIPID PROFILE Routine 08/01/2024 2:54 PM [employer] Diabetes mellitus without complication HIV-1 HIV-2 ANTIBODY W/ REFLX CONFIRM Routine 07/19/2015 3:52 PM [employer] Possible exposure to STD from Last 3 Months or Most Recently Relevant to Health Maintenance Results * (ABNORMAL) LIPID PROFILE (08/01/2024 2:54 PM [employer]) Cholesterol Total 196 <200 mg/dL 08/01/2024 3:53 PM [employer] [facility] HDL 55 >40 mg/dL 08/01/2024 3:53 PM [employer] [facility] Comment: ATP III Classification of HDL Cholesterol: <40 mg/dL: Considered a major risk factor. >60 mg/dL: Considered a negative risk factor. LDL Calculated 90 <100 mg/dL 08/01/2024 3:53 PM [employer] [facility] Comment: ATP III Classification of LDL Cholesterol: <100 mg/dL: Optimal 100 - 129 mg/dL: Near Optimal/Above Optimal 130 - 159 mg/dL: Borderline High 160 - 189 mg/dL: High >190 mg/dL: Very High Triglycerides 255(H) <150 mg/dL 08/01/2024 3:53 PM [employer] [facility] Comment: ATP III Classification of Triglycerides: <150 mg/dL: Normal 150 - 199 mg/dL: Borderline High 200 - 400 mg/dL: High >500 mg/dL: Very High Blood BLOOD SPECIMEN / Unknown Lab Venipuncture / Unknown 08/01/2024 2:54 PM [employer] 08/01/2024 3:23 PM [employer] us Provider Unknown LAB - CHEMISTRY ORDERABLES Merle munoz Result [facility] [address] [address], [place] [phone] * HIV-1 HIV-2 ANTIBODY W/ REFLX CONFIRM (07/19/2015 3:52 PM [employer]) HIV-1/HIV-2 Negative Negative 07/22/2015 12:40 AM [employer] REG[employer] [facility] ([facility]) Comment: Based on the non-reactive [...] Unknown Venipuncture / Unknown 07/19/2015 3:52 PM [employer] 07/19/2015 3:54 PM [employer] Karen Rahman PA-C LAB - SEROLOGY ORDERABLES Fi nal Result [facility] ([facility]) [address] from Last 3 Months or Most Recently Relevant to Health Maintenance Insurance [place]ICAID - [place] [employer] [facility] Care Teams Gum Scoring Machine Operator Relationship Specialty Start Date End Date Karen Rahman, ERIC [address] [place] [address] PCP - General Physician Aircraft Tool Maker 01/30/15
--- OUTSIDE RECORDS SUMMARY | 2025-07-24 15:56 | XMS_ITS | Encounter Summary ---
Author Organization [facility] Address [address] [place] [id number] Care Team Providers Care Steam Tunnel Feeder Name Role Phone Unavailable Primary Care Provider Unavailabl e Encounter Details Date Type Department Care Team (Late st Contact Info) Description 05/23/2008 Abstract [facility] Conversion Md, Generic Conversion, Social History [...]
--- OUTSIDE RECORDS SUMMARY | 2025-07-24 15:56 | XMS_ITS | Encounter Summary ---
Author Organization [facility] Address [address] [place] [id number] Care Team Providers Care Outer Diameter Grinder Tool Name Role Phone Unavailable Primary Care Provider Unavailabl e Encounter Details Date Type Department Care Team (Late st Contact Info) Description 04/13/2008 Abstract [facility] Conversion Md, Generic Conversion, Social [...]
--- OUTSIDE RECORDS SUMMARY | 2025-07-24 15:56 | XMS_ITS | Encounter Summary ---
Author Organization [facility] Address [address] [place] [address] Care Team Providers Care Associate Java Developer Name Role Phone Unavailable Primary Care Provider Unavailabl e Encounter Details Date Type Department Care Team (Late st Contact Info) Description 06/01/[address] [facility] Conversion Md, Generic Conversion, [...]
== END 2025-07-24 13:32 | disposition home or self-care (01) ==
LOC: ANHFOHIMG 13:31
PROVIDERS: PCP Internal Medicine; Visit Provider Internal Medicine
DX: R92.8 Other abnormal and inconclusive findings on diagnostic imaging of breast (principal); N63.22 Unspecified lump in the left breast, upper inner quadrant; N64.89 Other specified disorders of breast
CPT/HCPCS: 76642; 77062; 77066; G0279

== ENCOUNTER 2025-08-25 17:53 | Emergency (ER) | payer MEDICAID, SELFPAY ==
--- OUTSIDE RECORDS SUMMARY | 2025-03-11 15:30 | XMS_ITS ---
Author Organization [facility] Address [address] [address] Care Team Providers Care Track Manager Name Role Phone Betty Berg MD Primary Care Provider Unavailable Angélica Bateman Unavailable [phone] Migration, Provider Unavailable Unavailable Allergies Allergen (clinical drug ingredient) Drug/Non Drug Allergy documented on EMR Reaction Allergy Type Onset Date Status CORTISONE/CELESTON E (uncoded) elevated FBG >300 Allergy Active PERCOCET/OXYCODONE (uncoded) Unknown Allergy Active tramadol traMADol Unknown Drug Allergy Active Toradol Unknown Drug Allergy [facility] Encounter Medications Medication SIG (Take, [...] Active Encounters Encounter Location Date Provider Diagnosis [facility] [address] [facility] [address] [place] [address] 03/11/2025 Provider Migration Plan Of Treatment No Information Progress Notes * Christo EDWARDSylDOB:[birth year] (55 yo F)Acc No.[id number]:03/11/2025 Patient: Shobha HUNTER Provider: Moshe Yanez :1970 A ge:54 Y S ex:Female Date:03/11/2025 Address:[address] [place] [address] Pcp:Maverick Schulte Subjective: * Chief Complaints: * [...] * Procedure Codes: * Electronic signature of Real ider Migration on 08/25/2025 at 06:56 PM EST Sign off status: Pending * Provider: Moshe Yanez Date: 0 03/11/2025 Generated for Pedro yadav/Joseph/Madisonsmitting on: 1 10/26/2024 06:56 PM EST
--- NOTE | ~2025-08-25 | CT_ITS ---
CTA CHEST CLINICAL HISTORY: cough 1 month, SOB, dimer >1 . COMPARISON: Chest x-ray today CTA chest 11/09/2023 TECHNIQUE: Helical CTA performed from thoracic inlet to upper abdomen 100 mL Omnipaque 350 Coronal, sagittal reformats. Multiplanar MIPS CT images acquired with automatic exposure control for dose reduction DLP: 570 mGy-cm FINDINGS: Pulmonary arteries: No PE. Thoracic Aorta: No dissection or aneurysm. Heart/pericardium: Unremarkable. RV/LV ratio: Normal. Lungs/Pleura: Minimal mosaic attenuation. Tracheobronchial tree: Patent. Nodes: No enlarged nodes. Bones: No acute bony abnormality. Soft tissues: Unremarkable. Visualized upper abdomen: Hepatic steatosis. IMPRESSION: 1. No PE or other acute cardiopulmonary findings. 2. Chronic small airways disease or pneumonitis. Reviewed, dictated and finalized at location R. A DRIVER
--- NOTE | ~2025-08-25 | XR_ITS ---
EXAMINATION: XR chest 2V 08/25/2025 21:30 INDICATION: Cough for one month PROCEDURE: 2 view chest COMPARISON: 11/09/2023 FINDINGS: The lungs are clear. The cardiomediastinal silhouette is within normal limits. There are no pleural effusions. There is no pneumothorax suspected. Spinal stimulator leads are present. IMPRESSION: 1: NO ACUTE CARDIOPULMONARY DISEASE. Reviewed, dictated and finalized at location O. KET CUTTING MACHINE OPERATOR
--- OUTSIDE RECORDS SUMMARY | 2025-08-25 17:56 | XMS_ITS | Continuity of Care Document ---
Author Organization [facility] Address [address] [place] [address] Care Team Providers Care Promotions Executive Name Role Phone RAFAELA MENESES Primary Care Provider SHAN Lamas JR Bill Distributor TRISTEN CHÁVEZ Senior Search Marketing Analyst MAXIM GARCES Database Marketing Manager [facility] [facility] [employer] [facility] Assessment Encounter Date Assessment Date Assessment LastModified by Organization Details LastModified Time 08/01/2025 08/01/2025 Z-Benigno off work till Thursday push fluids Mucinex Delsym at night for cough [id number] Not available 08/01/2025 22:52:54 Plan of Treatment Reminders Order Date Submit Date Provider Last Modified By Organization Details Last Modified Time Details Appointments ANY 15 2025 09:30A M Rafaela Meneses MD Not available Not available Not available Lab None recorded. Referral None recorded. Procedures None recorded. Surgeries None recorded. Imaging None recorded. Medication Orders Zithromax Z-Benigno 250 mg tablet 2024 025 [id number] [id number], [address] [facility], [place], [place], [id number], 08/01/2025 16:55:12 Patient TargetsNo targets recorded. Patient Instructions Encounter Date Encounter Id Patient Instructions Last Modified By Organization Details Last Modified Time 08/01/2025 [id number] A healthy lifestyle: care instructions Not available 08/01/2025 16:55:12 Reason for Referral None Reported. Results Created Date Observation Date Name Description Value Unit Range Abnormal Flag Note LastModifiedBy Organization Detail LastModifiedTime 08/01/2008/02/2025 ALBUM IN/CR EATIN INE RATIO ,URIN E creatinine, urine 105.3 mg/dL notest ab. Not Available [facility] ([facility]) [address] [place], [address], 08/02/2025 11:09:11 08/01/20 25 08/02/2025 ALBUM IN/CR EATIN INE RATIO ,URIN E albumin, urine 11.7 ug/mL notest ab. Not Available [facility] ([facility]) [address] [place], [address], 08/02/2025 11:09:11 08/01/20 25 08/02/2025 ALBUM IN/CR EATIN INE RATIO ,URIN E alb/creat ratio 11 mg/g_ creat 0-29 Pavithra l: 0 - 29 Moder ately incre ased: 30 - 300 Sever joe incre ased: >300 Not Available [facility] ([facility]) [address] [place], [address], 08/02/2025 11:09:11 08/01/20 25 08/02/2025 LIPID PANEL cholesterol, total 233 mg/dL 100-19 9 above high normal Not Available [facility] ([facility]) [address] [place], [address], 08/02/2025 11:09:12 08/01/20 25 08/02/2025 LIPID PANEL triglyceride s 304 mg/dL 0-149 above high normal Not Available [facility] ([facility]) [address] [place], [address], 08/02/2025 11:09:12 08/01/20 25 08/02/2025 LIPID PANEL HDL cholesterol 51 mg/dL >39 Not Available [facility]) [address] [facility], [place], [address], 08/02/2025 11:09:12 08/01/20 25 08/02/2025 LIPID PANEL VLDL cholesterol jessica 54 mg/dL 5-40 above high normal Not Available [facility] ([facility]) [address] [facility], [place], [address], 08/02/2025 11:09:12 08/01/20 25 08/02/2025 LIPID PANEL LDL chol calc ([facility]) 128 mg/dL 0-99 above high normal Not Available [facility] ([facility]) [address] [facility], [place], [address], 08/02/2025 11:09:12 08/01/20 25 08/02/2025 CMP14 +EGFR glucose 197 mg/dL 70-99 above high normal Not Available [facility] ([facility]) [address] [facility], [place], [address], 08/02/2025 11:09:12 08/01/20 25 08/02/2025 CMP14 +EGFR BUN 12 mg/dL 6-24 Not Available [facility] ([facility]) [address] [facility], [place], [address], 08/02/2025 11:09:12 08/01/20 25 08/02/2025 CMP14 +EGFR creatinine 0.69 mg/dL 0.57-1 .00 Not Available [facility] ([facility]) [address] [facility], [place], [address], 08/02/2025 11:09:12 08/01/20 25 08/02/2025 CMP14 +EGFR eGFR 103 mL/mi n/1.7 3 >59 Not Available [facility] ([facility]) [address] [facility], [place], [address], 08/02/2025 11:09:12 08/01/20 25 08/02/2025 CMP14 +EGFR BUN/creatini ne ratio 17 9-23 Not Available [facility] ([facility]) [address] [facility], [place], [address], 08/02/2025 11:09:12 08/01/20 25 08/02/2025 CMP14 +EGFR sodium 137 mmol/ L 134-14 4 Not Available [facility] ([facility]) [address] [place], [address], 08/02/2025 11:09:12 08/01/20 25 08/02/2025 CMP14 +EGFR potassium 4.1 mmol/ L 3.5-5. 2 Not Available [facility] ([facility]) [address] [facility], [place], [address], 08/02/2025 11:09:12 08/01/20 25 08/02/2025 CMP14 +EGFR chloride 101 mmol/ L 96-106 Not Available [facility] ([facility]) [address] [facility], [place], [address], 08/02/2025 11:09:12 08/01/20 25 08/02/2025 CMP14 +EGFR carbon dioxide, total 22 mmol/ L 20-29 Not Available [facility] ([facility]) [address] [facility], [place], [address], 08/02/2025 11:09:12 08/01/20 25 08/02/2025 CMP14 +EGFR calcium 9.0 mg/dL 8.7-10 .2 Not Available [facility] ([facility]) [address] [facility], [place], [address], 08/02/2025 11:09:12 08/01/20 25 08/02/2025 CMP14 +EGFR protein, total 6.9 g/dL 6.0-8. 5 Not Available [facility] ([facility]) [address] [place], [address], 08/02/2025 11:09:12 08/01/20 25 08/02/2025 CMP14 +EGFR albumin 4.0 g/dL 3.8-4. 9 Not Available [facility] ([facility]) [address] [facility], [place], [address], 08/02/2025 11:09:12 08/01/20 25 08/02/2025 CMP14 +EGFR globulin, total 2.9 g/dL 1.5-4. 5 Not Available [facility] ([facility]) [address] [facility], [place], [address], 08/02/2025 11:09:12 08/01/2008/02/2025 CMP14 +EGFR bilirubin, total 0.2 mg/dL 0.0-1. 2 Not Available [facility] ([facility]) [address] [facility], [place], [address], 08/02/2025 11:09:12 08/01/20 25 08/02/2025 CMP14 +EGFR alkaline phosphatase 102 IU/L 49-135 Not Available [facility] ([facility]) [address] [facility], [place], [address], 08/02/2025 11:09:12 08/01/20 25 08/02/2025 CMP14 +EGFR AST (SGOT) 24 IU/L 0-40 Not Available [facility] ([facility]) [address] [place], [address], 08/02/2025 11:09:12 08/01/2008/02/2025 CMP14 +EGFR ALT (SGPT) 30 IU/L 0-32 Not Available [facility] ([facility]) [address] [place], [address], 08/02/2025 11:09:12 08/01/20 25 08/02/2025 HEMOG LOBIN A1C hemoglobin A1C 10.6 % 4.8-5. 6 above high normal Predi abete s: 5.7 - 6.4 Diabe fermin: >6.4 Glyce yogesh contr ol for adult s with diabe fermin: <7.0 Not Available [facility] ([facility]) [address] [facility], [place], [address], 08/02/2025 11:09:13 08/01/20 25 08/02/2025 CBC WITH DIFFE RENTI AL/PL ATELE T WBC 8.5 x10e3 /uL 3.4-10 .8 Not Available [facility] ([facility]) [address] [facility], [place], [address], 08/02/2025 11:09:13 08/01/20 25 08/02/2025 CBC WITH DIFFE RENTI AL/PL ATELE T RBC 4.27 x10e6 /uL 3.77-5 .28 Not Available [facility] ([facility]) [address] [facility], [place], [address], 08/02/2025 11:09:13 08/01/20 25 08/02/2025 CBC WITH DIFFE RENTI AL/PL ATELE T hemoglobin 13.1 g/dL 11.1-1 5.9 Not Available [facility] ([facility]) [address] [facility], [place], [address], 08/02/2025 11:09:13 08/01/20 25 08/02/2025 CBC WITH DIFFE RENTI AL/PL ATELE T hematocrit 41.4 % 34.0-4 6.6 Not Available [facility] ([facility]) [address] [facility], [place], [address], 08/02/2025 11:09:13 08/01/20 25 08/02/2025 CBC WITH DIFFE RENTI AL/PL ATELE T MCV 97 fL 79-97 Not Available [facility] ([facility]) [address] [place] [address], [place], [address], 08/02/2025 11:09:13 08/01/20 25 08/02/2025 CBC WITH DIFFE RENTI AL/PL ATELE T MCH 30.7 pg 26.6-3 3.0 Not Available [facility] ([facility]) [address] [facility], [place], [address], 08/02/2025 11:09:13 08/01/20 25 08/02/2025 CBC WITH DIFFE RENTI AL/PL ATELE T MCHC 31.6 g/dL 31.5-3 5.7 Not Available [facility] ([facility]) [address] [facility], [place], [address], 08/02/2025 11:09:13 08/01/20 25 08/02/2025 CBC WITH DIFFE RENTI AL/PL ATELE T RDW 12.8 % 11.7-1 5.4 Not Available [facility] ([facility]) [address] [facility], [place], [address], 08/02/2025 11:09:13 08/01/20 25 08/02/2025 CBC WITH DIFFE RENTI AL/PL ATELE T platelets 316 x10e3 /uL 150-45 0 Not Available [facility] ([facility]) [address] [facility], [place], [address], 08/02/2025 11:09:13 08/01/20 25 08/02/2025 CBC WITH DIFFE RENTI AL/PL ATELE T neutrophils 46 % notest ab. Not Available [facility] ([facility]) [address] [facility], [place], [address], 08/02/2025 11:09:13 08/01/20 25 08/02/2025 CBC WITH DIFFE RENTI AL/PL ATELE T lymphs 45 % notest ab. Not Available [facility] ([facility]) [address] [facility], [place], [address], 08/02/2025 11:09:13 08/01/20 25 08/02/2025 CBC WITH DIFFE RENTI AL/PL ATELE T monocytes 7 % notest ab. Not Available [facility] ([facility]) [address] [facility], [place], [address], 08/02/2025 11:09:13 08/01/20 25 08/02/2025 CBC WITH DIFFE RENTI AL/PL ATELE T eos 1 % notest ab. Not Available [facility] ([facility]) [address] [facility], [place], [address], 08/02/2025 11:09:13 08/01/20 25 08/02/2025 CBC WITH DIFFE RENTI AL/PL ATELE T basos 1 % notest ab. Not Available [facility] ([facility]) [address] [facility], [place], [address], 08/02/2025 11:09:13 08/01/20 25 08/02/2025 CBC WITH DIFFE RENTI AL/PL ATELE T neutrophils (absolute) 3.9 x10e3 /uL 1.4-7. 0 Not Available [facility] ([facility]) [address] [facility], [place], [address], 08/02/2025 11:09:13 08/01/20 25 08/02/2025 CBC WITH DIFFE RENTI AL/PL ATELE T lymphs (absolute) 3.9 x10e3 /uL 0.7-3. 1 above high normal Not Available [facility] ([facility]) [address] [facility], [place], [address], 08/02/2025 11:09:13 08/01/20 25 08/02/2025 CBC WITH DIFFE RENTI AL/PL ATELE T monocytes(ab solute) 0.6 x10e3 /uL 0.1-0. 9 Not Available [facility] ([facility]) [address] [facility], [place], [address], 08/02/2025 11:09:13 08/01/20 25 08/02/2025 CBC WITH DIFFE RENTI AL/PL ATELE T eos (absolute) 0.1 x10e3 /uL 0.0-0. 4 Not Available [facility] ([facility]) [address] [facility], [place], [address], 08/02/2025 11:09:13 08/01/20 25 08/02/2025 CBC WITH DIFFE RENTI AL/PL ATELE T baso (absolute) 0.0 x10e3 /uL 0.0-0. 2 Not Available [facility] ([facility]) [address] [facility], [place], [address], 08/02/2025 11:09:13 08/01/20 25 08/02/2025 CBC WITH DIFFE RENTI AL/PL ATELE T immature granulocytes 0 % notest ab. Not Available [facility] ([facility]) [address] [facility], [place], [address], 08/02/2025 11:09:13 08/01/20 25 08/02/2025 CBC WITH DIFFE RENTI AL/PL ATELE T immature grans (abs) 0.0 x10e3 /uL 0.0-0. 1 Not Available [facility] ([facility]) [address] [facility], [place], [address], 08/02/2025 11:09:13 07/24/20 25 07/24/2025 MAMMO , diagn ostic , digit al, bilat eral No observ ation record ed. [facility] [address], [place], [address], 08/10/2025 12:32:49 Result Notes None recorded. Problems Name Problem SNOMED Code Status Onset Date Resolution Date Notes Provider Name and Address Organization Details Recorded Time Pneumonia 175526043 Active 2023 Rafaela Meneses MD Attn: Tiana hoffman,[address] [facility], [place], [address] , [facility] 14:44:36 Dizziness 799258008 Active 2023 Stephen Forman MA null, [place] - [facility] 4 13:00:37 Type 2 diabetes mellitus 40575730 Active 2023 Sofia Christensen LPN null, [place] - [facility] 17:22:40 Hyperlipidemia 92754177 Active 2023 Stephen Forman [place] null, [place] - [facility] 13:50:21 Migraine 69503143 Active 2023 Rafaela Meneses MD Attn: Tiana dalton,[address] [facility], [place], [address], [place] - [facility] 4 21:45:13 Essential hypertension 91760338 Active 2023 Rafaela Meneses MD Attn: Tiana dalton,[address] [facility], [place], [address], [place] - [facility] 4 21:45:34 Anxiety 07378187 Active 2023 Rafaela Meneses MD Attn: Tiana dalton,[address] [facility], [place], [address], [place] - [facility] 4 21:45:51 Neuropathy 371043544 Active 2023 Rafaela Meneses MD Attn: Tiana dalton,[address] [facility], [place], [address], [place] - [facility] 21:46:11 Problem Notes None recorded. Procedures Surgical History Date Name Laterality Status Provider Name and Address Organization Details Recorded Time Back Surgery completed MAKSIM [place] - [facility] 11/16/2023 17:12:46 Knee Surgery completed MAKSIM [place] - [facility] 11/16/2023 17:12:53 Imaging Results None recorded. Procedure Notes None recorded. Medical Equipment None Reported. Allergies Allergen ID Allergen Name Allergen Category Reaction Reaction Severity Criticality Documentation Date Start Date Code Code System Note Provider Name and Address Organization Details Recorded Time 540139 Toradol medicatio n hives other Not available Not available Not available 11/16/2023 33335 RxNorm throa t swell ing MAKSIM [place] null, [place] - [facility] 4 17:05:33 tramadol medicatio n anaphylax is Not available high 06/22/20252021 55609 RxNorm Not Available [facility] - [employer] - prod 5 11:52:15 443040 iodine medicatio n Not available Not available Not available 06/26/20252012 5933 RxNorm Not Available [facility] [employer] External Data [employer] - prod 5 03:36:11 885068 oxycodone hydrochlo ride medicatio n Not available Not available Not available 06/26/20252012 20718 RxNorm Not Available [employer] - prod 5 03:36:11 418590 acetamino phen medicatio n Not available Not available Not available 06/26/20252012 161 RxNorm Not Available [facility] - prod 5 03:36:11 431498 acetamino phen / oxycodone medicatio n itching Not available Not available 07/19/20252012 28624 3 RxNorm Not Available [facility] - prod 5 15:01:37 251014 ketorolac medicatio n itching Not available low 07/19/20252012 43828 RxNorm Not Available [facility] - prod 5 15:01:37 Medications Name Sig Start Date Stop Date [...] Not Available azithromy maria 250 mg tablet TAKE 2 TABLETS BY MOUTH FOR 1 DAY THEN TAKE 1 TABLET BY MOUTH DAILY FOR 4 DAYS active Not Available Not Available No t Available ibuprofen 800 mg tablet 11/15 completed [...] Not Available prednison e 20 mg tablet Take 2 tablets every day by oral route for 5 days. 08/20 completed Not Available Not Available Not Available [...] active Not Available Not Available Not Available Jardiance 10 mg tablet active Not Available Not Available Not Available Droplet Pen Needle 31 gauge x 5/16 USE DIRECTED WITH LANTUS 2024 active Not Available Not Available Not [...] Not Available Not Available Not Avai lable Dexcom G7 Sensor device USE TO MONITOR BLOOD SUGAR CONTINUO USLY, CHANGE SENSOR EVERY 15 DAYS 2024 active Not Available Not Available Not Avai lable Ozempic 0.25 mg or 0.5 mg (2 mg/3 mL) subcutane ous pen injector active Not Available Not Available Not Available Vitals Date Recorded Body height Body mass index (BMI) Body weight Heart rate Oxygen saturation Systolic And Diastolic Provider Name and Address Organization Details Last Updated DateTime 167.64 cm 40.4 kg/m2 698814. 09 g 74 /min 97 % 110/76 mm[Hg] Alma Hooks [place] - [facility] 15:36:53 Social History Question Answer Notes LastModified by Organizat ion Details LastModified Time Tobacco Smoking Status Never Smoker non smoker MAKSIM [place], [place] - [facility] 11/16/2023 17:12:35 Do You Have An Advance [...] Date Of Your Most Recent Tobacco Screening? 08/01/2025 [email or web address] Information not available 08/01/2025 What Is Your Relationship Status? Information not [...] anxious, or unable to sleep at night)? [id number] [email or web address] Information not available 07/04/2024 Family History Relationship [...] e and Address Organization Details Recorded Time Tdap 7 completed Not Available [facility] 08/01/2025 15:22:19 pneumococcal polysaccharide PPV23 7 completed Not Available [facility] 08/01/2025 15:22:19 pneumococcal polysaccharide PPV23 4 completed Not Available [facility] 08/01/2025 15:22:19 COVID-19, mRNA, LNP-S, PF, 30 mcg/0.3 mL dose 1 completed Not Available [facility] 08/01/2025 15:22:19 COVID-19, mRNA, LNP-S, PF, 30 mcg/0.3 mL dose 1 completed Not Available [facility] 08/01/2025 15:22:19 Hep B, adult 1 completed Not Available [facility] 08/01/2025 15:22:19 Tdap 1 completed Not Available [facility] 08/01/2025 15:22:19 MMR 1 completed Not Available [facility] 08/01/2025 15:22:19 varicella 1 completed Not Available [facility] 08/01/2025 15:22:19 Influenza, split virus, trivalent, PF 4 completed Not Available [facility] 08/01/2025 15:22:19 Influenza, split virus, trivalent, PF 5 completed BUTCH Coker, [place] - [facility] 06/26/2025 12:11:28 Pneumococcal conjugate PCV20, polysaccharide KRC274 conjugate, adjuvant, PF 5 completed BUTCH Coker, [place] - [facility] 06/26/2025 12:11:28 Past Encounters Encounter ID Performer Location Encounter Start Date Encounter Closed Date Diagnosis/Indication Diagnosis SNOMED-CT Code Diagnosis ICD10 Code Diagnosis IMO Codes Diagnosis Note [id number] MD Mu [facility] ([facility]ult [facility]) [address] [place] [phone] 08/01/2025 15:14:17 08/01/2025 16:01:11 Obese class II 2506884397 49529 E66.812 E66.3 9291569130 40.4 Bronchitis 03267429 J40 27039 Health Concerns Section Related Observation LastModified by Organization Detai ls LastModified Time None Recorded Concern Status LastModified by Organization Details LastModified Time None Recorded Payers Encounter Date Sequence Insurance Name Policy Number Policy Gutierrez Covered Member ID Gutierrez Member ID Guarantor Name 08/01/2025 1 [facility] ([place]) [id number] Shobha Shon santiago [id number] Shobha fernandez Notes Date Note Type Note Provider Name and Address Organization Details Recorded Time 08/01/2025 text/html Cough congestion for a week urgent care chest x-ray negative flu COVID strep allegedly negative still with some yellowish sputum not really short of breath but coughing a lot at night no wheezing no skin rashes stiff neck confusion nausea vomiting or diarrhea no sick contacts Rafaela Meneses MD Attn: Accounting,[address] [place], [address], [facility] - [facility] 08/01/2025 22:53:33 OBGyn Episode No OBEpisode recorded.
--- OUTSIDE RECORDS SUMMARY | 2025-08-25 17:56 | XMS_ITS | Clinical Summary ---
Author Organization [facility] Address [address] [place] [address] Care Team Providers Care Foot Cutter Name Role Phone Karen Rahman PA-C Primary Care Provider Source Comments [facility],non-owned Affiliates and Associated Physician Practices is amultiple site organization consisting of ambulatory clinics and hospital sitesin [place], [place], [place] and [place]. This disclosure is being madepursuant to the Care Everywhere program and may not contain all information available regarding this patient. Last updated 18.[facility] Allergies Active Allergy Reactions Criticality Noted Date [...] spasms) 10 tablet 02/08/2023 Active HYDROcodone-marin taminophen (Edison) 10-325 MG tabletIndicatio ns:Other low back pain TAKE ONE TABLET BY MOUTH 3 TIMES A DAY NEEDED FOR 15 DAYS 45 tablet 03/15/2024 Active HYDROcodone-marin taminophen (Edison) 10-325 MG tabletIndicatio ns:Other low back pain TAKE ONE TABLET BY MOUTH 3 TIMES A DAY NEEDED FOR 15 DAYS 45 tablet 03/29/2024 Active HYDROcodone-marin taminophen (Edison) 10-325 MG tabletIndicatio ns:Other low back pain TAKE ONE TABLET BY MOUTH 3 TIMES A DAY NEEDED FOR 15 DAYS 45 tablet 04/12/2024 Active HYDROcodone-marin taminophen (Edison) 10-325 MG tabletIndicatio ns:Other low back pain [...] on file Legal Sex Female 9:08 AM INTERNATIONAL FLIGHT ATTENDANT Gender Identity Not on file Sexual [...] Comments LIPID PROFILE Routine 08/01/2024 2:54 PM INTERNATIONAL FLIGHT ATTENDANT Diabetes mellitus without complication HIV-1 HIV-2 ANTIBODY W/ REFLX CONFIRM Routine 07/19/2015 3:52 PM INTERNATIONAL FLIGHT ATTENDANT Possible exposure to STD from Last 3 Months or Most Recently Relevant to Health Maintenance Results * (ABNORMAL) LIPID PROFILE (08/01/2024 2:54 PM INTERNATIONAL FLIGHT ATTENDANT) Cholesterol Total 196 <200 mg/dL 08/01/2024 3:53 PM INTERNATIONAL FLIGHT ATTENDANT [facility] HDL 55 >40 mg/dL 08/01/2024 3:53 PM INTERNATIONAL FLIGHT ATTENDANT [facility] Comment: ATP III Classification of HDL Cholesterol: <40 mg/dL: Considered a major risk factor. >60 mg/dL: Considered a negative risk factor. LDL Calculated 90 <100 mg/dL 08/01/2024 3:53 PM INTERNATIONAL FLIGHT ATTENDANT [facility] Comment: ATP III Classification of LDL Cholesterol: <100 mg/dL: Optimal 100 - 129 mg/dL: Near Optimal/Above Optimal 130 - 159 mg/dL: Borderline High 160 - 189 mg/dL: High >190 mg/dL: Very High Triglycerides 255(H) <150 mg/dL 08/01/2024 3:53 PM INTERNATIONAL FLIGHT ATTENDANT [facility] Comment: ATP III Classification of Triglycerides: <150 mg/dL: Normal 150 - 199 mg/dL: Borderline High 200 - 400 mg/dL: High >500 mg/dL: Very High Blood BLOOD SPECIMEN / Unknown Lab Venipuncture / Unknown 08/01/2024 2:54 PM INTERNATIONAL FLIGHT ATTENDANT 08/01/2024 3:23 PM INTERNATIONAL FLIGHT ATTENDANT us Provider Unknown LAB - CHEMISTRY ORDERABLES Merle l Result [facility] [address] [place] [phone], [facility] [phone] * HIV-1 HIV-2 ANTIBODY W/ REFLX CONFIRM (07/19/2015 3:52 PM INTERNATIONAL FLIGHT ATTENDANT) HIV-1/HIV-2 Negative Negative 07/22/2015 12:40 AM INTERNATIONAL FLIGHT ATTENDANT [facility] Comment: Based on the non-reactive anti-HIV (ARSENIO) [...] Unknown Venipuncture / Unknown 07/19/2015 3:52 PM INTERNATIONAL FLIGHT ATTENDANT 07/19/2015 3:54 PM INTERNATIONAL FLIGHT ATTENDANT us Karen Rahman PA-C LAB - SEROLOGY ORDERABLES Fi nal Result [facility] [address] [place] [address], [facility] from Last 3 Months or Most Recently Relevant to Health Maintenance Insurance [place]ICAID [place] [employer] [place] [facility] Care Teams Foot Cutter Relationship Specialty Start Date End Date Karen Ramhan, [facility] [address] [place] [address] PCP - General Physician Family Medicine Physician 01/30/15
--- OUTSIDE RECORDS SUMMARY | 2025-08-25 17:56 | XMS_ITS | Encounter Summary ---
Author Organization [facility] Address [address] [place] [address] Care Team Providers Care Imaging Specialist Name Role Phone Unavailable Primary Care Provider Unavailabl e Encounter Details Date Type Department Care Team (Late st Contact Info) Description 06/01/2003 Abstract [facility] Conversion Md, Generic Conversion, [...]
--- OUTSIDE RECORDS SUMMARY | 2025-08-25 17:56 | XMS_ITS | Encounter Summary ---
Author Organization [facility] Address [address] [place] [id number] Care Team Providers Care Filter Washer Name Role Phone Unavailable Primary Care Provider Unavailabl e Encounter Details Date Type Department Care Team (Late st Contact Info) Description 05/23/2008 Abstract [facility] Conversion Md, Generic Conversion, Social [...]
--- OUTSIDE RECORDS SUMMARY | 2025-08-25 17:56 | XMS_ITS ---
Author Organization Unknown Address [address], [place] [phone] Phone Care Team Providers Care Podiatrist Name Role Phone ANTONIO Skinner (CC) Attending Unavailabl e OTHER Primary Unavailable Immunization Immunization Date Status Additional Notes Code Code System Pneumococcal conjugate PCV20 , polysaccharide [id number] conjugate, adjuvant, PF 06/26/2025 Completed 216 CVX COVID-19, mRNA, LNP-S, PF, 3 0 mcg/0.3 mL dose 04/17/2021 Completed 208 CVX COVID-19, mRNA, LNP-S, PF, 3 0 mcg/0.3 mL dose 11/24/2020 Completed 208 CVX COVID-19, mRNA, LNP-S, PF, 3 0 mcg/0.3 mL dose 11/14/2020 Completed 208 CVX Influenza, split virus, trivalent, PF 06/26/2025 Completed 140 CVX Influenza, split virus, trivalent, PF 07/18/2024 Completed 140 CVX Tdap 08/05/2021 Completed 115 CVX Tdap 08/31/2006 Completed 115 CVX Hep B, adult 08/05/2021 Completed 43 CVX pneumococcal polysaccharide PPV23 06/14/2014 Completed 33 CVX pneumococcal polysaccharide PPV23 08/31/2006 Completed 33 CVX varicella 08/05/2021 Completed 21 CVX MMR 08/05/2021 Completed 03 CVX Social History Type Status Start Date End Date Code Code Syst em Sex Female Hospital Discharge Instructions Should you have any questions prior to discharge, please contact a member of your healthcare team. If you have left the hospital and have any questions, please contact your primary care physician. Reason For Referral No Data Found Plan of Treatment No Data Found Encounters Encounter Diagnosis Start Date Code Code Sys tem History and physical examination, pre-employment 08/02 [id number] SNOMED-CT Personal Care Team Section Performer Name Performer Role Active Date Inactive Da te Other Physician PCP - Primary care physician 3
--- OUTSIDE RECORDS SUMMARY | 2025-08-25 17:56 | XMS_ITS | Clinical Summary ---
Author Organization [facility] Address [address] [place] [address] Care Team Providers Care Corporate Travel Manager Name Role Phone Rhys Meneses MD Primary Care Provider [phone] Allergies Active Allergy Reactions Criticality Noted Date [...] on file Legal Sex Female 2:50 PM [employer]NACE [employer] Gender Identity Not on file Sexual Orientation Not on file Last Filed Vital Signs Vital Sign Reading Time Taken Comments Blood Pressure 110/73 07/11/2022 4:47 PM FURNACE PACKER Pulse 73 07/11/2022 4:47 PM FURNACE PACKER Temperature 36.7 C (98 F) 07/11/2022 3:06 PM FURNACE PACKER Respiratory Rate 20 07/11/2022 4:47 PM FURNACE PACKER Oxygen Saturation 100% 07/11/2022 4:47 PM FURNACE PACKER Inhaled Oxygen Concentration - - Weight - [...] topic Hepatitis B Screening Completed 08/05/[address] [address] [place] [address] [place] [address] Care Teams Corporate Travel Manager Relationship Specialty Start Date End Date Rhys Meneses MD PCP - General Internal Medicine 07/21/24
--- OUTSIDE RECORDS SUMMARY | 2025-08-25 17:56 | XMS_ITS ---
Author Organization Unknown Address [address], [place] [id number] Phone Care Team Providers Care Shrinking Machine Operator Name Role Phone ANTONIO Skinner (CC) Attending Unavailabl e OTHER Primary Unavailable Immunization Immunization Date Status Additional Notes Code Code System Pneumococcal conjugate PCV20 , polysaccharide [id number] conjugate, adjuvant, PF 06/26/2025 Completed 216 CVX [...] tem History and physical examination, pre-employment 08/02 [id number] SNOMED-CT Personal Care Team Section Performer Name Performer Role Active Date Inactive Da te Other Physician PCP - Primary care physician 3
--- OUTSIDE RECORDS SUMMARY | 2025-08-25 17:56 | XMS_ITS | Clinical Summary ---
Author Organization [facility] Address [facility] [place] [address] Care Team Providers Care Cost Accountant Name Role Phone Unavailable Primary Care Provider [...]
--- OUTSIDE RECORDS SUMMARY | 2025-08-25 17:56 | XMS_ITS | Encounter Summary ---
Author Organization [facility] Address [address] [place] [address] Care Team Providers Care Buckle Strap Puncher Name Role Phone Unavailable Primary Care Provider Unavailabl e Encounter Details Date Type Department Care Team (Late st Contact Info) Description 04/13/2008 Abstract [facility] Conversion Md, Generic Conversion, Social [...]
--- OUTSIDE RECORDS SUMMARY | 2025-08-25 17:56 | XMS_ITS | Patient Health Record ---
Author Organization [facility] Primary [facility] Address [address] [place] [address] [address] [place], [place] [phone] Care Team Providers Care Monkey Keeper Name Role Phone Matty Velasquez Primary Care [...] Insured Coverage Start Date Coverage End Date [facility] [address] [place] [address] [id number] Shobha Gomez Self - patient is the insured Medical (General) History Medical History History ICD Code GERD chronic pancreatitis Gall Bladder Disease HX of chicken pox seasonal allergies Sinus Desease Surgical History Surgery Date(Month/Year) right knee ACL right knee arthroscopy
--- OUTSIDE RECORDS SUMMARY | 2025-08-25 17:56 | XMS_ITS | Data Portability ---
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 She recently had blood work we reviewed that for a chronic foot problem she will see Dr. James from Podiatry. She will follow up with me in 4 months sooner if testing reveal something specific. Her blood work was reviewed [email or web address] Not available 04/03/2024 12:25:35 07/04/2024 07/04/2024 obtain CBC CMP lipid and hemoglobin A1c. Refer to podiatry for foot pain and diabetic foot exam. 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 Schedule mammogram. Refer to endocrinology. Start Lantus 15 units daily. DC Ozempic because of history is a pancreatitis. She had some questions about filling out FMLA papers. She states that it is because of blood sugars going high. 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 Chronic pain she follows with pain management [email or web address] Not available 07/10/2024 21:52:59 06/26/2025 06/26/2025 CBC CMP lipid A1 c microalbuminuria testing freestyle Chel helps her manage her sugar as she can see and plan meals more accordingly and exercise follow up 4 months [email or web address] Not available 07/23/2025 22:21:11 08/01/2025 08/01/2025 Z-Benigno off work till Thursday push fluids Mucinex Delsym at night for cough [email or web address] Not available 08/01/2025 22:52:54 Plan of Treatment Reminders Order Date Submit Date Provider Last Modified By Organization Details Last Modified Time Details Appointments ANY 15 2025 09:30A M Rafaela Meneses MD Not available Not available Not available Lab albumin/c reatinine , mass ratio, urine 2024 JANA [facility] (Centralized Electronic Ordering - All Locations), Patient Can Go To The Location Of Their Choice, [id number] 08/02/2025 11:09:11 HbA1c (hemoglob in A1c), blood 2024 JANA [facility] (Centralized Electronic Ordering - All Locations), Patient Can Go To The Location Of Their Choice, [id number] 08/02/2025 11:09:13 lipid panel, serum 2024 JANA [facility] (Centralized Electronic Ordering - All Locations), Patient Can Go To The Location Of Their Choice, [id number] 08/02/2025 11:09:12 CBC w/ auto diff 2024 025 JANA [facility] (Centralized Electronic Ordering - All Locations), Patient Can Go To The Location Of Their Choice, [address] 08/02/2025 11:09:13 CMP, serum or plasma 2024 025 JANA [facility] (Centralized Electronic Ordering - All Locations), Patient Can Go To The Location Of Their Choice, [id number] 08/02/2025 11:09:12 HbA1c (hemoglob in A1c), blood 2023 [facility] (Outpatient Lab), [address], [address], 12/01/2024 11:18:34 CMP, serum or plasma 2023 [facility] (Outpatient Lab), [address], [address], 12/01/2024 11:18:34 lipid panel, serum 2023 [facility] (Outpatient Lab), [address], [address], 12/01/2024 11:18:35 CBC w/ auto diff 2023 [facility] (Outpatient Lab), [address], [address], 12/01/2024 11:18:35 Referral endocrino logy referral 2023 024 king Chávez MD, [address], [place], [address], 09/27/2024 18:10:27 gynecolog ist referral 2023 024 felisha Garces MD, [address], [address], [place], [address], 05/10/2025 17:04:48 podiatris t referral 2023 024 felisha Albarran Jr DPM, [address], [address], [place], [address], 05/10/2025 17:04:57 podiatris t referral 2023 024 felisha Andrew Albarran Jr DPM, [address], [address], [place], [address], 07/04/2024 13:49:35 Procedures None recorded. Surgeries None recorded. Imaging MAMMO, screening , digital, bilateral 2023 024 [facility] (Imaging), [address], [place], [address], 09/21/2024 16:36:14 electroca rdiogram 2023 024 [email or web address] In-Office Order, Internal Use Only DO Not Attach Compendium DO Not Attach Compendium, Do Not Delete/merge, [id number] 03/07/2024 14:00:11 US, duplex, carotid artery 2023 024 [facility] (Imaging), [address], [place], [address], 06/30/2025 14:29:14 MRI, brain, w/o contrast 2023 024 [facility] (Imaging), [facility], [place], [address], 07/04/2024 13:57:38 US, echocardi ogram 2023 024 [facility] (Cardiology & Emg), [address], [address], 04/29/2024 15:56:37 Medication Orders Zithromax Z-Benigno 250 mg tablet 2024 025 [email or web address] [facility] #45502, [address] [facility], [place], [place], [id number], 08/01/2025 16:55:12 Semglee (insulin glargine- yfgn) Pen 100 unit/mL (3 mL) subcutane ous [id number] [address] [facility]23486, [address], [place], [id number], 06/26/2025 17:21:31 atorvasta tin 20 mg tablet [address] [facility]65179, [address] [place] [address], [id number], 06/26/2025 17:21:31 buspirone 5 mg tablet [address] [facility]24196, [address] [place] [address], [id number], 06/26/2025 17:21:31 rizatript an 10 mg tablet [address] [facility]31428, [address] [place] [address], [id number], 06/26/2025 17:21:31 topiramat e 25 mg tablet [address] [facility]28666, [address] [place] [id number], 06/26/2025 17:21:31 ondansetr on 4 mg disintegr ating tablet [address] [facility]44386, [address] [place] [address], [id number], 06/26/2025 17:21:31 Lantus Solostar U-100 Insulin 100 unit/mL (3 mL) subcutane ous pen 2023 024 [email or web address] [facility] #29605, [address] [place] [address], [id number], 09/22/2024 12:14:06 topiramat e 25 mg tablet 2023 024 [email or web address] [facility], [address] [facility], [place], [place], [id number], 03/07/2024 14:00:11 Patient TargetsNo targets recorded. Patient Instructions Encounter Date Encounter Id Patient Instructions Last Modified By Organization Details Last Modified Time 03/07/2024 [id number] A healthy lifestyle: care instructions [email or web address] Not available 03/07/2024 14:00:11 07/04/2024 [id number] A healthy lifestyle: care instructions [email or web address] Not available 07/04/2024 17:47:37 06/26/2025 [id number] A healthy lifestyle: care instructions [email or web address] Not available 06/26/2025 11:42:23 08/01/2025 [id number] A healthy lifestyle: care instructions [email or web address] Not available 08/01/2025 16:55:12 Reason for Referral Gang Sawyer Referral for Pain in bilateral feet Referring Physician: Rafaela Meneses, Internal Medicine, Encounter Date: 11/27/2023 Plaster Tender Referral for Gy necologic examination Referring Physician: Rafaela Meneses, Internal Medicine, Encounter Date: 07/04/2024 Gang Sawyer Referral for Pain in bilateral feet Referring Physician: Rafaela Meneses Internal Medicine, Encounter Date: 07/04/2024 Endocrinology Referral for T ype 2 diabetes mellitus Referring Physician: Rafaela Meneses Internal Medicine, Encounter Date: 07/04/2024 Results Created Date Observation Date Name Description Value Unit Range Abnormal Flag Note LastModifiedBy Organization Detail LastModifiedTime 08/01/2008/02/2024 Hemog lobin A1c/H emogl obin. total in Blood hemoglobin A1C/hemoglob in.total in blood 7.7 % high: 5.6% high Hemog lobin A1c 7.7 (H) <=5.6 % 08/02 8:53 AM [facility] Not Available Not Available 10/12/2024 12:38:31 08/01/20 08/02/2024 Hemog lobin A1c/H emogl obin. total in Blood glucose mean value [mass/volume ] in blood estimated from glycated hemoglobin 174 mg/dL Estim ated [place] ge Gluco se 174 mg/dL 08/02 8:53 AM [facility] Not Available Not Available [...] - 10.7 x10E9 /L 08/01 3:32 PM [facility] Not Available Not Available 10/12/2024 12:38:31 08/01/20 24 08/01/2024 CBC panel - Blood by Autom ated count erythrocytes [#/volume] in blood by automated count 4.26 text: 3.90 - 5.20 x10e12 /L RBC Count 4.26 3.90 - 5.20 x10E1 2/L 08/01 3:32 PM [facility] Not Available Not Available 10/12/2024 12:38:31 08/01/20 24 08/01/2024 CBC panel - Blood by Autom ated count hemoglobin [mass/volume ] in blood 12.8 g/dL low: 11.9g/ dLhigh : 15.8g/ dL Hemog lobin 12.8 11.9 - 15.8 g/dL 08/01 3:32 PM [facility] Not Available Not Available 10/12/2024 12:38:31 08/01/20 24 08/01/2024 CBC panel - Blood by Autom ated count hematocrit [volume fraction] of blood by automated count 38.7 % low: 34.8%h igh: 46.1% Hemat ocrit 38.7 34.8 - 46.1 % 08/01 3:32 PM [facility] Not Available Not Available 10/12/2024 12:38:31 08/01/2008/01/2024 CBC panel - Blood by Autom ated count MCV [entitic volume] by automated count 90.8 fL low: 80fLhi gh: 98fL MCV 90.8 80.0 - 98.0 fL 08/01 3:32 PM [facility] Not Available Not Available 10/12/2024 12:38:31 08/01/20 24 08/01/2024 CBC panel - Blood by Autom ated count MCH [entitic mass] by automated count 30 pg low: 26.7pg high: 33.6pg MCH 30.0 26.7 - 33.6 pg 08/01 3:32 PM [facility] Not Available Not Available 10/12/2024 12:38:31 08/01/20 24 08/01/2024 CBC panel - Blood by Autom ated count MCHC [mass/volume ] by automated count 33.1 g/dL low: 31.7g/ dLhigh : 36.3g/ dL MCHC 33.1 31.7 - 36.3 g/dL 08/01 3:32 PM [facility] Not Available Not Available 10/12/2024 12:38:31 08/01/20 24 08/01/2024 CBC panel - Blood by Autom ated count erythrocyte distribution width [ratio] by automated count 14.8 % low: 11.3%h igh: 14.8% RDW-C V 14.8 11.3 - 14.8 % 08/01 3:32 PM [facility] Not Available Not Available 10/12/2024 12:38:31 08/01/2008/01/2024 CBC panel - Blood by Autom ated count platelets [#/volume] in blood by automated count 285 text: 150 - 420 x10e9/ L Plate let Count 285 150 - 420 x10E9 /L 08/01 3:32 PM [facility] Not Available Not Available 10/12/2024 12:38:31 08/01/20 24 08/01/2024 CBC panel - Blood by Autom ated count platelet mean volume [entitic volume] in blood by automated count 9.7 fL low: 7.8fLh igh: 11.4fL MPV 9.7 7.8 - 11.4 fL 08/01 3:32 PM [facility] Not Available [...] 7 - 26 mg/dL 08/01 3:53 PM [facility] Not Available Not Available 10/12/2024 12:38:31 08/01/20 24 08/01/2024 Compr ehens venus metab olic 1999 panel - Serum or Plasm a creatinine [mass/volume ] in serum or plasma 1.06 mg/dL low: 0.56mg /dLhig h: 0.96mg /dL high Creat inine 1.06 (H) 0.56 - 0.96 mg/dL 08/01 3:53 PM [facility] Not Available Not Available 10/12/2024 12:38:31 08/01/20 24 08/01/2024 Compr ehens venus metab olic 2000 panel - Serum or Plasm a sodium [moles/volum e] in serum or plasma 142 mmol/ L low: 136mmo l/Lhig h: 145mmo l/L Sodiu m 142 136 - 145 mmol/ L 08/01 3:53 PM [facility] Not Available Not Available 10/12/2024 12:38:31 08/01/20 24 08/01/2024 Compr ehens venus metab olic 2000 panel - Serum or Plasm a potassium [moles/volum e] in serum or plasma 4.4 mmol/ L low: 3.5mmo l/Lhig h: 4.5mmo l/L Potas sium 4.4 3.5 - 4.5 mmol/ L 08/01 3:53 PM [facility] Not Available Not Available 10/12/2024 12:38:31 08/01/20 24 08/01/2024 Compr [employer] venus metab olic 2000 panel - Serum or Plasm a chloride [moles/volum e] in serum or plasma 109 mmol/ L low: 98mmol /Lhigh : 107mmo l/L high Chlor patrick 109 (H) 98 - 107 mmol/ L 08/01 3:53 PM [facility] Not Available Not Available 10/12/2024 12:38:31 08/01/20 24 08/01/2024 Compr [employer] venus metab olic 2000 panel - Serum or Plasm a carbon dioxide, total [moles/volum e] in serum or plasma 25 mmol/ L low: 22mmol /Lhigh : 29mmol /L CO2 25 22 - 29 mmol/ L 08/01 3:53 PM [facility] Not Available Not Available 10/12/2024 12:38:31 08/01/20 24 08/01/2024 Compr Caviar venus QFO Labs olic 2000 panel - Serum or Plasm a glucose [mass/volume ] in serum or plasma 153 mg/dL low: 70mg/d Lhigh: 99mg/d L high Gluco se 153 (H) 70 - 99 mg/dL 08/01 3:53 PM [facility] Not Available Not Available 10/12/2024 12:38:31 08/01/20 24 08/01/2024 Compr [employer] venus metab olic 2000 panel - Serum or Plasm a calcium [moles/volum e] in serum or plasma 9.4 mg/dL low: 8.4mg/ dLhigh : 10.2mg /dL Calci um 9.4 8.4 - 10.2 mg/dL 08/01 3:53 PM [facility] Not Available Not Available 10/12/2024 12:38:31 08/01/20 24 08/01/2024 Compr ehens venus metab olic 1999 panel - Serum or Plasm a protein [mass/volume ] in serum or plasma 7.7 g/dL low: 6g/dLh igh: 8.3g/d L Prote in Total 7.7 6.0 - 8.3 g/dL 08/01 3:53 PM [facility] Not Available Not Available 10/12/2024 12:38:31 08/01/20 24 08/01/2024 Compr ens venus metab olic 2000 panel - Serum or Plasm a albumin [mass/volume ] in serum or plasma by bromocresol green (bcg) dye binding method 3.7 g/dL low: 3.4g/d Lhigh: 5g/dL Album in 3.7 3.4 - 5.0 g/dL 08/01 3:53 PM [facility] Not Available Not Available 10/12/2024 12:38:31 08/01/20 24 08/01/2024 Compr ens venus metab olic 1999 panel - Serum or Plasm a bilirubin.to an [mass/volume ] in serum or plasma 0.2 mg/dL low: 0.2mg/ dLhigh : 1.2mg/ dL Bilir ubin Total 0.2 0.2 - 1.2 mg/dL 08/01 3:53 PM [facility] Not Available Not Available 10/12/2024 12:38:31 08/01/20 24 08/01/2024 Compr ens venus metab olic 2000 panel - Serum or Plasm a alkaline phosphatase [enzymatic activity/vol ume] in serum or plasma 70 U/L low: 40U/Lh igh: 150U/L Alkal ine Phosp hatas e 70 40 - 150 U/L 08/01 3:53 PM [facility] Not Available Not Available 10/12/2024 12:38:31 08/01/20 24 08/01/2024 Compr ens venus metab olic 2000 panel - Serum or Plasm a alanine aminotransfe rase [enzymatic activity/vol ume] in serum or plasma by no addition of P-5'-P 24 U/L low: 5U/Lhi gh: 55U/L ALT 24 5 - 55 U/L 08/01 3:53 PM [facility] Not Available Not Available 10/12/2024 12:38:31 08/01/20 24 08/01/2024 Compr ehens venus metab olic 2000 panel - Serum or Plasm a aspartate aminotransfe rase [enzymatic activity/vol ume] in serum or plasma 18 U/L low: 5U/Lhi gh: 34U/L AST 18 5 - 34 U/L 08/01 3:53 PM [facility] Not Available Not Available 10/12/2024 12:38:31 08/01/20 24 08/01/2024 Compr ehens venus metab olic 2000 panel - Serum or Plasm a anion gap 8 low: 6high: 16 Anion Gap 8 6 - 16 08/01 3:53 PM [facility] Not Available Not Available 10/12/2024 12:38:31 08/01/20 24 08/01/2024 Compr ehens venus metab olic 2000 panel - Serum or Plasm a urea nitrogen/cre atinine [mass ratio] in serum or plasma 21 low: 7high: 23 BUN/C reati nine Ratio 21 7 - 23 08/01 3:53 PM [facility] Not Available Not Available 10/12/2024 12:38:31 08/01/20 24 08/01/2024 Compr ehens venus metab olic 2000 panel - Serum or Plasm a osmolality calculated 300 text: 275 - 295 mOsm/k g high Osmol ality Calcu lated 300 (H) 275 - 295 mOsm/ kg 08/01 3:53 PM [facility] Not Available Not Available 10/12/2024 12:38:31 08/01/20 24 08/01/2024 Compr ehens venus metab olic 2000 panel - Serum or Plasm a albumin/glob ulin ratio 0.9 low: 1.1hig h: 2.3 low Album in/Gl obuli n Ratio 0.9 (L) 1.1 - 2.3 08/01 3:53 PM [facility] Not Available Not Available 10/12/2024 12:38:31 08/01/20 24 08/01/2024 [employer] venus QFO Labs ol 2000 panel - Serum or Plasm a glomerular filtration rate/1.73 sq M.predicted [volume rate/area] in serum, plasma or blood by creatinine-b ased formula (CKD-epi 2020) 63 text: >=90 mL/min /1.73 m2 low eGFR by CKD-E PI 63 (L) >=90 mL/mi n/1.7 3 m2 08/01 3:53 PM [facility] Not Available Not Available 10/12/2024 12:38:31 08/01/20 24 08/01/2024 Compr Caviar venus QFO Labs olic 2000 panel - Serum or Plasm a interpretati on and review of laboratory results Abnorm al Not Available Not Available 12:38:31 08/01/20 24 08/01/2024 Lipid 1996 panel - Serum or Plasm a cholesterol [mass/volume ] in serum or plasma 196 mg/dL high: 200mg/ dL Venus stero l Total 196 <200 mg/dL 08/01 3:53 PM [facility] Not Available Not Available 10/12/2024 12:38:31 08/01/20 24 08/01/2024 Lipid 1996 panel - Serum or Plasm a cholesterol in HDL [mass/volume ] in serum or plasma 55 mg/dL low: 40mg/d L HDL 55 >40 mg/dL 08/01 3:53 PM [facility] Not Available Not Available 10/12/2024 12:38:31 08/01/20 24 08/01/2024 Lipid 1996 panel - Serum or Plasm a cholesterol in LDL [mass/volume ] in serum or plasma by calculation 90 mg/dL high: 100mg/ dL LDL Calcu lated 90 <100 mg/dL 08/01 3:53 PM [facility] Not Available Not Available 10/12/2024 12:38:31 08/01/20 24 08/01/2024 Lipid 1996 panel - Serum or Plasm a tricyclic antidepressa nts [mass/volume ] in serum or plasma 255 mg/dL high: 150mg/ dL high Trigl yceri mulu 255 (H) <150 mg/dL 08/01 3:53 PM [facility] Not Available Not Available 10/12/2024 12:38:31 08/01/20 24 08/01/2024 Lipid 1995 panel - Serum or Plasm a interpretati on and review of laboratory results Abnorm al Not Available Not Available 12:38:31 08/01/20 25 08/02/2025 ALBUM IN/CR EATIN INE RATIO ,URIN E creatinine, urine 105.3 mg/dL notest ab. Not Available [facility] ([facility]) [address] [place], [address], 08/02/2025 11:09:11 08/01/20 25 08/02/2025 ALBUM IN/CR EATIN INE RATIO ,URIN E albumin, urine 11.7 ug/mL notest ab. Not Available [facility] ([facility]) [address] [place], [address], 08/02/2025 11:09:11 08/01/20 25 08/02/2025 ALBUM IN/CR EATIN INE RATIO ,URIN E alb/creat ratio 11 mg/g_ creat 0-29 Pavithra l: 0 - 29 Moder ately incre ased: 30 - 300 Sever joe incre ased: >300 Not Available [facility] ([facility]) [address] [place], [address], 08/02/2025 11:09:11 08/01/20 25 08/02/2025 LIPID PANEL cholesterol, total 233 mg/dL 100-19 9 above high normal Not Available [facility] ([facility]) [address] [place], [address], 08/02/2025 11:09:12 08/01/20 25 08/02/2025 LIPID PANEL triglyceride s 304 mg/dL 0-149 above high normal Not Available [facility] ([facility]) [address] [facility], [place], [address], 08/02/2025 11:09:12 08/01/20 25 08/02/2025 LIPID PANEL HDL cholesterol 51 mg/dL >39 Not Available [facility] ([facility]) [address], [place], [address], 08/02/2025 11:09:12 08/01/20 25 08/02/2025 LIPID PANEL VLDL cholesterol jessica 54 mg/dL 5-40 above high normal Not Available [facility] ([facility]) [address] [place], [address], 08/02/2025 11:09:12 08/01/20 25 08/02/2025 LIPID PANEL LDL chol calc ([facility]) 128 mg/dL 0-99 above high normal Not Available [facility] ([facility]) [address] [facility], [place], [address], 08/02/2025 11:09:12 08/01/20 25 08/02/2025 CMP14 +EGFR glucose 197 mg/dL 70-99 above high normal Not Available [facility] ([facility]) [address] [facility], [place], [address], 08/02/2025 11:09:12 08/01/20 25 08/02/2025 CMP14 +EGFR BUN 12 mg/dL 6-24 Not Available [facility] ([facility]) [address] [facility], [place], [address], 08/02/2025 11:09:12 08/01/20 25 08/02/2025 CMP14 +EGFR creatinine 0.69 mg/dL 0.57-1 .00 Not Available [facility] ([facility]) [address] [facility], [place], [address], 08/02/2025 11:09:12 08/01/20 25 08/02/2025 CMP14 +EGFR eGFR 103 mL/mi n/1.7 3 >59 Not Available [facility] ([facility]) [address] [facility], [place], [address], 08/02/2025 11:09:12 08/01/20 25 08/02/2025 CMP14 +EGFR BUN/creatini ne ratio 17 9-23 Not Available [facility] ([facility]) [address] [facility], [place], [address], 08/02/2025 11:09:12 08/01/20 25 08/02/2025 CMP14 +EGFR sodium 137 mmol/ L 134-14 4 Not Available [facility] ([facility]) [address] [facility], [place], [address], 08/02/2025 11:09:12 08/01/20 25 08/02/2025 CMP14 +EGFR potassium 4.1 mmol/ L 3.5-5. 2 Not Available [facility] ([facility]) [address] [facility], [place], [address], 08/02/2025 11:09:12 08/01/20 25 08/02/2025 CMP14 +EGFR chloride 101 mmol/ L 96-106 Not Available [facility] ([facility]) [address] [facility], [place], [address], 08/02/2025 11:09:12 08/01/20 25 08/02/2025 CMP14 +EGFR carbon dioxide, total 22 mmol/ L 20-29 Not Available [facility] ([facility]) [address] [place], [address], 08/02/2025 11:09:12 08/01/20 25 08/02/2025 CMP14 +EGFR calcium 9.0 mg/dL 8.7-10 .2 Not Available [facility] ([facility]) [address] [place], [address], 08/02/2025 11:09:12 08/01/20 25 08/02/2025 CMP14 +EGFR protein, total 6.9 g/dL 6.0-8. 5 Not Available [facility] ([facility]) [address] [place], [address], 08/02/2025 11:09:12 08/01/20 25 08/02/2025 CMP14 +EGFR albumin 4.0 g/dL 3.8-4. 9 Not Available [facility] ([facility]) [address] [place], [address], 08/02/2025 11:09:12 08/01/2008/02/2025 CMP14 +EGFR globulin, total 2.9 g/dL 1.5-4. 5 Not Available [facility] ([facility]) [address] [place], [address], 08/02/2025 11:09:12 08/01/20 25 08/02/2025 CMP14 +EGFR bilirubin, total 0.2 mg/dL 0.0-1. 2 Not Available [facility] ([facility]) [address] [place], [address], 08/02/2025 11:09:12 08/01/20 25 08/02/2025 CMP14 +EGFR alkaline phosphatase 102 IU/L 49-135 Not Available [facility] ([facility]) [address] [place], [address], 08/02/2025 11:09:12 08/01/20 25 08/02/2025 CMP14 +EGFR AST (SGOT) 24 IU/L 0-40 Not Available [facility] ([facility]) [address] [place], [address], 08/02/2025 11:09:12 08/01/20 25 08/02/2025 CMP14 +EGFR ALT (SGPT) 30 IU/L 0-32 Not Available [facility] ([facility]) [address] [place], [address], 08/02/2025 11:09:12 08/01/20 25 08/02/2025 HEMOG LOBIN A1C hemoglobin A1C 10.6 % 4.8-5. 6 above high normal Predi abete s: 5.7 - 6.4 Diabe fermin: >6.4 Glyce yogesh contr ol for adult s with diabe fermin: <7.0 Not Available [facility] ([facility]) [address] [facility], [place], [address], 08/02/2025 11:09:13 08/01/20 25 08/02/2025 CBC WITH DIFFE RENTI AL/PL ATELE T WBC 8.5 x10e3 /uL 3.4-10 .8 Not Available [facility] Lab) [address] [facility], [place], [address], 08/02/2025 11:09:13 08/01/20 25 08/02/2025 CBC WITH DIFFE RENTI AL/PL ATELE T RBC 4.27 x10e6 /uL 3.77-5 .28 Not Available [facility] ([facility]) [address] [facility], [place], [address], 08/02/2025 11:09:13 08/01/20 25 08/02/2025 CBC WITH DIFFE RENTI AL/PL ATELE T hemoglobin 13.1 g/dL 11.1-1 5.9 Not Available [facility] ([facility]) [address] [facility], [place], [address], 08/02/2025 11:09:13 08/01/20 25 08/02/2025 CBC WITH DIFFE RENTI AL/PL ATELE T hematocrit 41.4 % 34.0-4 6.6 Not Available [facility] ([facility]) [address] [facility], [place], [address], 08/02/2025 11:09:13 08/01/20 25 08/02/2025 CBC WITH DIFFE RENTI AL/PL ATELE T MCV 97 fL 79-97 Not Available [facility] ([facility]) [address] [facility], [place], [address], 08/02/2025 11:09:13 08/01/20 25 08/02/2025 CBC WITH DIFFE RENTI AL/PL ATELE T MCH 30.7 pg 26.6-3 3.0 Not Available [facility] ([facility]) [address] [facility], [place], [address], 08/02/2025 11:09:13 08/01/20 25 08/02/2025 CBC WITH DIFFE RENTI AL/PL ATELE T MCHC 31.6 g/dL 31.5-3 5.7 Not Available [facility] ([facility]) [address] [facility], [place], [address], 08/02/2025 11:09:13 08/01/20 25 08/02/2025 CBC WITH DIFFE RENTI AL/PL ATELE T RDW 12.8 % 11.7-1 5.4 Not Available [facility] ([facility]) [address] [place], [address], 08/02/2025 11:09:13 08/01/20 25 08/02/2025 CBC WITH DIFFE RENTI AL/PL ATELE T platelets 316 x10e3 /uL 150-45 0 Not Available [facility] ([facility]) [address] [place], [address], 08/02/2025 11:09:13 08/01/20 25 08/02/2025 CBC WITH DIFFE RENTI AL/PL ATELE T neutrophils 46 % notest ab. Not Available [facility] ([facility]) [address] [place] [address], [address], 08/02/2025 11:09:13 08/01/20 25 08/02/2025 CBC WITH DIFFE RENTI AL/PL ATELE T lymphs 45 % notest ab. Not Available [facility] ([facility]) [address] [place], [address], 08/02/2025 11:09:13 08/01/20 25 08/02/2025 CBC WITH DIFFE RENTI AL/PL ATELE T monocytes 7 % notest ab. Not Available [facility] ([facility]) [address] [facility], [place], [address], 08/02/2025 11:09:13 08/01/20 25 08/02/2025 CBC WITH DIFFE RENTI AL/PL ATELE T eos 1 % notest ab. Not Available [facility] ([facility]) [address] [facility], [place], [address], 08/02/2025 11:09:13 08/01/20 25 08/02/2025 CBC WITH DIFFE RENTI AL/PL ATELE T basos 1 % notest ab. Not Available [facility] ([facility]) [address] [facility], [place], [address], 08/02/2025 11:09:13 08/01/20 25 08/02/2025 CBC WITH DIFFE RENTI AL/PL ATELE T neutrophils (absolute) 3.9 x10e3 /uL 1.4-7. 0 Not Available [facility] ([facility]) [address] [place], [address], 08/02/2025 11:09:13 08/01/20 25 08/02/2025 CBC WITH DIFFE RENTI AL/PL ATELE T lymphs (absolute) 3.9 x10e3 /uL 0.7-3. 1 above high normal Not Available [facility] ([facility]) [address] [place], [address], 08/02/2025 11:09:13 08/01/20 25 08/02/2025 CBC WITH DIFFE RENTI AL/PL ATELE T monocytes(ab solute) 0.6 x10e3 /uL 0.1-0. 9 Not Available [facility] ([facility]) [address] [facility], [place], [address], 08/02/2025 11:09:13 08/01/20 25 08/02/2025 CBC WITH DIFFE RENTI AL/PL ATELE T eos (absolute) 0.1 x10e3 /uL 0.0-0. 4 Not Available [facility] ([facility]) [address] [facility], [place], [address], 08/02/2025 11:09:13 08/01/20 25 08/02/2025 CBC WITH DIFFE RENTI AL/PL ATELE T baso (absolute) 0.0 x10e3 /uL 0.0-0. 2 Not Available [facility] ([facility]) [address] [facility], [place], [address], 08/02/2025 11:09:13 08/01/20 25 08/02/2025 CBC WITH DIFFE RENTI AL/PL ATELE T immature granulocytes 0 % notest ab. Not Available [facility] ([facility]) [address] [facility], [place], [address], 08/02/2025 11:09:13 08/01/20 25 08/02/2025 CBC WITH DIFFE RENTI AL/PL ATELE T immature grans (abs) 0.0 x10e3 /uL 0.0-0. 1 Not Available [facility] ([facility]) [address] [facility], [place], [address], 08/02/2025 11:09:13 03/07/20 24 elect rocar diogr am No observ ation record ed. JANA In-Office Order Internal Use Only DO Not Attach Compendium DO Not Attach Compendium, Do Not Delete/merge, [id number] 03/07/2024 12:33:28 03/07/20 24 03/07/2024 elect rocar diogr am No observ ation record ed. JANA In-Office Order Internal Use Only DO Not Attach Compendium DO Not Attach Compendium, Do Not Delete/merge, [id number] 03/07/2024 12:41:44 04/29/20 24 04/29/2024 , [facility] ardio gram No observ ation record ed. [address], [place], [address], 06/07/2024 12:12:17 09/20/19 25 09/20/2024 MAMMO , scree pascale, digit al, bilat eral No observ ation record ed. [address], [place], [address], 09/21/2024 16:33:10 09/20/19 25 09/20/2024 MAMMO , scree pascale, digit al, bilat eral No observ ation record ed. [address], [place], [address], 09/23/2024 16:05:42 11/10/19 25 09/20/2024 MAMMO , scree pascale, digit al, bilat eral No observ ation record ed. [facility] (Mammography) [address], [place], [address], 11/23/2024 15:11:48 12/06/19 25 09/20/2024 MAMMO , scree pascale, digit al, bilat eral No observ ation record ed. [facility] (Mammography) [address], [place], [address], 12/29/2024 23:16:58 04/06/20 25 04/06/2025 XR, ankle No observ ation record ed. [email or web address] [facility] [address] [place], [address], 04/09/2025 22:52:43 04/06/20 25 04/06/2025 XR, foot No observ ation record ed. [email or web address] [facility] [address] [place], [address], 04/09/2025 22:52:43 04/06/20 25 04/06/2025 XR, hand No observ ation record ed. [email or web address] [facility] [address] [place], [address], 04/09/2025 22:52:43 04/06/20 25 04/06/2025 XR, wrist No observ ation record ed. [email or web address] [facility] [address] [facility], [place], [address], 04/09/2025 22:52:43 06/21/2006/21/2025 US, duple x, carot id arter y No observ ation record ed. [email or web address] [address], [place], [address], 07/12/2025 10:19:49 06/28/20 25 06/28/2025 CT, ankle , w/o contr ast No observ ation record ed. Not Available 2024 21:30:51 06/28/2006/28/2025 CT, brain , w/wo contr ast No observ ation record ed. [facility] [address], [place], [address], 07/02/2025 21:30:51 06/28/20 25 06/28/2025 CT, brain , w/wo contr ast No observ ation record ed. [facility] [address], [place], [address], 07/02/2025 21:30:52 07/24/20 25 07/24/2025 MAMMO , diagn ostic , digit al, bilat eral No observ ation record ed. [facility] [address], [place], [address], 08/10/2025 12:32:49 Result Notes None recorded. Problems Name Problem SNOMED Code Status Onset Date Resolution Date Notes Provider Name and Address Organization Details Recorded Time Pneumonia 344858658 Active 2023 Rafaela Meneses MD Attn: Bambijorje hoffman,[address] [facility], [place], [address], [place] - [facility] 4 14:44:36 Dizziness 309253963 Active 2023 Stephen Forman [place] null, [place] [facility] 13:00:37 Type 2 diabetes mellitus 15760096 Active 2023 Sofia Christensen LPN [place], [place] [facility] 17:22:40 Hyperlipidemia 67431128 Active 2023 Stephen Forman [place], [place] [facility] 13:50:21 Migraine 56762083 Active 2023 Rafaela Meneses MD Attn: Tiana hoffman,[address] [facility], [place], [address], [place] - [facility] 4 21:45:13 Essential hypertension 08084530 Active 2023 Rafaela Meneses MD Attn: Tiana dalton,[address] [facility], [place], [address], [place] - [facility] 4 21:45:34 Anxiety 26850370 Active 2023 Rafaela Meneses MD Attn: Tiana dalton,[address] [facility], [place], [address], [place] [facility] 4 21:45:51 Neuropathy 213511288 Active 2023 Rafaela Meneses MD Attn: Tiana dalton,[address] [facility], [place], [address], [place] - [facility] 4 21:46:11 Problem Notes None recorded. Procedures Surgical History Date Name Laterality Status Provider Name and Address Organization Details Recorded Time Back Surgery completed MAKSIM Lindsey [place] [facility] 11/16/2023 17:12:46 Knee Surgery completed MAKSIM [place] - [facility] 11/16/2023 17:12:53 Imaging Results None recorded. Procedure Notes None recorded. Medical Equipment None Reported. Allergies Allergen ID Allergen Name Allergen Category Reaction Reaction Severity Criticality Documentation Date Start Date Code Code System Note Provider Name and Address Organization Details Recorded Time 109465 Toradol medicatio n hives other Not available Not available Not available 11/16/2023 52072 RxNorm rudolph Cruzenzie Deniz, RMA null, [place] - [facility] 4 17:05:33 654780 tramadol medicatio n anaphylax is Not available high 06/22/20252021 42136 RxNorm Not Available [employer] - prod 5 11:52:15 704762 iodine medicatio n Not available Not available Not available 06/26/20252012 5933 RxNorm Not Available [employer] - prod 5 03:36:11 754919 oxycodone hydrochlo ride medicatio n Not available Not available Not available 06/26/20252012 84791 RxNorm Not Available [employer] - prod 5 03:36:11 912041 acetamino phen medicatio n Not available Not available Not available 06/26/20252012 161 RxNorm Not Available [employer] - prod 5 03:36:11 194217 acetamino phen / oxycodone medicatio n itching Not available Not available 07/19/20252012 18693 3 RxNorm Not Available [employer] - prod 5 15:01:37 251054 ketorolac medicatio n itching Not available low 07/19/20252012 01752 RxNorm Not Available [employer] - prod 5 15:01:37 Medications [...] Not Available Vitals Date Recorded Body height Oxygen saturation Heart rate Systolic And Diastolic Provider Name and Address Organization Details Last Updated DateTime 11/27/2023 167.64 cm 96 % 87 /min 102/72 mm[Hg] Raul Chavarria [place] - [facility] 11/27/2023 13:28:42 Date Recorded Body height Body mass index (BMI) Body weight Heart rate Oxygen saturation Respiratory rate Systolic And Diastolic Provider Name and Address Organization Details Last Updated DateTime 07/08/202 4 167.64 cm 39.7 kg/m2 701066. 72 g 76 /min 98 % 14 /min 112/78 mm[Hg] MAKSIM Lindsey [facility] 4 11:23:34 Date Recorded Body height Body mass index (BMI) Body weight Heart rate Oxygen saturation Systolic And Diastolic Provider Name and Address Organization Details Last Updated DateTime 5 167.64 cm 40.4 kg/m2 858530. 09 g 87 /min 98 % 119/88 mm[Hg] Stephen Forman [place] - [facility] 5 10:27:17 Date Recorded Body height Body mass index (BMI) Body weight Heart rate Oxygen saturation Systolic And Diastolic Provider Name and Address Organization Details Last Updated DateTime 4 167.64 cm 39.8 kg/m2 828463. 52 g 79 /min 96 % 130/68 mm[Hg] Jamia Ramirez MA [facility] 4 11:36:47 Date Recorded Body height Body mass index (BMI) Body weight Heart rate Oxygen saturation Systolic And Diastolic Provider Name and Address Organization Details Last Updated DateTime 5 167.64 cm 40.4 kg/m2 468167. 09 g 74 /min 97 % 110/76 mm[Hg] Alma Hooks [place] - [facility] 5 15:36:53 Social History Question Answer Notes LastModified by Organizat ion Details LastModified Time Tobacco Smoking Status Never Smoker non smoker MAKSIM Lindsey null, [place] - [facility] 11/16/2023 17:12:35 Do You Have An [...] anxious, or unable to sleep at night)? [id number] Information not available 07/04/2024 Family History Relationship [...] Recorded Time Tdap 7 completed Not Available [facility] 08/01/2025 15:22:19 pneumococcal polysaccharide PPV23 7 completed Not Available [facility] 08/01/2025 15:22:19 pneumococcal polysaccharide PPV23 4 completed Not Available [facility] 08/01/2025 15:22:19 COVID-19, mRNA, LNP-S, PF, 30 mcg/0.3 mL dose 1 completed Not Available [facility] 08/01/2025 15:22:19 COVID-19, mRNA, LNP-S, PF, 30 mcg/0.3 mL dose 1 completed Not Available [facility] 08/01/2025 15:22:19 Hep B, adult 1 completed Not Available [facility] 08/01/2025 15:22:19 Tdap 1 completed Not Available [facility] 08/01/2025 15:22:19 MMR 1 completed Not Available [facility] 08/01/2025 15:22:19 varicella 1 completed Not Available [facility] 08/01/2025 15:22:19 Influenza, split virus, trivalent, PF 4 completed Not Available [facility] 08/01/2025 15:22:19 Influenza, split virus, trivalent, PF 5 completed BUTCH Coker, [facility] 06/26/2025 12:11:28 Pneumococcal conjugate PCV20, polysaccharide GAG356 conjugate, adjuvant, PF 5 completed BUTCH Coker, [facility] 06/26/2025 12:11:28 Past Encounters Encounter ID Performer Location Encounter Start Date Encounter Closed Date Diagnosis/Indication Diagnosis SNOMED-CT Code Diagnosis ICD10 Code Diagnosis IMO Codes Diagnosis Note [id number] [facility] [address] [place] [phone] 11/27/2023 12:54:17 11/27/2023 14:19:56 Pain in bilateral feet 9943003737 1024276 M79.672 M79.671 Type 2 sabina betes mellitus 68448659 E11.9 Chronic pain 41333296 G8 9.29 Migraine 04486371 G43.90 9 Anxiety 46420072 F41.9 [id number] MD Mu Curiel (Adult Med) [address] [place] [address] 11/16/2023 15:44:53 11/16/2023 17:51:53 Pneumonia 213158076 J18.9 [id number] Rafaela Meneses MD [facility] - [place] [address] [place] [address] 03/07/2024 11:06:52 03/07/2024 12:49:51 Renewal of prescription 560225920 Z76.0 Obesity 140306301 E66.8 Dizziness 135069078 R42 Pain in bi lateral feet 2113735442 4776393 M79.672 M79.732 [id number] Rafaela Meneses MD [facility] [employer] - [place] [address] [place] [address] 07/04/2024 11:06:35 07/04/2024 14:02:40 Obesity 688937380 E66.9 Screening mammography 24 488742 Z12.31 Type 2 sabina betes mellitus 99826372 E11.9 Hyperlipidemia 09086472 E78.5 Gynecologi c examination 07668587 Z01.419 Pain in bi lateral feet 2814131717 5067714 M79.672 M79.671 Migraine 54623494 G43.90 9 Anxiety 62486966 F41.9 Essential hypertension 05719054 I10 Neuropathy 100258019 G62 .9 [id number] Rafaela Meneses MD [facility] [employer] - [place] [address] [place] [address] 06/26/2025 10:11:10 06/26/2025 11:18:32 Obese class III 787456886 E66.813 E66.3 2449987139 Essential hypertension 06929658 I10 Anxiety 76279087 F41.9 Type 2 sabina betes mellitus 50585752 E11.9 Hyperlipidemia 10359524 E78.5 Neuropathy 403701497 G62 .9 Influenza vaccination given 3120030590 9109 Z23 61641028 Pneumococc al vaccination given 066665084 Z23 15493149 Renewal of prescription 654407162 Z76.0 Nausea 042713844 R11.0 [id number] [id number] Rafaela Meneses MD [facility] (Adult Med) [address] [place] [phone] 08/01/2025 15:14:17 08/01/2025 16:01:11 Obese class II 6514558838 54527 E66.812 E66.3 5698817971 40.4 Bronchitis 02435821 J40 16738 Health Concerns Section Related Observation LastModified by Organization Detai ls LastModified Time None Recorded Concern Status LastModified by Organization Details LastModified Time None Recorded Advance Directives Directive N: Payers Insurance Date Sequence Insurance Name Policy Number Policy Gutierrez Covered Member ID Gutierrez Member ID Guarantor Name 08/01/2025 2 [employer] [id number] Shobha Clemente aylor [id number] Shobha Hines or 08/01/2025 2 *SELF PAY* Sh ge Hines or 08/01/2025 1 [facility] - [facility] - [employer] ([id number]) [id number] Shobha Clemente aylor [id number] Shobha Hines or 06/26/2025 1 [employer] [id number] Shobha Murray [id number] Shobha Hines or Notes Date Note Type Note Provider Name and Address Organization Details Recorded Time 11/27/2023 text/html Pneumonia much better no shortness of breath hyperlipidemia could do better with diet diabetes no polyphagia or polydipsia migraines stable chronic pain she does see pain management. GERD has been doing okay. Rafaela Meneses MD Attn: Accounting, [address] [facility], [place], [address], [facility] 11/28/2023 15:25:54 03/07/2024 text/html hyperlipidemia could do better with diet diabetes no polyphagia or polydipsia migraines stable chronic pain she does see pain management. GERD has been doing okay. ill described dizzy spells no headache or blurred vision come with no rhyme or reason. She has chronic pain in both feet Rafaela Meneses MD Attn: Accounting,[address] [facility], [place], [address], [facility] - [facility] 04/03/2024 12:26:03 07/04/2024 text/html chronic foot pain still a bounce. She does have some abdominal discomfort as well GERD has been doing okay neuropathy bothers her quite a bit hypertension blood pressure looks good 130/68 migraines are stable. Hyperlipidemia does try to watch her diet Rafaela Meneses MD Attn: Accounting,[address] [facility], [place], [address], [place] - [facility] 07/10/2024 21:53:25 06/26/2025 text/html Blood sugars not taking much as she should hypertension has been controlled neuropathy stable migraines doing okay she has had some issues with insurance coverage that is why she has not been in in awhile Rafaela Meneses MD Attn: Accounting,[address] [facility], [place], [address], [facility] - [facility] 07/23/2025 22:21:36 08/01/2025 text/html Cough congestion for a week urgent care chest x-ray negative flu COVID strep allegedly negative still with some yellowish sputum not really short of breath but coughing a lot at night no wheezing no skin rashes stiff neck confusion nausea vomiting or diarrhea no sick contacts Rafaela Meneses MD Attn: Accounting,[address] [facility], [place], [address], [facility] - [facility] 08/01/2025 22:53:33 OBGyn Episode No OBEpisode recorded.
--- OUTSIDE RECORDS SUMMARY | 2025-08-25 17:56 | XMS_ITS | Encounter Summary ---
Author Organization [facility] Address [address] [place] [address] Care Team Providers Care Classifier Name Role Phone Unavailable Primary Care Provider Unavailabl e Encounter Details Date Type Department Care Team (Late st Contact Info) Description 06/05/2008 Abstract [facility] Conversion Md, [...]
--- OUTSIDE RECORDS SUMMARY | 2025-08-25 17:56 | XMS_ITS | Patient Health Record ---
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 Role Phone Daniel Liz MD, Betty Primary Care Provider Unavailable Angélica Bateman Unavailable [phone] Migration, Provider Unavailable Unavailable Allergies Allergen (clinical [...] smoker Encounters Encounter Location Date Provider Diagnosis [facility] [address] [facility] [address] [place] [address] 03/11/2025 Provider Migration Plan Of Treatment No Information Insurance Providers Payer Name Payer Address Payer Phone Subscriber Number Group Number Insured Name Patient Relationship to Insured Coverage Start Date Coverage End Date [facility] [address] [place] [address] [phone] [id number] Shobha Valle Self - patient is the insured Medical (General) History Medical History History ICD Code Back pain Type II diabetes headaches Surgical History Surgery Date(Month/Year) Knee surgery BACK SX neck fusion
--- OUTSIDE RECORDS SUMMARY | 2025-08-25 17:56 | XMS_ITS | Encounter Summary ---
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
--- OUTSIDE RECORDS SUMMARY | 2025-08-25 17:56 | XMS_ITS | Continuity of Care Document ---
Author Organization [place] - [place], SIF [facility] Address [address] [place] [address] Care Team Providers Care Global Compensation Manager Name Role Phone RAFAELA MENESES Primary Care Provider SHAN Lamas JR Design Director [phone] TRISTEN CHÁVEZ Hand Paint Mixer MAXIM GARCES Technical Documentation Specialist [facility] [employer] Optometri st Assessment Encounter Date Assessment Date Assessment LastModified by Organization Details LastModified Time 06/26/2025 06/26/2025 CBC CMP lipid A1 c microalbuminuria testing ronak Milligan helps her manage her sugar as she can see and plan meals more accordingly and exercise follow up 4 months [email or web address] Not available 07/23/2025 22:21:11 Plan of Treatment Reminders Order Date Submit Date Provider Last Modified By Organization Details Last Modified Time Details Appointments ANY 15 2025 09:30A M Rafaela Meneses MD Not available Not available Not available Lab albumin/c reatinine , mass ratio, urine 2024 025 [place] (Centralized Electronic Ordering - All Locations), Patient Can Go To The Location Of Their Choice, [id number] 08/02/2025 11:09:11 HbA1c (hemoglob in A1c), blood 2024 025 [facility] (Centralized Electronic Ordering - All Locations), Patient Can Go To The Location Of Their Choice, [id number] 08/02/2025 11:09:13 lipid panel, serum 2024 [place] [facility] ([facility]ized [facility] Ordering - All Locations), Patient Can Go To The Location Of Their Choice, [id number] 08/02/2025 11:09:12 CBC w/ auto diff 2024 [facility] ([facility]ized Electronic Ordering - All Locations), Patient Can Go To The Location Of Their Choice, [id number] 08/02/2025 11:09:13 CMP, serum or plasma 2024 [place] [facility] ([facility]ized [facility] Ordering - All Locations), Patient Can Go To The Location Of Their Choice, [id number] 08/02/2025 11:09:12 Referral None recorded. Procedures None recorded. Surgeries None recorded. Imaging None recorded. Medication Orders Semglee (insulin glargine- yfgn) Pen 100 unit/mL (3 mL) subcutane ous [address] [facility] [address] [facility]23091, [address] [place] [address], [id number], 06/26/2025 17:21:31 atorvasta tin 20 mg tablet [address] [facility] [address] [facility]08475, [address] [place] [address], [id number], 06/26/2025 17:21:31 buspirone 5 mg tablet [address] [facility] [address] [facility]24010, [address] [place] [address], [id number], 06/26/2025 17:21:31 rizatript an 10 mg tablet [address] [facility] [address] [facility] #65292, [address] [place] [address], [id number], 06/26/2025 17:21:31 topiramat e 25 mg tablet 2024 [email or web address] [facility], [address] [place], [place], [id number], 06/26/2025 17:21:31 ondansetr on 4 mg disintegr ating tablet 2024 025 [email or web address] [facility], [address] [place], [place], [id number], 06/26/2025 17:21:31 Patient TargetsNo targets recorded. Patient Instructions Encounter Date Encounter Id Patient Instructions Last Modified By Organization Details Last Modified Time 06/26/2025 [id number] A healthy lifestyle: care instructions [email or web address] Not available 06/26/2025 11:42:23 Reason for Referral None Reported. Results Created Date Observation Date Name Description Value Unit Range Abnormal Flag Note LastModifiedBy Organization Detail LastModifiedTime 08/01/20 25 08/02/2025 ALBUM IN/CR EATIN INE RATIO ,URIN E creatinine, urine 105.3 mg/dL notest ab. Not Available [facility] ([facility]) [address] [facility], [place], [address], 08/02/2025 11:09:11 08/01/20 25 08/02/2025 ALBUM IN/CR EATIN INE RATIO ,URIN E albumin, urine 11.7 ug/mL notest ab. Not Available [facility] ([facility]) [address] [facility], [place], [address], 08/02/2025 11:09:11 08/01/20 25 08/02/2025 ALBUM IN/CR EATIN INE RATIO ,URIN E alb/creat ratio 11 mg/g_ creat 0-29 Pavithra l: 0 - 29 Moder ately incre ased: 30 - 300 Sever joe incre ased: >300 Not Available [facility] ([facility]) [address] [facility], [place], [address], 08/02/2025 11:09:11 08/01/20 25 08/02/2025 LIPID PANEL cholesterol, total 233 mg/dL 100-19 9 above high normal Not Available [facility] ([facility]) [address] [place], [address], 08/02/2025 11:09:12 08/01/20 25 08/02/2025 LIPID PANEL triglyceride s 304 mg/dL 0-149 above high normal Not Available [facility] ([facility]) [address] [facility] [place], [address], 08/02/2025 11:09:12 08/01/20 25 08/02/2025 LIPID PANEL HDL cholesterol 51 mg/dL >39 Not Available [facility] [address] [facility] [place], [address], 08/02/2025 11:09:12 08/01/20 25 08/02/2025 LIPID PANEL VLDL cholesterol jessica 54 mg/dL 5-40 above high normal Not Available [facility] ([facility]) [address] [facility] [place], [address], 08/02/2025 11:09:12 08/01/20 25 08/02/2025 LIPID PANEL LDL chol calc ([facility]) 128 mg/dL 0-99 above high normal Not Available [facility] ([facility]) [address] [facility], [place], [address], 08/02/2025 11:09:12 08/01/20 25 08/02/2025 CMP14 +EGFR glucose 197 mg/dL 70-99 above high normal Not Available [facility] ([facility]) [address] [facility] [place], [address], 08/02/2025 11:09:12 08/01/20 25 08/02/2025 CMP14 +EGFR BUN 12 mg/dL 6-24 Not Available [facility] ([facility]) [address] [facility] [place], [address], 08/02/2025 11:09:12 08/01/20 25 08/02/2025 CMP14 +EGFR creatinine 0.69 mg/dL 0.57-1 .00 Not Available [facility] ([facility]) [address] [facility], [place], [address], 08/02/2025 11:09:12 08/01/20 25 08/02/2025 CMP14 +EGFR eGFR 103 mL/mi n/1.7 3 >59 Not Available [facility] ([facility]) [address] [facility], [place], [address], 08/02/2025 11:09:12 08/01/20 25 08/02/2025 CMP14 +EGFR BUN/creatini ne ratio 17 9-23 Not Available [facility] ([facility]) [address] [facility], [place], [address], 08/02/2025 11:09:12 08/01/20 25 08/02/2025 CMP14 +EGFR sodium 137 mmol/ L 134-14 4 Not Available [facility] ([facility]) [address] [facility], [place], [address], 08/02/2025 11:09:12 08/01/20 25 08/02/2025 CMP14 +EGFR potassium 4.1 mmol/ L 3.5-5. 2 Not Available [facility] ([facility]) [address] [facility], [place], [address], 08/02/2025 11:09:12 08/01/20 25 08/02/2025 CMP14 +EGFR chloride 101 mmol/ L 96-106 Not Available [facility] ([facility]) [address] [place], [address], 08/02/2025 11:09:12 08/01/20 25 08/02/2025 CMP14 +EGFR carbon dioxide, total 22 mmol/ L 20-29 Not Available [facility] ([facility]) [address] [place], [address], 08/02/2025 11:09:12 08/01/20 25 08/02/2025 CMP14 +EGFR calcium 9.0 mg/dL 8.7-10 .2 Not Available [facility] ([facility]) [address] [facility], [place], [address], 08/02/2025 11:09:12 08/01/20 25 08/02/2025 CMP14 +EGFR protein, total 6.9 g/dL 6.0-8. 5 Not Available [facility] ([facility]) [address] [facility], [place], [address], 08/02/2025 11:09:12 08/01/20 25 08/02/2025 CMP14 +EGFR albumin 4.0 g/dL 3.8-4. 9 Not Available [facility] ([facility]) [address] [place], [address], 08/02/2025 11:09:12 08/01/20 25 08/02/2025 CMP14 +EGFR globulin, total 2.9 g/dL 1.5-4. 5 Not Available [facility] ([facility]) [address] [place], [address], 08/02/2025 11:09:12 08/01/20 25 08/02/2025 CMP14 +EGFR bilirubin, total 0.2 mg/dL 0.0-1. 2 Not Available [facility] ([facility]) [address] [place], [address], 08/02/2025 11:09:12 08/01/20 25 08/02/2025 CMP14 +EGFR alkaline phosphatase 102 IU/L 49-135 Not Available [facility] [address] [facility], [place], [address], 08/02/2025 11:09:12 08/01/20 25 08/02/2025 CMP14 +EGFR AST (SGOT) 24 IU/L 0-40 Not Available [facility] ([facility]) [address] [facility], [place], [address], 08/02/2025 11:09:12 08/01/20 25 08/02/2025 CMP14 +EGFR ALT (SGPT) 30 IU/L 0-32 Not Available [facility] ([facility]) [address] [facility], [place], [address], 08/02/2025 11:09:12 08/01/20 25 08/02/2025 HEMOG LOBIN A1C hemoglobin A1C 10.6 % 4.8-5. 6 above high normal Predi abete s: 5.7 - 6.4 Diabe fermin: >6.4 Glyce yogesh contr ol for adult s with diabe fermin: <7.0 Not Available [facility] ([facility]) [address] [facility], [place], [address], 08/02/2025 11:09:13 08/01/20 25 08/02/2025 CBC WITH DIFFE RENTI AL/PL ATELE T WBC 8.5 x10e3 /uL 3.4-10 .8 Not Available [facility] ([facility]) [address] [facility], [place], [address], 08/02/2025 11:09:13 08/01/20 25 08/02/2025 CBC WITH DIFFE RENTI AL/PL ATELE T RBC 4.27 x10e6 /uL 3.77-5 .28 Not Available [facility] ([facility]) [address] [facility], [place], [address], 08/02/2025 11:09:13 08/01/20 25 08/02/2025 CBC WITH DIFFE RENTI AL/PL ATELE T hemoglobin 13.1 g/dL 11.1-1 5.9 Not Available [facility] ([facility]) [address] [place], [address], 08/02/2025 11:09:13 08/01/20 25 08/02/2025 CBC WITH DIFFE RENTI AL/PL ATELE T hematocrit 41.4 % 34.0-4 6.6 Not Available [facility] ([facility]) [address] [facility], [place], [address], 08/02/2025 11:09:13 08/01/20 25 08/02/2025 CBC WITH DIFFE RENTI AL/PL ATELE T MCV 97 fL 79-97 Not Available [facility] ([facility]) [address] [facility], [place], [address], 08/02/2025 11:09:13 08/01/2008/02/2025 CBC WITH DIFFE RENTI AL/PL ATELE T MCH 30.7 pg 26.6-3 3.0 Not Available [facility] ([facility]) [address] [facility], [place], [address], 08/02/2025 11:09:13 08/01/20 25 08/02/2025 CBC WITH DIFFE RENTI AL/PL ATELE T MCHC 31.6 g/dL 31.5-3 5.7 Not Available [facility] ([facility]) [address] [facility], [place], [address], 08/02/2025 11:09:13 08/01/20 25 08/02/2025 CBC WITH DIFFE RENTI AL/PL ATELE T RDW 12.8 % 11.7-1 5.4 Not Available [facility] ([facility]) [address] [facility], [place], [address], 08/02/2025 11:09:13 08/01/20 25 08/02/2025 CBC WITH DIFFE RENTI AL/PL ATELE T platelets 316 x10e3 /uL 150-45 0 Not Available [facility] ([facility]) [address] [place], [address], 08/02/2025 11:09:13 08/01/20 25 08/02/2025 CBC WITH DIFFE RENTI AL/PL ATELE T neutrophils 46 % notest ab. Not Available [facility] ([facility]) [address] [place], [address], 08/02/2025 11:09:13 08/01/20 25 08/02/2025 CBC WITH DIFFE RENTI AL/PL ATELE T lymphs 45 % notest ab. Not Available [facility] ([facility]) [address] [facility], [place], [address], 08/02/2025 11:09:13 08/01/20 25 08/02/2025 CBC WITH DIFFE RENTI AL/PL ATELE T monocytes 7 % notest ab. Not Available [facility] ([facility]) [address] [facility], [place], [address], 08/02/2025 11:09:13 08/01/20 25 08/02/2025 CBC WITH DIFFE RENTI AL/PL ATELE T eos 1 % notest ab. Not Available [facility] ([facility]) [address] [facility], [place], [address], 08/02/2025 11:09:13 08/01/20 25 08/02/2025 CBC WITH DIFFE RENTI AL/PL ATELE T basos 1 % notest ab. Not Available [facility] ([facility]) [address] [facility], [place], [address], 08/02/2025 11:09:13 08/01/20 25 08/02/2025 CBC WITH DIFFE RENTI AL/PL ATELE T neutrophils (absolute) 3.9 x10e3 /uL 1.4-7. 0 Not Available [facility] ([facility]) [address] [place], [address], 08/02/2025 11:09:13 08/01/20 25 08/02/2025 CBC WITH DIFFE RENTI AL/PL ATELE T lymphs (absolute) 3.9 x10e3 /uL 0.7-3. 1 above high normal Not Available [facility] ([facility]) [address] [facility], [place], [address], 08/02/2025 11:09:13 08/01/20 25 08/02/2025 CBC WITH DIFFE RENTI AL/PL ATELE T monocytes(ab solute) 0.6 x10e3 /uL 0.1-0. 9 Not Available [facility] ([facility]) [address] [facility], [place], [address], 08/02/2025 11:09:13 08/01/2008/02/2025 CBC WITH DIFFE RENTI AL/PL ATELE T eos (absolute) 0.1 x10e3 /uL 0.0-0. 4 Not Available [facility] ([facility]) [address] [facility], [place], [address], 08/02/2025 11:09:13 08/01/20 25 08/02/2025 CBC WITH DIFFE RENTI AL/PL ATELE T baso (absolute) 0.0 x10e3 /uL 0.0-0. 2 Not Available [facility] ([facility]) [address] [facility], [place], [address], 08/02/2025 11:09:13 08/01/20 25 08/02/2025 CBC WITH DIFFE RENTI AL/PL ATELE T immature granulocytes 0 % notest ab. Not Available [facility] ([facility]) [address] [facility], [place], [address], 08/02/2025 11:09:13 08/01/20 25 08/02/2025 CBC WITH DIFFE RENTI AL/PL ATELE T immature grans (abs) 0.0 x10e3 /uL 0.0-0. 1 Not Available [facility] ([facility]) [address] [facility], [place], [address], 08/02/2025 11:09:13 06/21/2006/21/2025 US, duple x, carot id arter y No observ ation record ed. felisha [facility] [address], [place], [address], 07/12/2025 10:19:49 06/28/20 25 06/28/2025 CT, ankle , w/o contr ast No observ ation record ed. [email or web address] Not Available 2024 21:30:51 06/28/20 25 06/28/2025 CT, brain , w/wo contr ast No observ ation record ed. [facility] [address], [place], [address], 07/02/2025 21:30:51 06/28/20 25 06/28/2025 CT, brain , w/wo contr ast No observ ation record ed. [facility] [address], [place], [address], 07/02/2025 21:30:52 07/24/20 25 07/24/2025 MAMMO , diagn ostic , digit al, bilat eral No observ ation record ed. [facility] [address], [place], [address], 08/10/2025 12:32:49 Result Notes None recorded. Problems Name Problem SNOMED Code Status Onset Date Resolution Date Notes Provider Name and Address Organization Details Recorded Time Pneumonia 889039897 Active 2023 Rafaela Meneses MD Attn: Tiana hoffman,[address] [facility], [place], [address], [place] - [facility] 4 14:44:36 Dizziness 377892148 Active 2023 Stephen Forman MA null, [place] - [facility] 4 13:00:37 Type 2 diabetes mellitus 88489143 Active 2023 Sofia Christensen LPN null, [place] [facility] 17:22:40 Hyperlipidemia 76352165 Active 2023 Stephen Forman [place] null, [place] [facility] 13:50:21 Migraine 66284915 Active 2023 Rafaela Meneses MD Attn: Tiana hoffman,[address] [facility], [place], [address], [place] [facility] 4 21:45:13 Essential hypertension 78224745 Active 2023 Rafaela Meneses MD Attn: Tiana hoffman,[address] [facility], [place], [address], [place] [facility] 4 21:45:34 Anxiety 11010504 Active 2023 Rafaela Meneses MD Attn: Tiana hoffman,[address] [facility], [place], [address], [place] [facility] 4 21:45:51 Neuropathy 984488163 Active 2023 Rafaela Meneses MD Attn: Tiana hoffman,[address] [facility], [place], [address], [place] [facility] 4 21:46:11 Problem Notes None recorded. Procedures Surgical History Date Name Laterality Status Provider Name and Address Organization Details Recorded Time Back Surgery completed MAKSIM Lindsey [place] 11/16/2023 17:12:46 Knee Surgery completed MAKSIM Lindsey [place] - [place] 11/16/2023 17:12:53 Imaging Results None recorded. Procedure Notes None recorded. Medical Equipment None Reported. Allergies Allergen ID Allergen Name Allergen Category Reaction Reaction Severity Criticality Documentation Date Start Date Code Code System Note Provider Name and Address Organization Details Recorded Time 619231 Toradol medicatio n hives other Not available Not available Not available 11/16/2023 71765 RxNorm juanya MAKSIM Busch, [place] - [facility] 4 17:05:33 291714 tramadol medicatio n anaphylax is Not available [facility] 06/22/20252021 20058 RxNorm Not Available [facility] - [employer] - prod 5 11:52:15 079615 iodine medicatio n Not available Not available Not available 06/26/20252012 5933 RxNorm Not Available [facility] - [employer] - prod 5 03:36:11 109484 oxycodone hydrochlo ride medicatio n Not available Not available Not available 06/26/20252012 08617 RxNorm Not Available [facility] - [employer] - prod 5 03:36:11 171827 acetamino phen medicatio n Not available Not available Not available 06/26/20252012 161 RxNorm Not Available formerly [facility] [employer] - [facility] 5 03:36:11 860408 acetamino phen / oxycodone medicatio n itching Not available Not available 07/19/20252012 08392 3 RxNorm Not Available formerly [facility] [employer] - [facility] 5 15:01:37 183098 ketorolac medicatio n itching Not available low 07/19/20252012 47415 RxNorm Not Available [facility] [employer] - [facility] 5 15:01:37 Medications Name Sig Start Date [...] Last Updated DateTime 167.64 cm 40.4 kg/m2 575041. 09 g 87 /min 98 % 119/88 mm[Hg] Stephen Forman MA [facility] 10:27:17 Social History Question Answer Notes LastModified by Organizat ion Details LastModified Time Tobacco Smoking Status Never Smoker non smoker MAKSIM Lindsey, [place] - [facility] 11/16/2023 17:12:35 Do You Have An [...] anxious, or unable to sleep at night)? WI4433-5 Information not available 07/04/2024 Family History Relationship [...] Recorded Time Tdap 7 completed Not Available [facility] 08/01/2025 15:22:19 pneumococcal polysaccharide PPV23 7 completed Not Available [facility] 08/01/2025 15:22:19 pneumococcal polysaccharide PPV23 4 completed Not Available [facility] 08/01/2025 15:22:19 COVID-19, mRNA, LNP-S, PF, 30 mcg/0.3 mL dose 1 completed Not Available [facility] 08/01/2025 15:22:19 COVID-19, mRNA, LNP-S, PF, 30 mcg/0.3 mL dose 1 completed Not Available [facility] 08/01/2025 15:22:19 Hep B, adult 1 completed Not Available [facility] 08/01/2025 15:22:19 Tdap 1 completed Not Available [facility] 08/01/2025 15:22:19 MMR 1 completed Not Available [facility] 08/01/2025 15:22:19 varicella 1 completed Not Available [facility] 08/01/2025 15:22:19 Influenza, split virus, trivalent, PF 4 completed Not Available [facility] 08/01/2025 15:22:19 Influenza, split virus, trivalent, PF 5 completed [facility] [place] [facility] 06/26/2025 12:11:28 Pneumococcal conjugate PCV20, polysaccharide UKQ519 conjugate, adjuvant, PF 5 completed BUTCH Coker [place] [facility] 06/26/2025 12:11:28 Past Encounters Encounter ID Performer Location Encounter Start Date Encounter Closed Date Diagnosis/Indication Diagnosis SNOMED-CT Code Diagnosis ICD10 Code Diagnosis IMO Codes Diagnosis Note [id number] Rafaela Meneses MD [facility] [address] [place] [address] 06/26/2025 10:11:10 06/26/2025 11:18:32 Obese class III 822066917 E66.813 E66.3 2326321750 Essential hypertension 17668674 I10 Anxiety 54261054 F41.9 Type 2 sabina betes mellitus 61223172 E11.9 Hyperlipidemia 30411013 E78.5 Neuropathy 063343231 G62 .9 Influenza vaccination given 8647683707 9109 Z23 42036396 Pneumococc al vaccination given 506801978 Z23 18246839 Renewal of prescription 050753236 Z76.0 Nausea 162397477 R11.0 50700 Health Concerns Section Related Observation LastModified by Organization Detai ls LastModified Time None Recorded Concern Status LastModified by Organization Details LastModified Time None Recorded Payers Encounter Date Sequence Insurance Name Policy Number Policy Gutierrez Covered Member ID Gutierrez Member ID Guarantor Name 06/26/2025 1 [facility] [facility] (O) [id number] Shobha Shon santiago [id number] Shobha Grisel fernandez Notes Date Note Type Note Provider Name and Address Organization Details Recorded Time 06/26/2025 text/html Blood sugars not taking much as she should hypertension has been controlled neuropathy stable migraines doing okay she has had some issues with insurance coverage that is why [facility] Rafaela Meneses MD Attn: Accounting,[address] [facility], [place], [address], [facility] 07/23/2025 22:21:36 OBGyn Episode No OBEpisode recorded.
[2025-08-25 19:15] VITALS: BP 143/77; PULSE 108; RESP 20; TEMP 36.8; O2SAT 98
--- NOTE | 2025-08-25 20:50 | ED.URI ---
HPI - URI/Sore Throat General Chief Complaint: Upper Respiratory Infection Stated Complaint: cough x1 month Time Seen by Provider: 08/25/25 20:46 Source: patient Mode of arrival: ambulatory Limitations: no limitations History of Present Illness HPI Narrative: Patient presents with a cough of 1 months duration, since July. Has been using Dayquil, Nyguil, Mucinex, Tessalon perles. Went to urgent care who prescribed amoxicillin. 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 She reports that at the correction there are currently 3 patients with covid, 3 with flu A, 3 with flu B, and 3 with pneumonia. Co workers are also sick. She has subjective fevers/chills. Experiencing some photophobia. Non smoker. History of previous pneumonia and bronchitis. Unknown if any edema. She also has chest pain and shortness of breath. cough has been productive of green and yellow sputum. She has a history of benign uterine and Fallopian tube tumors. She needs to establish with an ObGyn for these, had an appointment but then got sick and didn't want to expose clinic so needs to reschedule. 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 History of bronchitis History of pneumonia Chronic lower back pain Surgical History Surgical History Hx of cholecystectomy per CT interpretation H/O lumbosacral spine surgery S/P placement of nerve stimulator Family History Family History (Updated 07/17/25 @ 14:58 by Zaira Verdugo [facility]) Other Cerebrovascular accident Heart disease Hypertension Social History Social History Social History: Denies alcohol tobacco or drug use Smoking status: Unknown if ever smoked Alcohol intake: current Substance use: never Lack of Transportation: YES Lack of Food: Often True Current Housing: I Have Housing Concerned About Future Housing: YES Difficulty Paying Gas/Electric Bills: YES Difficulty Paying for Meds: YES Currently Unemployed: No Education: Associate Degree Difficulty w/ Childcare or Family Care: No Occupation/Education: occupation Additional occupation/education comments: 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 HEAD: Normocephalic, atraumatic. EYES: Non injected, non icteric ENT: Nares clear, no rhinorrhea or epistaxis. Gross auditory acuity intact. NECK: Supple. No meningismus. CHEST: Speaking in full sentences. No respiratory distress. Lungs clear to auscultation without appreciable wheezes crackles or consolidation. With forced cough, faint wheeze. HEART: Regular rate and rhythm. . ABDOMEN: Soft, nondistended. No rigidity or guarding. Not peritoneal EXTREMITIES: Normal range of motion. No lower extremity edema. SKIN: Warm, dry, no rash. NEURO: No focal deficits. Alert and oriented. Answering questions. Following commands. Normal speech without aphasia or dysarthria. PSYCH: Normal mood and affect. Course Vital Signs Vital signs: Vital Signs Temperature 98.2 F 08/25/25 19:15 Pulse Rate 108 H 08/25/25 19:15 Respiratory Rate 20 08/25/25 19:15 Blood Pressure 143/77 H 08/25/25 19:15 Pulse Oximetry 98 08/25/25 19:15 Temperature 98.6 F 08/26/25 03:10 Pulse Rate 93 08/26/25 03:10 Respiratory Rate 18 08/26/25 03:10 Blood Pressure 115/58 L 08/26/25 03:10 Pulse Oximetry 94 08/26/25 03:10 [facility] MDM Narrative Medical decision making narrative: Patient presents with a cough of 1 months duration. Associated with chest pain and shortness of breath. Status post course of amoxicillin and azithromycin. 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 In the emergency department she is afebrile with vital signs notable for mild tachycardia as well as hypertension. Viral swab negative. D-dimer greater than 1. Will proceed with CT imaging and give 500cc IV fluids for tachycardia. CBC unremarkable. Troponin within normal limits. Hyperglycemia without anion gap acidosis. Sodium corrects to 135-136 in the setting of this. Repeat troponin within normal limits. Patient's temperature is rising, borderline febrile. Acetaminophen ordered. CT as below. Otherwise stable for discharge. Advised follow up with pcp. Given chronicity of pulmonary issues (now and history of pneumonia and previous bronchitis), also provided referral contact information for pulm. Given chest pain but low risk factors and 2 negative troponins, outpatient cardiology also reasonable. Differential Diagnosis Differential Diagnosis: viral syndrome, bronchitis, pneumonia, lung abscess, PE, ACS Medical Records I have reviewed the following patient records and this information was taken into consideration when formulating the assessment and plan.: previous ER visits Lab Data MDM Lab Attestation statement: I personally reviewed the patient's lab results. 08/25/25 21:20 08/25/25 21:20 Labs: Lab Results 08/25/25 08/25/25 08/26/25 Range/Units 21:19 21:20 00:45 WBC 7.4 (4.5-10.0) K/mm3 RBC 4.24 (4.2-5.4) M/mm3 Hgb 13.2 (12.0-15.0) g/dL Hct 40.4 (37.0-47.0) % MCV 95.3 (80-100) fl MCH 31.1 (26-34) pg MCHC 32.7 (32-36) g/dl RDW 13.1 (11.5-14.5) % Plt Count 229 (150-375) k/mm3 MPV 9.2 (7.4-10.4) fl Immature Gran % (Auto) 0.1 (0-0.5) % Neut % (Auto) 57.7 (45.5-73.1) % Lymph % (Auto) 31.6 (18.3-44.2) % [place] % (Auto) 8.0 (2.6-8.5) % Eos % (Auto) 2.2 (0-4.4) % Baso % (Auto) 0.4 (0.2-1.2) % Lymph # (Auto) 2.34 (0.9-3.2) K/mm3 [place] # (Auto) 0.6 (0.1-0.6) K/mm3 Eos # (Auto) 0.2 (0-0.3) K/mm3 Baso # (Auto) 0.0 (0.0-0.1) K/mm3 Abs Immat Gran (auto) 0.01 (0.00-0.031) K/mm3 Absolute Neuts (auto) 4.3 (1.3-6.7) K/mm3 Absolute Nucleated RBC 0.000 (0.0-0.012) K/mm3 Nucleated RBC % 0.0 (0.0-0.2) % D-Dimer 1.26 H (<0.48) ug/mL Sodium 134 L (137-145) mmol/L Potassium 3.7 (3.4-5.0) mmol/L Chloride 102 (98-107) mmol/L Carbon Dioxide 25 (22-30) mmol/L Anion Gap 7 (4-12) mmol/L BUN 9 D (7-17) mg/dL Creatinine 0.61 L (0.7-1.0) mg/dL Estim Creat Clear Calc 114 ml/min Estimated GFR > 60 (59 - ) Glucose 177 H (65-110) mg/dL Calcium 8.8 (8.4-10.2) mg/dL Troponin I < 0.012 < 0.012 (0.000-0.034) ng/mL Influenza A (RT-PCR) Negative (Negative) Influenza B (RT-PCR) Negative (Negative) RSV (RT-PCR) Negative (Negative) SARS-CoV-2 RNA (RT-PCR) Negative (Negative) Imaging Data Radiologist's impression: ITS Impressions Chest X-Ray 08/25/25 21:34 IMPRESSION: 1: NO ACUTE CARDIOPULMONARY DISEASE. CTA Chest stat rad: Postop changes prior cholecystectomy. Hepatic steatosis. Comparison made with prior exam dated 11/09/2023. Bone windows demonstrate no focal abnormality. No pulmonary embolus. ECG Data EKG #1: Attestation: I personally reviewed and interpreted this ECG as follows: ECG completion date: 08/25/25 ECG completion time: 21:08 Interpretation: Normal sinus rhythm at a rate of 92 beats per minute. NM interval 136. QRS 97. QT/QTC 364/414. T-wave inversion in 3 but upright in contiguous inferior leads. No other T-wave inversions. No marked ST segment elevations or depressions. EKG #2: Attestation: I personally reviewed and interpreted this ECG as follows: ECG completion date: 08/26/25 ECG completion time: 00:48 Interpretation: Normal sinus rhythm at a rate of 94 beats per minute. NM interval 142. QRS 104. QT/QTC 384/42. Good R-wave progression across the precordial leads. No T-wave inversions. No ST segment elevation or depression. Discharge Plan Discharge Clinical Impression: Chronic coughing, Shortness of breath, Chest pain, Hyperglycemia, Bronchitis, Hepatic steatosis Patient Disposition: Home Condition: Stable Instructions: Antibiotic Form, Chest Pain (DC), Acute Bronchitis (ED), Chronic Cough (ED), Nondiabetic Hyperglycemia (ED), Shortness of Breath (ED) Additional Instructions: Your chest xray and CT did not reveal a cause of your chronic cough. We call this bronchitis. More Tessalon perles have been prescribed. Rest and maintain your hydration. Follow up with your primary care physician. Given how long this has lasted, the name of a voice over announcer is listed below (lung doctor). Your chest pain workup was reassuring in regards to her EKG and cardiac enzymes x2 however given your age/risk factors, I do recommend following up for outpatient further work up. Name of a patient educator is listed as well. Acetaminophen/Tylenol (maximum 4000 mg per day) is safe to take with NSAIDs (ibuprofen/Motrin) for pain relief. You tested negative for COVID, influenza a, influenza B, and RSV. Patient Language: Djiboutian Prescriptions: New acetaminophen 500 mg capsule 1,000 mg PO Q6H PRN (Reason: pain) Qty: 30 0RF ibuprofen 200 mg capsule 600 mg PO Q8H PRN (Reason: fever or pain) Qty: 30 0RF benzonatate 100 mg capsule 100 mg PO BID PRN (Reason: cough) Qty: 20 0RF albuterol sulfate 90 mcg/actuation HFA aerosol inhaler 1 inh inhalation QID PRN (Reason: shortness of breath or wheezing) Qty: 6.7 0RF No Action albuterol sulfate 90 mcg/actuation HFA aerosol inhaler 2 puff inhalation QID PRN (Reason: shortness of breath or wheezing) Qty: 8.5 0RF benzonatate 200 mg capsule 200 mg PO TID PRN (Reason: cough) Qty: 21 0RF methocarbamol 750 mg tablet 750 mg PO TID Qty: 30 0RF pseudoephedrine HCl 60 mg tablet 60 mg PO Q4-6H PRN (Reason: nasal congestion) Qty: 30 0RF Rx Instructions: DNExceed 4 doses/24h albuterol sulfate 90 mcg/actuation HFA aerosol inhaler 2 - 4 puff INHALATION QID PRN (Reason: shortness of breath or wheezing) Qty: 8 0RF ibuprofen 600 mg tablet 600 mg PO TID PRN (Reason: pain) Qty: 30 0RF ondansetron 4 mg tablet,disintegrating 4 mg PO Q8H PRN (Reason: nausea and vomiting) Qty: 7 0RF acetaminophen 500 mg capsule 1,000 mg PO Q6H PRN (Reason: pain) Qty: 30 0RF Follow-up/Referrals: Gideon,MD Rhys [Primary Care Provider] Rhys Angeles MD [Physician, Cardiology] Rhys Zhu MD [Physician, Pulmonology] Stand Alone Forms: Work/School Release IP Time of Disposition: 02:58
--- OUTSIDE RECORDS SUMMARY | 2025-08-25 20:51 | XMS_ITS | Clinical Summary ---
Author Organization [facility] Address [facility] [place] [address] Care Team Providers Care Fiberglass Autobody Repairer Name Role Phone Unavailable Primary Care Provider [...]
--- OUTSIDE RECORDS SUMMARY | 2025-08-25 20:51 | XMS_ITS | Encounter Summary ---
Author Organization [facility] Address [facility] [place] [address] Care Team Providers Care Plate Grainer Name Role Phone Unavailable Primary Care Provider Unavailabl e Encounter Details Date Type Department Care Team (Late st Contact Info) Description 02/05/2019 Abstract [facility] CONVERSION [address] [place] [address] , Generic Conversion, Social History Tobacco Use [...]
--- OUTSIDE RECORDS SUMMARY | 2025-08-25 20:52 | XMS_ITS | Encounter Summary ---
Author Organization [facility] Address [address] [place] [address] Care Team Providers Care Help Desk Internship Name Role Phone Unavailable Primary Care Provider [...]
--- OUTSIDE RECORDS SUMMARY | 2025-08-25 20:52 | XMS_ITS ---
Author Organization Unknown Address [address], [place] [id number] Phone Care Team Providers Care Rn Ccu Name Role Phone ANTONIO Skinner (CC) Attending Unavailabl e OTHER Primary Unavailable Immunization Immunization Date Status Additional Notes Code Code System Pneumococcal conjugate PCV20 , polysaccharide [id number] conjugate, adjuvant, PF 06/26/2025 Completed 216 CVX [...] tem History and physical examination, pre-employment 08/02 [id number] SNOMED-CT Personal Care Team Section Performer Name Performer Role Active Date Inactive Da te Other Physician PCP - Primary care physician 3
--- OUTSIDE RECORDS SUMMARY | 2025-08-25 20:52 | XMS_ITS | Encounter Summary ---
Author Organization [facility] Address [address] [place] [address] Care Team Providers Care Conference Assistant Name Role Phone Unavailable Primary Care Provider Unavailabl e Encounter Details Date Type Department Care Team (Late st Contact Info) Description 06/05/2008 Abstract [facility] Clin[facility] Conversion Md, Generic Conversion, Social [...]
--- OUTSIDE RECORDS SUMMARY | 2025-08-25 20:52 | XMS_ITS | Clinical Summary ---
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 Gender Identity Not on file Sexual Orientation Not on file Last Filed Vital Signs Vital Sign Reading Time Taken Comments Blood Pressure 110/73 07/11/2022 4:47 PM SCHOOL FUNDRAISING DIRECTOR Pulse 73 07/11/2022 4:47 PM SCHOOL FUNDRAISING DIRECTOR Temperature 36.7 C (98 F) 07/11/2022 3:06 PM SCHOOL FUNDRAISING DIRECTOR Respiratory Rate 20 07/11/2022 4:47 PM SCHOOL FUNDRAISING DIRECTOR Oxygen Saturation 100% 07/11/2022 4:47 PM SCHOOL FUNDRAISING DIRECTOR Inhaled Oxygen Concentration - - Weight - [...] Completed 08/05/[address]21 Insurance [employer] [address] [address] [place] [address] Care Teams Furniture And Bedding Inspector Relationship Specialty Start Date End Date Rhys Meneses MD PCP - General Internal Medicine 07/21/24
--- OUTSIDE RECORDS SUMMARY | 2025-08-25 20:52 | XMS_ITS ---
Author Organization Unknown Address [address], [place] [id number] Phone Care Team Providers Care Early Childhood Services Coordinator Name Role Phone ANTONIO Skinner (CC) Attending Unavailabl e OTHER Primary Unavailable Immunization Immunization Date Status Additional Notes Code Code System Pneumococcal conjugate PCV20 , polysaccharide [id number] conjugate, adjuvant, PF 06/26/2025 Completed 216 CVX [...] tem History and physical examination, pre-employment 08/02 [id number] SNOMED-CT Personal Care Team Section Performer Name Performer Role Active Date Inactive Da te Other Physician PCP - Primary care physician 3
--- OUTSIDE RECORDS SUMMARY | 2025-08-25 20:52 | XMS_ITS | Clinical Summary ---
Author Organization [facility] Address [address] [address] Care Team Providers Care Cooker Chip Name Role Phone Karen Rahman PA-C Primary Care Provider Source Comments [facility],non-owned Affiliates and Associated Physician Practices is amultiple site organization consisting of ambulatory clinics and hospital sitesin [place], [place], [place] and [place]. This disclosure is being madepursuant to the Care Everywhere program and may not contain all information available regarding this patient. Last updated 18.[facility] Allergies Active Allergy Reactions Criticality Noted Date [...] spasms) 10 tablet 02/08/2023 Active HYDROcodone-marin taminophen ([place]) 10-325 MG tabletIndicatio ns:Other low back pain TAKE ONE TABLET BY MOUTH 3 TIMES A DAY NEEDED FOR 15 DAYS 45 tablet 03/15/2024 Active HYDROcodone-marin taminophen ([place]) 10-325 MG tabletIndicatio ns:Other low back pain TAKE ONE TABLET BY MOUTH 3 TIMES A DAY NEEDED FOR 15 DAYS 45 tablet 03/29/2024 Active HYDROcodone-marin taminophen ([place]) 10-325 MG tabletIndicatio ns:Other low back pain TAKE ONE TABLET BY MOUTH 3 TIMES A DAY NEEDED FOR 15 DAYS 45 tablet 04/12/2024 Active HYDROcodone-marin taminophen ([place]) 10-325 MG tabletIndicatio ns:Other low back pain [...] on file Legal Sex Female 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 AM DIVIDER OPERATOR Gender Identity Not on file Sexual Orientation [...] Comments LIPID PROFILE Routine 08/01/2024 2:54 PM DIVIDER OPERATOR Diabetes mellitus without complication HIV-1 HIV-2 ANTIBODY W/ REFLX CONFIRM Routine 07/19/2015 3:52 PM DIVIDER OPERATOR Possible exposure to STD from Last 3 Months or Most Recently Relevant to Health Maintenance Results * (ABNORMAL) LIPID PROFILE (08/01/2024 2:54 PM DIVIDER OPERATOR) Cholesterol Total 196 <200 mg/dL 08/01/2024 3:53 PM DIVIDER OPERATOR [facility] HDL 55 >40 mg/dL 08/01/2024 3:53 PM DIVIDER OPERATOR [facility] Comment: ATP III Classification of HDL Cholesterol: <40 mg/dL: Considered a major risk factor. >60 mg/dL: Considered a negative risk factor. LDL Calculated 90 <100 mg/dL 08/01/2024 3:53 PM DIVIDER OPERATOR [facility] Comment: ATP III Classification of LDL Cholesterol: <100 mg/dL: Optimal 100 - 129 mg/dL: Near Optimal/Above Optimal 130 - 159 mg/dL: Borderline High 160 - 189 mg/dL: High >190 mg/dL: Very High Triglycerides 255(H) <150 mg/dL 08/01/2024 3:53 PM DIVIDER OPERATOR [facility] Comment: ATP III Classification of Triglycerides: <150 mg/dL: Normal 150 - 199 mg/dL: Borderline High 200 - 400 mg/dL: High >500 mg/dL: Very High Blood BLOOD SPECIMEN / Unknown Lab Venipuncture / Unknown 08/01/2024 2:54 PM DIVIDER OPERATOR 08/01/2024 3:23 PM DIVIDER OPERATOR us Provider Unknown LAB - CHEMISTRY ORDERABLES Merle l Result [facility] [address] [place] [id number], [facility] [phone] * HIV-1 HIV-2 ANTIBODY W/ REFLX CONFIRM (07/19/2015 3:52 PM DIVIDER OPERATOR) HIV-1/HIV-2 Negative Negative 07/22/2015 12:40 AM DIVIDER OPERATOR [facility] ([facility]) Comment: Based on the non-reactive anti-HIV [...] Unknown Venipuncture / Unknown 07/19/2015 3:52 PM DIVIDER OPERATOR 07/19/2015 3:54 PM DIVIDER OPERATOR us Karen Rahman PA-C LAB - SEROLOGY ORDERABLES Fi nal Result [facility] ([facility]) [address] [place] [address], [facility] from Last 3 Months or Most Recently Relevant to Health Maintenance Insurance MEDICAID - [place] [employer] [place] [facility] Care Teams Cooker Chip Relationship Specialty Start Date End Date Karen Rahman, REBECAC [address] [place] [address] PCP - General Physician Sped Teacher 01/30/15
--- OUTSIDE RECORDS SUMMARY | 2025-08-25 20:52 | XMS_ITS | Encounter Summary ---
Author Organization [facility] Address [address] [place] [address] Care Team Providers Care Bellmaker Name Role Phone Unavailable Primary Care Provider Unavailabl e Encounter Details Date Type Department Care Team (Late st Contact Info) Description 05/23/2008 Abstract [facility] Clinics Conversion Md, Generic Conversion, [...]
--- OUTSIDE RECORDS SUMMARY | 2025-08-25 20:52 | XMS_ITS | Encounter Summary ---
Author Organization [facility] Address [address] [place] [address] Care Team Providers Care Drill Press Tender Name Role Phone Unavailable Primary Care Provider Unavailabl e Encounter Details Date Type Department Care Team (Late st Contact Info) Description 04/13/2008 Abstract [facility] Conversion Md, Generic Conversion, [...]
--- NOTE | 2025-08-25 20:59 | ECG_ITS ---
Test Date: 2025-08-25 21:08:51 Measurements Intervals [place] Rate: 92 P: 64 CO: 136 QRS: -15 QRSD: 97 T: 18 QT: 364 QTc: 452 Interpretive Statements SINUS RHYTHM EARLY PRECORDIAL R/S TRANSITION BORDERLINE ECG No previous ECG available for comparison Electronically Signed On 08-26-2025 09:03:28 KNIFE CHANGER by Bro Lam D.O.
[2025-08-25] MEDS: BENZONATATE 100 MG CAPSULE PO ×2 (21:09→22:53)
[2025-08-25 21:25] LABS: Hematocrit 40.4 % (37.0-47.0); Hemoglobin 13.2 g/dL (12.0-15.0); Immature Granulocyte Percent A 0.1 % (0-0.5); Lymphocytes Absolute Auto 2.34 K/mm3 (0.9-3.2); Mean Corpuscular HGB Conc 32.7 g/dl (32-36); Mean Corpuscular Hemoglobin 31.1 pg (26-34); Mean Corpuscular Volume 95.3 fl (80-100); Nucleated Red Blood Cells Absolute Auto 0.000 K/mm3 (0.0-0.012); Nucleated Red Blood Cells Perc 0.0 % (0.0-0.2); Platelet Count Result 229 k/mm3 (150-375); Red Blood Count 4.24 M/mm3 (4.2-5.4); White Blood Count 7.4 K/mm3 (4.5-10.0)
[2025-08-25 21:35] LABS: Anion Gap 7 mmol/L (4-12); Blood Urea Nitrogen 9 mg/dL (7-17); Calcium 8.8 mg/dL (8.4-10.2); Carbon Dioxide 25 mmol/L (22-30); Chloride 102 mmol/L (98-107); Estimated CRCL calculation 114 ml/min; Estimated Glomerular Filt Rate > 60; Glucose 177 mg/dL (65-110); Potassium 3.7 mmol/L (3.4-5.0); Sodium 134 mmol/L (137-145)
[2025-08-25 21:47] LABS: Troponin I < 0.012 ng/mL (0.000-0.034)
[2025-08-25 22:01] LABS: Influenza A QL RT-PCR Negative (Negative); Influenza B QL RT-PCR Negative (Negative); RSV RNA, RT-PCR Negative (Negative); SARS-CoV-2 RNA PCR Negative (Negative)
[2025-08-25 22:45] VITALS: BP 155/80; PULSE 94; RESP 16; TEMP 37.7; O2SAT 96
[2025-08-25] MEDS: SODIUM CHLORIDE 0.9% IV 500 ML 999 ML IV CONT (23:04)
[2025-08-26 00:32] VITALS: BP 131/59; PULSE 96; RESP 18; TEMP 37.7; O2SAT 94
--- NOTE | 2025-08-26 00:32 | ECG_ITS ---
Test Date: 2025-08-26 00:48:46 Measurements Intervals [place] Rate: 94 P: 63 DC: 142 QRS: -3 QRSD: 104 T: 42 QT: 384 QTc: 482 Interpretive Statements SINUS RHYTHM INCOMPLETE RIGHT BUNDLE BRANCH BLOCK BORDERLINE ECG Compared to ECG 08/25/2025 21:08:51 No significant changes Electronically Signed On 08-26-2025 09:08:21 EMPLOYMENT ATTORNEY by Bro Lma D.O.
[2025-08-26 01:19] LABS: Troponin I < 0.012 ng/mL (0.000-0.034)
[2025-08-26] MEDS: ACETAMINOPHEN 500 MG TABLET 1000 MG PO (02:21)
[2025-08-26 03:10] VITALS: BP 115/58; PULSE 93; RESP 18; TEMP 37; O2SAT 94
== END 2025-08-26 03:13 | disposition home or self-care (01) ==
PROVIDERS: Emergency Medicine; Emergency Provider Student in an Organized Health Care Education/Training Program; PCP Internal Medicine
DX: R73.9 Hyperglycemia, unspecified (principal); J40 Bronchitis, not specified as acute or chronic; K76.0 Fatty (change of) liver, not elsewhere classified; R06.02 Shortness of breath; R07.9 Chest pain, unspecified; R05.3 Chronic cough
CPT/HCPCS: 36415; 71046; 71275; 80048; 84484; 85025; 85380; 87637; 93005; 99284; A9270; J7040; Q9967